=== PATIENT | male | born 1950 | race Caucasian/White ===

== ENCOUNTER 2017-12-31 15:48 | Emergency (ER) | payer MEDICARE, BC ==
[~2017-12-31] VITALS: Ht 190.5 cm; Wt 82.1 kg
--- OUTSIDE RECORDS SUMMARY | ~2017-12-31 | XMS | Encounter Summary ---
Demographics + + + | Address | [address] | | | [place] [address] | + + + | Home Phone | | + + + | Preferred Language | Unknown | + + + | Marital Status | Single | + + + | Latter Day Affiliation | CHR | + + + | Race | White | + + + | Ethnic Group | Not or | + + + Author + + + | Author | [facility] | + + + | Organization | [facility] | + + + | [...] Team Providers + +------+ + | Care Product Applications Engineer Name | Role | Phone | + +------+ + | Reji Morales MD | PCP | | + +------+ + Encounter Details +--------+ + + + + | Date | Type | Department | Care Team | Description | +--------+ + + + + | 10/11/ | Business System Manager | Urology at [facility] | [place], | Prostate cancer | | 2018 | | [address] | Adeel Stephens MD | ([facility]) (Primary Dx) | | | | Mail Code: CH10U | [address] | | | | | [facility] | [facility], | | | | | and Connie | [place] [address] | | | | | [place], [place] | [phone] | | | | | [address] | | | | | | [phone] | | | +--------+ + + + [...] + +---------+ + | Alcohol Use | Drinks/We | oz/Week | Comments | | | ek | | | + + +---------+ + | Yes | | 10.0 | | + + +---------+ + + + + | Sex Assigned at | Date Recorded | | | | + + + | Not on file | | + + + as of this encounter Plan of Treatment +--------+---------+ + + + | Date | Type | Specialty | Care Team | Description | +--------+---------+ + + + | 01/18/ | Office | Urology | Roxy Boykin, | | | 2018 | Visit | | CLAUDINE [address] [facility] | | | | | | [address] | | | | | | [place], [place] | | | | | | [address] | | | | | | [phone] | | | | | | | | +--------+---------+ + + + as of this encounter Results PATHOLOGY CONSULT - REVIEW OUTSIDE SLIDES (10/16/2017 10:22 AM) + + + + | Component | Value | Ref Range | + + + + | Clinical History | Not provided | | + + + + | Final Pathologic | A. Left base, core biopsies ([id number], | | | Diagnosis | 09.14.17, A): ? Prostatic glands and stroma | | | | with no diagnostic abnormality? Negative | | | | for malignancy B. Left mid, core biopsies | | | | ([id number], 09.14.17, B): ? Adenocarcinoma | | | | of the prostate gland, [place] grade 3+3? | | | | Tumor focus measures approx. 0.1 cm C. | | | | Left apex, core biopsies ([id number], | | | | 09.14.17, C): ? Adenocarcinoma of the | | | | prostate gland, Kim grade 3+3? Tumor | | | | focus measures approx. 0.1 cm D. Right | | | | base, core biopsies ([id number], 09.14.17, | | | | D): ? Adenocarcinoma of the prostate | | | | gland, [place] grade 3+3? Tumor focus | | | | measures approx. 0.5 cm E. Right mid, core | | | | biopsies([id number], 09.14.17, E): ? | | | | Adenocarcinoma of the prostate gland, | | | | [place] grade 4+3? Tumor focus measures | | | | approx. 1.0 cm? F. Right apex, core | | | | biopsies ([id number], 09.14.17, F): ? | | | | Adenocarcinoma of the prostate gland, | | | | Kim grade 4+4? Tumor focus measures | | | | approx. 0.3 cm Q. Left transitional zone, | | | | core biopsies ([id number], 09.14.17, Q): ? | | | | Prostatic glands and stroma with focal | | | | high-grade PIN? Negative for maligncy R. | | | | Right transitional zone, core biopsies | | | | ([id number], 09.14.17, R):? ? Prostatic | | | | glands and stroma with no diagnostic | | | | abnormality? Negative for malignancy | | | | Comment: Thank you for sharing this case, | | | | we completely concur with Dr. Del Castillo | | | | Agustina's diagnosis. Case seen by:Carlos | | | | MD Mary | | | | | | | | Pathology ResidentNima Peguero MD | | | | | | | | Pathologist My electronic signature | | | | indicates that I have personally reviewed | | | | all diagnostic slides, the gross and/or | | | | microscopic portion of this report and | | | | formulated the final diagnosis. | | | |Comment: Thank you for sharing this case, we completely concur with Dr Angelia Berrios's diagnosis. | | | | | | | |Case seen by: | | | |Carlos Hernandez MD Pathology Resident | | | |Nima Peguero MD Pathologist | | | | | | | | | | | |My electronic signature indicates that I have personally reviewed all diagnostic | | | |slides, the gross and/or microscopic portion of this report and formul ated the final diagnosis. | | | | | | + + + + | Materials Received | [facility] | | | | [place], [place] [id number] | | | | Accession Number: [id number] | | | | Collection Date: 09/14/2017 Sublabeled H&E | | | | A-F, Q, R 9 | | | |Sublabeled H&E | | | |A-F, Q, R 9 | | | | | | | | | | + + + + + + + | Specimen | Performing Laboratory | + + + | Slide-Block | [facility] DEPARTMENT OF PATHOLOGY [address] | | | [place], [place] [address] | + + + in this encounter Visit Diagnoses + + | Diagnosis | + + | Prostate cancer (HCC) - Primary | + + | Malignant neoplasm of prostate | + +"
--- OUTSIDE RECORDS SUMMARY | ~2017-12-31 | XMS | Encounter Summary ---
Demographics + + + | Address | [address] | | | [place] [address] | + + + | Home Phone | | + + + | Preferred Language | Unknown | + + + | Marital Status | Single | + + + | Jainism Affiliation | CHR | + + + | Race | White | + + + | Ethnic Group | Not or | + + + Author + + + | Author | [facility] | + + + | Organization | [facility] | + + + | Address [...] Team Providers + +------+ + | Care Type Photography Supervisor Name | Role | Phone | + +------+ + | Reji Morales MD | PCP | | + +------+ + Encounter Details +--------+ + + + + | Date | Type | Department | Care Team | Description | +--------+ + + + + | 11/30/ | Abstract | Urology at [facility] | [place], | | | 2018 | | [address] | Adeel Stephens MD | | | | | Mail Code: CH10U | [address] | | | | | [facility] | [facility], | | | | | and Healing, [address] | [place] [address] | | | | | Floor [place], [place] | [phone] | | | | | [address] | | | | | | [phone] | | | +--------+ + + + [...] | | 2018 | Visit | | [facility] [address] | | | | | | [address] | | | | | | [place], [place] | | | | | | [address] | | | | | | [phone] | | | | | | | | +--------+---------+ + + + as of this encounter Visit Diagnoses Not on filein this encounter"
--- OUTSIDE RECORDS SUMMARY | ~2017-12-31 | XMS | Encounter Summary ---
Demographics + + + | Address | [address] | | | [place] [address] | + + + | Home Phone | | + + + | Preferred Language | Unknown | + + + | Marital Status | Single | + + + | Caodaism Affiliation | CHR | + + + | Race | White | + + + | Ethnic Group | Not or | + + + Author + + + | Author | [facility] | + + + | Organization | [facility] | + + + | Address [...] Team Providers + +------+ + | Care Garbage Man Name | Role | Phone | + +------+ + | Reji Morales MD | PCP | | + +------+ + Encounter Details +--------+ + + + + | Date | Type | Department | Care Team | Description | +--------+ + + + + | 12/09/ | Pharmacy | Outpatient Retail | | | | 2017 | Visit | [facility] | | | | | | [address] | | | | | | [facility] | | | | | | [place], [place] | | | | | | [address] | | | +--------+ + + + [...] | | + + +---------+ + | No | | 10.0 | | + + [...] Urology | Roxy Boykin, | | | 2017 | Visit | | CLAUDINE [address] | | | | | | [address] | | | | | | [place], [place] | | | | | | [address] | | | | | | [phone] | | | | | | | | +--------+---------+ + + + as of this encounter Visit Diagnoses Not on filein this encounter"
--- OUTSIDE RECORDS SUMMARY | ~2017-12-31 | XMS | Encounter Summary ---
Demographics + + + | Address | [address] | | | [place] [address] | + + + | Home Phone | | + + + | Preferred Language | Unknown | + + + | Marital Status | Single | + + + | Sabianism Affiliation | CHR | + + + | Race | White | + + + | Ethnic Group | Not or | + + + Author + + + | Author | [facility] | + + + | Organization | [facility] | + + + | Address [...] Team Providers + +------+ + | Care Access Developer Name | Role | Phone | + +------+ + | Reji Morales MD | PCP | | + +------+ + Reason for Visit +---------+ + | Reason | Comments | +---------+ + | Post Op | | +---------+ + Encounter Details +--------+ + + + + | Date | Type | Department | Care Team | Description | +--------+ + + + + | 12/14/ | Telephone | Urology at [facility] | [place], | Post Op | | 2018 | | [address] | Adeel Stephens MD | | | | | Mail Code: CH10U | [address] | | | | | [facility] | [facility], | | | | | and Healing, | [place] [address] | | | | | Floor [place], [place] | [phone] | | | | | [address] | | | | | | [phone] | | | +--------+ + + + [...] 2017 | Visit | | CLAUDINE [address] [facility] | | | | | | [address] | | | | | | [place] | | | | | | [address] | | | | | | [phone] | | | | | | | | +--------+---------+ + + + as of this encounter Visit Diagnoses Not on filein this encounter"
--- OUTSIDE RECORDS SUMMARY | ~2017-12-31 | XMS | Encounter Summary ---
Demographics + + + | Address | [address] | | | [place] [address] | + + + | Home Phone | | + + + | Preferred Language | Unknown | + + + | Marital Status | Single | + + + | Anabaptism Affiliation | CHR | + + + | Race | White | + + + | Ethnic Group | Not or | + + + Author + + + | Author | [facility] | + + + | Organization | [facility] | + + + | [...] Team Providers + +------+ + | Care Shoe Stainer Name | Role | Phone | + [...] + + | 12/15/ | Emergency | [facility] Emergency | | | | 2017 | | Department [address] | | | | | | [address] | | | | | | [facility] | | | | | | [place] [address] | | | | | | [phone] | | | +--------+ + + + [...] + + + as of this encounter Medications at Time of Discharge + + +--------+---------+ + + | Medication | Sig. | Disp. | Refills | Start | End Date | | | | | | Date | | + + +--------+---------+ + + | amantadine HCl 100 | Take 1 tablet by | | 1 | 12/10/19 | | | mg oral tablet | mouth two times | | | 18 | | | | daily. | | | | | + + +--------+---------+ + + | carbidopa-levodopa | Take 1 tablet by | 120 | 11 | 09/17/19 | | | 25-100 mg oral | mouth four times | tablet | | 16 | | | tablet | daily. | | | | | + + +--------+---------+ + + | Enalapril Maleate | take 1 tablet (20mg) | | | | | | 20 mg [place] TABS | by oral route once | | | | | | | daily | | | | | + + +--------+---------+ + + | LORazepam 0.5 mg | Take 0.5 mg by mouth | | | | | | oral tablet | every four hours as | | | | | | | needed for anxiety. | | | | | + + +--------+---------+ + + | phytonadione 100 | Take 100 mcg by | | | | | | mcg oral tablet | mouth once daily. | | | | | + + +--------+---------+ + + | senna-docusate | Take 2 tablets by | 20 | 0 | 12/10/19 | | | 8.6-50 mg oral | mouth twice daily as | tablet | | 18 | | | tabletIndications: | needed. | | | | | | Malignant neoplasm | | | | | | | of prostate (HCC) | | | | | | + + +--------+---------+ + + | polyethylene | Mix 1 packet and | 15 | 0 | 12/14/19 | | | glycol (MIRALAX) 17 | take orally once | packet | | 18 | 8 | | gram oral powder in | daily for 15 days. | | | | | | packet | | | | | | + + +--------+---------+ + + as of this encounter Plan of Treatment +--------+---------+ + + + | Date | Type | Specialty | Care Team | Description | +--------+---------+ + + + | 01/18/ | Office | Urology | Roxy Boykin, | | | 2017 | Visit | | [address] | | | | | | [address] | | | | | | [place] | | | | | | [address] | | | | | | [phone] | | | | | | | | +--------+---------+ + + + as of this encounter Visit Diagnoses Not on filein this encounter"
--- OUTSIDE RECORDS SUMMARY | ~2017-12-31 | XMS | Encounter Summary ---
Demographics + + + | Address | [address] | | | [place] [address] | + + + | Home Phone | | + + + | Preferred Language | Unknown | + + + | Marital Status | Single | + + + | Gnosticist Affiliation | CHR | + + + [...] Team Providers + +------+ + | Care Lining Setter Name | Role | Phone | + [...] | cancer (HCC) | [address] | | | | | Procedures | [address] | | | | | REQUEST TO | [address] | | | | | SURGERY | [address] | [address] [place], | | | | | [facility] | [place], [place] | [place] | | | | | [place] | [address] | [address] | | | | | LAP,PROSTATE | Phone: | Phone: | | | | | CTOMY,RADICA | [phone] | [phone] | | | | | L,W/NERVE | Fax: | Fax: | | | | | [place] | [phone] | [phone] | | | | | LAP,PELVIC | [...] | 10/17/ | Telephone | Urology at [facility] | [place], | Surgery | | 2018 | | [address] | Adeel Stephens MD | | | | | Mail Code: CH10U | [address] | | | | | [facility] | [facility], | | | | | and Healing, [address] | [place] [address] | | | | | Floor [place], [place] | [phone] | | | | | [address] | | | | | | [phone] | | | +--------+ + + + [...] | 2017 | Visit | | CLAUDINE [address] [facility] | | | | | | [address] | | | | | | [place], [place] | | | | | | [address] | | | | | | [phone] | | | | | | | | +--------+---------+ + + + as of this encounter Visit Diagnoses + + | Diagnosis | + + | Prostate cancer (HCC) - Primary | + + | Malignant neoplasm of prostate | + +"
--- OUTSIDE RECORDS SUMMARY | ~2017-12-31 | XMS | Encounter Summary ---
Demographics + + + | Address | [address] | | | [place] [address] | + + + | Home Phone | | + + + | Preferred Language | Unknown | + + + | Marital Status | Single | + + + | Pentecostalism Affiliation | CHR | + + + | Race | White | + + + | Ethnic Group | Not or | + + + Author + + + | Author | [facility] | + + + | Organization | [facility] | + + + | Address [...] Team Providers + +------+ + | [employer] Crew Member Name | Role | Phone | + [...] + + | 12/08/ | Hospital | [facility] [address] | [place], | | | 2018 - | Encounter | [address] | Adeel Stephens MD | | | | | 12/[facility]31 [facility] | | | | 12/09/ | | [facility] [place], | | | | 2018 | | [place] [address] | | | | | | [phone] | | | +--------+ + + + [...] + + + as of this encounter Last Filed Vital Signs + + + + | Vital Sign | Reading | Time Taken | + + + + | Blood Pressure | 116/67 | 12/09/2017 12:13 PM PDT | + + + + | Pulse | 107 | 12/09/2017 12:13 PM PDT | + + + + | Temperature | 36.7 C (98.1 F) | 12/09/2017 12:13 PM PDT | + + + + | Respiratory Rate | 16 | 12/09/2017 8:32 AM PDT | + + + + | Oxygen Saturation | 94% | 12/09/2017 12:13 PM PDT | + + + + | Inhaled Oxygen | - | - | | Concentration | | | + + + + | Weight | 86 kg (189 lb 9.5 | 12/08/2017 10:21 AM PDT | | | oz) | | + + + + | Height | 190.5 cm (6' 3") | 12/08/2017 10:21 AM PDT | + + + + | Body Mass Index | 23.7 | 12/08/2017 10:21 AM PDT | + + + + in this encounter Medications at Time of [...] +--------+---------+ + + as of this encounter Progress Notes Nupur Bardales MD - 12/09/2017 10:14 AM PDTFormatting of this note may be different from kathy e original. Urology Progress Note Hospital Day: 1 Author: NUPUR BARDALES MD Attending Physician: Adeel Salas MD Patient: CHAUNCEY VICKERS [id number] 24H events/Subjective: BAKARI overnight. Pain is well [...] 0659 12/09/17 0700 - 12/10/17 0659 Shift 2543-1890 6860-9343 24 Hour Total 9642-3576 0963-6315 2210-8472 24 Hour Total I N T A K E [address] 879 1704 565 565 I.V. 538.8 1385 2723.8 375 [...] Salas MD. Nupur Bardales MD Urology Pager [phone] in this encounter Plan of Treatment +--------+---------+ + + + | Date | Type | Specialty | Care Team | Description | +--------+---------+ + + + | 01/18/ | Office | Urology | Roxy Boykin, | | | 2017 | Visit | | CLAUDINE [address] | | | | | | [address] | | | | | | [place], [place] | | | | | | [address] | | | | | | [phone] | | | | | | | | +--------+---------+ + + + as of this encounter Procedures + +--------+ + + + | Procedure Name | Priori | Date/Time | Associated Diagnosis | Comments | | | ty | | | | + +--------+ + + + | ROBOTIC-ASSISTED | Electi | 12/08/2017 | C61 (ICD-10-CM) - | | | RADICAL | ve | 11:45 AM | 185 (ICD-9-CM) - | | | PROSTATECTOMY WITH | Surgic | PDT | PROSTATE CANCER | | | BILATERAL PELVIC | al | | (HCC) | | | LYMPH NODE | | | | | | DISSECTION | | | | | + +--------+ + + + in this encounter Results CBC (HEMOGRAM) ONLY (12/09/2017 4:24 AM) + + + + | Component | Value | Ref Range | + + + + | WHITE CELL COUNT | 10.40 | 3.50 - 10.80 K/cu mm | + + + + | RED CELL COUNT | 4.10 (L) | 4.50 - 6.00 M/cu mm | + + + + | HEMOGLOBIN | 12.4 (L) | 13.5 - 17.5 g/dL | + + + + | HEMATOCRIT | 37.3 (L) | 41.0 - 53.0 % | + + + + | MCV | 91.0 | 80.0 - 96.0 fL | + + + + | MCHC | 33.2 | 33.0 - 35.5 g/dL | + + + + | RDW SD | 42.2 | 35.1 - 46.3 fL | + + + + | PLATELET COUNT | 194 | 150 - 400 K/cu mm | + + + + | MPV | 11.8 | 9.7 - 12.3 fL | + + + + | NRBC% | 0.0 | 0.0 - 0.3 % | + + + + | NRBC# | 0.00 | 0.00 - 0.02 K/cu mm | + + + + + + + | Specimen | Performing Laboratory | + + + | Blood | [facility], [facility] [address] | | | [place] [address] | + + + CBC ONLY (12/09/2017 4:24 AM) + + + | Specimen | Performing Laboratory | + + + | Blood | | + + + + + | Narrative | + + | The following orders were created for panel order CBC ONLY. | | Procedure | | Abnormality Status | | --------- | | ------ CBC (HEMOGRAM) | | ONLY[[id number]] Abnormal Final | | result Please view results for these tests on the | | individual orders. | + + BASIC METABOLIC SET (NA, K, CL, TCO2, BUN, CR, GLU, CA) (12/09/2017 4:24 AM) + +---------+ + | Component | Value | Ref Range | + +---------+ + | GLUCOSE, PLASMA | 90 | 70 - 99 mg/dL | | (LAB) | | | + +---------+ + | BUN, PLASMA (LAB) | 19 | 6 - 20 mg/dL | + +---------+ + | CREATININE PLASMA | 1.09 | 0.70 - 1.30 mg/dL | | (LAB) | | | + +---------+ + | EGFR - | >60 | >60 mL/min | | SWAZI | | | + +---------+ + | EGFR NON | >60 | >60 mL/min | | -SWAZI | | | + +---------+ + | SODIUM, PLASMA (LAB) | 138 | 136 - 145 mmol/L | + +---------+ + | POTASSIUM, PLASMA | 3.6 | 3.4 - 5.0 mmol/L | | (LAB) | | | + +---------+ + | CHLORIDE, PLASMA | 103 | 97 - 108 mmol/L | | (LAB) | | | + +---------+ + | TOTAL CO2, PLASMA | 26 | 21 - 32 mmol/L | | (LAB) | | | + +---------+ + | CALCIUM, PLASMA | 8.3 (L) | 8.6 - 10.2 mg/dL | | (LAB) | | | + +---------+ + | ANION GAP | 9 | 4 - 11 mmol/L | + +---------+ + | POTASSIUM CMNT | No Hemo | | + +---------+ + + + + | Specimen | Performing Laboratory | + + + | Blood | [facility] [address] | | | [place] [address] | + + + + + | Narrative | + + | Adult glucose reference range change effective 7-12-17. GFR is estimated using the | | MDRD equation recommended by the National Kidney Disease Education Program. | | Estimated GFR Interpretive Information: <60 mL/min/1.73 sq | | m Chronic Kidney Disease <15 mL/min/1.73 sq | | m Kidney Failure Estimated GFR greater that 60 mL/min/1.73 | | sq m is of limited clinical value. The MDRD equation is not valid in the following | | situations: - Patients under 18 years of age - Severe malnutrition or obesity - | | Vegetarian diet - Rapidly changing kidney function | + + CAPILLARY BLOOD GLUCOSE (NO CHG), POC (12/08/2017 4:13 PM) + +---------+ + | Component | Value | Ref Range | + +---------+ + | BLOOD GLUCOSE, POC | 102 (H) | 70 - 99 mg/dL | + +---------+ + + + + | Specimen | Performing Laboratory | + + + | | [facility] [address] | | | [place] [address] | + + + PROCEDURE NOTE (12/08/2017 3:33 PM) + + | Narrative | + + | John Connors MD 12/08/2017 4:03 PM UROLOGIC ONCOLOGY OPERATIVE REPORT | | Date: 12/08/2017 Attending Surgeon: Adeel Salas M.D., .A.C.S. | | [Dr. Salas was present and scrubbed for the entire operation.] Resident Surgeon: | | John Connors MD School Cook: Roxy Boykin PA-C Preoperative Diagnosis: | | Clinically-localized prostate cancer Postoperative Diagnosis: Clinically-localized | | prostate cancer Procedures Performed: (1) Robotic-assisted laparoscopic radical | | prostatectomy (anatomic; bilateral nerve-sparing) (2) Robotic-assisted laparoscopic | | pelvic lymph node dissection Anesthesia: General endotracheal tube anesthesia | | Estimated Blood Loss: 25ml Pathology Specimens: (1) Prostate and seminal | | vesicles (2) Pelvic lymph nodes Drains: 20F Kaur Catheter, 10ml | | Complications: There were no complications. Prior to the beginning of the | | procedure, the team paused to verify the patient | | | | s identity, the procedure to be performed (in accordance with the consent,) and the | | correct side/site. The patient was positioned appropriately. All relevant images and | | results were properly labeled and displayed. We addressed antibiotic prophylaxis and | | fluids for irrigation as applicable to this patient. Any safety precautions were | | addressed. Indications: Chauncey Vickers is a 67 y.o. man with Parkinson's | | disease and clinically localized prostate cancer. His most recent PSA is 5.67ng/dL. | | A biopsy demonstrated Montgomery grade 4+4, 4+3, and 3+3 adenocarcinoma in 5/8 cores. | | After extensive discussion of his treatment options, he has elected to proceed with | | robot-assisted radical prostatectomy. Operative Findings: An anatomic, | | bilateral nerve-sparing technique was used. Both nerve bundles were preserved. The | | urethral length and support were outstanding. A water-tight tension-free anastomosis | | was performed. There was no gross evidence of extraprostatic disease. There were no | | apparent complications. Procedure: The patient was brought to the operating room | | where a general anesthetic was administered. He was placed in the dorsal lithotomy | | position and prepped and draped in usual sterile fashion. The abdomen was insufflated | | with a Veress needle at the umbilicus, and trocars were placed in the standard | | configuration. The patient was placed in Trendelenburg position, and the da Alan Si | | surgical system was docked. Attachments between the sigmoid and the abdominal | | wall were sharply divided. We then dropped the bladder posteriorly. The anterior | | abdominal wall was incised lateral to the medial umbilical ligaments and the space | | between the bladder and the anterior abdominal wall was developed to the level of the | | endopelvic fascia. The vas deferens were transected to allow access to the obturator | | fossa which was developed bluntly. At this point, the lymph node dissection was | | performed. Lymph node packages were removed from the obturator and hypogastric | | locations on both the left and the right sides. Care was taken to use clips as | | necessary to control small lymphatic channels. Once the lymph node dissection was | | complete, the right and left node packages placed in separate endocatch bags and sent | | for pathologic analysis. Nu-knit hemostatic gauze was placed into the | | obturator/hypogastric to provide compression and hemostasis. At this point the | | loose fatty tissue on the anterior surface of the prostate and bladder was removed | | using blunt dissection and electrocautery. The endopelvic fascia was cleared of | | overlying fatty tissue. The endopelvic fascia was then opened on both sides, and the | | space between the prostate and the levator muscles was developed to the level of the | | prostatic apex. The dorsal venous complex was transected with an Endo-AIRAM | | stapling device. The prostate-bladder junction was then developed with the use of | | electrocautery and sharp dissection with preservation of bladder neck. The bladder | | neck was entered anteriorly and the posterior bladder neck and base of the bladder | | were visualized. A 4-0 Polysorb was used to elyssa the bladder neck mucosa. The | | prostate was lifted anteriorly, and the space between the posterior bladder wall and | | prostate was developed carefully to the level of the seminal vesicles and the vas | | deferens. The vas deferens was transected and the seminal vesicles were freed from | | fibroadipose attachments. Care was taken to avoid use of electrocautery lateral to the | | seminal vesicles. The space between the prostate and the rectum was then developed | | in an antegrade fashion to the level of the prostatic apex. Attention was now directed | | to the prostatic pedicles and neurovascular bundles. A bilateral nerve sparing | | procedure was performed. As such, the prostatic pedicles were controlled by | | placement of Hem-0-Justin clips followed by sharp, cold transection. The lateral | | prostatic fascia was incised to allow release of the neurovascular bundles. The space | | between the neurovascular bundle and prostate was first developed near the apex of the | | prostate followed by retrograde bundle release. Then, the prostate was lifted to | | allow antegrade displacement of the bundle from the lateral-posterior aspect of the | | prostate. Using sharp dissection, the apex of the prostate was then developed. The | | urethra was transected at this location assuring a thick, lengthy urethral stump. | | The prostate was placed into an Endocatch bag. The posterior fascia was | | re-approximated using a running 3-0 V-Loc suture according to the technique of Donovan | | et al. The vesicourethral anastomosis was then performed with a running 3-0 v-loc. | | A 20-German catheter was placed, and irrigation showed no extravasation. The robot | | was then undocked. The fascia of the 12mm special event assistant port was closed with 0-Vicryl | | using the Akash-Charles device. The prostate specimen was extracted through the | | supraumbilical port site, and the fascia at this location was closed with 0-Vicryl | | suture in a running fashion. The skin at the supraumbilical site was reapproximated | | with a 5-0 V-Loc suture in a running subcuticular fashion. Indermil skin adhesive | | was used to re-approximate the skin at the other trocar sites. The patient was | | extubated in the operating room and transported from the operating room to the | | recovery room in stable condition. Adeel Salas MD was present for | | the entire case. Modifier 82 justification: Yusra Boykin PA-C was scrubbed and | | acted as international first officer at the patient | | | | s bedside. The resident, Dr. 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 [employer] control console and | | did not perform international first officer duties on the robotic-assisted portions of the case. | | Post-op plan: - PACU then marie - keep Kaur - Diet as tolerated - AM labs - | | Scheduled Tylenol and Toradol, narcotics prn - Oxybutynin PRN for bladder spasms | | JOHN CONNORS MD Urology Chief Resident | + + SURGICAL PATHOLOGY (12/08/2017 12:51 PM) + + + + | Component | Value | Ref Range | + + + + | Clinical History | Bilateral prostatic adenocarcinoma, Montgomery | | | | 3+4 | | + + + + | Final Pathologic | A. Lymph nodes, right pelvic, dissection:- | | | Diagnosis | Eight lymph nodes, negative for malignancy | | | | (0/8) B. Lymph nodes, left pelvic, | | | | dissection:- Two lymph node, negative for | | | | malignancy (0/2) C. Prostate and seminal | | | | vesicles, radical prostatectomy:- Prostatic | | | | acinar adenocarcinoma, Montgomery score 3+4=7 | | | | (grade group 2)- Estimated percentage of | | | | prostate involved by tumor: 15%- No | | | | extraprostatic extension identified- | | | | Margins: uninvolved by invasive carcinoma- | | | | Pathologic Staging Summary (AJCC 8th | | | | edition): pT2 pN0- See synoptic report | | | | below for additional details Case seen | | | | by:Emiliana Kenny MD | | | | | | | | Pathology ResidentSung-Brianda Bethea MD - | | | | Pathologist My electronic signature | | | | indicates that I have personally reviewed | | | | all diagnostic slides, the gross and/or | | | | microscopic portion of this report and | | | | formulated the final diagnosis. | | + + + + | SYNOPTIC REPORTS | PROSTATE GLAND: Radical | | | | Prostatectomy (Prostate Res - All | | | | Specimens) SPECIMEN | | | | Procedure: Radical prostatectomy | | | | Prostate Size: | | | | Prostate Weight (g): 41 g | | | | Prostate Greatest Dimension in Centimeters | | | | (cm): 4.5 Centimeters (cm) | | | | Additional Dimension in Centimeters | | | | (cm): 4 Centimeters (cm) | | | | Additional Dimension in Centimeters | | | | (cm): 4 Centimeters (cm) TUMOR | | | | Histologic Type: Acinar | | | | adenocarcinoma Montgomery | | | | Pattern: Percentage of | | | | Pattern 4: 20 % Primary | | | | Montgomery Pattern: Pattern 3 | | | | Secondary Kim | | | | Pattern: Pattern 4 | | | | Tertiary Montgomery Pattern: Not | | | | applicable Total Montgomery | | | | Score: 7 Grade | | | | Group: 2 Intraductal Carcinoma | | | | (IDC): Not identified Tumor | | | | Quantitation: Estimated percentage | | | | of prostate involved by tumor: 15 % | | | | Extraprostatic Extension (EPE): Not | | | | identified Urinary Bladder Neck | | | | Invasion: Not identified | | | | Seminal Vesicle Invasion: Not | | | | identified Treatment | | | | Effect: No known presurgical therapy | | | | Lymphovascular | | | | Invasion: Not Identified | | | | Perineural Invasion: Present | | | | MARGINS Margins: Uninvolved by | | | | invasive carcinoma LYMPH NODES | | | | Regional Lymph Nodes: | | | | Number of Lymph Nodes Involved: 0 | | | | Number of Lymph Nodes | | | | Examined: 10 PATHOLOGIC STAGE | | | | CLASSIFICATION (pTNM, AJCC 8th Edition) | | | | Primary Tumor (pT): pT2 | | | | Regional Lymph Nodes (pN): pN0 | | | | ADDITIONAL FINDINGS Additional | | | | Pathologic Findings: High-grade | | | | prostatic intraepithelial neoplasia (PIN) | | + + + + | Gross Description | Received 3 specimens fresh labeled with the | | | | patient's name and medical record | | | | number [id number]. A. Right Pelvic Lymph | | | | Nodes, "right pelvic lymph nodes":Received | | | | is a banda-yellow fragment of fibroadipose | | | | tissue measuring 4.5 and 4.0 x 1.0 cm in. | | | | Several candidate lymph nodes are dissected | | | | from the tissue. The specimen is entirely | | | | submitted in cassettes A1 | | | | | | | | 3. B. Left Pelvic Lymph Nodes, "left | | | | pelvic lymph nodes":A banda-yellow fragment | | | | of fibroadipose tissue measuring 2.5 x 2.0 | | | | x 1.0 cm. Several candidate lymph nodes are | | | | dissected from the tissue. The specimen is | | | | entirely submitted in cassettes B1. C. | | | | Prostate and seminal vesicles, "prostate | | | | and seminal vesicles":Received is a 41 gram | | | | radical prostatectomy specimen that | | | | measures 4.5 cm right to left, 4.0 cm | | | | anterior to posterior, and 4.0 cm superior | | | | to inferior. The right seminal vesicle | | | | measures 2.5 x 1.5 x 0.5 cm and the left | | | | seminal vesicle measures 2.2 x 1.8 x 0.6 | | | | cm. The right vas measures 2.2 x 0.5 cm, | | | | and the left vas measures 2.0 x 0.5. The | | | | external surface of the prostate is | | | | roughened with a 2.5 cm anterior staple | | | | line. The right side of the prostate is | | | | inked in black, the left side in blue, and | | | | the anterior staple line is inked orange. | | | | The apex and base margins are removed and | | | | radially sectioned. The prostate is | | | | bisected and serially sectioned from apex | | | | to base revealing banda-yellow, vaguely | | | | nodular prostatic parenchyma that is | | | | diffusely dusky in the posterior apex. | | | | Alternate slices are submitted from apex to | | | | base. C1, right seminal vesicle to | | | | prostate and right vas margin en faceC2, | | | | left seminal vesicle to prostate and left | | | | vas margin en faceC3, base margin, radially | | | | sectionedC4, apex margin, radially | | | | sectionedC5 | | | | | | | | 9, right prostate submitted from apex to | | | | base, alternate sections C10 | | | | | | | | 14, left prostate submitted from apex to | | | | base, alternate sections BK | | + + + + + + + | Specimen | Performing Laboratory | + + + | Tissue - Abdominal | [facility] [address] [place] [address] | | | [place] [address] | + + + CAPILLARY BLOOD GLUCOSE (NO CHG), POC (12/08/2017 10:41 AM) + +-------+ + | Component | Value | Ref Range | + +-------+ + | BLOOD GLUCOSE, POC | 77 | 70 - 99 mg/dL | + +-------+ + + + + | Specimen | Performing Laboratory | + + + | | [facility] [address] | | | [place] [address] | + + + INTRAPROCEDURE IMAGING (12/08/2017 9:47 AM) + + | Narrative | + + | See admission or procedure notes for details of any intraprocedure images obtained. | + + CARDIOLOGY (12/08/2017)in this encounter Visit Diagnoses + + | Diagnosis | + + | Malignant neoplasm of prostate (HCC) - Primary | + + | Malignant neoplasm of prostate | + + Admitting Diagnoses + + | Diagnosis | + + | Malignant neoplasm of prostate - C61 (ICD-10-CM) - 185 (ICD-9-CM) - PROSTATE CANCER | | (HCC) | + + Administered Medications + +--------+ + +------+------+ | Medication Order | MAR | Action | Dose | Rate | Site | | | Action | Date | | | | + +--------+ + +------+------+ | acetaminophen (TYLENOL) tablet | Given | | 1,000 mg | | | | 1,000 mg 1,000 mg, oral, EVERY 6 | | 8 21:49 | | | | | HOURS, First dose on Mon12/08/17 | | PDT | | | | | at 1615, Until Discontinued | | | | | | + +--------+ + +------+------+ +-------+ + +---+---+ | Given | | 1,000 mg | | | | | 8 04:55 | | | | | | PDT | | | | +-------+ + +---+---+ | Given | | 1,000 mg | | | | | 8 08:34 | | | | | | PDT | | | | +-------+ + +---+---+ + +---+ | | | + +---+ | acetaminophen (TYLENOL) tablet | | | 1 dose, Starting Mon12/08/17 at | | | 1617, Until Mon12/08/17 at 1622 | | + +---+ | | | + +---+ + +-------+ +--------+---+---+ | amantadine HCl (SYMMETREL) | Given | | 100 mg | | | | capsule 100 mg 100 mg, oral, | | 8 21:50 | | | | | TWICE DAILY, First dose on Mon | | PDT | | | | | 12/08/17 at 2100, Until | | | | | | | Discontinued | | | | | | + +-------+ +--------+---+---+ +-------+ +--------+---+---+ | Given | | 100 mg | | | | | 8 08:34 | | | | | | PDT | | | | +-------+ +--------+---+---+ +---+---+ | | | +---+---+ + +-------+ + +---+---+ | carbidopa-levodopa (SINEMET) | Given | | 1 tablet | | | | 25-100 mg 1 tablet 1 tablet, | | 8 21:49 | | | | | oral, FOUR TIMES DAILY, First | | PDT | | | | | dose on Mon12/08/17 at 1800, | | | | | | | Until Discontinued | | | | | | + +-------+ + +---+---+ +-------+ + +---+---+ | Given | | 1 tablet | | | | | 8 08:34 | | | | | | PDT | | | | +-------+ + +---+---+ | Given | | 1 tablet | | | | | 8 13:25 | | | | | | PDT | | | | +-------+ + +---+---+ + +---+ | | | + +---+ | carbidopa-levodopa (SINEMET) | | | 25-100 mg 1 dose, Starting Fri | | | 12/08/17 at 1616, Until Fri | | | 12/08/17 at 1620 | | + +---+ | | | + +---+ + +-------+ +--------+---+---+ | fentaNYL (SUBLIMAZE) injection | Given | | 50 mcg | | | | 50 mcg 50 mcg, intravenous, | | 8 16:56 | | | | | POSTPROCEDURE PRN, 4 doses, | | PDT | | | | | Starting 12/08/17 at 1611, | | | | | | | Until 12/08/17 at 1844, severe | | | | | | | pain while in Phase I Recovery | | | | | | + +-------+ +--------+---+---+ +-------+ +--------+---+---+ | Given | | 50 mcg | | | | | 8 17:07 | | | | | | PDT | | | | +-------+ +--------+---+---+ +---+---+ | | | +---+---+ + +-------+ +-------+---+---+ | ketorolac (TORADOL) injection | Given | | 15 mg | | | | 15 mg 15 mg, intravenous, EVERY | | 8 01:14 | | | | | 6 HOURS, 6 doses, First dose on | | PDT | | | | | 12/08/17 at 1900, Last dose on | | | | | | | 12/10/17 at 0100 | | | | | | + +-------+ +-------+---+---+ +-------+ +-------+---+---+ | Given | | 15 mg | | | | | 8 06:33 | | | | | | PDT | | | | +-------+ +-------+---+---+ | Given | | 15 mg | | | | | 8 13:25 | | | | | | PDT | | | | +-------+ +-------+---+---+ +---+---+ | | | +---+---+ + + + +-------+-------+---+ | lactated Ringers IV 125 mL/hr, | Rate/Dos | | 125 | 125 | | | intravenous, CONTINUOUS, | e Verify | 8 02:22 | mL/hr | mL/hr | | | Starting 12/08/17 at 1615, | | PDT | | | | | Until 12/09/17 at 2140 | | | | | | + + + +-------+-------+---+ + + +-------+-------+---+ | Rate/Dose Verify | | 125 | 125 | | | | 8 06:35 | mL/hr | mL/hr | | | | PDT | | | | + + +-------+-------+---+ | Rate/Dose Verify | | 125 | 125 | | | | 8 09:00 | mL/hr | mL/hr | | | | PDT | | | | + + +-------+-------+---+ +---+---+ | | | +---+---+ + +-------+ +--------+---+---+ | LORazepam (ATIVAN) tablet 0.5 | Given | | 0.5 mg | | | | mg 0.5 mg, oral, EVERY 4 HOURS | | 8 21:50 | | | | | NEEDED, Starting Mon12/08/17 | | PDT | | | | | at 1529, Until 12/09/17 at | | | | | | | 2140, anxiety | | | | | | + +-------+ +--------+---+---+ +---+---+ | | | +---+---+ + +-------+ +-------+---+---+ | metoprolol tartrate (LOPRESSOR) | Given | | 50 mg | | | | tablet 50 mg 50 mg, oral, TWICE | | 8 21:50 | | | | | DAILY, First dose on Mon12/08/17 | | PDT | | | | | at 2100, Until Discontinued | | | | | | + +-------+ +-------+---+---+ +-------+ +-------+---+---+ | Given | | 50 mg | | | | | 8 08:34 | | | | | | PDT | | | | +-------+ +-------+---+---+ +---+---+ | | | +---+---+ + +-------+ +-------+---+---+ | omeprazole (PRILOSEC) capsule | Given | | 20 mg | | | | 20 mg 20 mg, oral, DAILY, First | | 8 19:37 | | | | | dose on Mon12/08/17 at 1715, | | PDT | | | | | Until Discontinued | | | | | | + +-------+ +-------+---+---+ +-------+ +-------+---+---+ | Given | | 20 mg | | | | | 8 08:34 | | | | | | PDT | | | | +-------+ +-------+---+---+ +---+---+ | | | +---+---+ + +-------+ +------+---+---+ | oxybutynin (DITROPAN) tablet 5 | Given | | 5 mg | | | | mg 5 mg, oral, THREE TIMES DAILY | | 8 16:21 | | | | | NEEDED, Starting 12/08/17 | | PDT | | | | | at 1603, Until 12/09/17 at | | | | | | | 2140, bladder spasms | | | | | | + +-------+ +------+---+---+ +-------+ +------+---+---+ | Given | | 5 mg | | | | | 8 21:50 | | | | | | PDT | | | | +-------+ +------+---+---+ | Given | | 5 mg | | | | | 8 05:29 | | | | | | PDT | | | | +-------+ +------+---+---+ + +---+ | | | + +---+ | oxybutynin (DITROPAN) tablet 1 | | | dose, Starting 12/08/17 at | | | 1616, Until Mon12/08/17 at 1621 | | + +---+ | | | + +---+ + +-------+ +------+---+---+ | oxyCODONE (immediate release) | Given | | 5 mg | | | | (ROXICODONE) tablet 5-15 mg 5-15 | | 8 05:29 | | | | | mg, oral, EVERY 3 HOURS | | PDT | | | | | NEEDED, Starting Mon12/08/17 at | | | | | | | 1603, Until 12/09/17 at 2140, | | | | | | | moderate pain | | | | | | + +-------+ +------+---+---+ +-------+ +------+---+---+ | Given | | 5 mg | | | | | 8 08:34 | | | | | | PDT | | | | +-------+ +------+---+---+ | Given | | 5 mg | | | | | 8 13:25 | | | | | | PDT | | | | +-------+ +------+---+---+ + +---+ | | | + +---+ | oxyCODONE (immediate release) | | | (ROXICODONE) tablet 1 dose, | | | Starting Mon12/08/17 at 1616, | | | Until Mon12/08/17 at 1621 | | + +---+ | | | + +---+ + +-------+ +------+---+---+ | polyethylene glycol (MIRALAX) | Given | | 17 g | | | | packet 17 g 17 g, oral, DAILY, | | 8 08:34 | | | | | First dose on Mon12/08/17 at | | PDT | | | | | 1900, Until Discontinued | | | | | | + +-------+ +------+---+---+ +---+---+ | | | +---+---+ + +-------+ +------+---+---+ | prochlorperazine (COMPAZINE) | Given | | 5 mg | | | | tablet 5-10 mg 5-10 mg, oral, | | 8 19:36 | | | | | EVERY 6 HOURS NEEDED, Starting | | PDT | | | | | 12/08/17 at 1855, Until Sat | | | | | | | 12/09/17 at 2140, nausea/vomiting, | | | | | | | second line | | | | | | + +-------+ +------+---+---+ +---+---+ | | | +---+---+ + +-------+ +---------+---+---+ | senna-docusate (SENOKOT S) | Given | | 2 | | | | 8.6-50 mg 2 tablet 2 tablet, | | 8 21:49 | tablets | | | | oral, TWICE DAILY, First dose on | | PDT | | | | | 12/08/17 at 2100, Until | | | | | | | Discontinued | | | | | | + +-------+ +---------+---+---+ +-------+ +---------+---+---+ | Given | 3/31/201 | 2 | | | | | 8 08:34 | tablets | | | | | PDT | | | | +-------+ +---------+---+---+ +---+---+ | | | +---+---+ in this encounter
--- OUTSIDE RECORDS SUMMARY | ~2017-12-31 | XMS | Encounter Summary ---
Demographics + + + | Address | [address] | | | [place] [address] | + + + | Home Phone [...] Author + + + | Author | [facility] | + + + | Organization | [facility] | + + + | [...] Team Providers + +------+ + | Care Electronics Scale Tester Name | Role | Phone | + [...] 12/08/ | Surgery | 6A Intra Op [facility] | Maritza, | ROBOTIC ASSISTED | | 2017 | | [facility] | Adeel Stephens MD | LAPAROSCOPIC RADICAL | | | | Admitting Desk | [address] | PROSTATECTOMY WITH | | | | Located on the | [facility], | BILATERAL PELVIC | | | | floor [address] [facility] | [place] [address] | LYMPH NODE | | | | [facility] | [phone] | DISSECTION | | | | [place], [place] | | | | | | [address] | | | +--------+---------+ + + + [...] this note may be different from kathy baez. Urology Progress Note Hospital Day: 1 Author: NUPUR BARDALES MD Attending Physician: Adeel Salas MD Patient: CHAUNCEY VICKERS [id number] 24H events/Subjective: BAKARI overnight. Pain is well [...] Min: 94 % Max: 100 % Date 12/08/171499 - 12/09/17 0612/09/17 0700 - 12/10/17 0659 Shift 4715-2054 5548-2413 24 Hour Total 8591-7894 1399-6952 8875-5643 24 Hour Total I N T A K E [address] 757 0425 565 565 I.V. 538.8 1385 2723.8 375 [...] Salas MD. Nupur Bardales MD Urology Pager [phone] in this encounter Plan of Treatment +--------+---------+ + + + | Date | Type | Specialty | Care Team | Description | +--------+---------+ + + + | 01/18/ | Office | Urology | Roxy Boykin, | | | 2017 | Visit | | CLAUDINE [address] [facility] | | | | | | [facility] | | | | | | [place], [place] | | | | | | [address] | | | | | | [phone] | | | | | | | [...] | + + + | Blood | [facility], CORE [address] | | | [place] [address] | + + + CBC ONLY (12/09/2017 4:24 AM) + + + | Specimen | Performing Laboratory | + + + | Blood | | + + + + + | Narrative | + + | The following orders were created for panel order CBC ONLY. | | Procedure | | Abnormality Status | | --------- | | ------ CBC (HEMOGRAM) | | ONLY[[id number]] Abnormal Final | | result Please view [...] | >60 | >60 mL/min | | [place] | | | + +---------+ + | EGFR NON | >60 | >60 mL/min | | -[place] | | | + +---------+ + | [...] | + + + | Blood | [facility], CORE [address] | | | [place] [address] | + + + + + | Narrative | + + | Adult glucose reference range change effective 7-17. GFR is estimated using the | | [...] | + + + | | [facility], POINT OF CARE TESTS [address] | | | [place] [address] | + + + PROCEDURE NOTE (12/08/2017 3:33 PM) + + | Narrative | + + | John Connors MD 12/08/2017 4:03 PM UROLOGIC ONCOLOGY OPERATIVE REPORT | | Date: 12/08/2017 Attending Surgeon: Adeel Salas M.D., F.A.C.S. | | [Dr. Salas was present and scrubbed for the entire operation.] Resident Surgeon: | | John Connors MD Sanforizing Machine Operator: Roxy Boykin PA-C Preoperative Diagnosis: | | [...] is 5.67ng/dL. | | A biopsy demonstrated Kim grade 4+4, 4+3, and 3+3 adenocarcinoma in [...] a running 3-0 v-loc. | | A 20-Trinidadian catheter was placed, and irrigation showed no extravasation. The robot | | was then undocked. The fascia of the 12mm social research assistant port was closed with 0-Vicryl | [...] was scrubbed and | | acted as pharmacy affairs assistant at the patient | | | | s bedside. The resident, Dr. 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 da Alan control console and | | did not perform pharmacy affairs assistant duties on the robotic-assisted portions of the [...] | Clinical History | Bilateral prostatic adenocarcinoma, Kmi | | | | 3+4 | | [...] Prostatic | | | | acinar adenocarcinoma, [place] score 3+4=7 | | | | (grade [...] Type: Acinar | | | | adenocarcinoma Kim | | | | Pattern: Percentage of | | | | Pattern 4: 20 % Primary | | | | [place] Pattern: Pattern 3 | | | | Secondary Kim | | | | Pattern: Pattern 4 | | | | Tertiary Kim Pattern: Not | | | | applicable Total Kim | | | | Score: 7 Grade [...] medical record | | | | number [id number]. A. Right Pelvic Lymph | | | [...] + + | Tissue - Abdominal | [facility] [address] [place] [address] | | | [place] [address] | + + + CAPILLARY BLOOD GLUCOSE (NO CHG), POC (12/08/2017 10:41 AM) + +-------+ + | Component | Value | Ref Range | + +-------+ + | BLOOD GLUCOSE, POC | 77 | 70 - 99 mg/dL | + +-------+ + + + + | Specimen | Performing Laboratory | + + + | | [facility], POINT OF CARE TESTS [address] | | | [place] [address] | + + + INTRAPROCEDURE IMAGING (12/08/2017 9:47 AM) + + | Narrative | + + | See admission or procedure notes for details of any intraprocedure images obtained. | + + CARDIOLOGY (12/08/2017)in this encounter Visit Diagnoses Not on filein this encounter Admitting Diagnoses + + | Diagnosis | [...] +---+---+ + +-------+ + +---+ + | opium-viviena (B&O 16-A) | Given | | 1 | | Other | | 16.2-60 mg suppository | | 8 15:59 | supposit | | (See | | INTRAPROCEDURE PRN, Starting Fri | | PDT | ory | | Comments | [...] +-------+ +---------+---+---+ +-------+ +---------+---+---+ | Given | 3//201 | 2 | | | | | 8 08:34 | tablets | | | | | PDT | | | | +-------+ +---------+---+---+ +---+---+ | | | +---+---+ in this encounter
--- OUTSIDE RECORDS SUMMARY | ~2017-12-31 | XMS | Encounter Summary ---
Demographics + + + | Address | [address] | | | [place] [address] | + + + | Home Phone | | + + + | Preferred Language | Unknown | + + + | Marital Status | Single | + + + | Episcopalian Affiliation | CHR | + + + | Race | White | + + + | Ethnic Group | Not or | + + + Author + + + | Author | [facility] | + + + | Organization | [facility] | + + + [...] Team Providers + +------+ + | Care Highway Maintenance Supervisor Name | Role | Phone | + +------+ + | Reji Morales MD | PCP | | + +------+ + Encounter Details +--------+ + + + + | Date | Type | Department | Care Team | Description | +--------+ + + + + | 11/30/ | Abstract | Urology at [facility] | Marit[place], | | | 2018 | | [address] | Adeel Stephens MD | | | | | Mail Code: CH10U | [address] | | | | | [facility] | [facility], | | | | | and Healing, [address]th | [place] [address] | | | | | Floor [place], [place] | [phone] | | | | | [address] | | | | | | [phone] | | | +--------+ + + + [...] | 2018 | Visit | | HETAL-Myles [address] | | | | | | [address] | | | | | | [place], [place] | | | | | | [address] | | | | | | [phone] | | | | | | | | +--------+---------+ + + + as of this encounter Visit Diagnoses Not on filein this encounter"
--- OUTSIDE RECORDS SUMMARY | ~2017-12-31 | XMS | Encounter Summary ---
Demographics + + + | Address | [address] | | | [place] [address] | + + + | Home Phone | | + + + | Preferred Language | Unknown | + + + | Marital Status | Single | + + + | Congregation Affiliation | CHR | + + + | Race | White | + + + | Ethnic Group | Not or | + + + Author + + + | Author | [facility] | + + + | Organization | [facility] | + + + | [...] Team Providers + +------+ + | Care Yeast Culture Developer Name | Role | Phone | [...] + + | 12/15/ | Emergency | [facility] | | | | 2017 | | Department [address] | | | | | | [address] | | | | | | [facility] | | | | | | [place] [address] | | | | | | [phone] | | | +--------+ + + + [...] Rd | | | | | | [place] | | | | | | [address] | | | | | | [phone] | | | | | | | | +--------+---------+ + + + as of this encounter Visit Diagnoses Not on filein this encounter"
--- OUTSIDE RECORDS SUMMARY | ~2017-12-31 | XMS | Encounter Summary ---
Demographics + + + | Address | [address] | | | [place] [address] | + + + | Home Phone | | + + + | Preferred Language | Unknown | + + + | Marital Status | Single | + + + | Jew Affiliation | CHR | + + + [...] Team Providers + +------+ + | Care Sand Technician Name | Role | Phone | + +------+ + | Reji Morales MD | PCP | | + +------+ + Encounter Details +--------+ + + + + | Date | Type | Department | Care Team | Description | +--------+ + + + + | 12/08/ | Procedure | 6A Intra Op [facility] | | | | 2017 | Pass | [facility] | | | | | | Admitting Desk | | | | | | Located on the 9th | | | | | | floor [address] [facility] | | | | | | [facility] | | | | | | [place], [place] | | | | | | [address] | | | +--------+ + + + [...] | 2017 | Visit | | CLAUDINE [address] | | | | | | [address] | | | | | | [place], [place] | | | | | | [address] | | | | | | [phone] | | | | | | | | +--------+---------+ + + + as of this encounter Visit Diagnoses Not on filein this encounter"
--- OUTSIDE RECORDS SUMMARY | ~2017-12-31 | XMS | Encounter Summary ---
Demographics + + + | Address | [address] | | | [place] [address] | + + + | Home Phone [...] Team Providers + +------+ + | Care Canvas Shrinker Name | Role | Phone | + [...] 12/08/ | Anesthesia | 6A Intra Op [facility] | Michael Wagoner, | | | 2017 | Event | [facility] | FLOOR INSTALLATION MECHANIC [address] [facility] | | | | | Admitting Desk | [facility] | | | | | Located on the 9 | [place], [place] | | | | | [address] | [address] | | | | | [facility] | [phone] | | | | | [place], [place] | | | | | | [address] | | | +--------+ + + + + Anesthesia Record + + + + + | Procedure Name | Responsible | Anesthesia Start | Anesthesia Stop Time | | | Anesthesiologist | Time | | + + + + + | ROBOTIC-ASSISTED | Camille Luu MD | 12/08/17 1156 | 12/08/17 1610 | | RADICAL | | | | | PROSTATECTOMY [...] +----+---+ + + | | 1 | Pause | | | | 2 | | | | | 3 | | | | | 1 | | | +----+---+ + + | | 1 | Incision | | | | 2 | | | | | 3 | | | | | 2 | | | +----+---+ + + | | 1 | Quick Note | Mikhail Lacloud | | | 2 | | | [...] | + + + + + | No agents on file. | + + + + | No blood administrations on file. | + + +--------+ + + + | Type | Details | Placement | Removal | +--------+ + + + | Urethr | 12/08/17; 1230; Elli Connors MD; | 12/08/17 1230 by | | | al | Natasha; 20 Fr.; 10 mL | Ramón Rondon, RN | | | Cathet | | [...] 12/09/17 1300 by | | francisco | Hand; 20 g; None; Positive; | Bashir Mckeon RN | Karly Romero RN | | IV | 12/09/17; 1300; Per order | | | +--------+ + + + | Periph | 12/08/17; 1210; Clinic Staff; | 12/08/17 1210 by | 12/09/17 1300 by | | francisco | LARISSA; Left; Hand; 18 g; 12/09/17; | Michael Wagoner CRNA | Karly Romero RN | | IV | 1300; Per order | | | +--------+ + + + in this encounter Social History + +-------+ [...] | 2018 | Visit | | CLAUDINE [address] [facility] | | | | | | [address] | | | | | | [place], [place] | | | | | | [address] | | | | | | [phone] | | | | | | | | +--------+---------+ + + + as of this encounter Results ANE ETT (12/08/2017 7:19 PM) + + | Narrative | + + | Michael Wagoner CRNA 12/08/2017 12:20 PM Procedure Reason for Intubation: | | For surgical procedure, Location Performed: [place] , Patient was preoxygenated Mask | | Ventilation Grade 1 - Ventilated by mask Intubation Blade type: Gus Leigh | | size: 2, Atraumatic laryngoscopy: Atraumatic Laryngoscopy, Laryngoscopic view: Grade | | I, Number of Attempts: 1, Positive for EtCO2: Yes, Breath sounds: Bilateral and equal | | ETT Ett Adult: Single-lumen cuffed ETT Size: 7.5 ETT secured with: adhesive | | tape Depth at Lip: 23 Cm Narrative Attending physically present | | | + + in this encounter Visit Diagnoses Not on filein this encounter Administered Medications + +--------+ +------+------+------+ | Medication Order | MAR | Action | Dose | Rate | Site | | | Action | Date | | | | + +--------+ +------+------+------+ | ceFAZolin (ANCEF) injection 2 g | Given | 12/08/ | 2 g | | | | 2 g, intravenous, PREPROCEDURE | | 8 12:29 | | | | | ONCE, 1 dose, Starting Fri | | PDT | | | | | 12/08/17 at 0947, Until Fri | | | | | | | 12/08/17 at 1229 | | | | | | + +--------+ +------+------+------+ +---+---+ | | | +---+---+ + +-------+ +--------+---+---+ | fentaNYL citrate (PF) | Given | | 50 mcg | | | | (SUBLIMAZE) injection | | 8 12:39 | | | | | INTRAPROCEDURE PRN, Starting Fri | | PDT | | | | | 12/08/17 at 1200, Until | | | | | | | Discontinued | | | | | | + +-------+ +--------+---+---+ +-------+ +--------+---+---+ | Given | | 50 mcg | | | | | 8 12:45 | | | | | | PDT | | | | +-------+ +--------+---+---+ | Given | | 50 mcg | | | | | 8 15:35 | | | | | | PDT | | | | +-------+ +--------+---+---+ +---+---+ | | | +---+---+ + +-------+ +--------+---+---+ | glycopyrrolate (ROBINUL) | Given | | 0.2 mg | | | | injection INTRAPROCEDURE PRN, | | 8 12:37 | | | | | Starting 12/08/17 at 1237, | | PDT | | | | | Until Discontinued | | | | | | + +-------+ +--------+---+---+ +-------+ +--------+---+---+ | Given | | 0.3 mg | | | | | 8 15:36 | | | | | | PDT | | | | +-------+ +--------+---+---+ | Given | | 0.2 mg | | | | | 8 15:38 | | | | | | PDT | | | | +-------+ +--------+---+---+ +---+---+ | | | +---+---+ + +-------+ +-------+---+---+ | ketorolac (TORADOL) injection | Given | | 15 mg | | | | INTRAPROCEDURE PRN, Starting Fri | | 8 15:37 | | | | | 12/08/17 at 1537, Until Fri | | PDT | | | | | 12/08/17 at 1604 | | | | | | + +-------+ +-------+---+---+ +---+---+ | | | +---+---+ + +---------+ +---+---+---+ | lactated Ringers IV 10 mL/hr, | New Bag | | | | | | intravenous, PROCEDURE | | 8 11:10 | | | | | CONTINUOUS, Starting Mon12/08/17 | | PDT | | | | | at 1000, Until Mon12/08/17 at | | | | | | | 1844 | | | | | | + +---------+ +---+---+---+ + + +---+---+---+ | given by anesthesiology | | | | | | | 8 14:37 | | | | | | PDT | | | | + + +---+---+---+ | New Bag | | | | | | | 8 15:37 | | | | | | PDT | | | | + + +---+---+---+ +---+---+ | | | +---+---+ + +-------+ +-------+---+---+ | lidocaine (XYLOCAINE MPF) 2 % | Given | | 60 mg | | | | (20 mg/mL) injection | | 8 12:04 | | | | | INTRAPROCEDURE PRN, Starting Fri | | PDT | | | | | 12/08/17 at 1204, Until | | | | | | | Discontinued | | | | | | + +-------+ +-------+---+---+ +---+---+ | | | +---+---+ + +-------+ +--------+---+---+ | neostigmine (PROSTIGMIN) | Given | | 1.5 mg | | | | injection intravenous, | | 8 15:36 | | | | | INTRAPROCEDURE PRN, Starting Fri | | PDT | | | | | 12/08/17 at 1536, Until Fri | | | | | | | 12/08/17 at 1604 | | | | | | + +-------+ +--------+---+---+ +-------+ +------+---+---+ | Given | | 1 mg | | | | | 8 15:38 | | | | | | PDT | | | | +-------+ +------+---+---+ +---+---+ | | | +---+---+ + +-------+ +------+---+---+ | ondansetron (ZOFRAN) injection | Given | | 4 mg | | | | INTRAPROCEDURE PRN, Starting Fri | | 8 15:02 | | | | | 12/08/17 at 1502, Until Fri | | PDT | | | | | 12/08/17 at 1604 | | | | | | + +-------+ +------+---+---+ +---+---+ | | | +---+---+ + +-------+ +--------+---+---+ | propofol INTRAPROCEDURE PRN, | Given | | 140 mg | | | | Starting 12/08/17 at 1204, | | 8 12:04 | | | | | Until Discontinued | | PDT | | | | + +-------+ +--------+---+---+ +-------+ +-------+---+---+ | Given | | 60 mg | | | | | 8 15:41 | | | | | | PDT | | | | +-------+ +-------+---+---+ +---+---+ | | | +---+---+ + +-------+ +-------+---+---+ | rocuronium (ZEMURON) injection | Given | | 60 mg | | | | INTRAPROCEDURE PRN, Starting Fri | | 8 12:04 | | | | | 12/08/17 at 1204, Until | | PDT | | | | | Discontinued | | | | | | + +-------+ +-------+---+---+ +-------+ +-------+---+---+ | Given | | 30 mg | | | | | 8 12:33 | | | | | | PDT | | | | +-------+ +-------+---+---+ | Given | | 15 mg | | | | | 8 14:39 | | | | | | PDT | | | | +-------+ +-------+---+---+ +---+---+ | | | +---+---+ in this encounter"
--- OUTSIDE RECORDS SUMMARY | ~2017-12-31 | XMS | Encounter Summary ---
Demographics + + + | Address | [address] | | | [place] [address] | + + + | Home Phone [...] Team Providers + +------+ + | Care Event Decorator Name | Role | Phone | + [...] Diagnostic Imaging | Yi, | | | 2017 | Encounter | Services [address] | Adeel Stephens MD | | | | | [address] | [address] | | | | | [address] [place], [place] | Yusra Abad [place], | | | | | [address] | [place] [address] | | | | | | [phone] | | | | | | | [...] 2017 | Visit | | CLAUDINE [address] [facility] | | | | | | [address] | | | | | | [place], [place] | | | | | | [address] | | | | | | [phone] | | | | | | | | +--------+---------+ + + + as of this encounter Visit Diagnoses Not on filein this encounter"
--- OUTSIDE RECORDS SUMMARY | ~2017-12-31 | XMS | Encounter Summary ---
Demographics + + + | Address | [address] | | | [place] [address] | + + + | Home Phone | | + + + | Preferred Language | Unknown | + + + | Marital Status | Single | + + + | Restorationist Affiliation | CHR | + + + | Race | White | + + + | Ethnic Group | Not or | + + + Author + + + | Author | [facility] | + + + | Organization | [facility] | + + + | [...] Team Providers + +------+ + | Care Cleaning Handyman Name | Role | Phone | + +------+ + | Reji Morales MD | PCP | | + +------+ + Encounter Details +--------+ + + + + | Date | Type | Department | Care Team | Description | +--------+ + + + + | 12/06/ | Abstract | Urology at [facility] | Roxy Boykin, | | | 2017 | | [address] | CLAUDINE [address] [facility] | | | | | Mail Code: CH10U | [address] | | | | | [facility] | [place], [place] | | | | | and Healing, [address]th | [address] | | | | | Floor [place], [place] | [phone] | | | | | [address] | | | | | | [phone] | | | +--------+ + + + [...] | | 2017 | Visit | | HETAL-Myles [address] [facility] | | | | | | [address] | | | | | | [place], [place] | | | | | | [address] | | | | | | [phone] | | | | | | | | +--------+---------+ + + + as of this encounter Visit Diagnoses Not on filein this encounter"
--- OUTSIDE RECORDS SUMMARY | ~2017-12-31 | XMS | Encounter Summary ---
Demographics + + + | Address | [address] | | | [place] [address] | + + + | Home Phone [...] Team Providers + +------+ + | Care Labor Employment Associate Name | Role | Phone | + [...] | 12/18/ | Telephone | Urology at [facility] | Roxy Boykin, | Pathology Report | | 2018 | | [address] | CLAUDINE [address] [facility] | | | | | Mail Code: CH10U | [address] [facility] | | | | | [facility] | [place], [place] | | | | | and [place], | [address] | | | | | Floor [place], [place] | [phone] | | | | | [address] | | | | | | [phone] | | | +--------+ + + + [...] [place] | | | | | | [address] | | | | | | [phone] | | | | | | | | +--------+---------+ + + + as of this encounter Visit Diagnoses Not on filein this encounter"
--- OUTSIDE RECORDS SUMMARY | ~2017-12-31 | XMS | Encounter Summary ---
Demographics + + + | Address | [address] | | | [place] [address] | + + + | Home Phone [...] Team Providers + +------+ + | Care Freelance Writer Name | Role | Phone | + +------+ + | Reji Morales MD | PCP | | + +------+ + Reason for Visit + + + | Reason | Comments | + + + | SOB - Shortness of | | | breath | | + + + AUTH/CERT +--------+--------+ + + + + | [...] | +--------+ + + + + | 12/12/ | Hospital | [address] | [place], | | | 2018 - | Encounter | [address] | MD Adarsh Whitten | | | | | [facility] | [address] | | | 12/13/ | | [place] [address] | [place], [place] | | | 2018 | | [phone] | [address] | | | | | | [phone] | | | | | | | | | | | | Stacia Schmidt, | | | | | | MD Salas, | | | | | | Adeel Stephens MD | | | | | | [address] | | | | | | Cecelia Abad [place], | | | | | | [place] [address] | | | | | | [phone] | | | | | | | [...] + + + | Blood Pressure | 133/91 | 12/13/2017 2:39 PM PDT | + + + + | Pulse | 64 | 12/13/2017 8:00 AM PDT | + [...] + as of this encounter Progress Notes Marta Martin, KALI - 12/13/2017 7:59 AM PDTActing as scribe for the UR Committee Physician connor nunez. The primary medical team for this patient and the [facility] UR Committee have agreed after furth er study that an inpatient admission was not medically necessary. This hospital stay is con verted to an outpatient stay through use of Medicare Condition Code 44. The patient was not ified of this change in writing. The providers involved in this decision were: For patient s primary medical team: Adeel Salas MD For [facility] UR Committee: Lesia Blanchard MD in this encounter Plan of Treatment +--------+---------+ + + + | Date | Type | Specialty | Care Team | Description | +--------+---------+ + + + | 01/18/ | Office | Urology | Roxy Boykin, | | | 2017 | Visit | | [facility] [facility] | | | | | | [address] | | | | | | [place], [place] | | | | | | [address] | | | | | | [phone] | | | | | | | | +--------+---------+ + + + as of this encounter Results X-RAY ABDOMEN 1 VIEW (12/12/2017 10:47 AM) + + + | Specimen | Performing Laboratory | + + + | | [facility] RADIOLOGY VOICE RECOGNITION | + + + + + | Narrative | + + | EXAM: ABDOMEN 1 VIEW HISTORY: Abdominal pain COMPARISON: None | | FINDINGS: Diffuse dilatation of the small bowel and colon identified. Loops of | | colon measure up to 10.1 cm most notable in the transverse colon. The cecum is also | | distended measuring up to 11.9 cm. There is some gas within the pelvis, however not as | | distended as the remaining small bowel and colon. IMPRESSION: Findings likely | | representing ileus versus developing large bowel obstruction. CT may be helpful for | | further interpretation. END IMPRESSION I have personally reviewed the images | | and, if necessary, edited the report. I agree with the report as now presented. | + + + + | Procedure Note | + + | Service Account, QA on Request In Interface - 12/12/2017 10:53 AM PDT EXAM: ABDOMEN 1 | | VIEWHISTORY: Abdominal painCOMPARISON: NoneFINDINGS: Diffuse dilatation of the small | | bowel and colon identified. Loops of colon measure up to 10.1 cm most notable in the | | transverse colon. The cecum is also distended measuring up to 11.9 cm. There is some gas | | within the pelvis, however not as distended as the remaining small bowel and | | colon.IMPRESSION:Findings likely representing ileus versus developing large bowel | | obstruction. CT may be helpful for further interpretation.END IMPRESSIONI have | | personally reviewed the images and, if necessary, edited the report. I agree with the | | report as now presented. | | | |IMPRESSION: | | | |Findings likely representing ileus versus developing large bowel obstruction. CT may be hel pful for further interpretation. | | | |END IMPRESSION | | | | | |I have personally reviewed the images and, if necessary, edited the report. I agree with t he report as now presented. | + + CBC AND AUTO DIFF (12/12/2017 9:23 AM) + + + + | Component | Value | Ref Range | + + + + | WHITE CELL COUNT | 10.86 (H) | 3.50 - 10.80 K/cu mm | + + + + | RED CELL COUNT | 4.18 (L) | 4.50 - 6.00 M/cu mm | + + + + | HEMOGLOBIN | 12.7 (L) | 13.5 - 17.5 g/dL | + + + + | HEMATOCRIT | 37.2 (L) | 41.0 - 53.0 % | + + + + | MCV | 89.0 | 80.0 - 96.0 fL | + + + + | MCHC | 34.1 | 33.0 - 35.5 g/dL | + + + + | RDW SD | 41.8 | 35.1 - 46.3 fL | + + + + | PLATELET COUNT | 234 | 150 - 400 K/cu mm | + + + + | MPV | 11.3 | 9.7 - 12.3 fL | + + + + | NRBC% | 0.0 | 0.0 - 0.3 % | + + + + | NRBC# | 0.00 | 0.00 - 0.02 K/cu mm | + + + + | NEUTROPHIL % | 63.1 | 50.0 - 70.0 % | + + + + | LYMPHOCYTE % | 26.1 | 18.0 - 42.0 % | + + + + | MONOCYTE % | 8.5 | 3.5 - 9.0 % | + + + + | EOS % | 1.7 | 1.0 - 3.0 % | + + + + | BASO % | 0.3 | 0.0 - 2.0 % | + + + + | IG% | 0.3Comment: Increased immature granulocytes | 0.0 - 1.0 % | | | (IG) define a left shift. Immature | | | | granulocytes (IG) are an automated count of | | | | metamyelocytes, myelocytes and | | | | promyelocytes. Bands are not included in | | | | the IG count. Bands are included in the | | | | neutrophil count. | | + + + + | NEUTROPHIL # | 6.86 | 1.80 - 7.70 K/cu mm | + + + + | LYMPHOCYTE # | 2.83 | 1.00 - 4.80 K/cu mm | + + + + | MONOCYTE # | 0.92 (H) | 0.10 - 0.90 K/cu mm | + + + + | EOS # | 0.19 | 0.00 - 0.50 K/cu mm | + + + + | BASO # | 0.03 | 0.00 - 0.10 K/cu mm | + + + + | IG# | 0.03 | 0.00 - 0.10 K/cu mm | + + + + + + + | Specimen | Performing Laboratory | + + + | Blood | [facility], [address]ORE [address] | | | [place] [address] | + + + + + | Narrative | + + | New reference ranges for IG% and IG# effective 10/01/2017. Increased immature | | granulocytes (IG) define a left shift. Immature granulocytes (IG) are an automated count | | of metamyelocytes, myelocytes and promyelocytes. Bands are not included in the IG | | count. Bands are included in the neutrophil count. | + + INR (12/12/2017 9:23 AM) + +-------+ + | Component | Value | Ref Range | + +-------+ + | INR | 1.14 | 0.90 - 1.20 INR | + +-------+ + + + + | Specimen | Performing Laboratory | + + + | Blood | [facility] [address] | | | [place] [address] | + + + + + | Narrative | + + | INR Therapeutic ranges for full anticoagulation: INR for Venous | | Thromboembolism (2.0 - 3.0) INR INR for most patients with | | mech. valves (2.5 - 3.5) INR | + + CBC, WITH DIFFERENTIAL (12/12/2017 9:23 AM) + + + | Specimen | Performing Laboratory | + + + | Blood | | + + + + + | Narrative | + + | The following orders were created for panel order CBC, WITH DIFFERENTIAL. | | Procedure | | Abnormality Status | | --------- | | ------ CBC AND AUTO | | DIFF[[id number]] Abnormal Final | | result Please view results for these tests on the | | individual orders. | + + MAGNESIUM, PLASMA (12/12/2017 9:23 AM) + +-------+ + | Component | Value | Ref Range | + +-------+ + | MAGNESIUM,PLASMA | 2.0 | 1.6 - 2.6 mg/dL | + +-------+ + + + + | Specimen | Performing Laboratory | + + + | Blood | [facility], [address] | | | [place] [address] | + + + + + | Narrative | + + | Reference range change effective 04/25/17. | + + COMPLETE METABOLIC SET (NA,K,CL,CO2,BUN,CREAT,GLUC,CA,AST,ALT,BILI TOTAL,ALK PHOS,ALB,PROT TOTAL) (12/12/2017 9:23 AM) + +---------+ + | Component | Value | Ref Range | + +---------+ + | GLUCOSE, PLASMA | 100 (H) | 70 - 99 mg/dL | | (LAB) | | | + +---------+ + | BUN, PLASMA (LAB) | 22 (H) | 6 - 20 mg/dL | + +---------+ + | CREATININE PLASMA | 1.17 | 0.70 - 1.30 mg/dL | | (LAB) | | | + +---------+ + | EGFR - | >60 | >60 mL/min | | AFGHAN | | | + +---------+ + | EGFR NON | >60 | >60 mL/min | | -AFGHAN | | | + +---------+ + | SODIUM, PLASMA (LAB) | 139 | 136 - 145 mmol/L | + +---------+ + | POTASSIUM, PLASMA | 3.2 (L) | 3.4 - 5.0 mmol/L | | (LAB) | | | + +---------+ + | CHLORIDE, PLASMA | 102 | 97 - 108 mmol/L | | (LAB) | | | + +---------+ + | TOTAL CO2, PLASMA | 26 | 21 - 32 mmol/L | | (LAB) | | | + +---------+ + | CALCIUM, PLASMA | 8.7 | 8.6 - 10.2 mg/dL | | (LAB) | | | + +---------+ + | CALCIUM(ALB | 9.3 | 8.6 - 10.2 mg/dL | | CORRECTED) | | | + +---------+ + | BILIRUBIN TOTAL | 2.0 (H) | 0.3 - 1.2 mg/dL | + +---------+ + | TOTAL PROTEIN, | 6.6 | 6.4 - 8.2 g/dL | | PLASMA (LAB) | | | + +---------+ + | ALBUMIN, PLASMA | 3.3 (L) | 3.5 - 4.7 g/dL | | (LAB) | | | + +---------+ + | ALK PHOS | 51 (L) | 56 - 119 U/L | + +---------+ + | AST(SGOT) | 17 | <=41 U/L | + +---------+ + | ALT (SGPT) | 15 | <=60 U/L | + +---------+ + | ANION GAP | 11 | 4 - 11 mmol/L | + +---------+ + | ANION GAP(ALB | 12 (H) | 4 - 11 mmol/L | | CORRECTED) | | | + +---------+ + | POTASSIUM CMNT | No Hemo | | + +---------+ + | BILI T CMNT | No Hemo | | + +---------+ + | AST CMNT | No Hemo | | + +---------+ + + + + | Specimen | Performing Laboratory | + + + | Blood | [facility], [address]ORE [address] | | | [place] [address] | + + + + + | [...] Rapidly changing kidney function | + + in this encounter Visit Diagnoses + + | Diagnosis | + + | Pneumomediastinum (HCC) - Primary | + + | Interstitial emphysema | + + | Prostate cancer (HCC) | + + | Malignant neoplasm of prostate | + + | Dehydration | + + | Other dysphagia | + + Admitting Diagnoses + + | Diagnosis | + + | SHORTNESS OF BREATH | + + Administered Medications + +--------+ + +------+------+ | Medication Order | MAR | Action | Dose | Rate | Site | | | Action | Date | | | | + +--------+ + +------+------+ | acetaminophen (TYLENOL) tablet | Given | 12/12/2017 | 1,000 mg | | | | 1,000 mg 1,000 mg, oral, THREE | | 16:14 | | | | | TIMES DAILY, First dose on Mon | | PDT | | | | | 12/12/17 at 0915, Until | | | | | | | Discontinued | | | | | | + +--------+ + +------+------+ +-------+ + +---+---+ | Given | 12/12/2017 | 1,000 mg | | | | | 22:05 | | | | | | PDT | | | | +-------+ + +---+---+ | Given | 12/13/2017 | 1,000 mg | | | | | 09:02 | | | | | | PDT | | | | +-------+ + +---+---+ +---+---+ | | | +---+---+ + +-------+ +--------+---+---+ | amantadine HCl (SYMMETREL) | Given | 12/12/2017 | 100 mg | | | | capsule 100 mg 100 mg, oral, | | 10:22 | | | | | TWICE DAILY, First dose on Mon | | PDT | | | | | 12/12/17 at 0900, Until | | | | | | | Discontinued | | | | | | + +-------+ +--------+---+---+ +-------+ +--------+---+---+ | Given | 12/12/2017 | 100 mg | | | | | 22:05 | | | | | | PDT | | | | +-------+ +--------+---+---+ | Given | 12/13/2017 | 100 mg | | | | | 09:06 | | | | | | PDT | | | | +-------+ +--------+---+---+ +---+---+ | | | +---+---+ + +-------+ +-------+---+---+ | bisacodyl (DULCOLAX) | Given | 12/12/2017 | 10 mg | | | | suppository 10 mg 10 mg, rectal, | | 13:25 | | | | | DAILY NEEDED, Starting Tue | | PDT | | | | | 12/12/17 at 0826, Until 12/13/17 | | | | | | | at 2223, 2nd line for no BM in | | | | | | | past 2 days OR if no response to | | | | | | | MIRALAX or if patient unable to | | | | | | | tolerate oral | | | | | | + +-------+ +-------+---+---+ +-------+ +-------+---+---+ | Given | 12/13/2017 | 10 mg | | | | | 11:01 | | | | | | PDT | | | | +-------+ +-------+---+---+ +---+---+ | | | +---+---+ + +-------+ + +---+---+ | carbidopa-levodopa (SINEMET) | Given | 12/13/2017 | 1 tablet | | | | 25-100 mg 0.5-1 tablet 0.5-1 | | 05:03 | | | | | tablet, oral, EVERY 4 HOURS, | | PDT | | | | | First dose on Mon12/12/17 at 0845, | | | | | | | Until Discontinued | | | | | | + +-------+ + +---+---+ +-------+ + +---+---+ | Given | 12/13/2017 | 1 tablet | | | | | 09:06 | | | | | | PDT | | | | +-------+ + +---+---+ | Given | 12/13/2017 | 1 tablet | | | | | 12:48 | | | | | | PDT | | | | +-------+ + +---+---+ +---+---+ | | | +---+---+ + +---------+ +-------+-------+---+ | lactated Ringers IV 200 mL/hr, | New Bag | 12/12/2017 | 200 | 200 | | | intravenous, CONTINUOUS, | | 09:20 | mL/hr | mL/hr | | | Starting 12/12/17 at 0900, | | PDT | | | | | Until 12/12/17 at 1046 | | | | | | + +---------+ +-------+-------+---+ +---+---+ | | | +---+---+ + +---------+ +-------+-------+---+ | lactated Ringers IV 125 mL/hr, | New Bag | 12/12/2017 | 125 | 125 | | | intravenous, CONTINUOUS, | | 11:05 | mL/hr | mL/hr | | | Starting 12/12/17 at 1100, | | PDT | | | | | Until 12/12/17 at 1329 | | | | | | + +---------+ +-------+-------+---+ +---+---+ | | | +---+---+ + + + +-------+-------+---+ | lactated Ringers IV 100 mL/hr, | Rate/Dos | 12/13/2017 | 100 | 100 | | | intravenous, CONTINUOUS, | e Verify | 00:52 | mL/hr | mL/hr | | | Starting 12/12/17 at 1400, | | PDT | | | | | Until 12/13/17 at 2223 | | | | | | + + + +-------+-------+---+ + + +-------+-------+---+ | New Bag | 12/13/2017 | 100 | 100 | | | | 02:30 | mL/hr | mL/hr | | | | PDT | | | | + + +-------+-------+---+ | Rate/Dose Verify | 12/13/2017 | 100 | 100 | | | | 06:58 | mL/hr | mL/hr | | | | PDT | | | | + + +-------+-------+---+ +---+---+ | | | +---+---+ + +-------+ +--------+---+---+ | LORazepam (ATIVAN) tablet 0.5 | Given | 12/12/2017 | 0.5 mg | | | | mg 0.5 mg, oral, EVERY 4 HOURS | | 16:33 | | | | | NEEDED, Starting Mon12/12/17 at | | PDT | | | | | 1519, Until Mon12/13/17 at 2223, | | | | | | | anxiety, agitation | | | | | | + +-------+ +--------+---+---+ +-------+ +--------+---+---+ | Given | 12/12/2017 | 0.5 mg | | | | | 20:36 | | | | | | PDT | | | | +-------+ +--------+---+---+ | Given | 12/13/2017 | 0.5 mg | | | | | 15:09 | | | | | | PDT | | | | +-------+ +--------+---+---+ +---+---+ | | | +---+---+ + +-------+ +-------+---+---+ | metoprolol tartrate (LOPRESSOR) | Given | 12/12/2017 | 50 mg | | | | tablet 50 mg 50 mg, oral, TWICE | | 09:21 | | | | | DAILY, First dose on Mon12/12/17 | | PDT | | | | | at 0900, Until Discontinued | | | | | | + +-------+ +-------+---+---+ +-------+ +-------+---+---+ | Given | 12/12/2017 | 50 mg | | | | | 22:05 | | | | | | PDT | | | | +-------+ +-------+---+---+ | Given | 12/13/2017 | 50 mg | | | | | 09:02 | | | | | | PDT | | | | +-------+ +-------+---+---+ +---+---+ | | | +---+---+ + +-------+ +------+---+---+ | oxyCODONE (immediate release) | Given | 12/12/2017 | 5 mg | | | | (ROXICODONE) tablet 5-10 mg 5-10 | | 20:36 | | | | | mg, oral, EVERY 4 HOURS | | PDT | | | | | NEEDED, Starting Mon12/12/17 at | | | | | | | 0824, Until Mon12/13/17 at 2223, | | | | | | | moderate pain | | | | | | + +-------+ +------+---+---+ +-------+ +------+---+---+ | Given | 12/13/2017 | 5 mg | | | | | 06:00 | | | | | | PDT | | | | +-------+ +------+---+---+ | Given | 12/13/2017 | 5 mg | | | | | 12:48 | | | | | | PDT | | | | +-------+ +------+---+---+ +---+---+ | | | +---+---+ + +-------+ +---------+---+---+ | phytonadione (VITAMIN K, | Given | 12/12/2017 | 100 mcg | | | | MEPHYTON) tablet 100 mcg 100 | | 10:22 | | | | | mcg, oral, DAILY, First dose on | | PDT | | | | | 12/12/17 at 1015, Until | | | | | | | Discontinued | | | | | | + +-------+ +---------+---+---+ +-------+ +---------+---+---+ | Given | 12/13/2017 | 100 mcg | | | | | 09:06 | | | | | | PDT | | | | +-------+ +---------+---+---+ +---+---+ | | | +---+---+ + +-------+ +------+---+---+ | polyethylene glycol (MIRALAX) | Given | 12/12/2017 | 17 g | | | | packet 17 g 17 g, oral, TWICE | | 10:22 | | | | | DAILY, First dose on Mon12/12/17 | | PDT | | | | | at 0915, Until Discontinued | | | | | | + +-------+ +------+---+---+ +-------+ +------+---+---+ | Given | 12/12/2017 | 17 g | | | | | 22:05 | | | | | | PDT | | | | +-------+ +------+---+---+ +---+---+ | | | +---+---+ + +-------+ +------+---+---+ | polyethylene glycol (MIRALAX) | Given | 12/13/2017 | 34 g | | | | packet 34 g 34 g, oral, THREE | | 11:01 | | | | | TIMES DAILY NEEDED, Starting | | PDT | | | | | 12/12/17 at 0826, Until Wed | | | | | | | 12/13/17 at 2223, 1st line - for no | | | | | | | BM for 2 days | | | | | | + +-------+ +------+---+---+ +---+---+ | | | +---+---+ + +-------+ +--------+---+---+ | potassium chloride (KLOR-CON) | Given | 12/12/2017 | 20 mEq | | | | packet 20 mEq 20 mEq, oral, | | 19:07 | | | | | ONCE, 1 dose, 12/12/17 at 1830 | | PDT | | | | + +-------+ +--------+---+---+ +---+---+ | | | +---+---+ + +-------+ +--------+---+---+ | potassium chloride (KLOR-CON) | Given | 12/12/2017 | 40 mEq | | | | packet 40 mEq 40 mEq, oral, | | 15:47 | | | | | ONCE, 1 dose, 12/12/17 at 1430 | | PDT | | | | + +-------+ +--------+---+---+ +---+---+ | | | +---+---+ + +-------+ +---------+---+---+ | senna-docusate (SENOKOT S) | Given | 12/12/2017 | 2 | | | | 8.6-50 mg 2 tablet 2 tablet, | | 09:21 | tablets | | | | oral, TWICE DAILY, First dose on | | PDT | | | | | 12/12/17 at 0900, Until | | | | | | | Discontinued | | | | | | + +-------+ +---------+---+---+ +-------+ +---------+---+---+ | Given | 12/12/2017 | 2 | | | | | 22:04 | tablets | | | | | PDT | | | | +-------+ +---------+---+---+ | Given | 12/13/2017 | 2 | | | | | 09:02 | tablets | | | | | PDT | | | | +-------+ +---------+---+---+ +---+---+ | | | +---+---+ + +-------+ + +---+---+ | sodium phosphates (FLEET) 19-7 | Given | 12/13/2017 | 1 Bottle | | | | gram/118 mL rectal enema 1 Bottle | | 12:51 | | | | | 1 Bottle, rectal, ONCE, 1 dose, | | PDT | | | | | 12/13/17 at 1315 | | | | | | + +-------+ + +---+---+ +---+---+ | | | +---+---+ in this encounter
--- OUTSIDE RECORDS SUMMARY | ~2017-12-31 | XMS | Encounter Summary ---
Demographics + + + | Address | [address] | | | [place] [address] | + + + | Home Phone [...] + + + | Author | [facility] | + + + | Organization | [facility] | + + + | [...] Team Providers + +------+ + | Care Scrap Sawyer Name | Role | Phone | + +------+ + | Reji Morales MD | PCP | | + +------+ + Encounter Details +--------+ + + + + | Date | Type | Department | Care Team | Description | +--------+ + + + + | 12/11/ | Telephone | Urology at [facility] | [place] | | | 2018 | | [address] | MD Jayce [address] | | | | | Mail Code: CH10U | [facility] | | | | | [facility] | [address] [place], [place] | | | | | and Healing, [address] | [address] | | | | | Floor [place], [place] | [phone] | | | | | [address] | | | | | | [phone] | | | +--------+ + + + [...] | 2017 | Visit | | [address] | | | | | | [address] | | | | | | [place], [place] | | | | | | [address] | | | | | | [phone] | | | | | | | | +--------+---------+ + + + as of this encounter Visit Diagnoses Not on filein this encounter"
--- OUTSIDE RECORDS SUMMARY | ~2017-12-31 | XMS | Encounter Summary ---
Demographics + + + | Address | [address] | | | [place] [address] | + + + | Home Phone [...] Providers + +------+ + | Care Senior Energy Trader Name | Role | Phone | + [...] Surgery | 6A Intra Op [facility] | Marizta, | ROBOTIC ASSISTED | | 2017 | | [facility] | Adeel Stephens MD | LAPAROSCOPIC RADICAL | | | | Admitting Desk | [address] | PROSTATECTOMY WITH | | | | Located on the | [facility], | BILATERAL PELVIC | | | | floor [address] | [place] [address] | LYMPH NODE | | | | [facility] | [phone] | DISSECTION | | | | [place], [place] | | | | | | [address] | | | +--------+---------+ + + + [...] Physician: Adeel Salas MD Patient: CHAUNCEY VICKERS [id number] 24H events/Subjective: BAKARI overnight. Pain is well [...] 12/09/17 0612/09/17 0700 - 12/10/17 0659 Shift [phone] [id number] 24 Hour Total 1144-3463 1683-9067 9080-8801 24 Hour Total I N T A K E [address] 730 0456 565 565 I.V. 538.8 1385 2723.8 375 [...] Salas MD. Nupur Bardales MD Urology Pager [phone] in this encounter Plan of Treatment +--------+---------+ + + + | Date | Type | Specialty | Care Team | Description | +--------+---------+ + + + | 01/18/ | Office | Urology | Roxy Boykin, | | | 2017 | Visit | | [place] [address] | | | | | | [facility] | | | | | | [place], [place] | | | | | | [address] | | | | | | [phone] | | | | | | | [...] + + + | Blood | [facility], [address] | | | [place] [address] | + + + CBC ONLY (12/09/2017 4:24 AM) + + + | Specimen | Performing Laboratory | + + + | Blood | | + + + + + | Narrative | + + | The following orders were created for panel order CBC ONLY. | | Procedure | | Abnormality Status | | --------- | | ------ CBC (HEMOGRAM) | | ONLY[[id number]] Abnormal Final | | result Please view [...] | >60 | >60 mL/min | | [place] | | | + +---------+ + | EGFR NON | >60 | >60 mL/min | | -[place] | | | + +---------+ + [...] | + + + | Blood | [facility], [address] | | | [place] [address] | + + + + + | [...] + + + | | [facility] [place], POINT OF CARE TESTS [address] | | | [place] [address] | + + + PROCEDURE NOTE (12/08/2017 3:33 PM) + + | Narrative | + + | John Connors MD 12/08/2017 4:03 PM UROLOGIC ONCOLOGY OPERATIVE REPORT | | Date: 12/08/2017 Attending Surgeon: Adeel Salas M.D., F.A.C.S. | | [Dr. Salas was present and scrubbed for the entire operation.] Resident Surgeon: | | John Connors MD Station Gateman: [place] PA-C Preoperative Diagnosis: | | [...] a running 3-0 v-loc. | | A 20-Faroese catheter was placed, and irrigation showed no extravasation. The robot | | was then undocked. The fascia of the 12mm geological survey field assistant port was closed with 0-Vicryl | [...] was scrubbed and | | acted as first press operator at the patient | | | | s bedside. The resident, Dr. 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 da [facility] control console and | | did not perform first press operator duties on the robotic-assisted portions of the [...] | Clinical History | Bilateral prostatic adenocarcinoma, Kim | | | | 3+4 | | [...] Prostatic | | | | acinar adenocarcinoma, Trenton score 3+4=7 | | | | (grade [...] 20 % Primary | | | | Trenton Pattern: Pattern 3 | | | | [...] medical record | | | | number [id number]. A. Right Pelvic Lymph | | | [...] + + | Tissue - Abdominal | [facility] DEPARTMENT OF PATHOLOGY [address] [place] [address] | | | [place] [address] | + + + CAPILLARY BLOOD GLUCOSE (NO CHG), POC (12/08/2017 10:41 AM) + +-------+ + | Component | Value | Ref Range | + +-------+ + | BLOOD GLUCOSE, POC | 77 | 70 - 99 mg/dL | + +-------+ + + + + | Specimen | Performing Laboratory | + + + | | [facility] [place] POINT OF CARE TESTS [address] | | | [place] [address] | + + + INTRAPROCEDURE IMAGING (12/08/2017 [...]
--- OUTSIDE RECORDS SUMMARY | ~2017-12-31 | XMS | Encounter Summary ---
Demographics + + + | Address | [address] | | | [place] [address] | + + + | Home Phone [...] Author + + + | Author | [facility] | + + + | Organization | [facility] | + + [...] Team Providers + +------+ + | Care Caustic Loader Name | Role | Phone | + +------+ + | Reji oMrales MD | PCP | | + +------+ + Encounter Details +--------+---------+ + + + | Date | Type | Department | Care Team | Description | +--------+---------+ + + + | 12/21/ | Office | Urology at [facility] | Rn, Uro [address] | Prostate cancer | | 2018 | Visit | [address] | [place] | ([facility]) (Primary Dx) | | | | Mail Code: CH10U | Road [place], [place] | | | | | [facility] | [address] | | | | | and Healing, 10th | | | | | | Floor [place], [place] | | | | | | [address] | | | | | | [phone] | | | +--------+---------+ + + + [...] + + + as of this encounter Progress Notes Diana Ruelas RN - 12/21/2017 1:30 PM PDTMr. Moody came into the clinic requesting to be seen related to clear, thin fluid coming from his wounds. Mr. Moody denies fever, chills , warmness at the site, site redness, or pus from the site or indication of infection. in this encounter Plan of Treatment +--------+---------+ + + + | Date | Type | Specialty | Care Team | Description | +--------+---------+ + + + | 01/18/ | Office | Urology | Roxy Boykin, | | | 2017 | Visit | | CLAUDINE [address] | | | | | | [address] | | | | | | [place], [place] | | | | | | [address] | | | | | | [phone] | | | | | | | | +--------+---------+ + + + as of this encounter Visit Diagnoses + + | Diagnosis | + + | Prostate cancer (HCC) - Primary | + + | Malignant neoplasm of prostate | + +"
--- OUTSIDE RECORDS SUMMARY | ~2017-12-31 | XMS | Encounter Summary ---
Demographics + + + | Address | [address] | | | [place] [address] | + + + | Home Phone [...] Team Providers + +------+ + | Care Glove Stitcher Name | Role | Phone | + [...] | | | 2017 | Event | [facility] | [facility] [address] [facility] | | | | | Admitting Desk | [facility] | | | | | Located on the 9 | [place], [place] | | | | | [address] | [address] | | | | | [facility] | [phone] | | | | | [place], [place] | | | | | | [address] | | | +--------+ + + + [...] 12/09/17 1300 by | | francisco | LARSISA; Left; Hand; 18 g; 12/09/17; | Michael [...] | 2018 | Visit | | CLAUDINE [address] [facility] | | | | | | [address] | | | | | | [place], [place] | | | | | | [address] | | | | | | [phone] | | | | | | | [...]
--- OUTSIDE RECORDS SUMMARY | ~2017-12-31 | XMS | Encounter Summary ---
Demographics + + + | Address | [address] | | | [place] [address] | + + + | Home Phone | | + + + | Preferred Language | Unknown | + + + | Marital Status | Single | + + + | Lutheran Affiliation | CHR | + + + [...] Team Providers + +------+ + | Care Tile Designer Name | Role | Phone | + +------+ + | Reji Morales MD | PCP | | + +------+ + Reason for Visit Benefits Check (Routine) + +--------+ + + + + | Status | Reason | Specialty | Diagnoses / | Referred By | Referred To | | | | | Procedures | Contact | Contact | + +--------+ + + + + | Authorized | | Urology | | Non-[facility] | Uro | | | | | | Epic Dept | Oncology [facility] | | | | | | | [address] | | | | | | [address] | | | | | | | Mail Code: | | | | | | | CH10U Center | | | | | | | [facility] | | | | | | | and Healing, | | | | | | | 10th Floor | | | | | | | [facility] [place] | | | | | | | [address] | | | | | | | Phone: | | | | | | | [phone] | | | | | | | Fax: | | | | | | | [phone] | + +--------+ + + + + Encounter Details +--------+---------+ + + + | Date | Type | Department | Care Team | Description | +--------+---------+ + + + | 11/23/ | Office | Urology at [facility] | Rn, Uro [address] | Prostate cancer | | 2018 | Visit | [address] | [place] | ([facility]) (Primary Dx) | | | | Mail Code: CH10U | Road [place], [place] | | | | | [facility] | [address] | | | | | and Healing, | | | | | | Floor [place], [place] | | | | | | [address] | | | | | | [phone] | | | +--------+---------+ + + + [...] encounter Progress Notes Diana Ruelas RN - 11/23/2017 1:00 PM PDTPreoperative preparation [...] they have any concerns or clarification questions. in this encounter Plan of Treatment +--------+---------+ + + + | Date | Type | Specialty | Care Team | Description | +--------+---------+ + + + | 05/10/ | Office | Urology | Roxy Boykin, | | | 2018 | Visit | | CLAUDINE [address] [facility] | | | | | | [address] | | | | | | [place], [place] | | | | | | [address] | | | | | | [phone] | | | | | | | | +--------+---------+ + + + as of this encounter Visit Diagnoses + + | Diagnosis | + + | Prostate cancer (HCC) - Primary | + + | Malignant neoplasm of prostate | + +"
--- OUTSIDE RECORDS SUMMARY | ~2017-12-31 | XMS | Encounter Summary ---
Demographics + + + | Address | [address] | | | [place] [address] | + + + | Home Phone | | + + + | Preferred Language | Unknown | + + + | Marital Status | Single | + + + | Jewish Affiliation | CHR | + + + [...] Team Providers + +------+ + | Care Automotive Generator Repairer Name | Role | Phone | [...] | +--------+ + + + + | 12/21/ | Telephone | Urology at [facility] | [place], | Post Op | | 2018 | | [address] | Adele Stephens MD | | | | | Mail Code: CH10U | [address] | | | | | [facility] | [facility], | | | | | and Healing, | [place] [address] | | | | | Floor [place], [place] | [phone] | | | | | [address] | | | | | | [phone] | | | +--------+ + + + [...] 2017 | Visit | | CLAUDINE [address] [facility] | | | | | | [address] | | | | | | [place] | | | | | | [address] | | | | | | [phone] | | | | | | | | +--------+---------+ + + + as of this encounter Visit Diagnoses Not on filein this encounter"
--- OUTSIDE RECORDS SUMMARY | ~2017-12-31 | XMS | Encounter Summary ---
Demographics + + + | Address | [address] | | | [place] [address] | + + + | Home Phone [...] Team Providers + +------+ + | Care Financial Services Education Consultant Name | Role | Phone | [...] (HCC) | [place] | MD Angelo [address] | | | | | | CLINIC | [facility] | | | | | | UROLOGY & | [facility] | | | | | | SURGERY [address] | [address] [place], | | | | | | [address] | [place] | | | | | | [place] | [address] | | | | | | [place] | Phone: | | | | | | [address] | [phone] | | | | | | Phone: | Fax: | | | | | | [phone] | [phone] | | | | | | Fax: | | | | | | | [phone] | | +--------+--------+ + + + + Encounter Details +--------+---------+ + + + | Date | Type | Department | Care Team | Description | +--------+---------+ + + + | 10/16/ | Office | Urology at [facility] | [place], | Prostate cancer | | 2018 | Visit | [address] | Adeel Stephens MD | ([facility]) (Primary Dx) | | | | Mail Code: CH10U | [address] | | | | | [facility] | [facility], | | | | | and [facility], | [place] [address] | | | | | Floor [place], [place] | [phone] | | | | | [address] | | | | | | [phone] | | | +--------+---------+ + + + [...] Pressure | 132/55 | 10/16/2017 9:07 AM PST | + + + + | Pulse | 65 | 10/16/2017 9:07 AM PST | + + + + | Temperature | - | - | + + + + | Respiratory Rate | - | - | + + + + | Oxygen Saturation | - | - | + + + + | Inhaled Oxygen | - | - | | Concentration | | | + + + + | Weight | 87.9 kg (193 lb 11.2 | 10/16/2017 9:07 AM PST | | | oz) | | + + + + | Height | 190.5 cm (6' 3") | 10/16/2017 9:07 AM PST | + + + + | Body Mass Index | 24.21 | 10/16/2017 9:07 AM PST | + + + + in this encounter Progress Notes Rosemarie Rivera MA - 10/16/2017 8:45 AM PST Review of Systems Gastrointestinal: Positive for constipation. Genitourinary: Positive for frequency. Neurological: Positive for tremors. All other systems reviewed and are negative. Physical Exam Adeel Salas MD - 10/16/2017 8:45 AM PSTFormatting of this note may be different from the original. 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 Donavon Lai (uro logist in [place], [place]) for second opinion on treatment of his prostate cancer. 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 We had a detailed conversation about the natural history of prostat e cancer and risk-stratification strategies. I explained how PSA level, Mangum grade, tumor volume on biopsy and clinical [...] M.D. Professor and Chair Department of Urology in this encounter Plan of Treatment +--------+---------+ + + + | Date | Type | Specialty | Care Team | Description | +--------+---------+ + + + | 01/18/ | Office | Urology | Roxy Boykin, | | | 2017 | Visit | | CLAUDINE [address] [facility] | | | | | | [address] | | | | | | [place], [place] | | | | | | [address] | | | | | | [phone] | | | | | | | | +--------+---------+ + + + as of this encounter Visit Diagnoses + + | Diagnosis | + + | Prostate cancer (HCC) - Primary | + + | Malignant neoplasm of prostate | + +
--- OUTSIDE RECORDS SUMMARY | ~2017-12-31 | XMS | Encounter Summary ---
Demographics + + + | Address | [address] | | | [place] [address] | + + + | Home Phone [...] Team Providers + +------+ + | Care Statistical Engineer Name | Role | Phone | [...] + + | 12/12/ | Hospital | [address] | Sky Durand, | | | 2018 - | Encounter | [address] | MD [address] | | | | | [facility] | [address] | | | 12/13/ | | [place] [address] | [place], [place] | | | 2018 | | [phone] | [address] | | | | | | [phone] | | | | | | | | | | | | Stacia Schmidt, | | | | | | MD Salas, | | | | | | Adeel Stephens MD | | | | | | [address] | | | | | | [place], | | | | | | [place] [address] | | | | | | [phone] | | | | | | | [...] medical team for this patient and the [facility] UR Committee have agreed after furth er study that an inpatient admission was not medically necessary. This hospital stay is con verted to an outpatient stay through use of Medicare Condition Code 44. The patient was not ified of this change in writing. The providers involved in this decision were: For patient s primary medical team: Adeel Salas MD For [facility] UR Committee: Lesia Blanchard MD in this encounter Plan of Treatment +--------+---------+ + + + | Date | Type | Specialty | Care Team | Description | +--------+---------+ + + + | 01/18/ | Office | Urology | Roxy Boykin, | | | 2017 | Visit | | CLAUDINE [address] [facility] | | | | | | [address] | | | | | | [place], [place] | | | | | | [address] | | | | | | [phone] | | | | | | | | +--------+---------+ + + + as of this encounter Results X-RAY ABDOMEN 1 VIEW (12/12/2017 10:47 AM) + + + | Specimen | Performing Laboratory | + + + | | [facility] RADIOLOGY VOICE RECOGNITION | + + [...] Note | + + | Service Account, [employer] In Interface - 12/12/2017 10:53 AM PDT [...] | + + + | Blood | [facility], CORE [address] [facility] [address] | | | [place] [address] | + + + + + | [...] | + + + | Blood | [facility] [address] [facility] [address] | | | [place] [address] | + + + + + | [...] | ------ CBC AND AUTO | | DIFF[[id number]] Abnormal Final | | result Please view [...] | + + + | Blood | [facility], CORE [address] [facility] | | | [place] [address] | + + + + + | [...] | >60 | >60 mL/min | | CHADIAN | | | + +---------+ + | EGFR NON | >60 | >60 mL/min | | -CHADIAN | | | + +---------+ + | [...] | + + + | Blood | [facility], CORE [address] | | | [place] [address] | + + + + + | [...]
--- OUTSIDE RECORDS SUMMARY | ~2017-12-31 | XMS | Clinical Summary ---
Demographics + + + | Address | [address] | | | [place] [address] | + + + | Home Phone [...] Providers + +------+ + | Care Director Translational Name | Role | Phone | + +------+ + | Reji Morales MD | PP | | + +------+ + Source Comments NELLY is fully live on both [facility] and [facility] Allergies No Known Allergies Current Medications + [...] | | | + + +--------+---------+------+------+-------+ | polyethylene | Mix 1 packet and | 15 | 0 | 04/0 | 04/ | Expir | | glycol (MIRALAX) 17 | take orally once | packet | | / | 05/31 | ed | | gram oral powder in | daily for 15 days. | | | 18 | 18 | | | packet | | | | | | | [...] + + | 12/27/ | Telephone | | Maritza, | Post Op Concern | | 2017 | | | Adeel Stephens MD | | +--------+ + + + + | 12/21/ | Office | | Rn, Uro | Prostate cancer | | 2017 | Visit | | | ([facility]) (Primary Dx) | +--------+ + + + + | 12/21/ | Telephone | | Maritza, | Post Op | | 2017 | | | Adeel Stephens MD | | +--------+ + + + + | 12/20/ | Office | | Carlos Garcia | Prostate cancer | | 2017 | Visit | | | (HCC) (Primary Dx) | +--------+ + + + + | 12/18/ | Telephone | | Roxy Boykin, | Pathology Report | | 2017 | | | HETAL-Myles | | +--------+ + + + + | 12/15/ | Emergency | | | | | 2017 | | | | | +--------+ + + + + | 12/14/ | Telephone | | Maritza, | Post Op | | 2018 | | | Adeel Stephens MD | | +--------+ + + + + | 12/12/ | Hospital | | Sky Durand, | | | 2018 - | Encounter | | Stacia Zepeda | | | | | | MD Maritza Olivas, | | | 12/13/ | | | Adeel Stephens MD | | | 2017 | | | | | +--------+ + + + + | 12/11/ | Telephone | | Dav Jean | | | 2017 | | | MD Jayce | | +--------+ + + + + | 12/09/ | Pharmacy | | | | | 2017 | Visit | | | | +--------+ + + + + | 12/08/ | Hospital | | Maritza, | | | 2018 - | Encounter | | Adeel Stephens MD | | | | | | | | | 12/09/ | | | | | | 2017 | | | | | +--------+ + + + + | 12/08/ | Hospital | | Amling, | | | 2017 | Encounter | | Adeel Stephens MD | | +--------+ + + + + | 12/08/ | Procedure | | | | | 2017 | Pass | | | | +--------+ + + + + | 12/08/ | Surgery | | Yiing, | ROBOTIC ASSISTED | | 2018 | | | Adeel Stephens MD | LAPAROSCOPIC RADICAL | | | | | | PROSTATECTOMY WITH | | | | | | BILATERAL PELVIC | | | | | | LYMPH NODE | | | | | | DISSECTION | +--------+ + + + + | 12/07/ | Anesthesia | | Michael Wagoner, | | | 2017 | Event | | GARBAGE WORKER | | +--------+ + + + + | 12/07/ | Telephone | | Maritza, | Medication; Preop | | 2017 | | | Adeel Stephens MD | | +--------+ + + + + | 12/06/ | Abstract | | Roxy Boykin, | | | 2017 | | | PA-C | | +--------+ + + + + | 11/30/ | Abstract | | Maritza, | | | 2017 | | | Adeel Stephens MD | | +--------+ + + + + | 11/23/ | Office | | Rn, Uro | Prostate cancer | | 2017 | Visit | | | (HCC) (Primary Dx) | +--------+ + + + + | 10/17/ | Telephone | | Yiing, | Surgery | | 2018 | | | Adeel Stephens MD | | +--------+ + + + + | 10/16/ | Office | | Yiing, | Prostate cancer | | 2018 | Visit | | Adeel Stephens MD | ([facility]) (Primary Dx) | +--------+ + + + + | 10/11/ | Eyeglass Maker | | Maritza, | Prostate cancer | | 2018 | | | Adeel Stephens MD | ([facility]) (Primary Dx) | +--------+ + + + + from [...] + + + + Plan of Treatment +--------+---------+ + + + | Date | Type | Specialty | Care Team | Description | +--------+---------+ + + + | 01/18/ | Office | | Roxy Boykin, | | | 2017 | Visit | | CLAUDINE [address] | | | | | | [address] | | | | | | [place], [place] | | | | | | [address] | | | | | | [phone] | | | | | | | | +--------+---------+ + + + + + + + + | Health Maintenance | Due Date | Last Done | Comments | + + + + + | INFLUENZA VACCINE | | 07/26/2016, 07/09/2015, | | | (FLU SHOT) | 8 | 05/26/2013, Additional history | | | | | exists | | + + + + + Procedures + +--------+ + + + | [...] | | + +--------+ + + + from Last 3 Months Results X-RAY ABDOMEN 1 VIEW (12/12/2017 10:47 AM) + + + | Specimen | Performing Laboratory | + + + | | [facility] RADIOLOGY VOICE RECOGNITION | + + [...] Note | + + | Service Account, Radiant Res In Interface - 12/12/2017 10:53 AM [...] | + + + | Blood | [facility], CORE [address] | | | [place] [address] | + + + + + | [...] | + + + | Blood | [facility] LABORATORY [facility] [place], CORE [address] | | | [place] [address] | + + + + + | [...] | ------ CBC AND AUTO | | DIFF[[id number]] Abnormal Final | | result Please view results for these tests on the | | individual orders. | + + COMPLETE METABOLIC SET (NA,K,CL,CO2,BUN,CREAT,GLUC,CA,AST,ALT,BILI [...] | >60 | >60 mL/min | | KYRGYZ | | | + +---------+ + | EGFR NON | >60 | >60 mL/min | | -KYRGYZ | | | + +---------+ + | [...] | + + + | Blood | [facility], [facility] [address] | | | [place] [address] | + + + + + | [...] Rapidly changing kidney function | + + MAGNESIUM, PLASMA (12/12/2017 9:23 AM) + +-------+ + | Component | Value | Ref Range | + +-------+ + | MAGNESIUM,PLASMA | 2.0 | 1.6 - 2.6 mg/dL | + +-------+ + + + + | Specimen | Performing Laboratory | + + + | Blood | [facility] [place], CORE [address] | | | [place] [address] | + + + + + | Narrative | + + | Reference range change effective 04/25/17. | + + CBC (HEMOGRAM) ONLY (12/09/2017 4:24 AM) + [...] | + + + | Blood | [facility] SERVICES, CORE [address] [facility] [facility] | | | [place] [address] | + + + BASIC METABOLIC SET (NA, [...] | >60 | >60 mL/min | | KYRGYZ | | | + +---------+ + | EGFR NON | >60 | >60 mL/min | | -KYRGYZ | | | + +---------+ + | [...] | + + + | Blood | [facility], CORE [address] | | | [place] [address] | + + + + + | [...] Rapidly changing kidney function | + + CBC ONLY (12/09/2017 4:24 AM) + + + | Specimen | Performing Laboratory | + + + | Blood | | + + + + + | Narrative | + + | The following orders were created for panel order CBC ONLY. | | Procedure | | Abnormality Status | | --------- | | ------ CBC (HEMOGRAM) | | ONLY[[id number]] Abnormal Final | | result Please view results for these tests on the | | individual orders. | + + ANE ARIELLA (12/08/2017 7:19 PM) + + | Narrative | + + | Michael Wagoner CRNA 12/08/2017 12:20 PM Procedure Reason for Intubation: | | For surgical procedure, Location Performed: [place] , Patient was preoxygenated Mask | | Ventilation Grade 1 - Ventilated by mask Intubation Blade type: Leigh , Blade | | size: 2, Atraumatic laryngoscopy: Atraumatic Laryngoscopy, Laryngoscopic view: Grade | | I, Number of Attempts: 1, Positive for EtCO2: Yes, Breath sounds: Bilateral and equal | | ETT Ett Adult: Single-lumen cuffed ETT Size: 7.5 ETT secured with: adhesive | | tape Depth at Lip: 23 Cm Narrative Attending physically present | | | + + CAPILLARY BLOOD GLUCOSE (NO CHG), POC (12/08/2017 4:13 PM)Only the most recent of 2 result s within the time period is included. + +---------+ + | Component | Value | Ref Range | + +---------+ + | BLOOD GLUCOSE, POC | 102 (H) | 70 - 99 mg/dL | + +---------+ + + + + | Specimen | Performing Laboratory | + + + | | [facility], POINT OF CARE TESTS [address] | | | [place] [address] | + + + PROCEDURE NOTE (12/08/2017 3:33 PM) + + | Narrative | + + | John Connors MD 12/08/2017 4:03 PM UROLOGIC ONCOLOGY OPERATIVE REPORT | | Date: 12/08/2017 Attending Surgeon: Adeel Salas M.D., F.A.C.S. | | [Dr. Salas was present and scrubbed for the entire operation.] Resident Surgeon: | | John Connors MD Home Energy Auditor: Roxy Boykin PA-C Preoperative Diagnosis: | | [...] safety precautions were | | addressed. Indications: Nima Moody is a 67 y.o. man with Parkinson's [...] a running 3-0 v-loc. | | A 20-Serbian catheter was placed, and irrigation showed no extravasation. The robot | | was then undocked. The fascia of the 12mm ophthalmic surgical assistant port was closed with 0-Vicryl | [...] was scrubbed and | | acted as catering assistant at the patient | | | | s bedside. The resident, Dr. 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 da [facility] control console and | | did not perform catering assistant duties on the robotic-assisted portions of [...] | Clinical History | Bilateral prostatic adenocarcinoma, [place] | | | | 3+4 | | [...] Prostatic | | | | acinar adenocarcinoma, Kim score 3+4=7 | | | | (grade [...] 20 % Primary | | | | [place] Pattern: Pattern 3 | | | | Secondary [place] | | | | Pattern: Pattern 4 [...] medical record | | | | number [id number]. A. Right Pelvic Lymph | | | [...] + + | Tissue - Abdominal | [facility] DEPARTMENT OF PATHOLOGY [address] | | | [place] [address] | + + + INTRAPROCEDURE IMAGING (12/08/2017 9:47 AM) + + | Narrative | + + | See admission or procedure notes for details of any intraprocedure images obtained. | + + CARDIOLOGY (12/08/2017)PATHOLOGY CONSULT - REVIEW OUTSIDE SLIDES (10/16/2017 10:22 AM) + + + + | Component | Value | Ref Range | + + + + | Clinical History | Not provided | | + + + + | Final Pathologic | A. Left base, core biopsies ([id number], | | | Diagnosis | 09.14.17, A): ? Prostatic glands and stroma | | | | with no diagnostic abnormality? Negative | | | | for malignancy B. Left mid, core biopsies | | | | ([id number], 09.14.17, B): ? Adenocarcinoma | | | | of the prostate gland, Kim grade 3+3? | | | | Tumor focus measures approx. 0.1 cm C. | | | | Left apex, core biopsies ([id number], | | | | 09.14.17, C): ? Adenocarcinoma of the | | | | prostate gland, Kim grade 3+3? Tumor | | | | focus measures approx. 0.1 cm D. Right | | | | base, core biopsies ([id number], 09.14.17, | | | | D): ? Adenocarcinoma of the prostate | | | | gland, [place] grade 3+3? Tumor focus | | | | measures approx. 0.5 cm E. Right mid, core | | | | biopsies([id number], 09.14.17, E): ? | | | | Adenocarcinoma of the prostate gland, | | | | [place] grade 4+3? Tumor focus measures | | | | approx. 1.0 cm? F. Right apex, core | | | | biopsies ([id number], 09.14.17, F): ? | | | | Adenocarcinoma of the prostate gland, | | | | Kim grade 4+4? Tumor focus measures | | | | approx. 0.3 cm Q. Left transitional zone, | | | | core biopsies ([id number], 09.14.17, Q): ? | | | | Prostatic glands and stroma with focal | | | | high-grade PIN? Negative for maligncy R. | | | | Right transitional zone, core biopsies | | | | ([id number], 09.14.17, R):? ? Prostatic | | | [...] + + | Materials Received | Specimen AReferring Institution: [facility] | | | | [place], [place] [address]Akzvvnv | | | | Accession Number: [id number] | | | | Collection Date: 09/14/2017 Sublabeled H&E | | | | A-F, Q, R 9 | | | |Sublabeled H&E | | | |A-F, Q, R 9 | | | | | | | | | | + + + + + + + | Specimen | Performing Laboratory | + + + | Slide-Block | [facility] OF PATHOLOGY [address] | | | [place] [address] | + + + from Last 3 Months
--- OUTSIDE RECORDS SUMMARY | ~2017-12-31 | XMS | Encounter Summary ---
Demographics + + + | Address | [address] | | | [place] [address] | + + + | Home Phone [...] Team Providers + +------+ + | Care Interactive Media Project Manager Name | Role | Phone | [...] | 12/07/ | Telephone | Urology at [facility] | Yiing, | Medication; Preop | | 2018 | | [address] | Adeel Stephens MD | | | | | Mail Code: CH10U | [address] | | | | | [facility] | [facility], | | | | | and Healing, | [place] [address] | | | | | Floor [place], [place] | [phone] | | | | | [address] | | | | | | [phone] | | | +--------+ + + + [...] Rd | | | | | | [place], [place] | | | | | | [address] | | | | | | [phone] | | | | | | | | +--------+---------+ + + + as of this encounter Visit Diagnoses Not on filein this encounter"
--- OUTSIDE RECORDS SUMMARY | ~2017-12-31 | XMS | Encounter Summary ---
Demographics + + + | Address | [address] | | | [place] [address] | + + + | Home Phone [...] Team Providers + +------+ + | Care Instructional Paraprofessional Name | Role | Phone | + [...] [address] | | | | | | [facility] | | | | | | [place], [place] | | | | | | [address] | | | +--------+ + + + [...] Rd | | | | | | [place], [place] | | | | | | [address] | | | | | | [phone] | | | | | | | | +--------+---------+ + + + as of this encounter Visit Diagnoses Not on filein this encounter"
--- OUTSIDE RECORDS SUMMARY | ~2017-12-31 | XMS | Encounter Summary ---
Demographics + + + | Address | [address] | | | [place] [address] | + + + | Home Phone [...] Team Providers + +------+ + | Care Transmission Design Engineer Name | Role | Phone | [...] | 12/21/ | Telephone | Urology at [facility] | Amling, | Post Op | | 2018 | | [address] | Adeel Stephens MD | | | | | Mail Code: CH10U | [address] | | | | | [facility] | [facility], | | | | | and Healing, | [place] [address] | | | | | Floor [place], [place] | [phone] | | | | | [address] | | | | | | [phone] | | | +--------+ + + + [...] 2017 | Visit | | CLAUDINE [address] [facility] | | | | | | [address] | | | | | | [place] | | | | | | [address] | | | | | | [phone] | | | | | | | | +--------+---------+ + + + as of this encounter Visit Diagnoses Not on filein this encounter"
--- OUTSIDE RECORDS SUMMARY | ~2017-12-31 | XMS | Encounter Summary ---
Demographics + + + | Address | [address] | | | [place] [address] | + + + | Home Phone [...] + + | Author | [facility] | + + + | Organization | [facility] | + + + | Address | [...] Team Providers + +------+ + | Care Forklift Truck Operator Name | Role | Phone | [...] | 12/07/ | Telephone | Urology at [facility] | Yiing, | Medication; Preop | | 2018 | | [address] | Adeel Stephens MD | | | | | Mail Code: CH10U | [address] | | | | | [facility] | [facility], | | | | | and Healing, | [place] [address] | | | | | Floor [place], [place] | [phone] | | | | | [address] | | | | | | [phone] | | | +--------+ + + + [...] Rd | | | | | | [place], [place] | | | | | | [address] | | | | | | [phone] | | | | | | | | +--------+---------+ + + + as of this encounter Visit Diagnoses Not on filein this encounter"
--- OUTSIDE RECORDS SUMMARY | ~2017-12-31 | XMS | Encounter Summary ---
Demographics + + + | Address | [address] | | | [place] [address] | + + + | Home Phone [...] Providers + +------+ + | Care Glove Factory Sewer Name | Role | Phone | + +------+ + | Reji Morales MD | PCP | | + +------+ + Encounter Details +--------+ + + + + | Date | Type | Department | Care Team | Description | +--------+ + + + + | 12/06/ | Abstract | Urology at [facility] | Roxy Boykin, | | | 2017 | | [address] | CLAUDINE [address] [facility] | | | | | Mail Code: CH10U | [address] | | | | | [facility] | [place], [place] | | | | | and Healing, 10th | [address] | | | | | Floor [place], [place] | [phone] | | | | | [address] | | | | | | [phone] | | | +--------+ + + + [...] | 2017 | Visit | | HETAL-Myles [address] [facility] | | | | | | [address] | | | | | | [place], [place] | | | | | | [address] | | | | | | [phone] | | | | | | | | +--------+---------+ + + + as of this encounter Visit Diagnoses Not on filein this encounter"
--- OUTSIDE RECORDS SUMMARY | ~2017-12-31 | XMS | Encounter Summary ---
Demographics + + + | Address | [address] | | | [place] [address] | + + + | Home Phone [...] Team Providers + +------+ + | Care Light Equipment Operator Name | Role | Phone | + +------+ + | Reji Morales MD | PCP | | + +------+ + Reason for Visit + + + | Reason | Comments | + + + | Cancer of prostate | | + + + Global Period - Transplant (Routine) + +--------+ + + + + | Status | Reason | Specialty | Diagnoses / | Referred By | Referred To | | | | | Procedures | Contact | Contact | + +--------+ + + + + | Authorized | | Urology | Diagnoses | Amling, | Amling, | | | | | DOS 12/08/17 | Adeel | Modestolisedonna | | | | | has a [address] | L, MD [address] | L, MD [address] | | | | | day global | [address] | | | | | period | [facility] | [facility] | | | | | | Rd | Rd [place], | | | | | | [place], [place] | [place] | | | | | | [address] | [address] | | | | | | Phone: | Phone: | | | | | | [phone] | [phone] | | | | | | Fax: | Fax: | | | | | | [phone] | [phone] | + +--------+ + + + + Encounter Details +--------+---------+ + + + | Date | Type | Department | Care Team | Description | +--------+---------+ + + + | 12/20/ | Office | Urology at [facility] | Rn, Uro [address] | Prostate cancer | | 2018 | Visit | [address] | [address] | ([facility]) (Primary Dx) | | | | Mail Code: CH10U | Road [place], [place] | | | | | [facility] | [address] | | | | | and Healing, | | | | | | Floor [place], [place] | | | | | | [address] | | | | | | [phone] | | | +--------+---------+ + + + [...] | | Former User | | | 02/05/19 | | | | | 88 | [...] Last Filed Vital Signs + +---------+ + | Vital Sign | Reading | Time Taken | + +---------+ + | Blood Pressure | 148/75 | 12/20/2017 8:17 AM PDT | + +---------+ + | Pulse | 81 | 12/20/2017 8:17 AM PDT | + +---------+ + | Temperature | - | - | + +---------+ + | Respiratory Rate | - | - | + +---------+ + | Oxygen Saturation | - | - | + +---------+ + | Inhaled Oxygen | - | - | | Concentration | | | + +---------+ + | Weight | - | - | + +---------+ + | Height | - | - | + +---------+ + | Body Mass Index | - | - | + +---------+ + in this encounter Instructions Patient Instructions - Diana Ruelas RN - 12/20/2017 8:00 AM PDTAfter your prostatectom y: You may have little or no control [...] The progress of urinary control is measured tyur-cp-zfza, or, vswnt-lj-iseut, not day-by-day. Regaining good urinar y control [...] then annually. This can be accomplished by [facility] primary care provider or by us. KEGEL [...] use Kegel exercises to improve bladder control. [facility] Department of Urology [phone] If you were prescribed Viagra after your [...] located on the 3rd floor of the [facility]. or * Have the PSA collected close to home at a local lab or primary care provider: Prior to yo ur next appointment you will need to have a PSA collected about 3 days prior to the appointm ent and they can fax us the results to our secure fax at [phone]. Dept. of Urology contact information: [phone] or after hours [phone]. Resources: * [facility] [employer] [employer] Society Cancer Resource Navigator, Delmi Davis. Delmi's contact numb er is [phone]. * For information about the Annual [facility] Prostate Cancer Conference please call Kinza Garcia at [phone] or email us at [email or web address]. The Prostate Cancer Support Group at [facility] meets the first Mon of each month at the [place] [facility], [address] [place], [place] [address], 3rd floor conference center in rooms 3[address] [...] nformally on the first floor in the [facility]aling. Please call PAULETTE Deleon, at [phone] if you have questions. Prostate Cancer Resources Reading material: Dr. Emanuel Damico's Guide to Surviving Prostate Cancer Prostate and Cancer: A Family Guide to Diagnosis, Treatment, and Survival. By Antolin Jeter M.D. PROMOTING WELLNESS for prostate cancer patients. By Ashly Trejo National Cancer [place]: http://www.cancer.gov/cancertopics/types/prostate The [place] Cancer Society : http://www.cancer.org Us Too!: http://www.Open Mobile Solutions.com/ or http://www.prostateUbiquity Hostingers.org The [place] Prostate Society: http://www.ameripros.org The [place] Society of Clinical Oncology: http://www.asco.org The [place] Urological Association: http://www.auanet.org Prostate Cancer Foundation: http://www.prostatecancerfoundation.org PSA Rising: http://www.psa-rising.com Caregiver Resources National Family Caregivers Association: http://www.nfcacares.org Well Spouse Foundation :http://wellspouse.org Sites validated 09/2016 in this encounter Progress Notes Ashly Valdez RN - 12/20/2017 8:00 AM PDTFormatting of this note may be different from the original. Nima Moody comes in today on post-op day 12 for a catheter removal. He had a roboti c assisted laparoscopic radical retropubic prostatectomy with pelvic lymph node resection. aMnish Moody is accompanied today by his Daughter [...] weeks in clinic with a Monitoring PSA tania r. He was instructed to collect the [...] LIP via routed encounter ASHLY VALDEZ RN [facility] UROLOGY [facility] UROLOGY AT [facility] [address] [place] [address] in this encounter Plan of Treatment +--------+---------+ + + + | Date | Type | Specialty | Care Team | Description | +--------+---------+ + + + | 01/18/ | Office | Urology | Roxy Boykin, | | | 2017 | Visit | | HETAL-Myles [address] | | | | | | [address] | | | | | | [place], [place] | | | | | | [address] | | | | | | [phone] | | | | | | | | +--------+---------+ + + + + +--------+ + + | Name | Priori | Associated Diagnoses | Order Schedule | | | ty | | | + +--------+ + + | [facility] PSA TOTAL, MONITORING | Routin | Prostate cancer | Every 12 weeks for 4 | | | e | (HCC) | Occurrences | | | | | starting 12/20/2017 | | | | | until 01/20/2019 | + +--------+ + + as of this encounter Visit Diagnoses + + | Diagnosis | + + | Prostate cancer (HCC) - Primary | + + | Malignant neoplasm of prostate | + +"
--- OUTSIDE RECORDS SUMMARY | ~2017-12-31 | XMS | Encounter Summary ---
Demographics + + + | Address | [address] | | | [place] [address] | + + + | Home Phone | | + + + | Preferred Language | Unknown | + + + | Marital Status | Single | + + + | Nondenominational Affiliation | CHR | + + + | Race | White | + + + | Ethnic Group | Not or | + + + Author + + + | Author | [facility] | + + + | Organization | [facility] | + + + | [...] Team Providers + +------+ + | Care Power Tool Repair Technician Name | Role | Phone | [...] | 12/27/ | Telephone | Urology at [facility] | Yiing, | Post Op Concern | | 2018 | | [address] | Adeel Stephens MD | | | | | Mail Code: CH10U | [address] | | | | | [facility] | [facility], | | | | | and Healing, | [place] [address] | | | | | Floor [place], [place] | [phone] | | | | | [address] | | | | | | [phone] | | | +--------+ + + + [...] [place] | | | | | | [address] | | | | | | [phone] | | | | | | | | +--------+---------+ + + + as of this encounter Visit Diagnoses Not on filein this encounter"
--- OUTSIDE RECORDS SUMMARY | ~2017-12-31 | XMS | Encounter Summary ---
Demographics + + + | Address | [address] | | | [place] [address] | + + + | Home Phone [...] Providers + +------+ + | Care Environmental Marketing Representative Name | Role | Phone | + [...] | | SURGERY | Rd | Rd [place], | | | | | IT SERVICE CONTINUITY SUPERVISOR | [place], [place] | [place] | | | | | [place] | [address] | [address] | | | | | LAP,PROSTATE | Phone: | Phone: | | | | | CTOMY,RADICA | [phone] | [phone] | | | | | L,W/NERVE | Fax: | Fax: | | | | | [place] | [phone] | [phone] | | | | | LAP,PELVIC | [...] | 10/17/ | Telephone | Urology at [facility] | [place], | Surgery | | 2018 | | [address] | Adeel Stephens MD | | | | | Mail Code: CH10U | [address] | | | | | [facility] | [facility], | | | | | and Healing, 10th | [place] [address] | | | | | Floor [place], [place] | [phone] | | | | | [address] | | | | | | [phone] | | | +--------+ + + + [...] | 2017 | Visit | | CLAUDINE [address] [facility] | | | | | | [address] | | | | | | [place], [place] | | | | | | [address] | | | | | | [phone] | | | | | | | | +--------+---------+ + + + as of this encounter Visit Diagnoses + + | Diagnosis | + + | Prostate cancer (HCC) - Primary | + + | Malignant neoplasm of prostate | + +"
--- OUTSIDE RECORDS SUMMARY | ~2017-12-31 | XMS | Encounter Summary ---
Demographics + + + | Address | [address] | | | [place] [address] | + + + | Home Phone [...] Team Providers + +------+ + | Care Carry Out Clerk Name | Role | Phone | + [...] | 12/14/ | Telephone | Urology at [facility] | [place], | Post Op | | 2018 | | [address] | Adeel Stephens MD | | | | | Mail Code: CH10U | [address] | | | | | [facility] | [facility], | | | | | and Healing, | [place] [address] | | | | | Floor [place], [place] | [phone] | | | | | [address] | | | | | | [phone] | | | +--------+ + + + [...] 2017 | Visit | | CLAUDINE [address] [facility] | | | | | | [address] | | | | | | [place] | | | | | | [address] | | | | | | [phone] | | | | | | | | +--------+---------+ + + + as of this encounter Visit Diagnoses Not on filein this encounter"
--- OUTSIDE RECORDS SUMMARY | ~2017-12-31 | XMS | Encounter Summary ---
Demographics + + + | Address | [address] | | | [place] [address] [...] Team Providers + +------+ + | Care Scientific Research Manager Name | Role | Phone | + +------+ + | Reji Morales MD | PCP | | + +------+ + Encounter Details +--------+---------+ + + + | Date | Type | Department | Care Team | Description | +--------+---------+ + + + | 12/21/ | Office | Urology at [facility] | Rn, Uro [address] | Prostate cancer | | 2018 | Visit | [address] | Fish Meng | ([facility]) (Primary Dx) | | | | Mail Code: CH10U | Road [place], [place] | | | | | [facility] | [address] | | | | | and Healing, 10th | | | | | | Floor [place], [place] | | | | | | [address] | | | | | | [phone] | | | +--------+---------+ + + + [...] | 2017 | Visit | | CLAUDINE [address] | | | | | | [address] | | | | | | [place], [place] | | | | | | [address] | | | | | | [phone] | | | | | | | | +--------+---------+ + + + as of this encounter Visit Diagnoses + + | Diagnosis | + + | Prostate cancer (HCC) - Primary | + + | Malignant neoplasm of prostate | + +"
--- OUTSIDE RECORDS SUMMARY | ~2017-12-31 | XMS | Clinical Summary ---
Demographics + + + | Address | [address] | | | [place] [address] | + + + | Home Phone | | + + + | Preferred Language | Unknown | + + + | Marital Status | Single | + + + | Voodoo Affiliation | CHR | + + + [...] Team Providers + +------+ + | Care Iso Coordinator Name | Role | Phone | + +------+ + | Reji Morales MD | PP | | + +------+ + Source Comments NELLY is fully live on both [facility] InPatient.[facility] Allergies No Known Allergies Current [...] | 2017 | Visit | | | ([facility]) (Primary Dx) | +--------+ + + + [...] | | 2017 | Event | | 411 DIRECTORY ASSISTANCE OPERATOR | | +--------+ + + + + [...] | | 2017 | | | Adeel Stepehns MD | | +--------+ + + + [...] Visit | | Adeel Stephens MD | ([facility]) (Primary Dx) | +--------+ + + + + | 10/11/ | Health Care Coordinator | | [place], | Prostate cancer | | 2018 | | | Adeel Stephens MD | ([facility]) (Primary Dx) | +--------+ + + + [...] | 2017 | Visit | | CLAUDINE [address] | | | | | | [address] | | | | | | [place], [place] | | | | | | [address] | | | | | | [phone] | | | | | | | [...] Laboratory | + + + | | [facility] RADIOLOGY VOICE RECOGNITION | + + + [...] | + + + | Blood | [facility], CORE [address] | | | [place] [address] | + + + + + | [...] | + + + | Blood | [facility] LABORATORY [facility], CORE [address] | | | [place] [address] | + + + + + | [...] | ------ CBC AND AUTO | | DIFF[[id number]] Abnormal Final | | result Please view [...] | >60 | >60 mL/min | | HAITIAN | | | + +---------+ + | EGFR NON | >60 | >60 mL/min | | -HAITIAN | | | + +---------+ + | [...] | + + + | Blood | [facility], [facility] [address] | | | [place] [address] | + + + + + | [...] | + + + | Blood | [facility], CORE [address] | | | [place] [address] | + + + + + | [...] | + + + | Blood | [facility], CORE [address] | | | [place] [address] | + + + BASIC METABOLIC SET [...] | >60 | >60 mL/min | | HAITIAN | | | + +---------+ + | EGFR NON | >60 | >60 mL/min | | -HAITIAN | | | + +---------+ + | [...] | + + + | Blood | [facility], CORE [address] [facility] [address] | | | [place] [address] | + + + + + | [...] | | ------ CBC (HEMOGRAM) | | ONLY[[id number]] Abnormal Final | | result Please view [...] + + | | NELLY - ОЛЬГА EXCELLO, POINT OF CARE TESTS [address] | | | [place] [address] | + + + PROCEDURE NOTE (12/08/2017 3:33 PM) + + | Narrative | + + | John Connors MD 12/08/2017 4:03 PM UROLOGIC ONCOLOGY OPERATIVE REPORT | | Date: 12/08/2017 Attending Surgeon: Adeel Salas M.D., F.A.C.S. | | [Dr. Salas was present and scrubbed for the entire operation.] Resident Surgeon: | | John Connors MD Reproduction Machine Loader: Roxy Boykin PA-C Preoperative Diagnosis: | | [...] a running 3-0 v-loc. | | A 20-Slovak catheter was placed, and irrigation showed no extravasation. The robot | | was then undocked. The fascia of the 12mm assistant signal maintainer port was closed with 0-Vicryl | | [...] was scrubbed and | | acted as dental laboratory assistant at the patient | | | | s bedside. The resident, Dr. 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 da Alan control console and | | did not perform dental laboratory assistant duties on the robotic-assisted portions of [...] | Clinical History | Bilateral prostatic adenocarcinoma, Dillon | | | | 3+4 | | [...] 20 % Primary | | | | Dillon Pattern: Pattern 3 | | | | Secondary Dillon | | | | Pattern: Pattern 4 [...] medical record | | | | number [id number]. A. Right Pelvic Lymph | | | [...] + + | Tissue - Abdominal | [facility] DEPARTMENT OF PATHOLOGY [address] | | | [place] [address] | + + + INTRAPROCEDURE IMAGING (12/08/2017 [...] Pathologic | A. Left base, core biopsies ([id number], | | | Diagnosis | 09.14.17, A): ? Prostatic glands and stroma | | | | with no diagnostic abnormality? Negative | | | | for malignancy B. Left mid, core biopsies | | | | ([id number], 09.14.17, B): ? Adenocarcinoma | | | | of the prostate gland, Kim grade 3+3? | | | | Tumor focus measures approx. 0.1 cm C. | | | | Left apex, core biopsies ([id number], | | | | 09.14.17, C): ? Adenocarcinoma of the | | | | prostate gland, Kim grade 3+3? Tumor | | | | focus measures approx. 0.1 cm D. Right | | | | base, core biopsies ([id number], 09.14.17, | | | | D): ? Adenocarcinoma of the prostate | | | | gland, Dillon grade 3+3? Tumor focus | | | | measures approx. 0.5 cm E. Right mid, core | | | | biopsies([id number], 09.14.17, E): ? | | | | Adenocarcinoma of the prostate gland, | | | | Dillon grade 4+3? Tumor focus measures | | | | approx. 1.0 cm? F. Right apex, core | | | | biopsies ([id number], 09.14.17, F): ? | | | | Adenocarcinoma of the prostate gland, | | | | Kim grade 4+4? Tumor focus measures | | | | approx. 0.3 cm Q. Left transitional zone, | | | | core biopsies ([id number], 09.14.17, Q): ? | | | | Prostatic glands and stroma with focal | | | | high-grade PIN? Negative for maligncy R. | | | | Right transitional zone, core biopsies | | | | ([id number], 09.14.17, R):? ? Prostatic | | | [...] | Materials Received | Specimen AReferring Institution: [facility] | | | | [place], [place] [id number] | | | | Accession Number: [id number] | | | | Collection Date: 09/14/2017 Sublabeled H&E | | | | A-F, Q, R 9 | | | |Sublabeled H&E | | | |A-F, Q, R 9 | | | | | | | | | | + + + + + + + | Specimen | Performing Laboratory | + + + | Slide-Block | [facility] [address] | | | [place] [address] | + + + from Last 3 Months
--- OUTSIDE RECORDS SUMMARY | ~2017-12-31 | XMS | Encounter Summary ---
Demographics + + + | Address | [address] | | | [place] [address] | + + + | Home Phone [...] Team Providers + +------+ + | Care Customer Service Rep Name | Role | Phone | + +------+ + | Reji Morales MD | PCP | | + +------+ + Encounter Details +--------+ + + + + | Date | Type | Department | Care Team | Description | +--------+ + + + + | 10/11/ | Spiral Tube Winder | Urology at [facility] | [place], | Prostate cancer | | 2018 | | [address] | Adeel Stephens MD | ([facility]) (Primary Dx) | | | | Mail Code: CH10U | [address] | | | | | [facility] | [facility], | | | | | and Connie | [place] [address] | | | | | [place], [place] | [phone] | | | | | [address] | | | | | | [phone] | | | +--------+ + + + [...] | 2018 | Visit | | CLAUDINE [address] [facility] | | | | | | [address] | | | | | | [place], [place] | | | | | | [address] | | | | | | [phone] | | | | | | | | +--------+---------+ + + + as of this encounter Results PATHOLOGY CONSULT - REVIEW OUTSIDE SLIDES (10/16/2017 10:22 AM) + + + + | Component | Value | Ref Range | + + + + | Clinical History | Not provided | | + + + + | Final Pathologic | A. Left base, core biopsies ([id number], | | | Diagnosis | 09.14.17, A): ? Prostatic glands and stroma | | | | with no diagnostic abnormality? Negative | | | | for malignancy B. Left mid, core biopsies | | | | ([id number], 09.14.17, B): ? Adenocarcinoma | | | | of the prostate gland, [place] grade 3+3? | | | | Tumor focus measures approx. 0.1 cm C. | | | | Left apex, core biopsies ([id number], | | | | 09.14.17, C): ? Adenocarcinoma of the | | | | prostate gland, Kim grade 3+3? Tumor | | | | focus measures approx. 0.1 cm D. Right | | | | base, core biopsies ([id number], 09.14.17, | | | | D): ? Adenocarcinoma of the prostate | | | | gland, [place] grade 3+3? Tumor focus | | | | measures approx. 0.5 cm E. Right mid, core | | | | biopsies([id number], 09.14.17, E): ? | | | | Adenocarcinoma of the prostate gland, | | | | [place] grade 4+3? Tumor focus measures | | | | approx. 1.0 cm? F. Right apex, core | | | | biopsies ([id number], 09.14.17, F): ? | | | | Adenocarcinoma of the prostate gland, | | | | Kim grade 4+4? Tumor focus measures | | | | approx. 0.3 cm Q. Left transitional zone, | | | | core biopsies ([id number], 09.14.17, Q): ? | | | | Prostatic glands and stroma with focal | | | | high-grade PIN? Negative for maligncy R. | | | | Right transitional zone, core biopsies | | | | ([id number], 09.14.17, R):? ? Prostatic | | | [...] + + | Materials Received | [facility] Institution: [facility] | | | | [place], [place] [address]Ijndjau | | | | Accession Number: [id number] | | | | Collection Date: 09/14/2017 Sublabeled H&E | | | | A-F, Q, R 9 | | | |Sublabeled H&E | | | |A-F, Q, R 9 | | | | | | | | | | + + + + + + + | Specimen | Performing Laboratory | + + + | Slide-Block | [facility] DEPARTMENT OF PATHOLOGY [address] [facility] | | | [place], [place] [address] | + + + in this encounter Visit Diagnoses + + | Diagnosis | + + | Prostate cancer (HCC) - Primary | + + | Malignant neoplasm of prostate | + +"
--- OUTSIDE RECORDS SUMMARY | ~2017-12-31 | XMS | Encounter Summary ---
Demographics + + + | Address | [address] | | | [place] [address] | + + + | Home Phone [...] + + + | Author | [facility] | + + + | Organization | [facility] | + + + | [...] Team Providers + +------+ + | Care Greenhouse Instructor Name | Role | Phone | [...] | 12/18/ | Telephone | Urology at [facility] | Roxy Boykin, | Pathology Report | | 2018 | | [address] | CLAUDINE [address] [facility] | | | | | Mail Code: CH10U | [address] [facility] | | | | | [facility] | [place], [place] | | | | | and Connie, | [address] | | | | | Floor [place], [place] | [phone] | | | | | [address] | | | | | | [phone] | | | +--------+ + + + [...] [place] | | | | | | [address] | | | | | | [phone] | | | | | | | | +--------+---------+ + + + as of this encounter Visit Diagnoses Not on filein this encounter"
--- OUTSIDE RECORDS SUMMARY | ~2017-12-31 | XMS | Encounter Summary ---
Demographics + + + | Address | [address] | | | [place] [address] | + + + | Home Phone | | + + + | Preferred Language | Unknown | + + + | Marital Status | Single | + + + | Hoahaoism Affiliation | CHR | + + + [...] Team Providers + +------+ + | Care Hub Borer Name | Role | Phone | + [...] | | | | Prostate | Donavon eL MD | Adeel | | | | | cancer (HCC) | [place] | MD Angelo [address] | | | | | | CLINIC | [facility] | | | | | | UROLOGY & | [facility] [place] [facility] | | | | | | SURGERY [address], | | | | | | [address] | [place] | | | | | | [place] | [address] | | | | | | [place] | Phone: | | | | | | [address] | [phone] | | | | | | Phone: | Fax: | | | | | | [phone] | [phone] | | | | | | Fax: | | | | | | | [phone] | | +--------+--------+ + + + + Encounter Details +--------+---------+ + + + | Date | Type | Department | Care Team | Description | +--------+---------+ + + + | 10/16/ | Office | Urology at [facility] | [place], | Prostate cancer | | 2018 | Visit | [address] | Adeel Stephens MD | ([facility]) (Primary Dx) | | | | Mail Code: CH10U | [address] | | | | | [facility] | [facility], | | | | | and [facility], | [place] [address] | | | | | Floor [place], [place] | [phone] | | | | | [address] | | | | | | [phone] | | | +--------+---------+ + + + [...] 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 Donavon Lai (uro logist in [place], [place]) for second opinion on treatment of his prostate cancer. 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 We had a detailed conversation about the natural history of prostat e cancer and risk-stratification strategies. I explained how PSA level, Alpaugh grade, tumor volume on biopsy and clinical [...] | 2017 | Visit | | CLAUDINE [address] [facility] | | | | | | [address] | | | | | | [place], [place] | | | | | | [address] | | | | | | [phone] | | | | | | | | +--------+---------+ + + + as of this encounter Visit Diagnoses + + | Diagnosis | + + | Prostate cancer (HCC) - Primary | + + | Malignant neoplasm of prostate | + +
--- OUTSIDE RECORDS SUMMARY | ~2017-12-31 | XMS | Encounter Summary ---
Demographics + + + | Address | [address] | | | [place] [address] | + + + | Home Phone [...] + + | Author | [facility] | + + + | Organization | [facility] | + + + | [...] Providers + +------+ + | Care Manager Safe Name | Role | Phone | + [...] | | | Epic Dept | Oncology [facility] | | | | | | | [address] | | | | | [address] | | | | | | | Mail Code: | | | | | | | CH10U Center | | | | | | | [facility] | | | | | | | and Healing, | | | | | | | 10th Floor | | | | | | | [facility] [place] | | | | | | | [address] | | | | | | | Phone: | | | | | | | [phone] | | | | | | | Fax: | | | | | | | [phone] | + +--------+ + + + + Encounter Details +--------+---------+ + + + | Date | Type | Department | Care Team | Description | +--------+---------+ + + + | 11/23/ | Office | Urology at [facility] | Rn, Uro [address] | Prostate cancer | | 2018 | Visit | [address] | [place]eng | ([facility]) (Primary Dx) | | | | Mail Code: CH10U | Road [place], [place] | | | | | [facility] | [address] | | | | | and Healing, | | | | | | Floor [place], [place] | | | | | | [address] | | | | | | [phone] | | | +--------+---------+ + + + [...] | 2018 | Visit | | CLAUDINE [address] [facility] | | | | | | [address] | | | | | | [place], [place] | | | | | | [address] | | | | | | [phone] | | | | | | | | +--------+---------+ + + + as of this encounter Visit Diagnoses + + | Diagnosis | + + | Prostate cancer (HCC) - Primary | + + | Malignant neoplasm of prostate | + +"
--- OUTSIDE RECORDS SUMMARY | ~2017-12-31 | XMS | Encounter Summary ---
Demographics + + + | Address | [address] | | | [place] [address] | + + + | Home Phone [...] Providers + +------+ + | Care International Marketing Intern Name | Role | Phone | [...] [place] | | | | | Road [place], [place] | Yusra Abad [place], | | | | | [address] | [place] [address] | | | | | | [phone] | | | | | | | [...] 2017 | Visit | | CLAUDINE [address] [facility] | | | | | | [address] | | | | | | [place], [place] | | | | | | [address] | | | | | | [phone] | | | | | | | | +--------+---------+ + + + as of this encounter Visit Diagnoses Not on filein this encounter"
--- OUTSIDE RECORDS SUMMARY | ~2017-12-31 | XMS | Encounter Summary ---
Demographics + + + | Address | [address] | | | [place] [address] | + + + | Home Phone [...] Team Providers + +------+ + | Care Cytology Teacher Name | Role | Phone | [...] | 12/27/ | Telephone | Urology at [facility] | [place], | Post Op Concern | | 2018 | | [address] | Adeel Stephens MD | | | | | Mail Code: CH10U | [address] | | | | | [facility] | [facility], | | | | | and Healing, | [place] [address] | | | | | Floor [place], [place] | [phone] | | | | | [address] | | | | | | [phone] | | | +--------+ + + + [...] | 01/18/ | Office | Urology | Royx Boykin, | | | 2017 | Visit | | CLAUDINE [address] | | | | | | [address] | | | | | | [place] | | | | | | [address] | | | | | | [phone] | | | | | | | | +--------+---------+ + + + as of this encounter Visit Diagnoses Not on filein this encounter"
--- OUTSIDE RECORDS SUMMARY | ~2017-12-31 | XMS | Encounter Summary ---
Demographics + + + | Address | [address] | | | [place] [address] | + + + | Home Phone [...] Team Providers + +------+ + | Care Third Officer Name | Role | Phone | + +------+ + | Reji Morales MD | PCP | | + +------+ + Encounter Details +--------+ + + + + | Date | Type | Department | Care Team | Description | +--------+ + + + + | 12/08/ | Procedure | 6A Intra Op [facility] | | | | 2017 | Pass | [facility] | | | | | | Admitting Desk | | | | | | Located on the 9th | | | | | | floor [address] | | | | | | [facility] | | | | | | [place], [place] | | | | | | [address] | | | +--------+ + + + [...] | 2017 | Visit | | CLAUDINE [address] | | | | | | [address] | | | | | | [place], [place] | | | | | | [address] | | | | | | [phone] | | | | | | | | +--------+---------+ + + + as of this encounter Visit Diagnoses Not on filein this encounter"
--- OUTSIDE RECORDS SUMMARY | ~2017-12-31 | XMS | Encounter Summary ---
Demographics + + + | Address | [address] | | | [place] [address] | + + + | Home Phone [...] Team Providers + +------+ + | Care Pace Analyst Name | Role | Phone | [...] + + | 12/08/ | Hospital | [facility] [address] | [place], | | | 2018 - | Encounter | [address] | Adeel Stephens MD | | | | | 12/U[facility]31 [facility] | | | | 12/09/ | | HOSPITAL [place], | | | | 2018 | | [place] [address] | | | | | | [phone] | | | +--------+ + + + [...] Physician: Adeel Salas MD Patient: CHAUNCEY VICKERS [id number] 24H events/Subjective: BAKARI overnight. Pain is well [...] 0659 12/09/17 0700 - 12/10/17 0659 Shift 7434-5973 8185-4237 24 Hour Total 1704-2891 6562-5500 0651-5152 24 Hour Total I N T A K E [address] 847 4620 565 565 I.V. 538.8 1385 2723.8 375 [...] Salas MD. Nupur Bardales MD Urology Pager [phone] in this encounter Plan of Treatment +--------+---------+ + + + | Date | Type | Specialty | Care Team | Description | +--------+---------+ + + + | 01/18/ | Office | Urology | Roxy Boykin, | | | 2017 | Visit | | CLAUDINE [address] | | | | | | [address] | | | | | | [place], [place] | | | | | | [address] | | | | | | [phone] | | | | | | | [...] | + + + | Blood | [facility], CORE [address] | | | [place] [address] | + + + CBC ONLY (12/09/2017 4:24 AM) + + + | Specimen | Performing Laboratory | + + + | Blood | | + + + + + | Narrative | + + | The following orders were created for panel order CBC ONLY. | | Procedure | | Abnormality Status | | --------- | | ------ CBC (HEMOGRAM) | | ONLY[[id number]] Abnormal Final | | result Please view [...] | >60 | >60 mL/min | | UGANDAN | | | + +---------+ + | EGFR NON | >60 | >60 mL/min | | -UGANDAN | | | + +---------+ + | [...] | + + + | Blood | [facility] [place] [address] | | | [place] [address] | + + + + + | [...] + + + | | NELLY RAYMUNDO, [facility] TESTS [address] | | | [place] [address] | + + + PROCEDURE NOTE (12/08/2017 3:33 PM) + + | Narrative | + + | John Connors MD 12/08/2017 4:03 PM UROLOGIC ONCOLOGY OPERATIVE REPORT | | Date: 12/08/2017 Attending Surgeon: Adeel Salas M.D., .A.C.S. | | [Dr. Salas was present and scrubbed for the entire operation.] Resident Surgeon: | | John Connors MD Electrical Engineering Drafting Officer: Roxy Boykin PA-C Preoperative Diagnosis: | | [...] is 5.67ng/dL. | | A biopsy demonstrated Gal[place] grade 4+4, 4+3, and 3+3 adenocarcinoma in [...] a running 3-0 v-loc. | | A 20-Kiswahili catheter was placed, and irrigation showed no extravasation. The robot | | was then undocked. The fascia of the 12mm insurance account assistant port was closed with 0-Vicryl | [...] was scrubbed and | | acted as bindery assistant at the patient | | | | s bedside. The resident, Dr. 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 [employer] control console and | | did not perform bindery assistant duties on the robotic-assisted portions of [...] | Clinical History | Bilateral prostatic adenocarcinoma, Gal[place]ia | | | | 3+4 | | [...] Prostatic | | | | acinar adenocarcinoma, [place] score 3+4=7 | | | | (grade [...] Type: Acinar | | | | adenocarcinoma Gal[place] | | | | Pattern: Percentage of | | | | Pattern 4: 20 % Primary | | | | [place]ia Pattern: Pattern 3 | | | | Secondary Kim | | | | Pattern: Pattern 4 | | | | Tertiary Gal[place]ia Pattern: Not | | | | applicable Total Gal[place]ia | | | | Score: 7 Grade [...] medical record | | | | number [id number]. A. Right Pelvic Lymph | | | [...] + + | Tissue - Abdominal | [facility] [address] [place] [address] | | | [place] [address] | + + + CAPILLARY BLOOD GLUCOSE (NO CHG), POC (12/08/2017 10:41 AM) + +-------+ + | Component | Value | Ref Range | + +-------+ + | BLOOD GLUCOSE, POC | 77 | 70 - 99 mg/dL | + +-------+ + + + + | Specimen | Performing Laboratory | + + + | | [facility] TESTS [address] | | | [place] [address] | + + + INTRAPROCEDURE IMAGING (12/08/2017 [...]
--- OUTSIDE RECORDS SUMMARY | ~2017-12-31 | XMS | Encounter Summary ---
Demographics + + + | Address | [address] | | | [place] [address] | + + + | Home Phone [...] Team Providers + +------+ + | Care Platform Beater Name | Role | Phone | + [...] | | | | | period | [facility] | | | | | | Rd | [address] [place], | | | | | | [place], [place] | [place] | | | | | | [address] | [address] | | | | | | Phone: | Phone: | | | | | | [phone] | [phone] | | | | | | Fax: | Fax: | | | | | | [phone] | [phone] | + +--------+ + + + + Encounter Details +--------+---------+ + + + | Date | Type | Department | Care Team | Description | +--------+---------+ + + + | 12/20/ | Office | Urology at [facility] | Rn, Uro [address] | Prostate cancer | | 2018 | Visit | [address] | [address] | ([facility]) (Primary Dx) | | | | Mail Code: CH10U | Road [place], [place] | | | | | [facility] | [address] | | | | | and Healing, | | | | | | Floor [place], [place] | | | | | | [address] | | | | | | [phone] | | | +--------+---------+ + + + [...] The progress of urinary control is measured ipxi-dk-qxxs, or, akkhz-gz-iildu, not day-by-day. Regaining good urinar y control [...] then annually. This can be accomplished by [facility] primary care provider or by us. KEGEL [...] use Kegel exercises to improve bladder control. [facility] Department of Urology [phone] If you were prescribed Viagra after your [...] located on the 3rd floor of the [facility]. or * Have the PSA collected close to home at a local lab or primary care provider: Prior to yo ur next appointment you will need to have a PSA collected about 3 days prior to the appointm ent and they can fax us the results to our secure fax at [phone]. Dept. of Urology contact information: [phone] or after hours [phone]. Resources: * [facility] Nigerian Cancer Society Cancer Resource Navigator, Delmi Davis. Delmi's contact numb er is [phone]. * For information about the Annual [facility] Prostate Cancer Conference please call Kinza Garcia at [phone] or email us at [email or web address]. The Prostate Cancer Support Group at [facility] meets the first Mon of each month at the [facility], [address] [place], [place] [address], 3rd floor conference center in rooms 3[address] [...] nformally on the first floor in the [facility]. Please call PAULETTE Deleon, at [phone] if you have questions. Prostate Cancer Resources Reading material: Dr. Emanuel Damico's Guide to Surviving Prostate Cancer Prostate and Cancer: A Family Guide to Diagnosis, Treatment, and Survival. By Antolin Jeter M.D. PROMOTING WELLNESS for prostate cancer patients. By Ashly Trejo National Cancer [place]: http://www.cancer.gov/cancertopics/types/prostate The [employer] Cancer Society : http://www.cancer.org Us Too!: http://www.FAST FELT.com/ or http://www.prostateOngageers.org The Nigerian Prostate Society: http://www.ameripros.org The Nigerian Society of Clinical Oncology: http://www.asco.org The [place] Urological Association: http://www.auanet.org Prostate Cancer Foundation: http://www.prostatecancerfoundation.org [...] Moody is accompanied today by his Daughter Chirstine. Prior to beginning the procedure, patient identity [...] LIP via routed encounter ASHLY VALDEZ RN [facility] UROLOGY [facility] UROLOGY AT [facility] [address] [place] [address] in this encounter Plan of Treatment +--------+---------+ + + + | Date | Type | Specialty | Care Team | Description | +--------+---------+ + + + | 01/18/ | Office | Urology | Roxy Boykin, | | | 2017 | Visit | | [facility] [address] | | | | | | [address] | | | | | | [place], [place] | | | | | | [address] | | | | | | [phone] | | | | | | | [...]
--- OUTSIDE RECORDS SUMMARY | ~2017-12-31 | XMS | Encounter Summary ---
Demographics + + + | Address | [address] | | | [place] [address] | + + + | Home Phone [...] + + + | Author | [facility] | + + + | Organization | [facility] | + + + | Address [...] Team Providers + +------+ + | Care Carpenter Supervisor Wooden Ship Name | Role | Phone | + +------+ + | Reji Morales MD | PCP | | + +------+ + Encounter Details +--------+ + + + + | Date | Type | Department | Care Team | Description | +--------+ + + + + | 12/11/ | Telephone | Urology at [facility] | Dav Jean | | | 2018 | | [address] | MD [address]ce [address] | | | | | Mail Code: CH10U | [address] [facility] | | | | | [facility] | Rd [place], [place] | | | | | and Healing, 10th | [address] | | | | | Floor [place], [place] | [phone] | | | | | [address] | | | | | | [phone] | | | +--------+ + + + [...] | 2017 | Visit | | [address] 1976 [address] | | | | | [address] | | | | | | [place], [place] | | | | | | [address] | | | | | | [phone] | | | | | | | | +--------+---------+ + + + as of this encounter Visit Diagnoses Not on filein this encounter"
[~2017-12-31 15:48] MED LIST: CARBIDOPA-LEVO1 EAC1 PO; ENALAPRIL MALEA20 MG PO; HYDROCHLOROTHIA25 MG PO; METOPROLOL TART50 MG PO; POTASSIUM CHLO10 MEQ PO; VITAMIN D32000 UNIT PO
[2017-12-31] MEDS ORDERED: AMANTADINE100 M1 PO (16:22)
[2017-12-31] MEDS ORDERED: ZOFRAN ODT4 MG PO (18:27)
[2017-12-31] MEDS ORDERED: CIPRO500 MG PO (18:27)
== END 2017-12-31 18:40 | disposition home or self-care (01) ==
LOC: ED 15:48
DX: N39.0 Urinary tract infection, site not specified (principal); I10 Essential (primary) hypertension; G20 Parkinson's disease; Z87.891 Personal history of nicotine dependence; Z79.899 Other long term (current) drug therapy
CPT/HCPCS: 74018; 80053; 81001; 83605; 83690; 85025; 99283; J7030

== ENCOUNTER 2018-06-09 11:15 | Emergency (ER) | payer MEDICARE, BC ==
[~2018-06-09] VITALS: Ht 190.5 cm; Wt 86.2 kg
--- OUTSIDE RECORDS SUMMARY | ~2018-06-09 | XMS | Clinical Summary ---
Demographics + + + | Address | [address] | | | [place] [address] | + + + | Home Phone | | + + + | Preferred Language | Unknown | + + + | Marital Status | Single | + + + | Restoration Affiliation | CHR | + + + | Race | White | + + + | Ethnic Group | Not or | + + + Author + + + | Author | NON REVENUE LOCATIONS | + + + | Organization | NON REVENUE LOCATIONS | + + + | Address | [...] Team Providers + +------+ + | Care Executive Officer Special Warfare Team Name | Role | Phone | + +------+ + | Reji Morales MD | PP | | + +------+ + Source Comments NELLY is fully live on both [facility] Ambulatory and [facility] InPatient.[facility] Allergies No Known Allergies Current Medications + + +--------+---------+------+------+-------+ | Prescription | Sig. | Disp. | Refills | Star | End | Statu | | | | | | t | Date | s | | | | | | Date | | | + + +--------+---------+------+------+-------+ | Enalapril Maleate | take 1 tablet (20mg) | | | | | Activ | | 20 mg OR TABS | by oral route once | | | | | e | | | daily | | | | | | + + +--------+---------+------+------+-------+ | phytonadione 100 | Take 100 mcg by | | | | | Activ | | mcg oral tablet | mouth once daily. | | | | | e | + + +--------+---------+------+------+-------+ | carbidopa-levodopa | Take 1 tablet by | 120 | 11 | 01/0 | | Activ | | 25-100 mg oral | mouth four times | tablet | | 7/20 | | e | | tablet | daily. | | | 16 | | | + + +--------+---------+------+------+-------+ | LORazepam 0.5 mg | Take 0.5 mg by mouth | | | | | Activ | | oral tablet | every four hours as | | | | | e | | | needed for anxiety. | | | | | | + + +--------+---------+------+------+-------+ | senna-docusate | Take 2 tablets by | 20 | 0 | 03/ | | Activ | | 8.6-50 mg oral | mouth twice daily as | tablet | | 09/30 | | e | | tabletIndications: | needed. | | | 18 | | | | Malignant neoplasm | | | | | | | | of prostate (HCC) | | | | | | | + + +--------+---------+------+------+-------+ | amantadine HCl 100 | Take 1 tablet by | | 1 | 03/3 | | Activ | | mg oral tablet | mouth two times | | | 09/30 | | e | | | daily. | | | 18 | | | + + +--------+---------+------+------+-------+ | MELATONIN ORAL | Take by mouth. | | | | | Activ | | | | | | | | e | + + +--------+---------+------+------+-------+ | tadalafil (CIALIS) | Take 0.5 tablets by | 45 | 3 | 12/10 | | Activ | | 10 mg oral tablet | mouth once daily as | tablet | | 05/31 | | e | | | needed. Not to | | | 18 | | | | | exceed more than | | | | | | | | once daily. | | | | | | + + +--------+---------+------+------+-------+ Active Problems + + + | Problem | Noted Date | + + + | Prostate cancer (HCC) | 12/12/2017 | + + + | Dehydration | 12/12/2017 | + + + | Other dysphagia | 12/12/2017 | + + + | Pneumomediastinum (HCC) | 12/12/2017 | + + + | Benign essential tremor | 07/06/2006 | + + + | Parkinson disease (HCC) | 07/06/2006 | + + + Encounters +--------+ + + + + | Date | Type | Specialty | Care Team | Description | +--------+ + + + + | 04/03/ | Documentati | | Unknown | | | 2018 | on | | | | +--------+ + + + + from Last 3 Months Family History + + +------+ + | Medical History | Relation | Name | Comments | + + +------+ + | Diabetes | Father | | | + + +------+ + | Genetic | Father | | essential tremor | + + +------+ + | Hypertension | Father | | | + + +------+ + | Diabetes | Mother | | | + + +------+ + | Hypertension | Mother | | | + + +------+ + + +------+ + + | Relation | Name | Status | Comments | + +------+ + + | Brother | | | HIV complications | + +------+ + + | Brother | | Alive | | + +------+ + + | Daughter | | Alive | | + +------+ + + | Father | | Alive | | + +------+ + + | Mother | | | stroke complications | | | | (Age | | | | | 90s) | | + +------+ + + | Son | | Alive | | + +------+ + + | Son | | Alive | | + +------+ + + Social History + +-------+ +--------+ [...] on file | | + + + Last Filed Vital Signs + + + + | Vital Sign | Reading | Time Taken | + + + + | Blood Pressure | 148/75 | 12/20/2017 8:17 AM PDT | + + + + | Pulse | 81 | 12/20/2017 8:17 AM PDT | + + + + | Temperature | 36.6 C (97.8 F) | 12/13/2017 2:39 PM PDT | + + + + | Respiratory Rate | 17 | 12/13/2017 2:39 PM PDT | + + + + | Oxygen Saturation | 97% | 12/13/2017 8:00 AM PDT | + + + + | Inhaled Oxygen | - | - | | Concentration | | | + + + + | Weight | 89.1 kg (196 lb 6.9 | 12/12/2017 7:00 AM PDT | | | oz) | | + + + + | Height | 190.5 cm (6' 3") | 12/12/2017 8:18 PM PDT | + + + + | Body Mass Index | 24.55 | 12/12/2017 7:00 AM PDT | + + + + Plan of Treatment + + + + + | Health Maintenance | Due Date | Last Done | Comments | + + + + + | INFLUENZA VACCINE | | 07/26/2016, 07/09/2015, | | | (FLU SHOT) | 8 | 05/26/2013, Additional history | | | | | exists | | + + + + + | Pneumococcal (Adult) | | 05/30/2017 | | | (2 of 2 - PCV13) | 8 | | | + + + + + Results Not on filefrom Last 3 Months Insurance + +--------+ +--------+ + + | Payer | Benefi | Subscriber | Type | Phone | Address | | | t Plan | ID | | | | | | / | | | | | | | Group | | | | | + +--------+ +--------+ + + | MEDICARE | MEDICA | xxxxxxxxxx | Medica | [phone] [address] | | | RE A & | | re | [phone] | [place] [phone] | | | B | | | | | + +--------+ +--------+ + + | BLUE CROSS BLUE | REGENC | [phone] | PPO | [phone] [address] [address] [place] | | SHIELD | E BCBS | [phone] | | [phone] | [place], [place] | | | | | | | [address] | | | MEDICA | | | | | | | RE | | | | | | | SUPPLE | | | | | | | MENT | | | | | + +--------+ +--------+ + + + +--------+ +--------+ + + | Guarantor Name | Accoun | Relation to | Date | Phone | Billing Address | | | t Type | Patient | of | | | | | | | | | | + +--------+ +--------+ + + | CHAUNCEY MOODY | Person | Self [birth year] | Home: | [address] | | | al/Abhijit | | 1950 | [phone] | [place] [address] | | | [place] | | | [phone] | | + +--------+ +--------+ + +
--- OUTSIDE RECORDS SUMMARY | ~2018-06-09 | XMS | Clinical Summary ---
Demographics + + + | Address | [address] | | | [place] [address] | + + + | Home Phone [...] Team Providers + +------+ + | Care Wirer Maintenance Name | Role | Phone | + +------+ + | Reji Morales MD | PP | | + +------+ + Source Comments NELLY is fully live on both [facility] Ambulatory and [facility] InPatient.[facility] Allergies No Known Allergies Current Medications + [...] | MEDICA | xxxxxxxxxx | Medica | [phone] | [address] | | | RE A & | | re | [phone] | [place] [address] | | | B | | | | | + +--------+ +--------+ + + | BLUE CROSS BLUE | REGENC | [phone] | PPO | [phone] | [address] [address] [place] | | SHIELD | E BCBS | [phone] | | [phone] | [place], [place] | | | | | | | [address] | | | MEDICA | | | [...] | Self | [birth year] | Home: | [address] | | | al/Abhijit | | 1950 | [phone] | [place] [address] | | | [place] | | | [phone] | | + +--------+ +--------+ + +
--- OUTSIDE RECORDS SUMMARY | ~2018-06-09 | XMS | Encounter Summary ---
Demographics + + + | Address | [address] | | | [place] [address] | + + + | Home Phone [...] Team Providers + +------+ + | Care Bushing And Broach Operator Name | Role | Phone | + +------+ + | Reji Morales MD | PCP | | + +------+ + Encounter Details +--------+ + + + + | Date | Type | Department | Care Team | Description | +--------+ + + + + | 04/03/ | Documentati | UNKNOWN DEPARTMENT | Unknown . | | | 2018 | on | [address] | | | | | | [facility] | | | | | | [place], [place] | | | | | | [address] | | | +--------+ + + + [...] this encounter Plan of Treatment Not on fileas of this encounter Visit Diagnoses Not on filein this encounter"
--- OUTSIDE RECORDS SUMMARY | ~2018-06-09 | XMS | Encounter Summary ---
Demographics + + + | Address | [address] | | | [place] [address] | + + + | Home Phone | | + + + | Preferred Language | Unknown | + + + | Marital Status | Single | + + + | Religion Affiliation | CHR | + + + [...] Team Providers + +------+ + | Care Pricer Name | Role | Phone | + +------+ + | Reji Morales MD | PCP | | + +------+ + Encounter Details +--------+ + + + + | Date | Type | Department | Care Team | Description | +--------+ + + + + | 04/03/ | Documentati | UNKNOWN DEPARTMENT | Unknown . | | | 2018 | on | [address] [facility] | | | | | | [facility] | | | | | | [place], [place] | | | | | | [address] | | | +--------+ + + + [...]
[~2018-06-09 11:15] MED LIST changes: +AMANTADINE100 M1 PO; +CIPRO500 MG PO; +ZOFRAN ODT4 MG PO
== END 2018-06-09 11:52 | disposition home or self-care (01) ==
LOC: ED 11:15
DX: L02.212 Cutaneous abscess of back [any part, except buttock and flank] (principal)

== ENCOUNTER 2020-02-18 09:53 | Inpatient (IN) | payer MEDICARE, BC, OTHER ==
[~2020-02-18] VITALS: Ht 190.5 cm; Wt 81.7 kg
--- OUTSIDE RECORDS SUMMARY | ~2020-02-18 | XMS | Encounter Summary ---
Demographics + + + | Address | [address] | | | [place] [address] | + + + | Home Phone | | + + + | Preferred Language | Unknown | + + + | Marital Status | Single | + + + | Oriental Orthodox Affiliation | CHR | + + + | Race | White | + + + | Ethnic Group | Not or | + + + Author + + + | Author | [facility] | + + + | Organization | [facility] | + + + | Address | Unknown | + + + | Phone | Unavailable | + + + Support + + +---------+ + | Name | Relationship | Address | Phone | + + +---------+ + | Mati Vickers | ECON | Unknown | | + + +---------+ + | Christine Vickers | ECON | Unknown | | + + +---------+ + Care Team Providers + +------+ + | Care Smoke Jumper Name | Role | Phone | + +------+ + | Reji Morales MD | PCP | | + +------+ + Reason for Visit AUTH/CERT +--------+--------+ + + + + | Status | Reason | Specialty | Diagnoses / | Referred By | Referred To | | | | | Procedures | Contact | Contact | +--------+--------+ + + + + | | | | | | | +--------+--------+ + + + + Encounter Details +--------+---------+ + + + | Date | Type | Department | Care Team | Description | +--------+---------+ + + + | 12/08/ | Surgery | [address] Op [id number] | [place], | ROBOTIC ASSISTED | | 2017 | | [facility] | Adeel Stephens MD | LAPAROSCOPIC RADICAL | | | | [facility] | [address] | PROSTATECTOMY WITH | | | | Hospital Admitting | Cecelia Abad [place], | BILATERAL PELVIC | | | | Desk Located on the | [place] [address] | LYMPH NODE | | | | 9th floor | [phone] | DISSECTION | | | | [place], [place] | | | | | | [address] | | | +--------+---------+ + + + Social History + +-------+ +--------+ + | Tobacco Use | Types | Packs/Day | Years | Date | | | | | Used | | + +-------+ +--------+ + | Former Smoker | | | | Quit: 10/16/1987 | + +-------+ +--------+ + + +---+---+ + | Smokeless Tobacco: | | | Quit: | | Former User | | | 10/16/18 | | | | | 88 | + +---+---+ + + + +---------+ + | Alcohol Use | Drinks/Week | oz/Week | Comments | + + +---------+ + | No | | 16.7 | | + + +---------+ + + + + | Sex Assigned at | Date Recorded | | | | + + + | Not on file | | + + + + + + + | Job Start Date | Occupation | Industry | + + + + | Not on file | Not on file | Not on file | + + + + + + + + | Travel History | Travel Start | Travel End | + + + + + + | No recent travel history available. | + + documented as of this encounter Last Filed Vital Signs + + + + + | Vital Sign | Reading | Time Taken | Comments | + + + + + | Blood Pressure | 116/67 | 12/09/2017 12:13 PM | | | | | PDT | | + + + + + | Pulse | 107 | 12/09/2017 12:13 PM | | | | | PDT | | + + + + + | Temperature | 36.7 C (98.1 F) | 12/09/2017 12:13 PM | | | | | PDT | | + + + + + | Respiratory Rate | 16 | 12/09/2017 8:32 AM | | | | | PDT | | + + + + + | Oxygen Saturation | 94% | 12/09/2017 12:13 PM | | | | | PDT | | + + + + + | Inhaled Oxygen | - | - | | | Concentration | | | | + + + + + | Weight | 86 kg (189 lb 9.5 | 12/08/2017 10:21 AM | | | | oz) | PDT | | + + + + + | Height | 190.5 cm (6' 3") | 12/08/2017 10:21 AM | | | | | PDT | | + + + + + | Body Mass Index | 23.7 | 12/08/2017 10:21 AM | | | | | PDT | | + + + + + documented in this encounter Discharge Summaries Nupur Bardales MD - 12/09/2017 10:18 AM PDT INPATIENT DISCHARGE SUMMARY Author: NUPUR BARDALES MD Attending Physician: Adeel Salas MD PCP: Reji Morales MD Admission Date: 12/08/2017 Discharge Date: 09 Dec 2017 Diagnoses Principal Final Diagnosis: 1. Prostate cancer Procedures (1) Robotic-assisted laparoscopic radical prostatectomy (anatomic; bilateral nerve-sparing) (2) Robotic-assisted laparoscopic pelvic lymph node dissection Brief Hospital Course Chauncey Vickers was admitted to the acute care marie postoperatively after robotic-assist ed laparoscopic prostatectomy on 12/08/17. Overnight he did well without complications. Prior to discharge he was ambulating without difficulty, tolerating his regular diet, pain was we ll controlled with oral medication, and he was instructed on how to care for his indwelling catheter at home. At time of discharge pathology was pending. Medications: Medication List START taking these medications ciprofloxacin HCl 500 mg Tab Commonly known as: CIPRO Take 1 tablet by mouth two times daily. For prevention of infection during urinary catheter removal, start taking medication twice a day in the morning 1 day prior to your follow up a ppointment to have your catheter removed and continue taking through 1 day after your appoin tment. Start taking on: 12/14/2017 oxybutynin 5 mg Tab Commonly known as: DITROPAN Take 1 tablet by mouth three times daily as needed (bladder spasms). oxyCODONE (immediate release) 5 mg Tab Commonly known as: ROXICODONE Take 1 tablet by mouth every four hours as needed for moderate pain. * senna-docusate 8.6-50 mg Tab Commonly known as: SENNA-S Take 1 tablet by mouth two times daily. * senna-docusate 8.6-50 mg Tab Commonly known as: SENOKOT S Take 2 tablets by mouth twice daily as needed. * This list has 2 medication(s) that are the same as other medications prescribed for you. Read the directions carefully, and ask your doctor or other care provider to review them wit h you. CONTINUE taking these medications amantadine HCl 100 mg Tab Commonly known as: SYMMETREL bicalutamide 50 mg Tab Commonly known as: CASODEX Take 50 mg by mouth once daily. carbidopa-levodopa 25-100 mg Tab Commonly known as: SINEMET Take 1 tablet by mouth four times daily. enalapril 20 mg Tab Commonly known as: VASOTEC take 1 tablet (20mg) by oral route once daily hydroCHLOROthiazide 25 mg Tab Commonly known as: HYDRODIURIL take 1 tablet (25mg) by oral route once daily levoFLOXacin 500 mg Tab Commonly known as: LEVAQUIN Take 500 mg by mouth once daily. * LORazepam 0.5 mg Tab Commonly known as: ATIVAN Take 0.5 mg by mouth every four hours as needed for anxiety. * LORazepam 2 mg Tab Commonly known as: ATIVAN take 2 tablets by mouth 45 MINUTES prior to procedure metoprolol succinate 200 mg Tb24 Commonly known as: TOPROL-XL 100mg bid metoprolol tartrate 50 mg Tab Commonly known as: LOPRESSOR take 1 tablet by mouth twice a day omeprazole 20 mg Cpdr Commonly known as: PRILOSEC Take 20 mg by mouth once daily. Not sure on dose phytonadione 100 mcg Tab Commonly known as: VITAMIN K, MEPHYTON Take 100 mcg by mouth once daily. tamsulosin 0.4 mg Cp24 Commonly known as: FLOMAX Take 0.4 mg by mouth once daily. * This list has 2 medication(s) that are the same as other medications prescribed for you. Read the directions carefully, and ask your doctor or other care provider to review them wit h you. Diet Regular Regular diet- There are no restrictions to your diet. You may eat or drink whatever you pr efer, though healthy food choices are recommended. Activity - No lifting more than 10 pounds for 6 weeks. This will allow your wound to heal as well as possible. - Avoid bearing down or straining with bowel movements. - Narcotics can cause constipation, so you may take [id number]-azf-wxdiokx stool softeners (Senok ot-S, Miralax, Colace) following the instructions on the box. Stop taking these pills if yo u are experiencing diarrhea. - No driving while on narcotics or with a urinary catheter in place. General Wound Care Keep your incision clean and dry. Do not submerge in tub or pool, but you can shower 3 days after surgery. Do not soak in bath or pool for 1 month. Laparoscopic Wound Care The glue or strips on your small laparoscopic incisions will fall off on their own in 1-2 w eeks. When showering, do not scrub sites. Let water rinse all soapy residue off. Pat darshan burton with a clean towel when finished. No need to apply any lotions or ointments to the sites. Steri-strips Instructions The steri-strips on your incision(s) will fall off by themselves in 1-2 weeks - do not atte mpt to peel them off earlier. Antibiotics for Kaur Removal Take 2 doses of the antibiotic provided on the day before your follow-up appointment (one d ose in morning and one dose in evening), 2 doses on the day of your appointment, and 2 doses the day after your appointment. Kaur Catheter Care Instructions -- Always wash your hands before and after doing catheter care. Use soap and warm water.-- Keep your skin and catheter clean. Clean the skin around your catheter at least once each da y. Clean your skin area and catheter after every bowel movement (BM).-- Always keep your ur ine bag below the level of your bladder. Backflow of urine can cause an infection.-- Drink p lenty of liquids. Drink at least 8 cups of healthy liquids each day.-- Do not tug or pull on the tubing. This can cause bleeding and hurt your urethra.-- The drainage bag should be emp tied only when it is full enough that this is needed. -- Empty full-sized bags every eight hours, and smaller (leg) bags every 3 to 4 hours, or when they are full.-- Call the Urology clinic: if the catheter is not draining, if the catheter starts leaking, if the urine is thi ck and cloudy or has blood in it, if there is no urine in 6-8 hours, if you have fever (over 101F) or chills, or if you have pain or burning in your urethra, bladder, or abdomen. Maintain Kaur Catheter Vitals on discharge: Ht 1.905 m (6' 3"), Wt 86 kg (189 lb 9.5 oz), BP 109/72, Pulse 56, Tem perature 36.8 C (98.2 F), RR 16, SpO2 94%, BMI 23.7 kg/(m^2). Outstanding labs/studies: None Discharging Physician: NUPUR BARDALES MD Attending Physician: Adeel Salas MD documented in this encounter Medications at Time of Discharge + + + +---------+ + + | Medication | Sig | Dispensed | Refills | Start | End Date | | | | | | Date | | + + + +---------+ + + | amantadine HCl 100 | Take 1 tablet by | | 1 | 12/10/19 | | | mg oral tablet | mouth two times | | | 18 | | | | daily. | | | | | + + + +---------+ + + | carbidopa-levodopa | Take 1 tablet by | 120 | 11 | 09/17/19 | | | 25-100 mg oral | mouth four times | tablet | | 16 | | | tablet | daily. | | | | | + + + +---------+ + + | Enalapril Maleate | take 1 tablet (20mg) | | 0 | | | | 20 mg OR TABS | by oral route once | | | | | | | daily | | | | | + + + +---------+ + + | LORazepam 0.5 mg | Take 0.5 mg by mouth | | 0 | | | | oral tablet | every four hours as | | | | | | | needed for anxiety. | | | | | + + + +---------+ + + | phytonadione 100 | Take 100 mcg by | | 0 | | | | mcg oral tablet | mouth once daily. | | | | | + + + +---------+ + + | senna-docusate | Take 2 tablets by | 20 | 0 | 12/10/19 | | | 8.6-50 mg oral | mouth twice daily as | tablet | | 18 | | | tabletIndications: | needed. | | | | | | Malignant neoplasm | | | | | | | of prostate (HCC) | | | | | | + + + +---------+ + + documented as of this encounter Progress Notes Nupur Bardales MD - 12/09/2017 10:14 AM PDT Urology Progress Note Hospital Day: 1 Author: NUPUR BARDALES MD Attending Physician: Adeel Salas MD Patient: CHAUNCEY VICKERS [id number] 24H events/Subjective: BAKARI overnight. Pain is well controlled Ambulating Tolerating diet No flatus No other major issues Objective: Last Vitals: BP 109/72 | Pulse 56 | Temp 36.8 C (98.2 F) | RR 16 | Ht 1.905 m (6' 3") | Wt 86 kg (189 lb 9.5 oz) | SpO2 94% | BMI 23.7 kg/(m^2) 24 Hour Vital Min/Max: Systolic (24hrs), Av , Min:89 , Max:161 Diastolic (24hrs), Av, Min:54, Max:106 Pulse Av.5 Min: 50 Max: 88 Temp Av C (98.6 F) Min: 36.5 C (97.7 F) Max: 37.6 C (99.7 F) Resp Av Min: 11 Max: 22 SpO2 Av.4 % Min: 94 % Max: 100 % Date 12/08/17 1500 - 12/09/17 0659 12/09/17 0700 - 12/10/17 0659 Shift 0343-0063 7544-6701 24 Hour Total 7088-3153 9429-1572 1685-4943 24 Hour Total I N T A K E P.O. 269 675 6766 565 565 I.V. 538.8 1385 2723.8 375 375 Shift Total 1213.8 2335 4348.8 940 940 O U T P U T Urine (mL/kg/hr) 90 (0.1) 375 (0.5) 465 (0.2) 175 175 Shift Total (mL/kg) 90 (1) 375 (4.4) 465 (5.4) 175 (2) 175 (2) Weight (kg) 86 86 86 86 86 86 86 Intake/Output Summary (Last 24 hours) at 12/09/17 1014 Last data filed at 12/09/17 1000 Gross per 24 hour Intake 5288.75 ml Output 640 ml Net 4648.75 ml Medication: acetaminophen (TYLENOL) tablet 1,000 mg, 1,000 mg, oral, Q6H amantadine HCl (SYMMETREL) capsule 100 mg, 100 mg, oral, BID bisacodyl (DULCOLAX) suppository 10 mg, 10 mg, rectal, DAILY PRN carbidopa-levodopa (SINEMET) 25-100 mg 1 tablet, 1 tablet, oral, QID HYDROmorphone (DILAUDID) injection 0.2-0.6 mg, 0.2-0.6 mg, intravenous, Q2H PRN ketorolac (TORADOL) injection 15 mg, 15 mg, intravenous, Q6H lactated Ringers IV, 125 mL/hr, intravenous, CONTINUOUS LORazepam (ATIVAN) tablet 0.5 mg, 0.5 mg, oral, Q4H PRN metoprolol tartrate (LOPRESSOR) tablet 50 mg, 50 mg, oral, BID naloxone (NARCAN) injection, , intravenous, PRN omeprazole (PRILOSEC) capsule 20 mg, 20 mg, oral, DAILY ondansetron (ZOFRAN) injection 4 mg, 4 mg, intravenous, Q12H PRN oxybutynin (DITROPAN) tablet 5 mg, 5 mg, oral, TID PRN oxyCODONE (immediate release) (ROXICODONE) tablet 5-15 mg, 5-15 mg, oral, Q3H PRN polyethylene glycol (MIRALAX) packet 17 g, 17 g, oral, DAILY polyethylene glycol (MIRALAX) packet 34 g, 34 g, oral, TID PRN prochlorperazine (COMPAZINE) injection 5-10 mg, 5-10 mg, intravenous, Q6H PRN prochlorperazine (COMPAZINE) tablet 5-10 mg, 5-10 mg, oral, Q6H PRN senna-docusate (SENOKOT S) 8.6-50 mg 2 tablet, 2 tablet, oral, BID Labs: Recent Labs 12/08/17 1041 12/08/17 1613 12/09/17 0424 NA -- -- 138 K -- -- 3.6 CL -- -- 103 BICARB -- -- 26 BUN -- -- 19 CR -- -- 1.09 GLU 77 102* 90 CA -- -- 8.3* Recent Labs 12/09/17 0424 WBC 10.40 HB 12.4* HCT 37.3* PLT 194 No results for input(s): AST, ALT, TBILI, AP, ALB, TP in the last 4320 hours. No results found for: CULTURE Exam: Gen - Alert, conversant, NAD Pulm - No cough, stridor, or increased work of breathing. Abd - Soft, Appropriately tender, nondistended Inc - clean, dry, and intact - Kaur in place draining clear urine Ext - Warm, well perfused; no cyanosis, clubbing or edema Neuro - Grossly intact; no focal abnormalities Assessment and Plan: Chauncey Vickers is a 67 y.o. male postoperative day # 1 status post RALP doing well Plan Discharge today Follow up as scheduled The attending of record for this patient is Adeel Salas MD. Nupur Bardales MD Urology Pager [phone] documented in this enc ounter Plan of Treatment Not on filedocumented as of this encounter Procedures + +--------+ + + + | Procedure Name | Priori | Date/Time | Associated Diagnosis | Comments | | | ty | | | | + +--------+ + + + | CBC (HEMOGRAM) ONLY | Routin | 12/09/2017 | | Results for this | | | e | 4:24 AM | | procedure are in the | | | | PDT | | results section. | + +--------+ + + + | BASIC METABOLIC SET | Routin | 12/09/2017 | | Results for this | | (NA, K, CL, TCO2, | e | 4:24 AM | | procedure are in the | | BUN, CR, GLU, CA) | | PDT | | results section. | + +--------+ + + + | CBC ONLY | Routin | 12/09/2017 | | Results for this | | | e | 4:24 AM | | procedure are in the | | | | PDT | | results section. | + +--------+ + + + | PROCEDURE NOTE | Routin | 12/08/2017 | | Results for this | | | e | 10:33 PM | | procedure are in the | | | | PDT | | results section. | + +--------+ + + + | CAPILLARY BLOOD | Routin | 12/08/2017 | Malignant neoplasm | Results for this | | GLUCOSE (NO CHG), | e | 4:13 PM | of prostate (HCC) | procedure are in the | | POC | | PDT | | results section. | + +--------+ + + + | SURGICAL PATHOLOGY | Routin | 12/08/2017 | | Results for this | | | e | 12:51 PM | | procedure are in the | | | | PDT | | results section. | + +--------+ + + + | ROBOT XI RADICAL | Electi | 12/08/2017 | C61 (ICD-10-CM) - | | | PROSTATECTOMY WITH | ve | 11:59 AM | 185 (ICD-9-CM) - | | | BILATERAL PELVIC | Surgic | PDT | PROSTATE CANCER | | | LYMPH NODE | al | | (HCC) | | | DISSECTION | | | | | + +--------+ + + + | CAPILLARY BLOOD | Routin | 12/08/2017 | Malignant neoplasm | Results for this | | GLUCOSE (NO CHG), | e | 10:41 AM | of prostate (HCC) | procedure are in the | | POC | | PDT | | results section. | + +--------+ + + + | INTRAPROCEDURE | Routin | 12/08/2017 | | Results for this | | IMAGING | e | 9:47 AM | | procedure are in the | | | | PDT | | results section. | + +--------+ + + + | CARDIOLOGY | | 12/08/2017 | | Results for this | | | | 12:00 AM | | procedure are in the | | | | PDT | | results section. | + +--------+ + + + documented in this encounter Results CBC (HEMOGRAM) ONLY (12/09/2017 4:24 AM PDT) + + + + + + | Component | Value | Ref Range | Performed | Pathologist | | | | | At | Signature | + + + + + + | WHITE CELL | 10.40 | 3.50 - 10.80 | [facility] | | | COUNT | | K/cu mm | LABORATORY | | | | | | SERVICES, | | | | | | CORE | | + + + + + + | RED CELL | 4.10 (L) | 4.50 - 6.00 | [facility] | | | COUNT | | M/cu mm | LABORATORY | | | | | | SERVICES, | | | | | | CORE | | + + + + + + | HEMOGLOBIN | 12.4 (L) | 13.5 - 17.5 | [facility] | | | | | g/dL | LABORATORY | | | | | | SERVICES, | | | | | | CORE | | + + + + + + | HEMATOCRIT | 37.3 (L) | 41.0 - 53.0 % | [facility] | | | | | | LABORATORY | | | | | | SERVICES, | | | | | | CORE | | + + + + + + | MCV | 91.0 | 80.0 - 96.0 fL | [facility] | | | | | | LABORATORY | | | | | | SERVICES, | | | | | | CORE | | + + + + + + | MCHC | 33.2 | 33.0 - 35.5 | [facility] | | | | | g/dL | LABORATORY | | | | | | SERVICES, | | | | | | CORE | | + + + + + + | RDW SD | 42.2 | 35.1 - 46.3 fL | [facility] | | | | | | LABORATORY | | | | | | SERVICES, | | | | | | CORE | | + + + + + + | PLATELET | 194 | 150 - 400 K/cu | [facility] | | | COUNT | | mm | LABORATORY | | | | | | SERVICES, | | | | | | CORE | | + + + + + + | MPV | 11.8 | 9.7 - 12.3 fL | [facility] | | | | | | LABORATORY | | | | | | SERVICES, | | | | | | CORE | | + + + + + + | NRBC% | 0.0 | 0.0 - 0.3 % | [facility] | | | | | | LABORATORY | | | | | | SERVICES, | | | | | | CORE | | + + + + + + | NRBC# | 0.00 | 0.00 - 0.02 | [facility] | | | | | K/cu mm | LABORATORY | | | | | | SERVICES, | | | | | | CORE | | + + + + + + + + | Specimen | + + | Blood | + + + + + + + | Performing | Address | City/State/Zipcode | Phone Number | | Organization | | | | + + + + + | [facility] | [address] | [place] [address] | | | SERVICES, CORE | [address] | | | + + + + + BASIC METABOLIC SET (NA, K, CL, TCO2, BUN, CR, GLU, CA) (12/09/2017 4:24 AM PDT) + +---------+ + + + | Component | Value | Ref Range | Performed | Pathologist | | | | | At | Signature | + +---------+ + + + | GLUCOSE, | 90 | 70 - 99 mg/dL | [facility] | | | PLASMA | | | LABORATORY | | | (LAB) | | | SERVICES, | | | | | | CORE | | + +---------+ + + + | BUN, PLASMA | 19 | 6 - 20 mg/dL | [facility] | | | (LAB) | | | LABORATORY | | | | | | SERVICES, | | | | | | CORE | | + +---------+ + + + | CREATININE | 1.09 | 0.70 - 1.30 | [facility] | | | PLASMA | | mg/dL | LABORATORY | | | (LAB) | | | SERVICES, | | | | | | CORE | | + +---------+ + + + | EGFR | >60 | >60 mL/min | [facility] | | | - | | | LABORATORY | | | CZECH | | | SERVICES, | | | | | | CORE | | + +---------+ + + + | EGFR NON | >60 | >60 mL/min | [facility] | | | -[facility] | | | LABORATORY | | | RICAN | | | SERVICES, | | | | | | CORE | | + +---------+ + + + | SODIUM, | 138 | 136 - 145 | [facility] | | | PLASMA | | mmol/L | LABORATORY | | | (LAB) | | | SERVICES, | | | | | | CORE | | + +---------+ + + + | POTASSIUM, | 3.6 | 3.4 - 5.0 | [facility] | | | PLASMA | | mmol/L | LABORATORY | | | (LAB) | | | SERVICES, | | | | | | CORE | | + +---------+ + + + | CHLORIDE, | 103 | 97 - 108 mmol/L | [facility] | | | PLASMA | | | LABORATORY | | | (LAB) | | | SERVICES, | | | | | | CORE | | + +---------+ + + + | TOTAL CO2, | 26 | 21 - 32 mmol/L | [facility] | | | PLASMA | | | LABORATORY | | | (LAB) | | | SERVICES, | | | | | | CORE | | + +---------+ + + + | CALCIUM, | 8.3 (L) | 8.6 - 10.2 | [facility] | | | PLASMA | | mg/dL | LABORATORY | | | (LAB) | | | SERVICES, | | | | | | CORE | | + +---------+ + + + | ANION GAP | 9 | 4 - 11 mmol/L | [facility] | | | | | | LABORATORY | | | | | | SERVICES, | | | | | | CORE | | + +---------+ + + + | POTASSIUM | No Hemo | | [facility] | | | CMNT | | | LABORATORY | | | | | | SERVICES, | | | | | | CORE | | + +---------+ + + + + + | Specimen | + + | Blood | + + + + + | Narrative | Performed At | + + + | Adult glucose reference range change effective 03-22-17. GFR is | [facility] | | estimated using the MDRD equation recommended by the National Kidney | LABORATORY | | Disease Education Program. Estimated GFR Interpretive Information: | SERVICES, CORE | | <60 mL/min/1.73 sq m Chronic Kidney Disease | | | <15 mL/min/1.73 sq m Kidney Failure Estimated | | | GFR greater that 60 mL/min/1.73 sq m is of limited clinical value. | | | The MDRD equation is not valid in the following situations: - | | | Patients under 18 years of age - Severe malnutrition or obesity - | | | Vegetarian diet - Rapidly changing kidney function | | + + + + + + + + | Performing | Address | City/State/Zipcode | Phone Number | | Organization | | | | + + + + + | [facility] | [address] | [place] [address] | | | SERVICES, [facility] | [address] | | | + + + + + PROCEDURE NOTE (12/08/2017 10:33 PM PDT) + + + | Narrative | Performed At | + + + | John Connors MD 12/08/2017 4:03 PM UROLOGIC ONCOLOGY | | | OPERATIVE REPORT Date: 12/08/2017 Attending Surgeon: | | | Adeel Salas M.D., F.A.C.S. [Dr. Salas was present and | | | scrubbed for the entire operation.] Resident Surgeon: John | | | MD Waylon Chief Payroll Clerk: Roxy Boykin PA-C Preoperative | | | Diagnosis: Clinically-localized prostate cancer Postoperative | | | Diagnosis: Clinically-localized prostate cancer Procedures | | | Performed: (1) Robotic-assisted laparoscopic radical prostatectomy | | | (anatomic; bilateral nerve-sparing) (2) Robotic-assisted laparoscopic | | | pelvic lymph node dissection Anesthesia: General endotracheal | | | tube anesthesia Estimated Blood Loss: 25ml Pathology | | | Specimens: (1) Prostate and seminal vesicles (2) Pelvic lymph nodes | | | Drains: 20F Kaur Catheter, 10ml Complications: There were | | | no complications. Prior to the beginning of the procedure, the | | | team paused to verify the patient | | | | | | s identity, the procedure to be performed (in accordance with the | | | consent,) and the correct side/site. The patient was positioned | | | appropriately. All relevant images and results were properly labeled | | | and displayed. We addressed antibiotic prophylaxis and fluids for | | | irrigation as applicable to this patient. Any safety precautions | | | were addressed. Indications: Chauncey Vickers is a 67 y.o. man | | | with Parkinson's disease and clinically localized prostate cancer. | | | His most recent PSA is 5.67ng/dL. A biopsy demonstrated Kim | | | grade 4+4, 4+3, and 3+3 adenocarcinoma in 5/8 cores. After extensive | | | discussion of his treatment options, he has elected to proceed with | | | robot-assisted radical prostatectomy. Operative Findings: An | | | anatomic, bilateral nerve-sparing technique was used. Both nerve | | | bundles were preserved. The urethral length and support were | | | outstanding. A water-tight tension-free anastomosis was performed. | | | There was no gross evidence of extraprostatic disease. There were no | | | apparent complications. Procedure: The patient was brought to | | | the operating room where a general anesthetic was administered. He | | | was placed in the dorsal lithotomy position and prepped and draped | | | in usual sterile fashion. The abdomen was insufflated with a Veress | | | needle at the umbilicus, and trocars were placed in the standard | | | configuration. The patient was placed in Trendelenburg position, and | | | the da Alan Si surgical system was docked. Attachments | | | between the sigmoid and the abdominal wall were sharply divided. We | | | then dropped the bladder posteriorly. The anterior abdominal wall | | | was incised lateral to the medial umbilical ligaments and the space | | | between the bladder and the anterior abdominal wall was developed to | | | the level of the endopelvic fascia. The vas deferens were | | | transected to allow access to the obturator fossa which was | | | developed bluntly. At this point, the lymph node dissection was | | | performed. Lymph node packages were removed from the obturator and | | | hypogastric locations on both the left and the right sides. Care was | | | taken to use clips as necessary to control small lymphatic | | | channels. Once the lymph node dissection was complete, the right and | | | left node packages placed in separate endocatch bags and sent for | | | pathologic analysis. Nu-knit hemostatic gauze was placed into the | | | obturator/hypogastric to provide compression and hemostasis. | | | At this point the loose fatty tissue on the anterior surface of the | | | prostate and bladder was removed using blunt dissection and | | | electrocautery. The endopelvic fascia was cleared of overlying fatty | | | tissue. The endopelvic fascia was then opened on both sides, and | | | the space between the prostate and the levator muscles was developed | | | to the level of the prostatic apex. The dorsal venous complex | | | was transected with an Endo-AIRAM stapling device. The | | | prostate-bladder junction was then developed with the use of | | | electrocautery and sharp dissection with preservation of bladder | | | neck. The bladder neck was entered anteriorly and the posterior | | | bladder neck and base of the bladder were visualized. A 4-0 Polysorb | | | was used to elyssa the bladder neck mucosa. The prostate was lifted | | | anteriorly, and the space between the posterior bladder wall and | | | prostate was developed carefully to the level of the seminal | | | vesicles and the vas deferens. The vas deferens was transected and | | | the seminal vesicles were freed from fibroadipose attachments. Care | | | was taken to avoid use of electrocautery lateral to the seminal | | | vesicles. The space between the prostate and the rectum was then | | | developed in an antegrade fashion to the level of the prostatic | | | apex. Attention was now directed to the prostatic pedicles and | | | neurovascular bundles. A bilateral nerve sparing procedure was | | | performed. As such, the prostatic pedicles were controlled by | | | placement of Hem-0-Justin clips followed by sharp, cold transection. | | | The lateral prostatic fascia was incised to allow release of the | | | neurovascular bundles. The space between the neurovascular bundle | | | and prostate was first developed near the apex of the prostate | | | followed by retrograde bundle release. Then, the prostate was lifted | | | to allow antegrade displacement of the bundle from the | | | lateral-posterior aspect of the prostate. Using sharp dissection, | | | the apex of the prostate was then developed. The urethra was | | | transected at this location assuring a thick, lengthy urethral | | | stump. The prostate was placed into an Endocatch bag. The posterior | | | fascia was re-approximated using a running 3-0 V-Loc suture | | | according to the technique of Donovan et al. The vesicourethral | | | anastomosis was then performed with a running 3-0 v-loc. A | | | 20-Congolese catheter was placed, and irrigation showed no | | | extravasation. The robot was then undocked. The fascia of the 12mm | | | printer floor covering assistant port was closed with 0-Vicryl using the Akash-Charles | | | device. The prostate specimen was extracted through the | | | supraumbilical port site, and the fascia at this location was closed | | | with 0-Vicryl suture in a running fashion. The skin at the | | | supraumbilical site was reapproximated with a 5-0 V-Loc suture in a | | | running subcuticular fashion. Indermil skin adhesive was used to | | | re-approximate the skin at the other trocar sites. The patient was | | | extubated in the operating room and transported from the operating | | | room to the recovery room in stable condition. Adeel Stephens | | | MD Maritza was present for the entire case. Modifier 82 | | | justification: Yusra Boykin PA-C was scrubbed and acted as first | | | printer floor covering assistant at the patient | | | | | | s bedside. The resident, Dr. 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 [facility] | | | control console and did not perform international first officer duties on the | | | robotic-assisted portions of the case. Post-op plan: - PACU then | | | marie - keep Kaur - Diet as tolerated - AM labs - Scheduled | | | Tylenol and Toradol, narcotics prn - Oxybutynin PRN for bladder | | | spasms JOHN CONNORS MD Urology Chief Resident | | + + + CAPILLARY BLOOD GLUCOSE (NO CHG), POC (12/08/2017 4:13 PM PDT) + +---------+ + + + | Component | Value | Ref Range | Performed | Pathologist | | | | | At | Signature | + +---------+ + + + | BLOOD | 102 (H) | 70 - 99 mg/dL | [facility] - | | | GLUCOSE, | | | [facility] | | | POC | | | [facility] | | | | | | OF CARE | | | | | | TESTS | | + +---------+ + + + + + | Specimen | + + | | + + + + + + + | Performing | Address | City/State/Zipcode | Phone Number | | Organization | | | | + + + + + | [facility] | 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 Lymph nodes, right | | [facility] | Electronically | | Pathologic | pelvic, dissection:- | | DEPARTMENT | signed by Sung | | Diagnosis | Eight lymph nodes, | | OF | [facility] [place] on | | | negative for malignancy | | PATHOLOGY | 12/13/2017 at | | | (0/8)B. Lymph nodes, | | | 1:18 PM | | | left pelvic, | | | | | | dissection:- Two lymph | | | | | | node, negative for | | | | | | malignancy (0/2)C. | | | | | | Prostate and seminal | | | | | | vesicles, radical | | | | | | prostatectomy:- | | | | | | Prostatic acinar | | | | | | adenocarcinoma, Gruver | | | | | | score 3+4=7 (grade group | | | | | | 2)- Estimated | | | | | | percentage of prostate | | | | | | involved by tumor: 15%- | | | | | | No extraprostatic | | | | | | extension identified- | | | | | | Margins: uninvolved by | | | | | | invasive carcinoma- | | | | | | Pathologic Staging | | | | | | Summary (AJCC 8th | | | | | | edition): pT2 pN0- See | | | | | | synoptic report below | | | | | | for additional | | | | | | detailsCase seen | | | | | | by:Emiliana Kenny MD | | | | | | | | | | | | Pathology | | | | | | ResidentSung-Brianda Bethea, | | | | | | MD - PathologistMy | | | | | | electronic signature | | | | | | indicates that I have | | | | | | personally reviewed all | | | | | | diagnostic slides, the | | | | | | gross and/or microscopic | | | | | | portion of this report | | | | | | and formulated the final | | | | | | diagnosis. | | | | + + + + + + | SYNOPTIC | PROSTATE GLAND: Radical | | [facility] | | | REPORTS | Prostatectomy | | DEPARTMENT | | | | (Prostate Res - All | | OF | | | | Specimens) SPECIMEN | | PATHOLOGY | | | | Procedure: Radical | | | | | | prostatectomy | | | | | | Prostate Size: | | | | | | Prostate Weight (g): | | | | | | 41 g Prostate | | | | | | Greatest Dimension in | | | | | | Centimeters (cm): | | | | | | 4.5 Centimeters (cm) | | | | | | Additional | | | | | | Dimension in Centimeters | | | | | | (cm): 4 | | | | | | Centimeters (cm) | | | | | | Additional Dimension in | | | | | | Centimeters (cm): 4 | | | | | | Centimeters (cm) TUMOR | | | | | | Histologic Type: | | | | | | Acinar adenocarcinoma | | | | | | Kim Pattern: | | | | | | | | | | | | Percentage of Pattern 4: | | | | | | 20 % | | | | | | Primary Kim Pattern: | | | | | | Pattern 3 | | | | | | Secondary Kim | | | | | | Pattern: Pattern 4 | | | | | | Tertiary | | | | | | Kim Pattern: | | | | | | Not applicable | | | | | | Total Kim Score: | | | | | | 7 Grade | | | | | | Group: 2 | | | | | | Intraductal Carcinoma | | | | | | (IDC): Not | | | | | | identified Tumor | | | | | | Quantitation: | | | | | | Estimated percentage | | | | | | of prostate involved by | | | | | | tumor: 15 % | | | | | | Extraprostatic Extension | | | | | | (EPE): Not | | | | | | identified | | | | | | Urinary Bladder Neck | | | | | | Invasion: Not | | | | | | identified | | | | | | Seminal Vesicle | | | | | | Invasion: Not | | | | | | identified | | | | | | Treatment Effect: | | | | | | No known presurgical | | | | | | therapy | | | | | | Lymphovascular Invasion: | | | | | | Not Identified | | | | | | Perineural Invasion: | | | | | | Present MARGINS | | | | | | Margins: | | | | | | Uninvolved by invasive | | | | | | carcinoma LYMPH NODES | | | | | | Regional Lymph Nodes: | | | | | | Number of | | | | | | Lymph Nodes Involved: | | | | | | 0 Number of | | | | | | Lymph Nodes Examined: | | | | | | 10 PATHOLOGIC STAGE | | | | | | CLASSIFICATION (pTNM, | | | | | | AJCC 8th Edition) | | | | | | Primary Tumor (pT): | | | | | | pT2 Regional Lymph | | | | | | Nodes (pN): pN0 | | | | | | ADDITIONAL FINDINGS | | | | | | Additional Pathologic | | | | | | Findings: | | | | | | High-grade prostatic | | | | | | intraepithelial | | | | | | neoplasia (PIN) | | | | + + + + + + | Gross | Received 3 specimens | | [facility] | | | Description | fresh labeled with the | | DEPARTMENT | | | | patient's name and | | OF | | | | medical record number | | PATHOLOGY | | | | [id number]. Right Pelvic | | | | | | Lymph Nodes, "right | | | | | | pelvic lymph | | | | | | nodes":Received is a | | | | | | banda-yellow fragment of | | | | | | fibroadipose tissue | | | | | | measuring 4.5 and 4.0 x | | | | | | 1.0 cm in. Several | | | | | | candidate lymph nodes | | | | | | are dissected from the | | | | | | tissue. The specimen is | | | | | | entirely submitted in | | | | | | cassettes A1 | | | | | | | | | | | | 3.B. Left Pelvic Lymph | | | | | | Nodes, "left pelvic | | | | | | lymph nodes":A | | | | | | banda-yellow fragment of | | | | | | fibroadipose tissue | | | | | | measuring 2.5 x 2.0 x | | | | | | 1.0 cm. Several | | | | | | candidate lymph nodes | | | | | | are dissected from the | | | | | | tissue. The specimen is | | | | | | entirely submitted in | | | | | | cassettes B1.C. Prostate | | | | | | and seminal vesicles, | | | | | | "prostate and seminal | | | | | | vesicles":Received is a | | | | | | 41 gram radical | | | | | | prostatectomy specimen | | | | | | that measures 4.5 cm | | | | | | right to left, 4.0 cm | | | | | | anterior to posterior, | | | | | | and 4.0 cm superior to | | | | | | inferior. The right | | | | | | seminal vesicle measures | | | | | | 2.5 x 1.5 x 0.5 cm and | | | | | | the left seminal vesicle | | | | | | measures 2.2 x 1.8 x | | | | | | 0.6 cm. The right vas | | | | | | measures 2.2 x 0.5 cm, | | | | | | and the left vas | | | | | | measures 2.0 x 0.5. The | | | | | | external surface of the | | | | | | prostate is roughened | | | | | | with a 2.5 cm anterior | | | | | | staple line. The right | | | | | | side of the prostate is | | | | | | inked in black, the left | | | | | | side in blue, and the | | | | | | anterior staple line is | | | | | | inked orange. The apex | | | | | | and base margins are | | | | | | removed and radially | | | | | | sectioned. The prostate | | | | | | is bisected and serially | | | | | | sectioned from apex to | | | | | | base revealing | | | | | | banda-yellow, vaguely | | | | | | nodular prostatic | | | | | | parenchyma that is | | | | | | diffusely dusky in the | | | | | | posterior apex. | | | | | | Alternate slices are | | | | | | submitted from apex to | | | | | | base.C1, right seminal | | | | | | vesicle to prostate and | | | | | | right vas margin en | | | | | | faceC2, left seminal | | | | | | vesicle to prostate and | | | | | | left vas margin en | | | | | | faceC3, base margin, | | | | | | radially sectionedC4, | | | | | | apex margin, radially | | | | | | sectionedC5 | | | | | | | | | | | | 9, right prostate | | | | | | submitted from apex to | | | | | | base, alternate sections | | | | | | C10 | | | | | | | | | | | | 14, left prostate | | | | | | submitted from apex to | | | | | | base, alternate | | | | | | sectionsBK | | | | + + + + + + + + | Specimen | + + | Tissue - Ectopic | | ureter (disorder) | + + | Tissue - Ectopic | | ureter (disorder) | + + | Tissue - Ectopic | | ureter (disorder) | + + + + + + + | Performing | Address | City/State/Zipcode | Phone Number | | Organization | | | | + + + + + | [facility] | [address] | [place] [address] | | | PATHOLOGY | [address] | | | + + + + + CAPILLARY BLOOD GLUCOSE (NO CHG), POC (12/08/2017 10:41 AM PDT) + +-------+ + + + | Component | Value | Ref Range | Performed | Pathologist | | | | | At | Signature | + +-------+ + + + | BLOOD | 77 | 70 - 99 mg/dL | [facility] - | | | GLUCOSE, | | | [facility] | | | POC | | | [facility] | | | | | | OF CARE | | | | | | TESTS | | + +-------+ + + + + + | Specimen | + + | | + + + + + + + | Performing | Address | City/State/Zipcode | Phone Number | | Organization | | | | + + + + + | [facility] | [address] | [place], [place] | | | [facility] [place] [facility] | [address] | [address] | | | TESTS | | | | + + + + + INTRAPROCEDURE IMAGING (12/08/2017 9:47 AM PDT) + + | Specimen | + + | | + + + + + | Narrative | Performed At | + + + | See admission or procedure notes for details of any intraprocedure | | | images obtained. | | + + + CARDIOLOGY (12/08/2017 12:00 AM PDT) + + + | Narrative | Performed At | + + + | | | + + + documented in this encounter Visit Diagnoses Not on filedocumented in this encounter Administered Medications + +--------+ + +------+------+ | Medication Order | MAR | Action | Dose | Rate | Site | | | Action | Date | | | | + +--------+ + +------+------+ | acetaminophen (TYLENOL) tablet | Given | 12/10/19 | 1,000 mg | | | | 1,000 mg 1,000 mg, oral, EVERY 6 | | 18 8:34 | | | | | HOURS, First dose on Mon12/08/17 | | AM PDT | | | | | at 1615, Until Discontinued | | | | | | + +--------+ + +------+------+ +-------+ + +---+---+ | Given | 12/10/19 | 1,000 mg | | | | | 18 4:55 | | | | | | AM PDT | | | | +-------+ + +---+---+ | Given | 12/09/19 | 1,000 mg | | | | | 18 9:49 | | | | | | PM PDT | | | | +-------+ + +---+---+ +---+---+ | | | +---+---+ + +-------+ +--------+---+---+ | amantadine HCl (SYMMETREL) | Given | 12/10/19 | 100 mg | | | | capsule 100 mg 100 mg, oral, | | 18 8:34 | | | | | TWICE DAILY, First dose on Mon | | AM PDT | | | | | 12/08/17 at 2100, Until | | | | | | | Discontinued | | | | | | + +-------+ +--------+---+---+ +-------+ +--------+---+---+ | Given | 12/09/19 | 100 mg | | | | | 18 9:50 | | | | | | PM PDT | | | | +-------+ +--------+---+---+ +---+---+ | | | +---+---+ + +-------+ + +---+---+ | carbidopa-levodopa (SINEMET) | Given | 12/10/19 | 1 tablet | | | | 25-100 mg 1 tablet 1 tablet, | | 18 1:25 | | | | | oral, FOUR TIMES DAILY, First | | PM PDT | | | | | dose on Mon12/08/17 at 1800, | | | | | | | Until Discontinued | | | | | | + +-------+ + +---+---+ +-------+ + +---+---+ | Given | 12/10/19 | 1 tablet | | | | | 18 8:34 | | | | | | AM PDT | | | | +-------+ + +---+---+ | Given | 12/09/19 | 1 tablet | | | | | 18 9:49 | | | | | | PM PDT | | | | +-------+ + +---+---+ +---+---+ | | | +---+---+ + +-------+ +-------+---+---+ | ketorolac (TORADOL) injection | Given | 12/10/19 | 15 mg | | | | 15 mg 15 mg, intravenous, EVERY | | 18 1:25 | | | | | 6 HOURS, 6 doses, First dose on | | PM PDT | | | | | 12/08/17 at 1900, Last dose on | | | | | | | 12/10/17 at 0100 | | | | | | + +-------+ +-------+---+---+ +-------+ +-------+---+---+ | Given | 12/10/19 | 15 mg | | | | | 18 6:33 | | | | | | AM PDT | | | | +-------+ +-------+---+---+ | Given | 12/10/19 | 15 mg | | | | | 18 1:14 | | | | | | AM PDT | | | | +-------+ +-------+---+---+ +---+---+ | | | +---+---+ + + + +-------+-------+---+ | lactated Ringers IV 125 mL/hr, | Rate/Dos | 12/10/19 | 125 | 125 | | | intravenous, CONTINUOUS, | e Verify | 18 9:00 | mL/hr | mL/hr | | | Starting 12/08/17 at 1615, | | AM PDT | | | | | Until 12/09/17 at 2140 | | | | | | + + + +-------+-------+---+ + + +-------+-------+---+ | Rate/Dose Verify | 12/10/19 | 125 | 125 | | | | 18 6:35 | mL/hr | mL/hr | | | | AM PDT | | | | + + +-------+-------+---+ | Rate/Dose Verify | 12/10/19 | 125 | 125 | | | | 18 2:22 | mL/hr | mL/hr | | | | AM PDT | | | | + + +-------+-------+---+ +---+---+ | | | +---+---+ + +-------+ +--------+---+---+ | LORazepam (ATIVAN) tablet 0.5 | Given | 12/09/19 | 0.5 mg | | | | mg 0.5 mg, oral, EVERY 4 HOURS | | 18 9:50 | | | | | NEEDED, Starting 12/08/17 | | PM PDT | | | | | at 1529, Until 12/09/17 at | | | | | | | 2140, anxiety | | | | | | + +-------+ +--------+---+---+ +---+---+ | | | +---+---+ + +-------+ +-------+---+---+ | metoprolol tartrate (LOPRESSOR) | Given | 12/10/19 | 50 mg | | | | tablet 50 mg 50 mg, oral, TWICE | | 18 8:34 | | | | | DAILY, First dose on Mon12/08/17 | | AM PDT | | | | | at 2100, Until Discontinued | | | | | | + +-------+ +-------+---+---+ +-------+ +-------+---+---+ | Given | 12/09/19 | 50 mg | | | | | 18 9:50 | | | | | | PM PDT | | | | +-------+ +-------+---+---+ +---+---+ | | | +---+---+ + +-------+ +-------+---+---+ | omeprazole (PRILOSEC) capsule | Given | 12/10/19 | 20 mg | | | | 20 mg 20 mg, oral, DAILY, First | | 18 8:34 | | | | | dose on Mon12/08/17 at 1715, | | AM PDT | | | | | Until Discontinued | | | | | | + +-------+ +-------+---+---+ +-------+ +-------+---+---+ | Given | 12/09/19 | 20 mg | | | | | 18 7:37 | | | | | | PM PDT | | | | +-------+ +-------+---+---+ +---+---+ | | | +---+---+ + +-------+ + +---+ + | opium-delonte (B&O 16) | Given | 12/09/19 | 1 | | Other | | 16.2-60 mg suppository | | 18 3:59 | supposit | | (See | | INTRAPROCEDURE PRN, Starting Fri | | PM PDT | ory | | Comments | | 12/08/17 at 1559, Until Fri | | | | | ) | | 12/08/17 at 1605 | | | | | | + +-------+ + +---+ + +---+---+ | | | +---+---+ + +-------+ +------+---+---+ | oxybutynin (DITROPAN) tablet 5 | Given | 12/10/19 | 5 mg | | | | mg 5 mg, oral, THREE TIMES DAILY | | 18 5:29 | | | | | NEEDED, Starting 12/08/17 | | AM PDT | | | | | at 1603, Until 12/09/17 at | | | | | | | 2140, bladder spasms | | | | | | + +-------+ +------+---+---+ +-------+ +------+---+---+ | Given | 12/09/19 | 5 mg | | | | | 18 9:50 | | | | | | PM PDT | | | | +-------+ +------+---+---+ | Given | 12/09/19 | 5 mg | | | | | 18 4:21 | | | | | | PM PDT | | | | +-------+ +------+---+---+ +---+---+ | | | +---+---+ + +-------+ +------+---+---+ | oxyCODONE (immediate release) | Given | 12/10/19 | 5 mg | | | | (ROXICODONE) tablet 5-15 mg 5-15 | | 18 1:25 | | | | | mg, oral, EVERY 3 HOURS | | PM PDT | | | | | NEEDED, Starting Mon12/08/17 at | | | | | | | 1603, Until 12/09/17 at 2140, | | | | | | | moderate pain | | | | | | + +-------+ +------+---+---+ +-------+ +------+---+---+ | Given | 12/10/19 | 5 mg | | | | | 18 8:34 | | | | | | AM PDT | | | | +-------+ +------+---+---+ | Given | 12/10/19 | 5 mg | | | | | 18 5:29 | | | | | | AM PDT | | | | +-------+ +------+---+---+ +---+---+ | | | +---+---+ + +-------+ +------+---+---+ | polyethylene glycol (MIRALAX) | Given | 12/10/19 | 17 g | | | | packet 17 g 17 g, oral, DAILY, | | 18 8:34 | | | | | First dose on Mon12/08/17 at | | AM PDT | | | | | 1900, Until Discontinued | | | | | | + +-------+ +------+---+---+ +---+---+ | | | +---+---+ + +-------+ +------+---+---+ | prochlorperazine (COMPAZINE) | Given | 12/09/19 | 5 mg | | | | tablet 5-10 mg 5-10 mg, oral, | | 18 7:36 | | | | | EVERY 6 HOURS NEEDED, Starting | | PM PDT | | | | | 12/08/17 at 1855, Until Sat | | | | | | | 12/09/17 at 2140, nausea/vomiting, | | | | | | | second line | | | | | | + +-------+ +------+---+---+ +---+---+ | | | +---+---+ + +-------+ +---------+---+---+ | senna-docusate (SENOKOT S) | Given | 12/10/19 | 2 | | | | 8.6-50 mg 2 tablet 2 tablet, | | 18 8:34 | tablets | | | | oral, TWICE DAILY, First dose on | | AM PDT | | | | | 12/08/17 at 2100, Until | | | | | | | Discontinued | | | | | | + +-------+ +---------+---+---+ +-------+ +---------+---+---+ | Given | 12/09/19 | 2 | | | | | 18 9:49 | tablets | | | | | PM PDT | | | | +-------+ +---------+---+---+ +---+---+ | | | +---+---+ documented in this encounter
--- OUTSIDE RECORDS SUMMARY | ~2020-02-18 | XMS | Encounter Summary ---
Demographics + + + | Address | [address] | | | [place] [address] | + + + | Home Phone | | + + + | Preferred Language | Unknown | + + + | Marital Status | Single | + + + | Scientologist Affiliation | CHR | + + + | Race | White | + + + | Ethnic Group | Not or | + + + Author + + + | Author | [facility] | + + + | Organization | [facility] | + + + | Address | Unknown | + + + | Phone | Unavailable | + + + Support + + +---------+ + | Name | Relationship | Address | Phone | + + +---------+ + | Mati Moody | ECON | Unknown | | + + +---------+ + | Christine Moody | ECON | Unknown | | + + +---------+ + Care Team Providers + +------+ + | Care Fruit Sorter Name | Role | Phone | + +------+ + | Reji Morales MD | PCP | | + +------+ + Reason for Visit + + + | Reason | Comments | + + + | Refill Request | | + + + Encounter Details +--------+--------+ + + + | Date | Type | Department | Care Team | Description | +--------+--------+ + + + | 08/21/ | Refill | Neurology Movement | Sherry Mcmahon, | Refill Request | | 2007 | | Disorders Clinic at | [address] | | | | | [facility] | [facility] | | | | | and Healing [address] | [place] [address] | | | | | Arvin Yanez Mailcode: | [phone] | | | | | [address] | | | | | | Health and Healing, | | | | | | [address] | | | | | | [place], [place] | | | | | | [address] | | | | | | [phone] | | | +--------+--------+ + + + Social History + +-------+ +--------+------+ | Tobacco Use | Types | Packs/Day | Years | Date | | | | | Used | | + +-------+ +--------+------+ | Former Smoker | | | | | + +-------+ +--------+------+ + + +---------+ + | Alcohol Use | Drinks/Week | oz/Week | Comments | + + +---------+ + | Yes | | 16.7 | | + + [...] + + documented as of this encounter Plan of Treatment Not on filedocumented as of this encounter Visit Diagnoses Not on filedocumented in this encounter"
--- OUTSIDE RECORDS SUMMARY | ~2020-02-18 | XMS | Encounter Summary ---
Demographics + + + | Address | [address] | | | [place] [address] | + + + | Home Phone | | + + + | Preferred Language | Unknown | + + + | Marital Status | Single | + + + | Mormonism Affiliation | CHR | + + + | Race | White | + + + | Ethnic Group | Not or | + + + Author + + + | Author | [facility] | + + + | Organization | [facility] | + + + | Address | [...] Team Providers + +------+ + | Care Glazing Machine Operator Name | Role | Phone | + [...] Description | +--------+--------+ + + + | 07/16/ | Refill | Neurology Movement | Sherry Mcmahon, | Refill Request | | 2011 | | Disorders Clinic at | [address] | | | | | [facility] | [facility] | | | | | and Healing [address] | [place] [address] | | | | | Arvin Yanez Mailcode: | [phone] | | | | | [address] | | | | | | Health and Healing, | | | | | | [address] | | | | | | Floor [place], [place] | | | | | | [address] | | | | | | [phone] | | | +--------+--------+ + + + Social History + +-------+ +--------+------+ | Tobacco Use | Types | Packs/Day | Years | Date | | | | | Used | | + +-------+ +--------+------+ | Former Smoker | | | | | + +-------+ +--------+------+ + +---+---+---+ | Smokeless Tobacco: | | | | | Never Used | | | | + +---+---+---+ + + +---------+ + | Alcohol Use [...]
--- OUTSIDE RECORDS SUMMARY | ~2020-02-18 | XMS | Encounter Summary ---
Demographics + + + | Address | [address] | | | [place] [address] | + + + | Home Phone | | + + + | Preferred Language | Unknown | + + + | Marital Status | Single | + + + | Confucianist Affiliation | CHR | + + + | Race | White | + + + | Ethnic Group | Not or | + + + Author + + + | Author | [facility] | + + + | Organization | [facility] | + + + | [...] Team Providers + +------+ + | Care Technology Lab Teacher Name | Role | Phone | + +------+ + | Reji Morales MD | PCP | | + +------+ + Encounter Details +--------+ + + + + | Date | Type | Department | Care Team | Description | +--------+ + + + + | 12/29/ | Results | [facility] | Jimmy Rice, | | | 2009 | Only | Department | MD MARY HERNANDEZ | | | | | | CLINIC DERMATOLOGY | | | | | | [address] | | | | | | [place] | | | | | | [id number] | | | | | | | | +--------+ + + + + Social History + +-------+ [...] | + +--------+ + + + | DERMATOPATHOLOGY(WET | Routin | 12/29/2009 | | Results for this | | [facility]) | e | | | procedure are in the | | | | | | results section. | + +--------+ + + + documented in this encounter Results DERMATOPATHOLOGY(WET [facility]) (12/29/2009) + + + + + + | Component | Value | Ref Range | Performed | Pathologist | | | | | At | Signature | + + + + + + | DERMATOPATH | SOURCE OF SPECIMEN:A | | [facility] | | | OLOGY(WET | FIRST TISSUE LEVEL IV | | DERMATOPATH | | | MNT) | [address] CL[address] | | OLOGY | | | | DESCRIPTION:5mm, back; | | | | | | irreg. shaped pigmented | | | | | | papule for unknown time; | | | | | | melanocyticnevus; R/O | | | | | | melanoma. GROSS | | | | | | DESCRIPTION:Back. The | | | | | | specimen is received in | | | | | | formalin, labeled back, | | | | | | with thepatient's name | | | | | | and consists of a pale | | | | | | banda and brown, punch | | | | | | biopsy measuring0.5 x | | | | | | 0.8 cm. The specimen | | | | | | is bisected and entirely | | | | | | submitted in | | | | | | onecassette. | | | | | | MICROSCOPIC | | | | | | DESCRIPTION:There is a | | | | | | small, slightly domed | | | | | | papule containing a well | | | | | | circumscribed | | | | | | andsymmetrical | | | | | | melanocytic neoplasm. | | | | | | Small round to oval | | | | | | nests of melanocytesare | | | | | | present at the tips of | | | | | | rete ridges with cords | | | | | | and strands | | | | | | ofmelanocytes filling | | | | | | the thickened papillary | | | | | | dermis. The melanocytic | | | | | | nucleiare round and | | | | | | uniform. 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 | | | | | | NOTE: The nevus | | | | | | extends closely to the | | | | | | epidermal surgical | | | | | | margins | | | | | | makingcompleteness of | | | | | | excision difficult to | | | | | | assure. | | | | | | CRW:emr01/04/10 My | | | | | | electronic signature | | | | | | indicates that I have | | | | | | personally reviewed | | | | | | alldiagnostic slides, | | | | | | the gross and/or | | | | | | microscopic portion of | | | | | | thisreport and | | | | | | formulated the final | | | | | | diagnosis. | | | | | | Rendering Diagnostician: | | | | | | Jaswinder Yuan Jr., | | | | | | | | | | | | NicoPathologistPadmajai | | | | | | erik Signed 01/06/2010 | | | | + + + + + + + + | Specimen | + + | | + + + + + + + | Performing | Address | City/State/Zipcode | Phone Number | | Organization | | | | + + + + + | [facility] | Mailcode CH[address]D [address] | [place] [address] | | | DERMATOPATHOLOGY | [address] | | | + + + + + documented in this encounter Visit Diagnoses Not on filedocumented in this encounter"
--- OUTSIDE RECORDS SUMMARY | ~2020-02-18 | XMS | Encounter Summary ---
Demographics + + + | Address | [address] | | | [place] [address] | + + + | Home Phone | | + + + | Preferred Language | Unknown | + + + | Marital Status | Single | + + + | Alevism Affiliation | CHR | + + + | Race | White | + + + | Ethnic Group | Not or | + + + Author + + + | Author | [facility] | + + + | Organization | [facility] | + + + | [...] Team Providers + +------+ + | Care Press Maintainer Name | Role | Phone | + +------+ + | Reji Morales MD | PCP | | + +------+ + Reason for Visit +--------+ + | Reason | Comments | +--------+ + | Other | post op illius | +--------+ + Encounter Details +--------+ + + + + | Date | Type | Department | Care Team | Description | +--------+ + + + + | 12/15/ | Emergency | [facility] | | | | 2017 | | Department [address] | | | | | [address] | | | | | | [facility] | | | | | | [place], [place] | | | | | | [address] | | | | | | [phone] | | | +--------+ + + + [...] + + documented as of this encounter Medications at Time of Discharge [...] + + + +---------+ + + | polyethylene | Mix 1 packet and | 15 | 0 | 12/14/19 | | | glycol (MIRALAX) 17 | take orally once | packet | | 18 | 8 | | gram oral powder in | daily for 15 days. | | | | | | packet | | | | | | + + + +---------+ + + documented as of this encounter Plan of Treatment Not on filedocumented as of this encounter Visit Diagnoses Not on filedocumented in this encounter"
--- OUTSIDE RECORDS SUMMARY | ~2020-02-18 | XMS | Encounter Summary ---
Demographics + + + | Address | [address] | | | [place] [address] | + + + | Home Phone | | + + + | Preferred Language | Unknown | + + + | Marital Status | Single | + + + | Zoroastrianism Affiliation | CHR | + + + | Race | White | + + + | Ethnic Group | Not or | + + + Author + + + | Author | [facility] | + + + | Organization | [facility] | + + + | Address [...] Team Providers + +------+ + | Care Prosthodontist/Educator Name | Role | Phone | + [...] [address] | | | | | [facility] | [facility] | | | | | and Healing [address] | [place] [address] | | | | | [address] Mailcode: | [phone] | | | | | [address] | | | | | | Health and Healing, | | | | | | Building [address] | | | | | | Floor [place], [place] | | | | | | [address] | | | | | | [phone] | | | +--------+--------+ + + + [...]
--- OUTSIDE RECORDS SUMMARY | ~2020-02-18 | XMS | Encounter Summary ---
Demographics + + + | Address | [address] | | | [place] [address] | + + + | Home Phone | | + + + | Preferred Language | Unknown | + + + | Marital Status | Single | + + + | Faith Affiliation | CHR | + + + | Race | White | + + + | Ethnic Group | Not or | + + + Author + + + | Author | [facility] | + + + | Organization | [facility] | + + + | Address | [...] Team Providers + +------+ + | Care Do All Operator Name | Role | Phone | + +------+ + | Reji Morales MD | PCP | | + +------+ + Encounter Details +--------+ + + + + | Date | Type | Department | Care Team | Description | +--------+ + + + + | 10/11/ | Pharmacist In Charge Owner | Urology at [facility] | [place], | Prostate cancer | | 2018 | | [address] | Adeel Stephens MD | ([facility]) (Primary Dx) | | | | Mailcode: CH10 | [address] | | | | | [facility] | [facility], | | | | | and [facility], | [place] [address] | | | | | Building | [phone] | | | | | [place], [place] | | | | | | [address] | | | | | | [phone] | | | +--------+ + + + [...] | + +--------+ + + + | PATHOLOGY CONSULT - | Routin | 10/16/2017 | Prostate cancer | Results for this | | REVIEW OUTSIDE | e | 10:22 AM | ([facility]) | procedure are in the | | SLIDES | | PST | | results section. | + +--------+ + + + documented in this encounter Results PATHOLOGY CONSULT - REVIEW OUTSIDE SLIDES (10/16/2017 10:22 AM PST) + + + + + + | Component | Value | Ref Range | Performed | Pathologist | | | | | At | Signature | + + + + + + | Clinical | Not provided | | [facility] | | | History | | | DEPARTMENT | | | | | | OF | | | | | | PATHOLOGY | | + + + + + + | Final | A. Left base, core | | [facility] | Electronically | | Pathologic | biopsies ([id number], | | DEPARTMENT | signed by Nima | | Diagnosis | 09.14.17, A):? Prostatic | | OF | A MD Sudhir on | | | glands and stroma with | | PATHOLOGY | 10/19/2017 at | | | no diagnostic | | | 5:25 PM | | | abnormality? Negative | | | | | | for malignancyB. Left | | | | | | mid, core biopsies | | | | | | ([id number], 09.14.17, | | | | | | B):? 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 Tumor | | | | | | focus measures approx. | | | | | | 0.1 cmC. Left apex, | | | | | | core biopsies | | | | | | ([id number], 09.14.17, | | | | | | C):? 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 Tumor | | | | | | focus measures approx. | | | | | | 0.1 cmD. Right base, | | | | | | core biopsies | | | | | | ([id number], 09.14.17, | | | | | | D): ? 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 Tumor | | | | | | focus measures approx. | | | | | | 0.5 cmE. Right mid, core | | | | | | biopsies([id number], | | | | | | 09.14.17, E): ? | | | | | | Adenocarcinoma of the | | | | | | prostate gland, Kim | | | | | | grade 4+3? Tumor focus | | | | | | measures approx. 1.0 cm? | | | | | | F. Right apex, core | | | | | | biopsies ([id number], | | | | | | 09.14.17, F):? | | | | | | Adenocarcinoma of the | | | | | | prostate gland, Trevor | | | | | | grade 4+4? Tumor focus | | | | | | measures approx. 0.3 | | | | | | cmQ. Left transitional | | | | | | zone, core biopsies | | | | | | ([id number], 09.14.17, | | | | | | Q):? Prostatic glands | | | | | | and stroma with focal | | | | | | high-grade PIN? Negative | | | | | | for maligncyR. Right | | | | | | transitional zone, core | | | | | | biopsies ([id number], | | | | | | 09.14.17, R):? ? | | | | | | Prostatic glands and | | | | | | stroma with no | | | | | | diagnostic abnormality? | | | | | | Negative for | | | | | | malignancyComment: Thank | | | | | | you for sharing this | | | | | | case, we completely | | | | | | concur with Dr. Del Castillo | | | | | | Agustina's diagnosis.Case | | | | | | seen by:Carlos | | | | | | MD Mary | | | | | | | | | | | | Pathology ResidentDavid | | | | | | MD Sudhir | | | | | | | | | | | | PathologistMy | | | | | | [...] + + + + + + | Materials | Specimen AReferring | | [facility] | | | Received | Institution: [facility] | | DEPARTMENT | | | | [facility], | | OF | | | | [place] [address]jc | | PATHOLOGY | | | | Accession Number: | | | | | | [id number] | | | | | | Collection Date: | | | | | | 09/14/2017Sublabeled H&E | | | | | | A-F, Q, R 9 | | | | + + + + + + + + | Specimen | + + | Slide-Block | + + + + + + + | Performing | Address | City/State/Zipcode | Phone Number | | Organization | | | | + + + + + | [facility] | [address] | [place] [address] | | | PATHOLOGY | [address] | | | + + + + + documented in this encounter Visit Diagnoses + + | Diagnosis | + + | Prostate cancer (HCC) - Primary Malignant neoplasm of prostate | + + documented in this encounter"
--- OUTSIDE RECORDS SUMMARY | ~2020-02-18 | XMS | Encounter Summary ---
Demographics + + + | Address | [address] | | | [place] [address] | + + + | Home Phone | | + + + | Preferred Language | Unknown | + + + | Marital Status | Single | + + + | Adventism Affiliation | CHR | + + + | Race | White | + + + | Ethnic Group | Not or | + + + Author + + + | Author | [facility] | + + + | Organization | [facility] | + + + | Address [...] Team Providers + +------+ + | Care Asset Management Lead Name | Role | Phone | + [...] [address] | | | | | | [facility] | | | | | | [place], [place] | | | | | | [address] | | | | | | [phone] | | | +--------+ + + + [...]
--- OUTSIDE RECORDS SUMMARY | ~2020-02-18 | XMS | Encounter Summary ---
Demographics + + + | Address | [address] | | | [place] [address] | + + + | Home Phone | | + + + | Preferred Language | Unknown | + + + | Marital Status | Single | + + + | Samaritan Affiliation | CHR | + + + | Race | White | + + + | Ethnic Group | Not or | + + + Author + + + | Author | [facility] | + + + | Organization | [facility] | + + + | Address [...] Team Providers + +------+ + | Care Web Ui Designer Name | Role | Phone | + +------+ + | Reji Morales MD | PCP | | + +------+ + Encounter Details +--------+ + + + + | Date | Type | Department | Care Team | Description | +--------+ + + + + | 09/26/ | Abstract | Urology at [facility] | [place], | | | 2018 | | [address] | Adeel Stephens MD | | | | | Mailcode: CH10U | [address] | | | | | [facility] | [facility], | | | | | and Healing, | [place] [address] | | | | | [facility] | [phone] | | | | | Floor [place], [place] | | | | | | [address] | | | | | | [phone] | | | +--------+ + + + [...]
--- OUTSIDE RECORDS SUMMARY | ~2020-02-18 | XMS | Encounter Summary ---
Demographics + + + | Address | [address] | | | [place] [address] | + + + | Home Phone | | + + + | Preferred Language | Unknown | + + + | Marital Status | | + + + | Spiritism Affiliation | Unknown | + + + | Race | Unknown | + + + | Ethnic Group | Unknown | + + + Author + + + | Author | [facility] | | | and [place] | + + + | Organization | [facility] | | | and [place] | + + + | Address | Unknown | + + + | Phone | Unavailable | + + + Support + + + + + | Name | Relationship | Address | Phone | + + + + + | Mati Moody | YOANNA | [place] | | | | | [address] | | + + + + + | Ayde Rojas | ECON | [place] | | | | | [address] | | + + + + + Care Team Providers + +------+ + | Care Roller Inspector Name | Role | Phone | + +------+ + | Adina Lloyd MD | PCP | | + +------+ + Encounter Details +--------+ + + + + | Date | Type | Department | Care Team | Description | +--------+ + + + + | 01/28/ | Imaging | [facility] | Provider, | | | 2019 | Exam | [facility] | MD Elizabeth [address] | | | | | IMAGING [address] | [address] | | | | | [address] | [place] [address] | | | | | [place] [address] | | | | | | [phone] | | | +--------+ + + + + Social History + +-------+ +--------+------+ | Tobacco Use | Types | Packs/Day | Years | Date | | | | | Used | | + +-------+ +--------+------+ | Never Assessed | | | | | + +-------+ +--------+------+ + + + | Sex Assigned at [...] as of this encounter Plan of Treatment +--------+ + + + + | Date | Type | Specialty | Care Team | Description | +--------+ + + + + | 03/04/ | Office | Neurology | Leslie Caballero, | | | 2019 | Visit | | MD Dallin [address] | | | | | | [address] | | | | | | [place] [address] | | | | | | [phone] | | | | | | | | +--------+ + + + + | 07/03/ | Appointment | Oncology | | | | 2019 | | | | | +--------+ + + + + | 07/03/ | Appointment | Radiation Oncology | Sherrell Hadley | | | 2019 | | | MD Raghav [address] | | | | | | [place] | | | | | | [address] | | | | | | | | +--------+ + + + + documented as of this encounter Procedures + +--------+ + + + | Procedure Name | Priori | Date/Time | Associated Diagnosis | Comments | | | ty | | | | + +--------+ + + + | US PELVIS LIMITED | Routin | 09/14/2017 | | Results for this | | | e | 3:00 PM | | procedure are in the | | | | PST | | results section. | + +--------+ + + + documented in this encounter Results US Pelvis Limited (09/14/2017 3:00 PM PST) + + | Specimen | + + | | + + + + + | Narrative | Performed At | + + + | External films for comparison only | [facility] | | | | | No results will be in the chart. | | + + + + +---------+ + + | Performing | Address | City/State/Zipcode | Phone Number | | Organization | | | | + +---------+ + + | [facility] | | | | + +---------+ + + documented in this encounter Visit Diagnoses Not on filedocumented in this encounter"
--- OUTSIDE RECORDS SUMMARY | ~2020-02-18 | XMS | Encounter Summary ---
Demographics + + + | Address | [address] | | | [place] [address] | + + + | Home Phone [...] Author + + + | Author | [facility] | + + + | Organization | [facility] | + + + | Address | [...] Team Providers + +------+ + | Care Manager Electrical Name | Role | Phone | + +------+ + | Reji Morales MD | PCP | | + +------+ + Reason for Visit + + + | Reason | Comments | + + + | Return Patient | 6 month follow-up | + + + Encounter Details +--------+---------+ + + + | Date | Type | Department | Care Team | Description | +--------+---------+ + + + | 07/07/ | Office | Neurology Movement | Joslyn Galdamez MD | Parkinson disease | | 2013 | Visit | Disorders Clinic at | [address] | ([facility]) (Primary Dx) | | | | [facility] | [place], [place] | | | | | and Healing [address] | [address] | | | | | [address] Mailcode: | [phone] | | | | | [facility] | | | | | | Health and Healing, | | | | | | [facility] | | | | | | Floor [place], [place] | | | | | | [address] | | | | | | [phone] | | | +--------+---------+ + + + [...] + + + | Blood Pressure | 130/71 | 07/07/2014 2:06 PM | | | | | PDT | | + + + + + | Pulse | 59 | 07/07/2014 2:06 PM | | | | | PDT | | + + + + + | Temperature | - | - | | + + + + + | Respiratory Rate | - | - | | + + + + + | Oxygen Saturation | - | - | | + + + + + | Inhaled Oxygen | - | - | | | Concentration | | | | + + + + + | Weight | 92.1 kg (203 lb) | 07/07/2014 2:06 PM | | | | | PDT | | + + + + + | Height | - | - | | + + + + + | Body Mass Index | 25.37 | 01/17/2011 2:53 PM | | | | | PDT | | + + + + + documented in this encounter Patient Instructions Patient Instructions Joslyn Chapa MD - 07/07/2014 1:25 PM PDTJohn Delmar Bourgeois - Mind lness Meditation Try decreasing each dose carbidopa/levodopa 25/100mg to 1 pill documented in this encounter Progress Notes Joslyn Chapa MD - 07/03/2014 3:43 PM PDTFormatting of this note might be different fr om the original. CHIEF COMPLAINT: Follow up Parkinson's Disease. HPI: Nima Moody is a 64 y.o. male returning to the [facility] for fo llow up Parkinson's Disease. He was diagnosed in 2003, symptoms probably started about 2000 . At the last visit I recommended the following: --Try decreasing each dose carbidopa/levodopa 25/100mg to 1.5 pills, if not effective in he lping with left foot movements will plan to start amantidine. Things have been going "good" and stable. Can't say that decrease in levodopa made anything better or worse. Lots of it is a daily thing. Says that he feels better if he can get up an d move his legs. And any amount of stress makes things worse. It does not sound like there i s a clear diurnal fluctuation. The dyskinesias of the foot themselves are bothersome. ROS: Denies bowel problems Denies urinary problems Sleep good overall, some nocturia Denies cognitive issues Denies hallucinations Denies significant depression or anxiety, some anxiety, has never had any treatment, does n ot feel severe, interested in meditation Denies swallowing difficulties Denies significant speech problems,"I think it is all right", will loose voice if talks for a long time Dyskinesias in the left foot can be bothersome, sounds most related to anxiety Wearing off is tremor, then he'll take medications, not on real regular schedule, will some times take 1/2 of recommended dose Will occasionally trip and fall related to not picking up left foot Exercise - walks regularly Occasional mild orthostasis, can manage with being careful Medications: Current outpatient prescriptions:ALLOPURINOL ORAL, Take by mouth. Not sure on dose, Disp: , Rfl: carbidopa-levodopa 25-100 mg oral tablet, Take 1.5 to 2 tablets 5-6 times a day, Disp: 360 tablet, Rfl: 11 Enalapril Maleate 20 mg OR TABS, take 1 tablet (20mg) by oral route once daily, Disp: , Rfl : Hydrochlorothiazide 25 mg Oral Tablet, take 1 tablet (25mg) by oral route once daily, Disp: , Rfl: 0 Metoprolol Succinate 200 mg OR TB24, 100mg bid, Disp: , Rfl: phytonadione 100 mcg oral tablet, Take 100 mcg by mouth once daily., Disp: , Rfl: Takes green supplements Interval Medical History: none FROM PRIOR VISITS: Allergies: No Known Allergies Past Medical History Diagnosis Date Parkinson disease Benign essential tremor Depression Hypertension Unspecified disorder of thyroid gout Past Surgical History Procedure Laterality Date Thyroidectomy Vasectomy Social History: The pt denies tob, illicit drug use. Occasional etoh. The pt is . Lives alone in a house. 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 Mental Status: Speech is of good volume. Answers questions appropriately and gives a clear history. (MOCA:) UPDRS Score: About 1 hour since last levodopa Dyskinesias are clearly present on the left side in hand and foot, marked and consistent Feels on UPDRS FLOWSHEET (Questionnaire) 07/07/2014 Speech 0 Normal Face Expression 1 Minimal hypomimia, could be normal "poker face" Face Tremor 0 Absent Rt Hand Tremor 0 Absent Lt Hand Tremor 1 Slight & infrequently present Rt Foot Tremor 0 Absent Lt Foot Tremor 0 Absent Post Tremor Rt Hand 0 Absent Post Tremor Lt Hand 0 Absent Neck Rigid 2 Mild to moderate Rt Upper Ext Rigid 2 Mild to moderate Lt Upper Ext Rigid 2 Mild to moderate Rt Lower Ext Rigid 2 Mild to moderate Lt Lower Ext Rigid 2 Mild to moderate Rt Hand Finger Taps 0 Normal Lt Hand Finger Taps 0 Normal Hand Mvmts Rt Hand 0 Normal Hand Mvmts Lt Hand 1 Mild slowing &/or reduction in amplitude Rapid Alt Rt Hand 0 Normal Rapid Alt Lt Hand 0 Normal Agility Rt Leg 0 Normal Agility Lt Leg 0 Normal Arising from Chair 0 Normal Posture 0 Normal Gait 1 Walks slowly; shuffles w/short steps, but no festination/hastening steps or propuls ion Posture Stability 8 Untestable (specify reason in Comment field:) Vinod/Hypokinesia 0 None Total UPDRS Score Laboratory Data: (reviewed at past visits) Basic labs included TSH fairly unremarkable in 2010, elevated lipids Impression: Idiopathic Parkinson's Disease, 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 Overall doing well but still having some bothersome dysk inesias. Off time seems fairly minimal. Will see how he does with slightly lower dose levodo pa. -- Try decreasing each dose carbidopa/levodopa 25/100mg to 1 pill, if not effective in help ing with left foot movements or if turning will plan to start amantidine. -- He will look into some meditation - gave him a book recommendation - Donavon Arreola. -- Continue with exercise. -- Follow-up in 6 months, call before then if concerns or questions. I spent 25 minutes with the patient in etdl-do-dolt time. Greater than 50% of the time was spent counseling the patient regarding the above issues. Joslyn Chapa MD Movement Disorders Neurologist [facility] documented in this e ncounter Plan of Treatment Not on filedocumented as of this encounter Visit Diagnoses + + | Diagnosis | + + | Parkinson disease (HCC) - Primary Paralysis agitans | + + documented in this encounter
--- OUTSIDE RECORDS SUMMARY | ~2020-02-18 | XMS | Encounter Summary ---
Demographics + + + | Address | [address] | | | [place] [address] | + + + | Home Phone | | + + + | Preferred Language | Unknown | + + + | Marital Status | Single | + + + | Orthodoxy Affiliation | CHR | + + + | Race | White | + + + | Ethnic Group | Not or | + + + Author + + + | Author | [facility] | + + + | Organization | [facility] | + + + | Address [...] Team Providers + +------+ + | Care Stencil Printer Name | Role | Phone | + +------+ + | Reji Morales MD | PCP | | + +------+ + Reason for Visit + + + | Reason | Comments | + + + | Return Patient | | + + + | Parkinson disease | | + + + Encounter Details +--------+---------+ + + + | Date | Type | Department | Care Team | Description | +--------+---------+ + + + | 01/17/ | Office | Neurology Movement | Sherry Mcmahon, | Parkinson disease | | 2010 | Visit | Disorders Clinic at | [phone] | ([facility]); Benign | | | | [facility] | [address] | essential tremor | | | | and Healing [address] | [place] [address] | | | | | Ar[place]ane[place] Mailcode: | [phone] | | | | | [address] | | | | | | Health and Healing, | | | | | | [facility] [address] | | | | | | [place], [place] | | | | | | [address] | | | | | | [phone] | | | +--------+---------+ + + + [...] + + + | Blood Pressure | 154/83 | 01/17/2011 2:54 PM | | | | | PDT | | + + + + + | Pulse | 67 | 01/17/2011 2:54 PM | | | | | PDT | | + + + + + | Temperature | - | - | | + + + + + | Respiratory Rate | 16 | 01/17/2011 2:53 PM | | | | | PDT | | + + + + + | Oxygen Saturation | - | - | | + + + + + | Inhaled Oxygen | - | - | | | Concentration | | | | + + + + + | Weight | 110.7 kg (244 lb) | 01/17/2011 2:53 PM | | | | | PDT | | + + + + + | Height | 190.5 cm (6' 3") | 01/17/2011 2:53 PM | | | | | PDT | | + + + + + | Body Mass Index | 30.5 | 01/17/2011 2:53 PM | | | | | PDT | | + + + + + documented in this encounter Progress Notes Sherry Mcmahon MD - 01/17/2011 3:34 PM PDTDachristopherd Sho Moody is a 61 y.o. male return s to the Movement Disorders Clinic for follow up of mixed Parkinson's Disease and benign ess ential tremor. He is unaccompanied. Nima's current Parkinson's Disease medications are: Sinemet 25/250 one QID at 7am / 11am / 3pm / 6-7pm He notices no adverse effects. The tremor sometimes breaks through on the above QID dosing regimen, and he will sometimes take an additional tablet in that case, or if he has some so cial event in the evening. He has noticed no dyskinesias. His mother recently after a stroke. She had hospice care in the home for the l ast couple weeks of her life following the stroke, and Nima spent a lot of time with her du ring this time. 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 This and the high wheat prices have provided more financial security. Exam shows BP 154/83 | Pulse 67 | RR 16 | Ht 1.905 m (6' 3") | Wt 110.678 kg (244 lb) | BMI 30.50 kg/(m^2). His general physical exam is unremarkable. Speech is not hypophonic. Men liana status is normal and affect is bright: he shows no signs of depression. He has minimal masking of the facies. He has intermittent left > right rest tremor, and a slight head trem or and symmetric postural tremorTone is increased on the left more than the right. Fingert aps, hand movements, and heel taps are all mildly slowed in the same distribution. He is abl e to arise from the chair slowly without a pushoff (I think the slowness has more to do with is significant height than Parkinson's Disease!) and walks with a normal base, decreased le ft armswing, good stride length, and fluid turns. He does not retropulse on a pull test. 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 Plan: As we have before, we talked about whether to add another (dopamine agonist) medicati on to his regimen, but Nima says he is happy with his current tremor control and does not w ant to complicate things with another medication, so I will respect his wishes. As usual, I encouraged him to be in touch between visits if he wants to take another approach. I spent >45 minutes with this patient, more than half of which time was spent in counseling about medications options and coordination of care. I will see him back in 7 months. Electr onically signed by Sherry Mcmahon MD at 02/16/2011 12:20 PM PDTdocumented in this [facility] Plan of Treatment Not on filedocumented as of this encounter Procedures + +--------+ + + + | Procedure Name | Priori | Date/Time | Associated Diagnosis | Comments | | | ty | | | | + +--------+ + + + | LAB REPORTS | | 01/17/2011 | | Results for this | | | | 12:00 AM | | procedure are in the | | | | PDT | | results section. | + +--------+ + + + documented in this encounter Results LAB REPORTS (01/17/2011 12:00 AM PDT) + + + | Narrative | Performed At | + + + | | | + + + + + | Transcriptions | + + | Brionna Stock - 07/08/2011 10:21 AM PDT | + + documented in this encounter Visit Diagnoses + + | Diagnosis | + + | Parkinson disease (HCC) Paralysis agitans | + + | Benign essential tremor Essential and other specified forms of tremor | + + documented in this encounter
--- OUTSIDE RECORDS SUMMARY | ~2020-02-18 | XMS | Encounter Summary ---
Demographics + + + | Address | [address] | | | [place] [address] | + + + | Home Phone | | + + + | Preferred Language | Unknown | + + + | Marital Status | Single | + + + | Presybeterian Affiliation | CHR | + + + | Race | White | + + + | Ethnic Group | Not or | + + + Author + + + | Author | [facility] | + + + | Organization | [facility] | + + + | Address [...] Team Providers + +------+ + | Care Nursing Home Aide Name | Role | Phone | + +------+ + | Reji Morales MD | PCP | | + +------+ + Encounter Details +--------+ + + + + | Date | Type | Department | Care Team | Description | +--------+ + + + + | 11/30/ | Abstract | Urology at [facility] | [place], | | | 2018 | | [address] | Adeel Stephens MD | | | | | Mailcode: [id number] | [address] | | | | | [facility] | [facility], | | | | | and Healing, | [place] [address] | | | | | [facility] | [phone] | | | | | Floor [place], [place] | | | | | | [address] | | | | | | [phone] | | | +--------+ + + + [...]
--- OUTSIDE RECORDS SUMMARY | ~2020-02-18 | XMS | Encounter Summary ---
Demographics + + + | Address | [address] | | | [place] [address] | + + + | Home Phone | | + + + | Preferred Language | Unknown | + + + | Marital Status | Single | + + + | Shinto Affiliation | CHR | + + + | Race | White | + + + | Ethnic Group | Not or | + + + Author + + + | Author | [facility] | + + + | Organization | [facility] | + + + | Address | [...] Team Providers + +------+ + | Care Putty Maker Name | Role | Phone | + +------+ + | Reji Morales MD | PCP | | + +------+ + Reason for Visit + + + | Reason | Comments | + + + | Return Patient | unable to read standing bp | + + + | Parkinson disease | | + + + Encounter Details +--------+---------+ + + + | Date | Type | Department | Care Team | Description | +--------+---------+ + + + | 01/28/ | Office | Neurology Movement | Krishna Mcmahon, | Parkinson Disease | | 2007 | Visit | Disorders Clinic at | [address] | ([facility]) (Primary Dx) | | | | [facility] | [facility] | | | | | and Connie [address] | [place] [address] | | | | | [address] [place]ane[address] Mailcode: | [phone] | | | | | [address] | | | | | | Health and Healing, | | | | | | [facility] [address], | | | | | | [place], [place] | | | | | | [address] | | | | | | [phone] | | | +--------+---------+ + + + [...] + + + | Blood Pressure | 124/62 | 01/29/2008 10:00 AM | | | | | PDT | | + + + + + | Pulse | 69 | 01/29/2008 10:00 AM | | | | | PDT | | + + + + + | Temperature | - | - | | + + + + + | Respiratory Rate | 18 | 01/29/2008 10:00 AM | | | | | PDT | | + + + + + | Oxygen Saturation | - | - | | + + + + + | Inhaled Oxygen | - | - | | | Concentration | | | | + + + + + | Weight | 107 kg (236 lb) | 01/29/2008 10:00 AM | | | | | PDT | | + + + + + | Height | 190.5 cm (6' 3") | 01/29/2008 10:00 AM | | | | | PDT | | + + + + + | Body Mass Index | 29.5 | 01/29/2008 10:00 AM | | | | | PDT | | + + + + + documented in this encounter Patient Instructions Patient Instructions Krishna Mcmahon - 01/29/2008 10:28 AM PDTDavid, I think your [place] on's Disease is doing quite well on your current medications, and I probably wouldn't change anything at this time. I would encourage you to remain physically active, as this will hel p your Parkinson's Disease over the years. I'll send a note about today's visit to Dr. Morales. We'll plan to see you again in 6-7 month s. KRISHNA MCMAHON MD documented in this encounter Progress Notes Irene Rivas - 01/29/2008 10:52 AM PDTHigh profile issues in pre-visit paperwork: --Falls/Balance issues - Not marked. --Memory/cognition issues - Not marked. BEN-D (16 and above is clinically significant): 19* [place] (10 and above is clinically significant): 2 CG Strain (30 and above is clinically significant): --- Irene Rivas RN isandroKrishna - 01/29/2008 10:22 AM PDT Nima Moody is a 58 y.o. 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 He drove here from [place] yesterday and visited with his daughter who lives in [place]. He is unaccompanied for today's visit. He sees no great changes in his Parkinson's Disease since his last visit. He does think th e increase in Sinemet helped quite a bit, but he is not often completely free of tremor, whi ch is his most troublesome symptom. The left leg tremor and dystonia is almost completely g one on the higher dose, though he does notice that his left arm still cramps occasionally. 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 Business is good with higher wheat prices, and that has helped his anxiety and depression quite a bi t, along with finalizing of his divorce. Current outpatient medications Medication Sig Dispense Refill Carbidopa-Levodopa (SINEMET-25/250) 25-250 mg Oral Tablet take 1 tablet by oral route 3 times per day 90 11 Enalapril Maleate 20 mg OR TABS take 1 tablet (20mg) by oral route once daily Hydrochlorothiazide 25 mg Oral Tablet take 1 tablet (25mg) by oral route once daily 0 Metoprolol Succinate 200 mg OR TB24 2 tabs bid His blood pressure is under good control now with Dr. Morales's management. If the informatio n he provided is accurate, he is on a pretty high dose of metoprolol, but his BP and pulse s eem to be tolerating it OK. Exam shows BP 124/62 | Pulse 69 | Resp 18 | Ht 1.905 m (6' 3") | Wt 107.049 kg (236 lbs). The blood pressure is very much improved: he has been concerningly hypertensive during previ ous visits. On motor exam, he has no hypophonia or hypomimia. He has a left hand rest latha mor, none on the right observed today. He also has a very slight head tremor. He has mild bradykinesia and rigidity in the same distribution. He has to make a couple attempts to melvi se from the chair but is disadvantaged by his height! His gait is lumbering, but he has pre tty normal stride length and turns OK. He does not retropulse on a pull test. Impression & Recommendations: Parkinson's Disease, with some benign essential tremor coexis iting. Nima is doing quite well on his current regimen and I probably wouldn't change anything at this time. I did bring his Rx in the system up to date as it had his old dose. I have str ongly encouraged him to work on exercising regularly. This will benefit not only his Henna son's Disease but also his mood and hypertension. I spent >45 minutes with this patient, more than half of which time was spent in counseling and coordination of care. I will see him back in 6-7 months. KRISHNA MCMAHON MD documented in this enco unter Plan of Treatment Not on filedocumented as of this encounter Visit Diagnoses + + | Diagnosis | + + | Parkinson disease (HCC) - Primary Paralysis agitans | + + documented in this encounter
--- OUTSIDE RECORDS SUMMARY | ~2020-02-18 | XMS | Encounter Summary ---
Demographics + + + | Address | [address] | | | [place] [address] | + + + | Home Phone | | + + + | Preferred Language | Unknown | + + + | Marital Status | Single | + + + | Druze Affiliation | CHR | + + + [...] Team Providers + +------+ + | Care Batch Roller Operator Name | Role | Phone | + +------+ + | Reji Morales MD | PCP | | + +------+ + Encounter Details +--------+ + + + + | Date | Type | Department | Care Team | Description | +--------+ + + + + | 09/26/ | Abstract | Urology at [facility] | [place], | | | 2018 | | [address] | Adeel Stephens MD | | | | | Mailcode: [id number] | [address] | | | | | [facility] | [facility], | | | | | and Healing, | [place] [address] | | | | | [facility] | [phone] | | | | | Floor [place], [place] | | | | | | [address] | | | | | | [phone] | | | +--------+ + + + [...]
--- OUTSIDE RECORDS SUMMARY | ~2020-02-18 | XMS | Encounter Summary ---
Demographics + + + | Address | [address] | | | [place] [address] | + + + | Home Phone | | + + + | Preferred Language | Unknown | + + + | Marital Status | Single | + + + | Muslim Affiliation | CHR | + + + | Race | White | + + + | Ethnic Group | Not or | + + + Author + + + | Author | [facility] | + + + | Organization | [facility] | + + + | [...] Team Providers + +------+ + | Care Life Science Technician Name | Role | Phone | + +------+ + | Reji Morales MD | PCP | | + +------+ + Reason for Visit + + + | Reason | Comments | + + + | Return Patient | Parkinson disease | + + + Encounter Details +--------+---------+ + + + | Date | Type | Department | Care Team | Description | +--------+---------+ + + + | 07/31/ | Office | Neurology Movement | Krishna Mcmahon, | Parkinson Disease | | 2006 | Visit | Disorders Clinic at | MD [address] | ([facility]) (Primary Dx) | | | | [facility] | [facility] | | | | | and Healing [address] | [place] [address] | | | | | [place] Renata Mailcode: | [phone] | | | | | [facility] | | | | | Health and Healing, | | | | | | [facility] | | | | | | Floor [place], [place] | | | | | | [address] | | | | | | [phone] | | | +--------+---------+ + + + [...] + + + | Blood Pressure | 134/75 | 07/31/2007 10:39 AM | | | | | PST | | + + + + + | Pulse | 67 | 07/31/2007 10:39 AM | | | | | PST | | + + + + + | Temperature | - | - | | + + + + + | Respiratory Rate | 18 | 07/31/2007 10:10 AM | | | | | PST | | + + + + + | Oxygen Saturation | - | - | | + + + + + | Inhaled Oxygen | - | - | | | Concentration | | | | + + + + + | Weight | 107.5 kg (237 lb) | 07/31/2007 10:10 AM | | | | | PST | | + + + + + | Height | 190.5 cm (6' 3") | 07/31/2007 10:10 AM | | | | | PST | | + + + + + | Body Mass Index | 29.62 | 07/31/2007 10:10 AM | | | | | PST | | + + + + + documented in this encounter Patient Instructions Patient Instructions Krishna Mcmahon - 07/31/2007 10:32 AM PSTIncrease the carbidopa / le vodopa (Sinemet) 25/100 to two tablets three times a day. Try to space the pills out evenly during yor waking day (eg. 7:30am, 12:30pm, and 5:30pm). Continue until you finish your cu rrent prescription, and then refill at the new strength of 25/250, and start taking ONE tabl et three time a day. This new prescription strength is equivalent to 2 1/2 tablet of the ol d. If tremor strts to be more of a problem at night, let us know, and we will prescribe a long -acting form of the drug just at night. KRISHNA MCMAHON MD documented in this encounter Progress Notes Krishna Mcmahon - 07/31/2007 10:15 AM PST Nima Moody is a 57 y.o. male here for follow up Parkinson's Disease. He is unaccom panied. At his last visit, we started Parkinson's Disease medications. He was initially on Sinemet 25/100 tid and then we increased between visits to 1.5 tabs TID, which he takes at 7:30, no on, 7pm. He hasn't noticed much change in his tremor, except perhaps a little lessening imm ediately immediately after taking the drug, but also hasn't noticed his symptoms getting wor se. He does think his symptoms are worse at night when without drug for extended time. Life issues are improved and this has made a big difference to his mood: nayeli has doubled in luna, his divorce is final, and both his children are doing well. At his last visit, he had quite high blood pressure, and we discussed this with his PCP. Nneka arias has been started on HCTZ 25mg /day as a third class of antihypertensive to his regimen. N o other interval changes to his medical or social history. Exam shows BP 134/75 | Pulse 67 | Resp 18 | Ht 1.905 m (6' 3") | Wt 107.502 kg (237 lbs) Ge neral physical exam unremarkable. His affect is much brighter than at his last visit. On n eurological exam, he has minimal masking of facies. He has a nearly continuous tremor of th e left arm and leg; intermittent on the right. Tone and bradykinesia are increased in the s jag distribution. Gait and posture are pretty normal, except for decreased armswing. UPDRS FLOWSHEET 07/31/2007 Total UPDRS Score 18 Impression & Recommendations: Parkinson's Disease His exam is indeed not much changed by the initiation of levodopa: he looks undertreated. I'd like him to increase to 25/250 TID and have re-ordered the medication in the new dosage. Ideally, I would like to try him on an agonist (and might have started this over levodopa) but cost is such an issue for Nima that levodopa seemed the better choice. I have encoura ged him to spread the doses more rationally. We'll add Sinemet CR if nocturnal tremor becom es a problem. All instructions given in written form to the patient. I spent >45 minutes wi th this patient, more than half of which time was spent in counseling and coordination of ca kenan. KRISHNA MCMAHON MD Irene Amaya - [facility]/31/2007 10:[facility] issues in pre-visit paperwork: --Falls - 4 in last month. --Memory/cognition issues - n/a BEN-D (16 and above is clinically significant): 10 [place] (10 and above is clinically significant): 3 CG Strain (30 and above is clinically significant): 0 Irene Rivas RN documented in this encounter Plan of Treatment Not on filedocumented as of this encounter Visit Diagnoses + + | Diagnosis | + + | Parkinson disease (HCC) - Primary Paralysis agitans | + + documented in this encounter
--- OUTSIDE RECORDS SUMMARY | ~2020-02-18 | XMS | Encounter Summary ---
Demographics + + + | Address | [address] | | | [place] [address] | + + + | Home Phone | | + + + | Preferred Language | Unknown | + + + | Marital Status | Single | + + + | Adventist Affiliation | CHR | + + + | Race | White | + + + | Ethnic Group | Not or | + + + Author + + + | Organization | Unknown | + + + | Address | [...] Team Providers + +------+ + | Care Home Lending Officer Name | Role | Phone | + +------+ + PCP | Unavailable | + +------+ + Encounter Details +--------+ + + + + | Date | Type | Department | Care Team | Description | +--------+ + + + + | 11/04/ | Office | | Note, Outpatient | Progress Note | | 2004 | Visit-Trans | | Clinic | | | | cribed | | | | +--------+ + + [...] documented as of this encounter Progress Notes Interface, Topography Technician In - 04/09/2005 6:49 PM PDTClinic Date: 11/04/2003 Clinic: [facility] History of Present Illness: Mr. Moody is a 53-year-old left-hand dominant gentleman who is referred by Dr. Morales for evaluation of his tremor. The patient states that he began to develop a tremor in his left leg approximately 3 years ago, and that has progressively worsened in terms of the frequency and intensity of the tremor. He states that the tremor typically occurs while he is sitting and will need to intermittently change positions of his leg to jose raul the tremor. However, after changing his position, the tremor will typically recur. He is not complaining of any muscle aching or posturing in the lower extremity. He is not complaining of any weakness or sensory disturbance. The patient also states that he has had a tremor in his left arm as long as he can remember. He has noticed a little tremor ever since he has been in his 20s. He states that the tremor has also slowly gotten worse and typically is interfering with his ability to write. He states that his writing is becoming unintelligible. He is not complaining of any bradykinesia or muscle stiffness in the upper extremities. The patient denies any headaches, diplopia, loss of vision, dysarthria, dysphasia, or changes in his voice. He also denies any dry mouth, dry eyes, chest discomfort, or changes in his urinary or bowel habits. He does state that alcohol will intermittently improve his tremor in his left upper extremity. He was started on Toprol by his primary care physician secondary to the tremor in the setting of hypertension, and the patient states he has not had any change in the intensity of his tremor. Past Medical History: The patient has a history of hypertension, benign prostatic hypertrophy, depression, and a history of thyroid nodule resection. Allergies: NKDA. Medications: Toprol and Lexapro. Social History: Currently lives in a farm in [place]. He is . He does not smoke, occasional alcohol. Family History: He has 3 children who are healthy. He did have one brother who secondary to complications from HIV and another brother who is healthy. His mother and father are both alive. They both have hypertension and diabetes. He does state that his father had a tremor that had started a couple of years ago, and he is unsure of exactly the type. There are no other neurological symptoms or disorders in the family; however, he does state that his mother was adopted. Physical Examination General: He is an alert, slightly anxious gentleman. Vital Signs: The patient has a blood pressure of 164/70 with a heart rate of 60, this is sitting; standing 150/100 with a heart rate of 60. HEENT: Normocephalic. Sclerae nonicteric. Neck: Supple. Lungs: Clear to auscultation. Cardiovascular: Regular rate. Extremities: Warm. There is no edema. Neurologic: The patient is oriented. He is able to follow commands. His speech is fluent. Naming and repetition are intact. Cranial nerves: Pupils are symmetric. There is no paucity of eye blinks, and the patient has full facial expression. His saccades are intact, eye movements are full, and facial sensation is equal bilaterally. The patient does have a slight flattening of his left nasolabial fold and minimal delay and weakness. His hearing is grossly intact. Palate elevates symmetrically. SternocleidomastoidSternocleidomastoid is 5/5. Tongue is midline. Motor: The patient has evidence of a slight tremor in his head as well as in his left upper extremity that has a high frequency and low amplitude. The tremor is mostly prominent with extending his arms. There might be a slight tremor in the right upper extremity. The patient also has a tremor at rest that is occurring with a much lower frequency and a higher amplitude, in his left lower extremity, and this typically is occurring while he is sitting during the interview. He has a normal tone throughout and 5/5 strength. There is no evidence of bradykinesia with rapid alternating movements of the fingers as well as with heel and toe tapping in the lower extremities bilaterally. Reflexes are 2+ and symmetric with flexor-plantar reflexes. Sensation is intact to light touch, pinprick, proprioception, as well as vibration. Wpnbfn-pp-nurh reveals a slight action tremor on the left compared to the right. Atqu-ql-jkkh within normal limits. Gait: The patient has a normal stride length. There is normal base with adequate arm swing. There is no postural instability. Laboratory Data: Normal CBC and basic metabolic set. Impression and Recommendations: This is a 53-year-old gentleman with a multiple-year history of a left upper extremity tremor as well as a recent onset of a left lower extremity tremor. His physical examination has findings that are both consistent with the essential tremor as well as some parkinsonian features. He had the left upper extremity point to an essential tremor secondary to being high frequency and mild amplitude, and this tremor has mostly presented with action and posturing. It is slightly unusual for an essential tremor to be unilateral, however as stated above, the features are consistent with this. In terms of his lower extremity tremor, this is most consistent with a parkinsonian-type tremor. The patient does not have other features consistent with the diagnosis of Parkinson such as rigidity and bradykinesia; however, time will help determine if he should end up developing Parkinson's disease. Secondary to the tremors bothering him, we would recommend that his Toprol be switched to propranolol to see if that might aid in his essential tremor in his upper extremity. If the propranolol is not successful, we would recommend a trial of primidone. We would like to see the patient in approximately 4 to 5 months to see if these medications have been beneficial. If these medications are not beneficial, we would like to focus on addressing his parkinsonian tremor in his lower extremities. Therefore, this might warrant a trial of amantadine. If this does not help, may try a dopamine agonist such as Requip and Mirapex. The patient was counseled on the diagnosis as well as the medication plan. If you should have any further questions or concerns, please feel free to contact our office. Again, thank you very much for referring the patient. The impression and recommendations were staffed with Dr. Lashonda Mcmahon who is in agreement. Nico Cleaning M.D. REGGIE / KUSH [id number] / [id number] / [id number] / [id number] cc: Reji Morales M.D. [address] [id number] signed by Solange, Topography Technician In at 04/09/2005 6:4 9 PM PDTdocumented in this encounter Plan of Treatment Not on filedocumented as of this encounter Visit Diagnoses Not on filedocumented in this encounter"
--- OUTSIDE RECORDS SUMMARY | ~2020-02-18 | XMS | Encounter Summary ---
Demographics + + + | Address | [address] | | | [place] [address] | + + + | Home Phone | | + + + | Preferred Language | Unknown | + + + | Marital Status | Single | + + + | Moravian Affiliation | CHR | + + + | Race | White | + + + | Ethnic Group | Not or | + + + Author + + + | Author | [facility] | + + + | Organization | [facility] | + + + | Address [...] Team Providers + +------+ + | Care Telephone Technician Name | Role | Phone | [...] Pharmacy | | | | | | [address] | | | | | | [place], [place] | | | | | | [address] | | | | | | [phone] | | | +--------+ + + + [...]
--- OUTSIDE RECORDS SUMMARY | ~2020-02-18 | XMS | Encounter Summary ---
Demographics + + + | Address | [address] | | | [place] [address] | + + + | Home Phone | | + + + | Preferred Language | Unknown | + + + | Marital Status | Single | + + + | Zoroastrian Affiliation | CHR | + + + | Race | White | + + + | Ethnic Group | Not or | + + + Author + + + | Author | [facility] | + + + | Organization | [facility] | + + + | Address | [...] Team Providers + +------+ + | Care Telecom Coordinator Name | Role | Phone | + +------+ + | Reji Morales MD | PCP | | + +------+ + Encounter Details +--------+ + + + + | Date | Type | Department | Care Team | Description | +--------+ + + + + | 01/08/ | Abstract | Neurology Movement | Sherry Mcmahon, | | | 2012 | | Disorders Clinic at | [address] | | | | | [facility] | [facility] | | | | | and Healing [address] | [place] [address] | | | | | Ar[address] Yane[address] Mailcode: | [phone] | | | | | [facility] | | | | | | Health and Healing, | | | | | | [facility] | | | | | | [place], [place] | | | | | | [address] | | | | | | [phone] | | | +--------+ + + + [...]
--- OUTSIDE RECORDS SUMMARY | ~2020-02-18 | XMS | Encounter Summary ---
Demographics + + + | Address | [address] | | | [place] [address] | + + + | Home Phone | | + + + | Preferred Language | Unknown | + + + | Marital Status | | + + + | Catholic Affiliation | Unknown | + + + | Race | Unknown | + + + | Ethnic Group | Unknown | + + + Author + + + | Author | [facility] | | | and [place] | + + + | Organization | [facility] | | | and [place] | + + + | Address | Unknown | + + + | Phone | Unavailable | + + + Support + + + + + | Name | Relationship | Address | Phone | + + + + + | Mati Moody | YOANNA | [place] | | | | | [address] | | + + + + + | Ayde Rojas | ECON | [place] | | | | | [address] | | + + + + + Care Team Providers + +------+ + | Care Window Glazier Helper Name | Role | Phone | + +------+ + | Adina Lloyd MD | PCP | | + +------+ + Reason for Visit + + + | Reason | Comments | + + + | Follow-up | | + + + Encounter Details +--------+ + + + + | Date | Type | Department | Care Team | Description | +--------+ + + + + | 12/13/ | Telephone | [facility] | Sherrell Hadley | Follow-up | | 2019 | | [facility] | MD Manish [address] | | | | | ON[facility]OGY CLIN[facility] [address] | [place], [place] | | | | | [facility] | [address] | | | | | [place] [address] | | | | | | [phone] | | | +--------+ + + + + Social History + +-------+ +--------+------+ | Tobacco Use | Types | Packs/Day | Years | Date | | | | | Used | | + +-------+ +--------+------+ | Former Smoker | | 0.25 | 2 | | + +-------+ +--------+------+ + +---+---+ + | Smokeless Tobacco: | | | Quit: | | Former User | | | 01/23/20 | | | | | 16 | + +---+---+ + + + | Comments: Chewed for years. | + + + + +---------+ + | Alcohol Use | Drinks/Week | oz/Week | Comments | + + +---------+ + | Yes | 3 Shots of liquor | 3.0 | 1-3 times a week | | | | | sometimes every | | | | | other week. | + + +---------+ + + + [...] | | | | | [place] [address] | | | | | | [phone] | | | | | | | [...] COOK | | | | | | [id number] | | | | | | | | +--------+ + + + + documented as of this encounter Visit Diagnoses Not on filedocumented in this encounter"
--- OUTSIDE RECORDS SUMMARY | ~2020-02-18 | XMS | Encounter Summary ---
Demographics + + + | Address | [address] | | | [place] [address] | + + + | Home Phone [...] Team Providers + +------+ + | Care Calender Tender Name | Role | Phone | + [...] LAPAROSCOPIC RADICAL | | | | [place] [facility] | [address] | PROSTATECTOMY WITH | | | | Hospital Admitting | Cecelia Abad [place], | BILATERAL PELVIC | | | | Desk Located on the | [place] [address] | LYMPH NODE | | | | 9th floor | [phone] | DISSECTION | | | | [place], [place] | | | | | | [address] | | | +--------+---------+ + + + [...] can cause constipation, so you may take kowf-hpq-ktxctfq stool softeners (Senok ot-S, Miralax, Colace) following [...] Physician: Adeel Salas MD Patient: CHAUNCEY VICKERS [id number] 24H events/Subjective: BAKARI overnight. Pain is well [...] 0659 12/09/17 0700 - 12/10/17 0659 Shift 9686-8221 2726-1739 24 Hour Total 0314-4095 6532-8459 8993-4570 24 Hour Total I N T A K E [address] 655 3498 565 565 I.V. 538.8 1385 2723.8 375 [...] Salas MD. Nupur Bardales MD Urology Pager [phone] documented in this enc ounter Plan of [...] | + + + + + | [facility] | [address] | [place] [address] | | | SERVICES, CORE | CECELIA [...] | | | LABORATORY | | | SAMOAN | | | SERVICES, | | | [...] | + + + + + | [facility] | [address] | [place] [address] | | | SERVICES, [facility] | [address] | | | + [...] Surgeon: John | | | MD Waylon Process Designer: Roxy Boykin PA-C Preoperative | | | [...] running 3-0 v-loc. A | | | 20-Welsh catheter was placed, and irrigation showed no | | | extravasation. The robot was then undocked. The fascia of the 12mm | | | budget assistant port was closed with 0-Vicryl using [...] and acted as first | | | budget assistant at the patient | | | | | | s bedside. The resident, Dr. 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 da Alan | | | control console and did not perform assistant corporation counsel duties on the | | | robotic-assisted [...] R[facility] | [address] | [place], [place] | | | LASHAWN RAYMUNDO OF [place] | [address] | [address] | | | TESTS | | | [...] | | | | | | adenocarcinoma, [place] | | | | | | score [...] | | PATHOLOGY | | | | [id number]. Right Pelvic | | | | | [...] | + + + + + | [facility] | [address] | [place] [address] | | | PATHOLOGY | [address] [...] NELLY ROL[facility] | [address] | [place], [place] | | | Z[place]ARY [place] OF [facility] | [address] | [address] | | | TESTS | | | [...]
--- OUTSIDE RECORDS SUMMARY | ~2020-02-18 | XMS | Encounter Summary ---
Demographics + + + | Address | [address] | | | [place] [address] | + + + | Home Phone [...] Author + + + | Author | [facility] | + + + | Organization | [facility] | + + + | Address [...] Team Providers + +------+ + | Care Steward/Stewardess Third Name | Role | Phone | + +------+ + | Reji Morales MD | PCP | | + +------+ + Encounter Details +--------+ + + + + | Date | Type | Department | Care Team | Description | +--------+ + + + + | 12/11/ | Telephone | Urology at [facility] | Dav Jean | | | 2018 | | [address] | MD [address]ce [address] | | | | | Mailcode: CH10U | [facility] | | | | | [facility] | Rd [place], [place] | | | | | and Healing, | [address] | | | | | [facility] | [phone] | | | | | Floor [place], [place] | | | | | | [address] | | | | | | [phone] | | | +--------+ + + + [...]
--- OUTSIDE RECORDS SUMMARY | ~2020-02-18 | XMS | Encounter Summary ---
Demographics + + + | Address | [address] | | | [place] [address] | + + + | Home Phone | | + + + | Preferred Language | Unknown | + + + | Marital Status | Single | + + + | Mosque Affiliation | CHR | + + + | Race | White | + + + | Ethnic Group | Not or | + + + Author + + + | Author | [facility] | + + + | Organization | [facility] | + + + | Address [...] Providers + +------+ + | Care Home Improvement Advisor Name | Role | Phone | + [...] [address] | | | | | [facility] | [facility] | | | | | and Healing [address] | [place] [address] | | | | | [address]ane[address] Mailcode: | [phone] | | | | | [address] | | | | | | Health and Healing, | | | | | | Building [address] | | | | | | Floor [place], [place] | | | | | | [address] | | | | | | [phone] | | | +--------+--------+ + + + [...]
--- OUTSIDE RECORDS SUMMARY | ~2020-02-18 | XMS | Encounter Summary ---
Demographics + + + | Address | [address] | | | [place] [address] | + + + | Home Phone | | + + + | Preferred Language | Unknown | + + + | Marital Status | Single | + + + | Catholic Affiliation | CHR | + + + | Race | White | + + + | Ethnic Group | Not or | + + + Author + + + | Author | [facility] | + + + | Organization | [facility] | + + + | Address | [...] Team Providers + +------+ + | Care Head Orthopedic Team Physician Name | Role | Phone | + [...] +--------+--------+ + + + + Encounter Details +--------+ + + + + | Date | Type | Department | Care Team | Description | +--------+ + + + + | 12/08/ | Hospital | [facility] [address] | [place], | | | 2018 - | Encounter | [address] | Adeel Stephens MD | | | | | 12/S31 [facility] | [address] | | | 12/09/ | | [facility] [place], | Cecelia Ab[address] [place], | | | 2017 | | [place] [address] | [place] [address] | | | | | [phone] | [phone] | | | | | | | [...] can cause constipation, so you may take lbnv-dyv-cqdmuwx stool softeners (Senok ot-S, Miralax, Colace) following [...] water rinse all soapy residue off. Pat area dr y with a clean towel when finished. No [...] Physician: Adeel Salas MD Patient: CHAUNCEY VICKERS [id number] 24H events/Subjective: BAKARI overnight. Pain is well [...] 100 % Date 12/08/17 1500 - 12/09/17 0612/09/17 0700 - 12/10/17 0659 Shift 6176-7611 6286-0828 24 Hour Total 0507-0011 2858-2991 9100-8206 24 Hour Total I N T A K E [address] 364 2241 565 565 I.V. 538.8 1385 2723.8 375 [...] Salas MD. Nupur Bardales MD Urology Pager [phone] documented in this enc ounter Plan of [...] | + + + + + | [facility] | [address] | [place] [address] | | | SERVICES, CORE | CECELIA [...] | | | LABORATORY | | | LEBANESE | | | SERVICES, | | | [...] | Adult glucose reference range change effective 712-17. GFR is | [facility] | | estimated [...] | + + + + + | [facility] | [address] | [place] [address] | | | [facility] | [address] | | | + [...] Surgeon: John | | | MD Waylon Line Service Technician: Roxy Boykin PA-C Preoperative | | | [...] recent PSA is 5.67ng/dL. 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 A | | | 20-Turkish catheter was placed, and irrigation showed no | | | extravasation. The robot was then undocked. The fascia of the 12mm | | | accountant assistant port was closed with 0-Vicryl using the Zenaida | | | device. The prostate specimen [...] and acted as first | | | accountant assistant at the patient | | | | | | s bedside. The resident, Dr. 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 da Alan | | | control console and did not perform grooming assistant duties on the | | | robotic-assisted [...] + + + | NELLY [facility] | [address] | [place], [place] | | | LASHAWN RAYMUNDO OF [facility] | [address] | [address] | | | TESTS | | | [...] [facility] | | | History | adenocarcinoma, Ferron | | DEPARTMENT | | | | [...] | | | | | | adenocarcinoma, Kim | | | | | | score [...] Pathology | | | | | | Chirag-Brianda Beteha | | | | | | - PathologistMy | | | | | [...] adenocarcinoma | | | | | | Ferron Pattern: | | | | | | | | | | | | Percentage of Pattern 4: | | | | | | 20 % | | | | | | Primary Kim Pattern: | | | | | | Pattern 3 | | | | | | Secondary Ferron | | | | | | Pattern: [...] | | PATHOLOGY | | | | [id number]. Right Pelvic | | | | | [...] | + + + + + | [facility] | [address] | [place] [address] | | | PATHOLOGY | [address] [...] | | | POC | | | [place], [place] | | | | | | OF CARE | | | | | | TESTS | | + +-------+ + + + + + | Specimen | + + | | + + + + + + + | Performing | Address | City/State/Zipcode | Phone Number | | Organization | | | | + + + + + | NELLY [facility] | [address] | [place], [place] | | | LASHAWN RAYMUNDO OF [facility] | [address] | [address] | | | TESTS | | | [...] + | Diagnosis | + + | Malignant neoplasm of prostate (HCC) - Primary Malignant neoplasm of prostate | + + documented in this encounter Administered Medications + +--------+ [...] | | | | +-------+ + +---+---+ + +---+ | | | + +---+ | acetaminophen (TYLENOL) tablet | | | 1 dose, Starting 12/08/17 at | | | 1617, Until Mon12/08/17 at 1622 | | + +---+ | | | + +---+ + +-------+ +--------+---+---+ | amantadine HCl (SYMMETREL) [...] | | | | +-------+ + +---+---+ + +---+ | | | + +---+ | carbidopa-levodopa (SINEMET) | | | 25-100 mg 1 dose, Starting Fri | | | 12/08/17 at 1616, Until Fri | | | 12/08/17 at 1620 | | + +---+ | | | + +---+ + +-------+ +--------+---+---+ | fentaNYL (SUBLIMAZE) injection | Given | 12/09/19 | 50 mcg | | | | 50 mcg 50 mcg, intravenous, | | 18 5:07 | | | | | POSTPROCEDURE PRN, 4 doses, | | PM PDT | | | | | Starting 12/08/17 at 1611, | | | | | | | Until 12/08/17 at 1844, severe | | | | | | | pain while in Phase I Recovery | | | | | | + +-------+ +--------+---+---+ +-------+ +--------+---+---+ | Given | 12/09/19 | 50 mcg | | | | | 18 4:56 | | | | | | PM [...] +-------+ +-------+---+---+ +-------+ +-------+---+---+ | Given | 03/30/20 | 20 mg | | | | [...] PDT | | | | +-------+ +------+---+---+ + +---+ | | | + +---+ | oxybutynin (DITROPAN) tablet 1 | | | dose, Starting 12/08/17 at | | | 1616, Until Mon12/08/17 at 1621 | | + +---+ | | | + +---+ + +-------+ +------+---+---+ | oxyCODONE (immediate release) [...] PDT | | | | +-------+ +------+---+---+ + +---+ | | | + +---+ | oxyCODONE (immediate release) | | | (ROXICODONE) tablet 1 dose, | | | Starting Mon12/08/17 at 1616, | | | Until Mon12/08/17 at 1621 | | + +---+ | | | + +---+ + +-------+ +------+---+---+ | polyethylene glycol (MIRALAX) [...]
--- OUTSIDE RECORDS SUMMARY | ~2020-02-18 | XMS | Encounter Summary ---
Demographics + + + | Address | [address] | | | [place] [address] | + + + | Home Phone [...] + + + | Author | [facility] | + + + | Organization | [facility] | + + + | [...] Team Providers + +------+ + | Care Heating And Cooling Technician Name | Role | Phone | + +------+ + | Reji Morales MD | PCP | | + +------+ + Reason for Referral PROC - Inpatient Surgery (Routine) +--------+--------+ + + + + | Status | Reason | Specialty | Diagnoses / | Referred By | Referred To | | | | | Procedures | Contact | Contact | +--------+--------+ + + + + | Closed | | Urology | Diagnoses | Ashutosh, | Maritza, | | | | | Prostate | Roxy Harris, | Adeel | | | | | cancer (HCC) | [address] | L, [address] | | | | | Procedures | [address] | [address] | | | | | REQUEST TO | [facility] | [facility] | | | | | SURGERY | Rd | Rd [place], | | | | | [address] [employer]ER | [place], [place] | [place] | | | | | [place] | [address] | [address] | | | | | LAP,PROSTATE | Phone: | Phone: | | | | | CTOMY,RADICA | [phone] | [phone] | | | | | L,W/NERVE | Fax: | Fax: | | | | | [place] | [phone] | [phone] | | | | | LAP,PELVIC | | | | | | | LYMPHADENECT | | | | | | | EDER | | | +--------+--------+ + + + + Reason for Visit +---------+ + | Reason | Comments | +---------+ + | Surgery | | +---------+ + Encounter Details +--------+ + + + + | Date | Type | Department | Care Team | Description | +--------+ + + + + | 10/17/ | Telephone | Urology at [facility] | [place], | Surgery | | 2018 | | [address] | Adeel Stephens MD | | | | | Mailcode: CH10U | [address] | | | | | [facility] | [facility], | | | | | and Healing, | [place] [address] | | | | | Building | [phone] | | | | | Floor [place], [place] | | | | | | [address] | | | | | | [phone] | | | +--------+ + + + [...]
--- OUTSIDE RECORDS SUMMARY | ~2020-02-18 | XMS | Encounter Summary ---
Demographics + + + | Address | [address] | | | [place] [address] | + + + | Home Phone | | + + + | Preferred Language | Unknown | + + + | Marital Status | Single | + + + | Sabianist Affiliation | CHR | + + + | Race | White | + + + | Ethnic Group | Not or | + + + Author + + + | Author | [facility] | + + + | Organization | [facility] | + + + | Address | [...] Team Providers + +------+ + | Care Calibration Technician Name | Role | Phone | [...] + + | 12/08/ | Hospital | [facility] [address] | [place], | | | 2018 - | Encounter | [address] | Adeel Stephens MD | | | | | 12/S31 [facility] | [address] | | | 12/09/ | | [facility] [place], | Cecelia Abad [place], | | | 2017 | | [place] [address] | [place] [address] | | | | | [phone] | [phone] | | | | | | | [...] can cause constipation, so you may take gfbn-xdu-jtavhjw stool softeners (Senok ot-S, Miralax, Colace) following [...] Physician: Adeel Salas MD Patient: CHAUNCEY VICKERS [id number] 24H events/Subjective: BAKARI overnight. Pain is well [...] 12/09/17 0612/09/17 0700 - 12/10/17 0659 Shift [id number] 3127-5378 24 Hour Total 7158-0004 5467-8539 2425-1095 24 Hour Total I N T A K E [address] 650 5138 565 565 I.V. 538.8 1385 2723.8 375 [...] Salas MD. Nupur Bardales MD Urology Pager [phone] documented in this enc ounter Plan of [...] | + + + + + | [facility] | [address] | [place] [address] | | | SERVICES, CORE | CECELIA [...] | | | LABORATORY | | | SYRIAN | | | SERVICES, | | | [...] | + + + + + | [facility] | [address] | [place] [address] | | | [facility] | [address] | | | + [...] Surgeon: John | | | MD Waylon Passenger Agent: Roxy Boykin PA-C Preoperative | | | [...] recent PSA is 5.67ng/dL. A biopsy demonstrated [place] | | | grade 4+4, 4+3, and [...] running 3-0 v-loc. A | | | 20-Slovenian catheter was placed, and irrigation showed no | | | extravasation. The robot was then undocked. The fascia of the 12mm | | | nutritional assistant port was closed with 0-Vicryl using [...] and acted as first | | | nutritional assistant at the patient | | | | | | s bedside. The resident, Dr. 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 da Alan | | | control console and did not perform first leveler duties on the | | | robotic-assisted [...] + + + | [facility]LLY [facility] | [address] | [place], [place] | | | LASHAWN RAYMUNDO OF [facility] | [address] | [address] | | | TESTS | | | [...] [facility] | | | History | adenocarcinoma, Nov[place] | | DEPARTMENT | | | | [...] | | | | | | Chirag-Brianda Bethea | | | | | | - [...] adenocarcinoma | | | | | | [place] Pattern: | | | | | | | | | | | | Percentage of Pattern 4: | | | | | | 20 % | | | | | | Primary Kim Pattern: | | | | | | Pattern 3 | | | | | | Secondary [place] | | | | | | Pattern: [...] | | PATHOLOGY | | | | [id number]. Right Pelvic | | | | | [...] + + + + | [facility] | [address] | [place] [address] | | | PATHOLOGY | [address] [...] JAMIAAMELIE | [address] | [place], [place] | | | LASHAWN RAYMUNDO OF [facility] | [facility] | [address] | | | TESTS | | | [...]
--- OUTSIDE RECORDS SUMMARY | ~2020-02-18 | XMS | Encounter Summary ---
Demographics + + + | Address | [address] | | | [place] [address] | + + + | Home Phone | | + + + | Preferred Language | Unknown | + + + | Marital Status | | + + + | Samaritan Affiliation | Unknown | + + + | Race | Unknown | + + + | Ethnic Group | Unknown | + + + Author + + + | Author | [facility] | | | and [place] | + + + | Organization | [facility] | | | and [place] | + + + | Address | Unknown | + + + | Phone | Unavailable | + + + Support + + + + + | Name | Relationship | Address | Phone | + + + + + | Mati Moody | [address] | [place] | | | | | [address] | | + + + + + | Ayde Rojas | ECON | [place] | | | | | [address] | | + + + + + Care Team Providers + +------+ + | Care Venture Capital Analyst Name | Role | Phone | + +------+ + | Adina lLoyd MD | PCP | | + +------+ + Encounter Details +--------+ + + + + | Date | Type | Department | Care Team | Description | +--------+ + + + + | 01/28/ | Imaging | NTEO RAHMAN | Provider, | | | 2019 | Exam | [facility] | MD Elizabeth [address] | | | | | IMAGING [address] | [address] | | | | | [address] | [place] [address] | | | | | [place] [address] | | | | | | [phone] | | | +--------+ + + + [...] | | | | | [place] [address] | | | | | | [phone] | | | | | | | | +--------+ + + + + | 07/03/ | Appointment | Oncology | | | | 2019 | | | | | +--------+ + + + + | 07/03/ | Appointment | Radiation Oncology | hSerrell Hadley | | | 2019 | | | MD Raghav Hammond | | | | | | [place] | | | | | | [address] | | | | | | | [...]
--- OUTSIDE RECORDS SUMMARY | ~2020-02-18 | XMS | Encounter Summary ---
Demographics + + + | Address | [address] | | | [place] [address] | + + + | Home Phone | | + + + | Preferred Language | Unknown | + + + | Marital Status | Single | + + + | Quaker Affiliation | CHR | + + + | Race | White | + + + | Ethnic Group | Not or | + + + Author + + + | Author | [facility] | + + + | Organization | [facility] | + + + | Address [...] Team Providers + +------+ + | Care Collet Gluer Name | Role | Phone | + +------+ + | Reji Morales MD | PCP | | + +------+ + Reason for Visit + + + | Reason | Comments | + + + | Cancer of prostate | | + + + Global Period - Transplant (Routine) +--------+--------+ + + + + | Status | Reason | Specialty | Diagnoses / | Referred By | Referred To | | | | | Procedures | Contact | Contact | +--------+--------+ + + + + | Closed | | Urology | Diagnoses | [place], | [place], | | | | | DOS 12/08/17 | Adeel | Adeel | | | | | has a 90 | L, MD [address] | L, MD [address] | | | | | day global | [address] | | | | | period | [facility] | [facility] | | | | | | Rd | Rd [place], | | | | | | [place], [place] | [place] | | | | | | [address] | [address] | | | | | | Phone: | Phone: | | | | | | [phone] | [phone] | | | | | | Fax: | Fax: | | | | | | [phone] | [phone] | +--------+--------+ + + + + Encounter Details +--------+---------+ + + + | Date | Type | Department | Care Team | Description | +--------+---------+ + + + | 12/20/ | Office | Urology at [facility] | Rn, Uro [address] | Prostate cancer | | 2018 | Visit | [address] | [address] | ([facility]) (Primary Dx) | | | | Mailcode: CH10U | Road [place], [place] | | | | | [facility] | [address] | | | | | and Healing, | | | | | | Building [address], [address]th | | | | | | Floor [place], [place] | | | | | | [address] | | | | | | [phone] | | | +--------+---------+ + + + [...] this encounter Last Filed Vital Signs + +---------+ + + | Vital Sign | Reading | Time Taken | Comments | + +---------+ + + | Blood Pressure | 148/75 | 12/20/2017 8:17 AM | | | | | PDT | | + +---------+ + + | Pulse | 81 | 12/20/2017 8:17 AM | | | | | PDT | | + +---------+ + + | Temperature | - | - | | + +---------+ + + | Respiratory Rate | - | - | | + +---------+ + + | Oxygen Saturation | - | - | | + +---------+ + + | Inhaled Oxygen | - | - | | | Concentration | | | | + +---------+ + + | Weight | - | - | | + +---------+ + + | Height | - | - | | + +---------+ + + | Body Mass Index | - | - | | + +---------+ + + documented in this encounter Patient Instructions Patient Instructions Diana Ruelas RN - 12/20/2017 8:00 AM PDTAfter your prostatectomy: You may have little or no control over your urination for several days, or longer, after the catheter is taken out. It is important that you do not wait when you need to urinate. Fi nd a restroom as soon as you can. Nearly all men do not have good urinary control when the c atheter is first removed. Time and patience is walls to regaining urinary continence. Urinary control will gradually improve as you recover. Appreciating improvement with urinary control is a slow process. The progress of urinary control is measured ommb-tx-vged, or, vubsn-sw-rfieq, not day-by-day. Regaining good urinar y control can be very slow and frustrating to some men. Patience and time and doing the Kege l exercises is important. You might see occasional bleeding and pink colored urine and the passage of tissue up to about 3 days after the catheter removal. Do not lift greater than 15 pounds for a total of 6 to 8 weeks after surgery. No intercourse for 4 weeks after surgery. Wear Guards for Men (or similar type of pad) for the next few weeks to months. Kegel exercises. Do 10 repetitions 3 to 4 times a day. Clamp (Kegel) your sphincter muscl e before coughing, sneezing, upon standing. You may pass a dark brown or banda colored clump(s) of tissue in your urine after about 6 t o 8 weeks. Your urine may then be pink or blood-tinged the next few times you urinate. This is a normal part of healing and should also go away with in hours to a couple of days. There is a risk of urethral stricture. Call or contact us as needed if your urine stream becomes weak or if you have difficulty starting your stream or seek care at your local emerg ency department if you are unable to urinate after 4 to 6 hours of trying. If you experience fevers, chills, painful urination or urinary urgency or frequency, call or contact us as needed or seek care at your local emergency department. Erectile Dysfunction: It may take several weeks, months or years for erections to return , and there is a chance erections may never return at all after surgery. Either way, this is a concern for nearly all men and their partners. There are option to treat erectile dysfunc tion, such as oral medications, vacuum erection devices, injections or prosthesis. These opt ions will be discussed by your doctor during one of your visits. Steri Strips: You have had steri strips placed over your surgical incision. Steri strip s help hold the incision together. They start to detach after about 1 to 3 weeks. It is ok to shower with steri strips. Do not wash or scrub them with a washcloth, but it is ok to pat them with the washcloth to clean them. To dry the steri strips simply dab the area dry. As the strips start to peel off after 1, 2 or 3 weeks it is ok to start removing the strips that are not holding the incision together any longer. Sometimes a yellowish colored fluid can seep from the incisions. This is ok. Simply celeste ce a clean or sterile dressing over the leak. Change the dressing as it becomes saturated or change it at least once a day until the leaking stops. The NEXT appointment and PSA blood test should be in about 5 weeks from when your cathet er was removed. Then, we would like for you to have your PSA checked every 3 to 4 months for 1 year, then once every 6 months for 2 years, then annually. This can be accomplished by yo primary care provider or by us. KEGEL EXERCISES What is it? Kegel exercises are exercises to strengthen the pelvic muscles. These exercises involve tightening and relaxing penis and rectal muscles. Hint: The same muscle that you us e to stop the urine flow. Kegel exercises can make the pelvic muscles stronger and improve b ladder control. The bladder is the organ that holds urine. What are the pelvic muscles? Many layers of muscles stretch between your legs. These muscles are attached to the front, back, and sides of your pelvic bones. Most of the pelvic support work is done by 2 pelvic mu scles. The larger of the 2 muscles is shaped like a hammock. The other muscle is shaped like a triangle. The urethra, bladder and rectum are called pelvic organs. These organs are held in place by pelvic muscles. But they may sag onto one another if the pelvic muscles are not strong. The muscles involved in Kegel exercises are the muscles used to control urination. What causes weak pelvic muscles? The pelvic muscles are normally tight. The use of an indwe lling urinary catheter may cause the pelvic muscles to weaken. Lifting heavy things or strai edmund while having a BM may weaken the pelvic muscles. How are Kegel exercises done? Kegel exercises can be done any time and anywhere. You can do them in the morning, noon, or night. The exercises can be done when driving, sitting, stand ing, lying on your back, or taking a bath. A good time to practice Kegel exercises is during bathroom trips. Do these exercises as often as you think about it. Contract (tighten) the muscles around your penis and anus. (The same muscle that you use to stop the urine flow) Hold these muscles for a count of 10. Slowly release these muscles and relax for a count of 10. Repeat the cycle again. Do 3 to 4 sets of 10 contractions every day. You may need to start Kegel exercises more slowly, like squeezing and relaxing pelvic muscl es 4 seconds each. You can increase your count as your muscle tone improves. You may want to keep a Kegel exercise diary. Write down how many times a day you do Kegels and how many exercises you do each time. Are there other things I should know about Kegel exercises? It may take 3 to 6 months after starting Kegel exercises to see a difference in bladder con trol. But you may notice improved bladder control after a few weeks. Do not stop doing Kegel exercises until you have talked to your caregiver. Kegel exercises are useful for the rest of your life. Tighten your pelvic muscles before sneezing, lifting, or jumping. Men use Kegel exercises to improve bladder control. [facility] Department of Urology [phone] If you were prescribed Viagra after your prostatectomy, take 50 mg of Viagra every other da y. This medication promotes increased blood flow into the penis after your surgery. If you were prescribed Cialis after your prostatectomy, take 5 mg of Cialis every day. This medication promotes increased blood flow into the penis after your surgery. If your surgery was a non-nerve sparing prostatectomy, or even if you had unsatisfactory er ections prior to surgery, we can discuss the erection treatment options at your next clinic visit. Dr. Salas or Belén Royal NP follow up in about 5 weeks with a PSA prior. You will need a PSA blood test before the next appointment: You have a couple of options. or * Show-up to the lab 1 hour prior to your appointment and the PSA will be available during your appointment. The lab is located on the 3rd floor of the [facility]. or * Have the PSA collected close to home at a local lab or primary care provider: Prior to yo ur next appointment you will need to have a PSA collected about 3 days prior to the appointm ent and they can fax us the results to our secure fax at [phone]. Dept. of Urology contact information: [phone] or after hours [phone]. Resources: * [facility] [place] [employer] Society Cancer Resource Navigator, Delmi Davis. Delmi's contact numb er is [phone]. * For information about the Annual [facility] Prostate Cancer Conference please call Kinza Garcia at [phone] or email us at [email or web address]. The Prostate Cancer Support Group at [facility] meets the first Mon of each month at the [facility], [address] [place], [place] [address], 3rd floor conference center in rooms [address] & [address] (1A & 1B), from 5:30 p.m. to 7:00 p. m. The group meetings begin with brief introductions and announcements. When a speaker comes to the group, he or she will speak for approximately 30-45 minutes, saving time for dafne patterson. The last half hour is reserved as an informal check-in with support group attendees. Fol lowing the group meeting, attendees are welcome to use the comfortable furniture and visit i nformally on the first floor in the [facility]. Please call PAULETTE Deleon, at [phone] if you have questions. Prostate Cancer Resources Reading material: Dr. Emanuel Damico's Guide to Surviving Prostate Cancer Prostate and Cancer: A Family Guide to Diagnosis, Treatment, and Survival. By Antolin Jeter M.D. PROMOTING WELLNESS for prostate cancer patients. By Ashly Trejo National Cancer Gage: http://www.cancer.gov/cancertopics/types/prostate The [place] Cancer Society : http://www.cancer.org Us Too!: http://www.usAsia Pacific Marine Container Lineso.com/ or http://www.prostatepointers.org The [place] Prostate Society: http://www.ameripros.org The [place] Society of Clinical Oncology: http://www.asco.org The [place] Urological Association: http://www.auanet.org Prostate Cancer Foundation: http://www.prostatecancerfoundation.org PSA Rising: http://www.psa-rising.com Caregiver Resources National Family Caregivers Association: http://www.nfcacares.org Well Spouse Foundation :http://wellspouse.org Sites validated 09/2016 documented in this encounter Progress Notes Ashly Valdez RN - 12/20/2017 8:00 AM PDTFormatting of this note might be different fro m the original. Nima Moody comes in today on post-op day 12 for a catheter removal. He had a roboti c assisted laparoscopic radical retropubic prostatectomy with pelvic lymph node resection. Manish Moody is accompanied today by his Daughter Christine. Prior to beginning the procedure, patient identity was verified, as well as the procedure t o be performed and the site. All equipment required was ready and available. The patient wa s positioned appropriately. The bladder was infused with 120 mL's of normal saline via the urinary catheter. At this po int Mr. Moody had the sensation to urinate. The balloon was deflated of 8 mL's of clear liq uid and the catheter was withdrawn with some mild resistance. He was able to void 120 mL's with good control of urination and the stream is a strong steam by his report. Mr. Moody t olerated the procedure well. Uncertain if Mr. Moody demonstrate good pelvic floor muscle contractions (Kegel exercise) during urinating. I did not see him void. Verbal and written information on Kegel exercise s was given. Mr. Moody was advised of possibility of incontinence, urethral stricture, occasional bleed ing and pink colored urine and the passage of tissue after the catheter removal. He underst ands to seek care at his local emergency department if he cannot urinate after 4 to 6 hours of trying. Irene Da Silva PA-C is present and available in clinic during the entire visit. Plan: Mr. Moody was instructed to follow up in 4 to 5 weeks in clinic with a Monitoring PSA prio r. He was instructed to collect the PSA prior to his next visit. Cipro 500mg by mouth every 12 hours for 3 days. (Already taking) Cialis 5mg by mouth every day and future PSA: This is a verbal order from Irene Da Silva PA-C given on 12/20/2017 at 10:00 AM. Verbatim readback performed and approved to proceed. Requested Prescriptions Signed Prescriptions Disp Refills tadalafil (CIALIS) 10 mg oral tablet 45 tablet 3 Sig: Take 0.5 tablets by mouth once daily as needed. Not to exceed more than once daily. Discharge AVS was reviewed with Mr. Moody and he verbalized agreement and understanding of these instructions and had no questions. The total RN time spent with Mr. Moody was 15 minutes. ASSESSMENT As above I have no concerns at this time. However, Mr. Moody has advancing Parkinson's disease and this may delay his ability to control urinary continence. PLAN As above Backup plan and/or next steps: As above NURSING OUTCOME EVALUATION Previous nursing concern(s): no previous concern(s). I believe this patient is Moderately Stable. During this encounter, patient/caregiver verbalizes or demonstrates understanding of educat ion provided, verbalizes agreement with the plan, demonstrates ability to perform skill and was active participant/motivated. Notified LIP via routed encounter ASHLY VALDEZ RN [facility] UROLOGY [facility] UROLOGY AT [facility] [address] [facility] [id number] documented in this e ncounter Plan of Treatment Not on filedocumented as of this encounter Visit Diagnoses + + | Diagnosis | + + | Prostate cancer (HCC) - Primary Malignant neoplasm of prostate | + + documented in this encounter"
--- OUTSIDE RECORDS SUMMARY | ~2020-02-18 | XMS | Encounter Summary ---
Demographics + + + | Address | [address] | | | [place] [address] | + + + | Home Phone | | + + + | Preferred Language | Unknown | + + + | Marital Status | Single | + + + | Jain Affiliation | CHR | + + + | Race | White | + + + | Ethnic Group | Not or | + + + Author + + + | Author | [facility] | + + + | Organization | [facility] | + + + | Address | [...] Team Providers + +------+ + | Care Tank Crewmember Name | Role | Phone | + +------+ + | Reji Morales MD | PCP | | + +------+ + Encounter Details +--------+ + + + + | Date | Type | Department | Care Team | Description | +--------+ + + + + | 06/17/ | Document-Sc | UNKNOWN DEPARTMENT | Unknown . | | | 2012 | anned | [address] | | | | | | [address] | | | | | | [place], [place] | | | | | | [address] | | | +--------+ + + + [...]
--- OUTSIDE RECORDS SUMMARY | ~2020-02-18 | XMS | Encounter Summary ---
Demographics + + + | Address | [address] | | | [place] [address] | + + + | Home Phone | | + + + | Preferred Language | Unknown | + + + | Marital Status | | + + + | Latter Day Affiliation | Unknown | + + + | Race | Unknown | + + + | Ethnic Group | Unknown | + + + Author + + + | Author | [facility] | | | and [place] | + + + | Organization | [facility] | | | and [place] | + + + | Address | Unknown | + + + | Phone | Unavailable | + + + Support + + + + + | Name | Relationship | Address | Phone | + + + + + | Mati Moody | YOANNA | [place] | | | | | [address] | | + + + + + | Ayde Rojas | ECON | [place] | | | | | [address] | | + + + + + Care Team Providers + +------+ + | Care Plaster Mechanic Name | Role | Phone | + +------+ + | Adina Lloyd MD | PCP | | + +------+ + Encounter Details +--------+ + + + + | Date | Type | Department | Care Team | Description | +--------+ + + + + | 02/14/ | Hospital | [facility] | Sherrell Hadley | | | 2019 | Encounter | MED [facility] RADIATION | M, [address] | | | | | ONCOLOGY [address] [place], [place] | | | | | [place], | [address] | | | | | [place] [address] | | | | | | [phone] | | | +--------+ + + + [...] + + +---------+ + + | amantadine | Take 100 mg by mouth | | 0 | 12/10/19 | | | (SYMMETREL) 100 MG | 2 times daily. | | | 18 | | | TABS | | | | | | + + + +---------+ + + | carbidopa-levodopa | Take 0.5 tablets by | | 0 | 09/17/19 | | | (SINEMET) 25-100 mg | mouth 6 times daily. | | | 16 | | | per tablet | | | | | | + + + +---------+ + + | enalapril | Take 1 tablet by | | 0 | | | | (VASOTEC) 20 MG | mouth Daily. | | | | | | tablet | | | | | | + + + +---------+ + + | ketoconazole | Apply 1 Dose | | 0 | 12/05/19 | | | (NIZORAL) 2% shampoo | topically as needed. | | | 19 | | + + + +---------+ + + | metoprolol | Take 1 tablet by | | 0 | | | | tartrate (LOPRESSOR) | mouth 2 times daily. | | | | | | 50 mg tablet | | | | | | + + + +---------+ + + | polyethylene | Take 17 g by mouth | | 0 | | | | glycol (MIRALAX) | Daily. | | | | | | powder | | | | | | + + + +---------+ + + | potassium chloride | Take 1 capsule by | | 0 | 02/03/20 | | | (MICRO-K) 10 mEq CR | mouth Daily. | | | 16 | | | capsule | | | | | | + + + +---------+ + + | | Take 12.5 mg by | | 0 | | | | hydroCHLOROthiazide | mouth Daily. | | | | 9 | | (HYDRODIURIL) 12.5 | | | | | | | MG tablet | | | | | | + + + +---------+ + + | tadalafil (CIALIS) | Take 1 tablet by | | 0 | 12/29/19 | | | 10 MG tablet | mouth as needed. | | | 18 | 0 | | | Take 0.5 mg once | | | | | | | daily as needed,not | | | | | | | to exceed more then | | | | | | | once daily | | | | | + [...] | | | | | | [address] | | | | | | [place] [address] | | | | | | [phone] | | | | | | | [...] [place] | | | | | | [address] | | | | | | | | +--------+ + + + + documented as of this encounter Visit Diagnoses Not on filedocumented in this encounter"
--- OUTSIDE RECORDS SUMMARY | ~2020-02-18 | XMS | Encounter Summary ---
Demographics + + + | Address | [address] | | | [place] [address] | + + + | Home Phone | | + + + | Preferred Language | Unknown | + + + | Marital Status | Single | + + + | Jehovah'S Witness Affiliation | CHR | + + + [...] Team Providers + +------+ + | Care Nuclear Medicine Pet Ct Technologist Name | Role | Phone | + +------+ + | Reji Morales MD | PCP | | + +------+ + Encounter Details +--------+ + + + + | Date | Type | Department | Care Team | Description | +--------+ + + + + | 12/06/ | Abstract | Urology at [facility] | Roxy Boykin, | | | 2018 | | [address] | [address] [facility] | | | | | Mailcode: CH10U | [address] | | | | | [facility] | [place], [place] | | | | | and Healing, | [address] | | | | | [facility] | [phone] | | | | | Floor [place], [place] | | | | | | [address] | | | | | | [phone] | | | +--------+ + + + [...]
--- OUTSIDE RECORDS SUMMARY | ~2020-02-18 | XMS | Encounter Summary ---
Demographics + + + | Address | [address] | | | [place] [address] | + + + | Home Phone | | + + + | Preferred Language | Unknown | + + + | Marital Status | Single | + + + | Evangelical Affiliation | CHR | + + + | Race | White | + + + | Ethnic Group | Not or | + + + Author + + + | Author | [facility] | + + + | Organization | [facility] | + + + | [...] Team Providers + +------+ + | Care Field Artillery Fire Control Man Name | Role | Phone | + +------+ + | Reji Morales MD | PCP | | + +------+ + Encounter Details +--------+ + + + + | Date | Type | Department | Care Team | Description | +--------+ + + + + | 12/06/ | Abstract | Urology at [facility] | Roxy Boykin, | | | 2018 | | [address] | [address] [facility] | | | | | Mailcode: CH10U | [address] | | | | | [facility] | [place], [place] | | | | | and Healing, | [address] | | | | | [facility] | [phone] | | | | | Floor [place], [place] | | | | | | [address] | | | | | | [phone] | | | +--------+ + + + [...]
--- OUTSIDE RECORDS SUMMARY | ~2020-02-18 | XMS | Encounter Summary ---
Demographics + + + | Address | [address] | | | [place] [address] | + + + | Home Phone | | + + + | Preferred Language | Unknown | + + + | Marital Status | | + + + | Anabaptism Affiliation | Unknown | + + + | Race | Unknown | + + + | Ethnic Group | Unknown | + + + Author + + + | Author | [facility] | | | and [place] | + + + | Organization | [facility] | | | and [place] | + + + | Address | Unknown | + + + | Phone | Unavailable | + + + Support + + + + + | Name | Relationship | Address | Phone | + + + + + | Mati Moody | [place]NA | [place] | | | | | [address] | | + + + + + | Ayde Rojas | ECON | [place] | | | | | [address] | | + + + + + Care Team Providers + +------+ + | Care Supervisor Roller Printing Name | Role | Phone | + [...] | | | ONCOLOGY CLINIC [address] | [place], [place] | | | | | [address] [facility] | [address] | | | | | [place] [address] | | | | | | [phone] | | | +--------+ + + + [...] | | | | | [place] [address] | | | | | | [phone] | | | | | | | [...] [place] | | | | | | [address] | | | | | | | | +--------+ + + + + documented as of this encounter Visit Diagnoses Not on filedocumented in this encounter"
--- OUTSIDE RECORDS SUMMARY | ~2020-02-18 | XMS | Encounter Summary ---
Demographics + + + | Address | [address] | | | [place] [address] | + + + | Home Phone [...] Team Providers + +------+ + | Care Associate Property Manager Name | Role | Phone | + [...] | Disorders Clinic at | [address] | ([facility]) (Primary Dx) | | | | [facility] | [place], [place] | | | | | and Healing [address] | [address] | | | | | [address] Mailcode: | [phone] | | | | | [facility] | | | | | | Health and Healing, | | | | | | [facility] | | | | | | Floor [place], [place] | | | | | | [address] | | | | | | [phone] | | | +--------+---------+ + + + [...] has 3 children 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 Greater than 50% of the time was spent counseling the patient regarding the above issues. Joslyn Chapa MD Movement Disorders Neurologist [facility] documented in this e ncounter Plan of Treatment Not on filedocumented as of this encounter Visit Diagnoses + + | Diagnosis | + + | Parkinson disease (HCC) - Primary Paralysis agitans | + + documented in this encounter
--- OUTSIDE RECORDS SUMMARY | ~2020-02-18 | XMS | Encounter Summary ---
Demographics + + + | Address | [address] | | | [place] [address] | + + + | Home Phone | | + + + | Preferred Language | Unknown | + + + | Marital Status | | + + + | Jain Affiliation | Unknown | + + + | Race | Unknown | + + + | Ethnic Group | Unknown | + + + Author + + + | Author | [facility] | | | and [place] | + + + | Organization | [facility] | | | and [place] | + + + | Address | Unknown | + + + | Phone | Unavailable | + + + Support + + + + + | Name | Relationship | Address | Phone | + + + + + | Mati Moody | [place] | [place] | | | | | [address] | | + + + + + | Ayde Rojas | ECON | [place] | | | | | [address] | | + + + + + Care Team Providers + +------+ + | Care Babbitter Name | Role | Phone | + +------+ + | Adina Lloyd MD | PCP | | + +------+ + Encounter Details +--------+ + + + + | Date | Type | Department | Care Team | Description | +--------+ + + + + | 01/05/ | Orders Only | [facility] | Sherrell Hadley | Prostate cancer | | 2020 | | MED CTR RADIATION | MD Manish [address] | (HCC) (Primary Dx) | | | | ONCOLOGY CLINIC [address] | [place], [place] | | | | | [address] [place] | [address] | | | | | [place] [address] | | | | | | [phone] | | | +--------+ + + + [...] | 03/04/ | Office | Neurology | JameskelseyLeslie [place], | | | 2019 | Visit | | MD [address] | | | | | | [address] | | | | | | [place] [address] | | | | | | [phone] | | | | | | | [...] [place] | | | | | | [address] | | | | | | | | +--------+ + + + + + +------+--------+ + + | Name | Type | Priori | Associated Diagnoses | Order Schedule | | | | ty | | | + +------+--------+ + + | PSA, Diagnostic | Lab | Routin | Prostate cancer | Expected: | | | | e | (HCC) | 07/07/2020, Expires: | | | | | | 01/05/2021 | + +------+--------+ + + documented as of this encounter Visit Diagnoses + + | Diagnosis | + + | Prostate cancer (HCC) - Primary Malignant neoplasm of prostate | + + documented in this encounter"
--- OUTSIDE RECORDS SUMMARY | ~2020-02-18 | XMS | Encounter Summary ---
Demographics + + + | Address | [address] | | | [place] [address] | + + + | Home Phone [...] Team Providers + +------+ + | Care Cane Flume Chute Operator Name | Role | Phone | [...] + + + + | 12/08/ | Anesthesia | [address] | Camille Luu, | | | 2018 | Event | [address] | Michael Posey | | | | | [place] [facility] Main | A, THERMAL MOLDER [address] | | | | | Hospital Admitting | [address] | | | | | Desk Located on the | [place], [place] | | | | | 9th floor | [address] | | | | | [place], [place] | [phone] | | | | | [address] | | | +--------+ + + + + Anesthesia Record + + + + + | Procedure Name | Responsible | Anesthesia Start | Anesthesia Stop Time | | | Anesthesiologist | Time | | + + + + + | ROBOTIC ASSISTED | Camille Luu MD | 12/08/17 1156 | 12/08/17 1610 | | LAPAROSCOPIC RADICAL | | | | | PROSTATECTOMY WITH | | | | | BILATERAL PELVIC | | | | | LYMPH NODE | | | | | DISSECTION | | | | | (Bilateral Abdomen) | | | | + + + + + +----+---+ + + | Da | T | Event | Comment | | te | i | | | | | m | | | | | e | | | +----+---+ + + | 03 | 1 | Eq Check | Anesthesia machine checked Equipment verified | | /3 | 1 | | | | 0/ | 1 | | | | 20 | 5 | | | | 18 | | | | +----+---+ + + | | 1 | Pt. Check | Prior to anesthesia start, pt. Identified, examined, chart | | | 1 | | reviewed, PARQ held, anesthetic plan made or approved by | | | 3 | | attending anesthesiologist. NPO status confirmed as appropriate | | | 2 | | for procedure Preoperative evaluation: unchanged | +----+---+ + + | | 1 | An Start | | | | 1 | | | | | 5 | | | | | 6 | | | +----+---+ + + | | 1 | An Start | | | | 2 | Data | | | | 0 | | | | | 0 | | | +----+---+ + + | | 1 | Vitals | Monitors applied Vital signs checked Patient ready for anesthesia | | | 2 | Checked | | | | 0 | | | | | 4 | | | +----+---+ + + | | 1 | ETT | | | | 2 | | | | | 0 | | | | | 6 | | | +----+---+ + + | | 1 | Ready | | | | 2 | | | | | 1 | | | | | 5 | | | +----+---+ + + | | 1 | Abx | | | | 2 | Administere | | | | 2 | d | | | | 9 | | | +----+---+ + + | | 1 | Timeout | | | | 2 | | | | | 3 | | | | | 1 | | | +----+---+ + + | | 1 | Incision | | | | 2 | | | | | 3 | | | | | 2 | | | +----+---+ + + | | 1 | Quick Note | Steep T-cloud | | | 2 | | | | | 3 | | | | | 9 | | | +----+---+ + + | | 1 | Surgery end | | | | 6 | | | | | 0 | | | | | 4 | | | +----+---+ + + | | 1 | An Extubate | Neuromuscular function Intact. Pharynx suctioned. Patient obeys | | | 6 | | commands. Adequate pulmonary mechanics. | | | 0 | | | | | 4 | | | +----+---+ + + | | 1 | an stop | | | | 6 | data | | | | 0 | | | | | 4 | | | +----+---+ + + | | 1 | PACU Rpt | | | | 6 | Given | | | | 1 | | | | | 0 | | | +----+---+ + + | | 1 | Anesthesia | | | | 6 | End | | | | 1 | | | | | 0 | | | +----+---+ + + +------+ | Meds | +------+ + + + | Name | Total | + + + | fentaNYL | 350 mcg | + + + | lidocaine 2% | 60 mg | + + + | propofol | 200 mg | + + + | rocuronium | 105 mg | + + + | ceFAZolin (ANCEF) injection 2 g | 2 g | + + + | ondansetron | 4 mg | + + + | neostigmine | 2.5 mg | + + + | glycopyrrolate | 0.7 mg | + + + | ketorolac | 15 mg | + + + | lactated Ringers IV | 1,000 mL | + + + + + | Name | + + | Insp Iso | + + | Et Iso | + + | EtN2O % | + + | Insp N2O % | + + | O2 Flow Rate (Total Liters) | + + | Air Flow rate (L/min) | + + + + | No blood administrations on file. | + + +--------+ + + + | Type | Details | Placement | Removal | +--------+ + + + | Urethr | 12/08/17; 1230; Elli Connors MD; | 12/08/17 1230 by | | | al | Natasha; 20 Fr.; 10 mL | Ramón Rondon RN | | | Cathet | | | | | er | | | | +--------+ + + + | Incisi | 12/08/17; 1414; Right; Lateral; | 12/08/17 1414 by | | | on | abdomen | Ramón Rondon RN | | +--------+ + + + | Incisi | 12/08/17; 1415; Right; abdomen | 12/08/17 1415 by | | | on | | Ramón Rondon RN | | +--------+ + + + | Incisi | 12/08/17; 1415; Anterior; abdomen | 12/08/17 1415 by | | | on | | Ramón Rondon RN | | +--------+ + + + | Incisi | 12/08/17; 1415; Midline; abdomen | 12/08/17 1415 by | | | on | | Ramón Rondon RN | | +--------+ + + + | Incisi | 12/08/17; 1415; Left; abdomen | 12/08/17 1415 by | | | on | | Ramón Rondon RN | | +--------+ + + + | Incisi | 12/08/17; 1415; Left; Lateral; | 12/08/17 1415 by | | | on | abdomen | Ramón Rondon RN | | +--------+ + + + | Periph | 12/08/17; 1031; Zack BASS; Right; | 12/08/17 1031 by | 12/09/17 1300 by | | carmenl | Hand; 20 g; None; Positive; | Bashir Mckeon RN | Karly Romero RN | | IV | 12/09/17; 1300; Per order | | | +--------+ + + + | Periph | 12/08/17; 1210; Clinic Staff; | 12/08/17 1210 by | 12/09/17 1300 by | | francisco | THERMAL MOLDER; Left; Hand; 18 g; 12/09/17; | Michael Wagoner CRNA | Karly Romero RN | | IV | 1300; Per order | | | +--------+ + + + documented in this encounter Social History + +-------+ +--------+ + | [...] | + +--------+ + + + | JASMINA ETT | Routin | 12/08/2017 | | Results for this | | | e | 7:19 PM | | procedure are in the | | | | PDT | | results section. | + +--------+ + + + documented in this encounter Results JASMINA ETT (12/08/2017 7:19 PM PDT) + + + | Narrative | Performed At | + + + | Michael Wagoner CRNA 12/08/2017 12:20 PM Procedure Reason | | | for Intubation: For surgical procedure, Location Performed: [place] , | | | Patient was preoxygenated Mask Ventilation Grade 1 - Ventilated by | | | mask Intubation Blade type: Leigh , Blade size: 2, Atraumatic | | | laryngoscopy: Atraumatic Laryngoscopy, Laryngoscopic view: Grade I, | | | Number of Attempts: 1, Positive for EtCO2: Yes, Breath sounds: | | | Bilateral and equal ETT Ett Adult: Single-lumen cuffed ETT | | | Size: 7.5 ETT secured with: adhesive tape Depth at Lip: 23 Cm | | | Narrative Attending physically present | | + + + documented in this encounter Visit Diagnoses Not on filedocumented in this encounter Administered Medications + +--------+ +------+------+------+ | Medication Order | MAR | Action | Dose | Rate | Site | | | Action | Date | | | | + +--------+ +------+------+------+ | ceFAZolin (ANCEF) injection 2 g | Given | 12/09/19 | 2 g | | | | 2 g, intravenous, PREPROCEDURE | | 18 12:29 | | | | | ONCE, 1 dose, Starting Fri | | PM PDT | | | | | 12/08/17 at 0947, Until Fri | | | | | | | 12/08/17 at 1229 | | | | | | + +--------+ +------+------+------+ +---+---+ | | | +---+---+ + +-------+ +--------+---+---+ | fentaNYL citrate (PF) | Given | 12/09/19 | 50 mcg | | | | (SUBLIMAZE) injection | | 18 3:35 | | | | | INTRAPROCEDURE PRN, Starting Fri | | PM PDT | | | | | 12/08/17 at 1200, Until Fri | | | | | | | 12/08/17 at 1604 | | | | | | + +-------+ +--------+---+---+ +-------+ +--------+---+---+ | Given | 12/09/19 | 50 mcg | | | | | 18 12:45 | | | | | | PM PDT | | | | +-------+ +--------+---+---+ | Given | 12/09/19 | 50 mcg | | | | | 18 12:39 | | | | | | PM PDT | | | | +-------+ +--------+---+---+ +---+---+ | | | +---+---+ + +-------+ +--------+---+---+ | glycopyrrolate (CYNDI) | Given | 12/09/19 | 0.2 mg | | | | injection INTRAPROCEDURE PRN, | | 18 3:38 | | | | | Starting 12/08/17 at 1237, | | PM PDT | | | | | Until Mon12/08/17 at 1604 | | | | | | + +-------+ +--------+---+---+ +-------+ +--------+---+---+ | Given | 12/09/19 | 0.3 mg | | | | | 18 3:36 | | | | | | PM PDT | | | | +-------+ +--------+---+---+ | Given | 12/09/19 | 0.2 mg | | | | | 18 12:37 | | | | | | PM PDT | | | | +-------+ +--------+---+---+ +---+---+ | | | +---+---+ + +-------+ +-------+---+---+ | ketorolac (TORADOL) injection | Given | 12/09/19 | 15 mg | | | | INTRAPROCEDURE PRN, Starting Fri | | 18 3:37 | | | | | 18 at 1537, Until Fri | | PM PDT | | | | | 12/08/17 at 1604 | | | | | | + +-------+ +-------+---+---+ +---+---+ | | | +---+---+ + +---------+ +---+---+---+ | lactated Ringers IV 10 mL/hr, | New Bag | 12/09/19 | | | | | intravenous, PROCEDURE | | 18 3:37 | | | | | CONTINUOUS, Starting 12/08/17 | | PM PDT | | | | | at 1000, Until 12/08/17 at | | | | | | | 1844 | | | | | | + +---------+ +---+---+---+ + + +---+---+---+ | given by anesthesiology | 12/09/19 | | | | | | 18 2:37 | | | | | | PM PDT | | | | + + +---+---+---+ | New Bag | 12/09/19 | | | | | | 18 11:10 | | | | | | AM PDT | | | | + + +---+---+---+ +---+---+ | | | +---+---+ + +-------+ +-------+---+---+ | lidocaine (XYLOCAINE MPF) 2 % | Given | 12/09/19 | 60 mg | | | | (20 mg/mL) injection | | 18 12:04 | | | | | INTRAPROCEDURE PRN, Starting Fri | | PM PDT | | | | | 12/08/17 at 1204, Until Fri | | | | | | | 12/08/17 at 1604 | | | | | | + +-------+ +-------+---+---+ +---+---+ | | | +---+---+ + +-------+ +------+---+---+ | neostigmine (PROSTIGMIN) | Given | 12/09/19 | 1 mg | | | | injection intravenous, | | 18 3:38 | | | | | INTRAPROCEDURE PRN, Starting Fri | | PM PDT | | | | | 12/08/17 at 1536, Until Fri | | | | | | | 18 at 1604 | | | | | | + +-------+ +------+---+---+ +-------+ +--------+---+---+ | Given | 12/09/19 | 1.5 mg | | | | | 18 3:36 | | | | | | PM PDT | | | | +-------+ +--------+---+---+ +---+---+ | | | +---+---+ + +-------+ +------+---+---+ | ondansetron (ZOFRAN) injection | Given | 12/09/19 | 4 mg | | | | INTRAPROCEDURE PRN, Starting Fri | | 18 3:02 | | | | | 18 at 1502, Until Fri | | PM PDT | | | | | 18 at 1604 | | | | | | + +-------+ +------+---+---+ +---+---+ | | | +---+---+ + +-------+ +-------+---+---+ | propofol INTRAPROCEDURE PRN, | Given | 12/09/19 | 60 mg | | | | Starting 12/08/17 at 1204, | | 18 3:41 | | | | | Until 12/08/17 at 1604 | | PM PDT | | | | + +-------+ +-------+---+---+ +-------+ +--------+---+---+ | Given | 12/09/19 | 140 mg | | | | | 18 12:04 | | | | | | PM PDT | | | | +-------+ +--------+---+---+ +---+---+ | | | +---+---+ + +-------+ +-------+---+---+ | rocuronium (ZEMURON) injection | Given | 03/30/20 | 15 mg | | | | INTRAPROCEDURE PRN, Starting Fri | | 18 2:39 | | | | | 12/08/17 at 1204, Until Fri | | PM PDT | | | | | 12/08/17 at 1604 | | | | | | + +-------+ +-------+---+---+ +-------+ +-------+---+---+ | Given | 12/09/19 | 30 mg | | | | | 18 12:33 | | | | | | PM PDT | | | | +-------+ +-------+---+---+ | Given | 12/09/19 | 60 mg | | | | | 18 12:04 | | | | | | PM PDT | | | | +-------+ +-------+---+---+ +---+---+ | | | +---+---+ documented in this encounter"
--- OUTSIDE RECORDS SUMMARY | ~2020-02-18 | XMS | Encounter Summary ---
Demographics + + + | Address | [address] | | | [place] [address] | + + + | Home Phone [...] Team Providers + +------+ + | Care Car Wash Supervisor Name | Role | Phone | + +------+ + | Reji Morales MD | PCP | | + +------+ + Encounter Details +--------+ + + + + | Date | Type | Department | Care Team | Description | +--------+ + + + + | 01/18/ | Abstract | Urology at [facility] | Clinic, | | | 2018 | | [address] | Urology/Oncology | | | | | Mailcode: CH10U | | | | | | [facility] | | | | | | and Healing, | | | | | | | | | | | | Floor [place], [place] | | | | | | [address] | | | | | | [phone] | | | +--------+ + + + [...]
--- OUTSIDE RECORDS SUMMARY | ~2020-02-18 | XMS | Encounter Summary ---
Demographics + + + | Address | [address] | | | [place] [address] | + + + | Home Phone | | + + + | Preferred Language | Unknown | + + + | Marital Status | Single | + + + | Sikh Affiliation | CHR | + + + [...] Team Providers + +------+ + | Care Rn Neurosurgical Name | Role | Phone | + [...] Description | +--------+---------+ + + + | 01/16/ | Office | Neurology Movement | Krishna Mcmahon, | Parkinson Disease | | 2006 | Visit | Disorders Clinic at | [address] | ([facility]) (Primary Dx) | | | | [facility] | [facility] [address] | | | | | and Healing [address] | [place] [address] | | | | | Arvin Yanez Mailcode: | [phone] | | | | | [address] | | | | | | Health and Healing, | | | | | | [facility], 8th | | | | | | Floor [place], [place] | | | | | | [address] | | | | | | [phone] | | | +--------+---------+ + + + [...] + + + | Blood Pressure | 190/100 | 01/16/2007 9:42 AM | | | | | PDT | | + + + + + | Pulse | 65 | 01/16/2007 8:22 AM | | | | | PDT | | + + + + + | Temperature | - | - | | + + + + + | Respiratory Rate | 18 | 01/16/2007 8:19 AM | | | | | PDT | | + + + + + | Oxygen Saturation | - | - | | + + + + + | Inhaled Oxygen | - | - | | | Concentration | | | | + + + + + | Weight | 104.3 kg (230 lb) | 01/16/2007 8:19 AM | | | | | PDT | | + + + + + | Height | 190.5 cm (6' 3") | 01/16/2007 8:19 AM | | | | | PDT | | + + + + + | Body Mass Index | 28.75 | 01/16/2007 8:19 AM | | | | | PDT | | + + + + + documented in this encounter Patient Instructions Patient Instructions Krishna Mcmahon - 01/16/2007 9:38 AM PDTStart carbidopa/levodopa (a lso calleed Sinemet) 25/100: 1 tablet in morning for 3 days then 1 tablet morning and lunch x 3 days then 1 tablet three times a day And let us know how things are going on this dose. KRISHNA MCMAHON MD documented in this encounter Progress Notes Krishna Mcmahon - 01/16/2007 9:32 AM PDTDaleslie Sho Moody is a 57 y.o. right-handed mal e here for follow up tremor-predominant Parkinson's Disease. Nima reports that his tremor, flexibility and gait have been steadily deteriorating over the last 6 mos. A recent sudden divorce has added major stress and financial strain, and this, in turn, has worsened his PD symptoms. His 22 yo son is living with him and is helping on the [place]. His 25 yo so n is living and working in [place]. His 19 yo daughter has been in and out of a job, and had a suicide attempt 6 months ago, which of course has added to his anxiety and stress also . Exam shows elevated BP: 190/100 | Pulse 65 | Resp 18 | Ht 1.905 m (6' 3") | Wt 104.327 kg ( 230 lbs) BP rechecked x 2, including with manual cuff, and persistently elevated in this range. No s /sx hypertensive emergency. Depressed affect. Moderate amplitude rest tremor bilaterally, left > right. Moderate rigi dity left upper and lower extremity, and mild bradykinesia in same distribution. Mild dysto neville left foot. Arise from chair without a pushoff, good stride length, decreased left armsw ing and prominent tremor left upper extremity. No retropulsion on a pull test. Impression & Recommendations: 1) Tremor-predominant Parkinson's Disease (probably with some benign essential tremor too - see earlier notes). 2) Poorly controlled hypertension We once again talked about treatment for his Parkinson's Disease (which I think he really n eeds) and Nima agrees that it is time to begin medications. However, we have had this same conversation a few times over the last couple of years, and Nima has left our clinic on at least one occasion with a sample pack of a dopamine agonist and never taken it. Since agustina y is such an issue currently, and because he is concerned about possible side effects, I'm i nclined to start levodopa rather than an agonist, and faxed a prescription for this to his p luiza today. Nima was provided with written titration instructions to 25/100 one tablet TID. I spoke to his PCP about his elevated BP, and Dr. Morales's recommendation was to take additio nal doses of both metoprolol and enalapril before leaving the clinic, then check in with the [facility] when he gets home. Dr. Morales will see him Monday. Nima is instructed to go the ER if he experiences sx of hypertensive emergency (explained to him). His BP may low er some on levodopa, but I suspect he'll need more than this if he is routinely running this high. We'll see him back in 6 mos, and he is encouraged to call to report progress on levodopa be fore this. I spent >30 minutes with this patient, more than half of which time was spent in counseling and coordination of care. KRISHNA MCMAHON MD Irene Morris - 01/16/2007 8:29 AM PDTCES-D: 13 [place]: 3 CG Strain: n/a Irene Rivas RN documented in this encounter Plan of Treatment Not on filedocumented as of this encounter Visit Diagnoses + + | Diagnosis | + + | Parkinson disease (HCC) - Primary Paralysis agitans | + + documented in this encounter
--- OUTSIDE RECORDS SUMMARY | ~2020-02-18 | XMS | Encounter Summary ---
Demographics + + + | Address | [address] | | | [place] [address] | + + + | Home Phone | | + + + | Preferred Language | Unknown | + + + | Marital Status | | + + + | Hindu Affiliation | Unknown | + + + | Race | Unknown | + + + | Ethnic Group | Unknown | + + + Author + + + | Author | [facility] | | | and [place] | + + + | Organization | [facility] | | | and [place] | + + + | Address | Unknown | + + + | Phone | Unavailable | + + + Support + + + + + | Name | Relationship | Address | Phone | + + + + + | Mati Moody | YOANNA | [place] | | | | | [address] | | + + + + + | Ayde Rojas | ECON | [place] | | | | | [address] | | + + + + + Care Team Providers + +------+ + | Care Manager Transit Name | Role | Phone | + +------+ + | Adina Lloyd MD | PCP | | + +------+ + Reason for Visit + + + | Reason | Comments | + + + | Under Treatment | | + + + Encounter Details +--------+ + + + + | Date | Type | Department | Care Team | Description | +--------+ + + + + | 02/14/ | Hospital | [facility] | Sherrell Hadley | Prostate cancer | | 2019 | Encounter | [facility] RAD[facility] | MD [place] [address] | (HCC) (Primary Dx) | | | | ONCOLOGY CLINIC [address] | [place], [place] | | | | | [address] | [address] | | | | | [place] [address] | | | | | | [phone] | | | +--------+ + + + [...] + + + | Blood Pressure | 147/68 | 02/14/2019 10:50 AM | | | | | PDT | | + + + + + | Pulse | 84 | 02/14/2019 10:50 AM | | | | | PDT | | + + + + + | Temperature | 36.3 C (97.3 F) | 02/14/2019 10:50 AM | | | | | PDT | | + + + + + | Respiratory Rate | 18 | 02/14/2019 10:50 AM | | | | | PDT | | + + + + + | Oxygen Saturation | 90% | 02/14/2019 10:50 AM | | | | | PDT | | + + + + + | Inhaled Oxygen | - | - | | | Concentration | | | | + + + + + | Weight | 85.5 kg (188 lb 7.9 | 02/14/2019 10:50 AM | | | | oz) | PDT | | + + + + + | Height | - | - | | + + + + + | Body Mass Index | 23.56 | 01/22/2019 10:00 AM | | | | | PDT | | + + + + + documented in this encounter Medications at Time [...] Apply 1 Dose | | 0 | / | | | (NIZORAL) 2% shampoo | [...] documented as of this encounter Progress Notes Sherrell Hadley MD - 02/14/2019 10:56 AM PDT Radiation Oncology Weekly On Treatment Note Diagnosis: ICD-10-CM ICD-9-CM 1. Prostate cancer (HCC) C61 185 Reason for visit: On treatment evaluation Radiation technical factors: Dose Delivered Dose Planned Fractions Delivered 1600 cGy 6800 cGy Images were reviewed this week and results of the review have been recorded in [facility]. Corre ctions were applied as necessary. No Known Allergies Current Outpatient Medications on File Prior to Encounter Medication Sig Dispense Refill amantadine (SYMMETREL) 100 MG TABS Take 100 mg by mouth 2 times daily. carbidopa-levodopa (SINEMET) 25-100 mg per tablet Take 0.5 tablets by mouth 6 times cezar ly. enalapril (VASOTEC) 20 MG tablet Take 1 tablet by mouth Daily. hydroCHLOROthiazide (HYDRODIURIL) 12.5 MG tablet Take 12.5 mg by mouth Daily. ketoconazole (NIZORAL) 2% shampoo Apply 1 Dose topically as needed. metoprolol tartrate (LOPRESSOR) 50 mg tablet Take 1 tablet by mouth 2 times daily. polyethylene glycol (MIRALAX) powder Take 17 g by mouth Daily. potassium chloride (MICRO-K) 10 mEq CR capsule Take 1 capsule by mouth Daily. tadalafil (CIALIS) 10 MG tablet Take 1 tablet by mouth as needed. Take 0.5 mg once deborah y as needed,not to exceed more then once daily No current facility-administered medications on file prior to encounter. Pain assessment: Location: NA Pain Level: PAIN PROG PAIN LEVEL: 0 Wt Readings from Last 3 Encounters: 02/14/19 85.5 kg (188 lb 7.9 oz) 02/07/19 85.2 kg (187 lb 13.3 oz) 01/22/19 86 kg (189 lb 9.5 oz) Vitals: 02/14/19 1050 BP: 147/68 Pulse: 84 Resp: 18 Temp: 36.3 C (97.3 F) TempSrc: Temporal SpO2: 90% Weight: 85.5 kg (188 lb 7.9 oz) Physical Exam Constitutional: He appears well-developed and well-nourished. Neurological: He is alert. Psychiatric: He has a normal mood and affect. Physician Assessment: 02/07/19: Nima Moody started radiation this week. He is feeling well. We reviewed possi ble side-effects and timing. Discussed bowel and bladder habits, his alignment for treatmen t has been good. 02/14/19: Nima is in his second week of radiation treatment. Doing very well with only mild fatigue. No changes in bowel or bladder habits. Toxicities reviewed in nursing note. Disposition: Continue radiation treatment as planned. Sherrell Hadley MD Radiation Oncologist Melinda Pierson R N - 02/14/2019 10:56 AM PDT 02/14/19 1055 Gastrointestinal Constipation 0 - Grade 0 Diarrhea 0 - Grade 0 General Disorders and Administration Site Conditions Fatigue 1 - Grade 1 Renal and Urinary Urinary Tract Pain 0 - Grade 0 Performance Status Karnofsky Performance Score 80% documented in this en counter Plan of Treatment +--------+ + + + + | Date | Type | Specialty | Care Team | Description | +--------+ + + + + | 03/04/ | Office | Neurology | KristinaestebanRebecamitchell, | | | 2019 | Visit | | MD Dallin OCAMPO | | | | | | [address] | | | | | | [place] [address] | | | | | | [phone] | | | | | | | | +--------+ + + + + | 07/03/ | Appointment | Oncology | | | | 2019 | | | | | +--------+ + + + + | 07/03/ | Appointment | Radiation Oncology | Sherrell Hadley | | | 2019 | | | MD Raghav Hammond | | | | | | [place] | | | | | | [phone] | | | | | | | | +--------+ + + + + documented as of this encounter Visit Diagnoses + + | Diagnosis | + + | Prostate cancer (HCC) - Primary Malignant neoplasm of prostate | + + documented in this encounter"
--- OUTSIDE RECORDS SUMMARY | ~2020-02-18 | XMS | Encounter Summary ---
Demographics + + + | Address | [address] | | | [place] [address] | + + + | Home Phone [...] + + + | Author | [facility] | + + + | Organization | [facility] | + + + | Address | [...] Team Providers + +------+ + | Care Geological Scout Name | Role | Phone | + +------+ + | Reji Morales MD | PCP | | + +------+ + Reason for Visit + + + | Reason | Comments | + + + | Treatment Planning | Pt would like to talk to Dr. Mcmahon | + + + Encounter Details +--------+ + + + + | Date | Type | Department | Care Team | Description | +--------+ + + + + | 03/11/ | Telephone | Neurology Movement | Sherry Mcmahon, | Treatment Planning | | 2012 | | Disorders Clinic at | [address] | (Pt would like to | | | | [facility] | [address] | talk to Dr. Mcmahon) | | | | and Healing [address] | [place] [address] | | | | | Arvin Yanez Mailcode: | [phone] | | | | | [address] | | | | | | Health and Healing, | | | | | | Building [address] | | | | | | [place], [place] | | | | | | [address] | | | | | | [phone] | | | +--------+ + + + [...]
--- OUTSIDE RECORDS SUMMARY | ~2020-02-18 | XMS | Encounter Summary ---
Demographics + + + | Address | [address] | | | [place] [address] | + + + | Home Phone | | + + + | Preferred Language | Unknown | + + + | Marital Status | Single | + + + | Sikhism Affiliation | CHR | + + + | Race | White | + + + | Ethnic Group | Not or | + + + Author + + + | Author | [facility] | + + + | Organization | [facility] | + + + | Address [...] Team Providers + +------+ + | Care Cuff Turner Machine Operator Name | Role | Phone [...] Description | +--------+--------+ + + + | 11/07/ | Refill | Neurology Movement | Sherry Mcmahon, | Refill Request | | 2011 | | Disorders Clinic at | [address] | | | | | [facility] | [facility] | | | | | and Healing [address] | [place] [address] | | | | | Arvin Yanez Mailcode: | [phone] | | | | | [address] | | | | | | Health and Healing, | | | | | | Building 1 | | | | | | Floor [place], [place] | | | | | | [address] | | | | | | [phone] | | | +--------+--------+ + + + [...]
--- OUTSIDE RECORDS SUMMARY | ~2020-02-18 | XMS | Encounter Summary ---
Demographics + + + | Address | [address] | | | [place] [address] | + + + | Home Phone [...] + + + | Author | [facility] | + + + | Organization | [facility] | + + + | [...] Team Providers + +------+ + | Care Yarn Texturing Machine Operator Name | Role | Phone | + +------+ + | Reji Morales MD | PCP | | + +------+ + Reason for Visit + + + | Reason | Comments | + + + | Pathology Report | | + + + Encounter Details +--------+ + + + + | Date | Type | Department | Care Team | Description | +--------+ + + + + | 12/18/ | Telephone | Urology at [facility] | Roxy Boykin, | Pathology Report | | 2018 | | [address] | [place] [facility] | | | | | Mailcode: CH10U | [facility] | | | | | [facility] | [place], [place] | | | | | and [place], | [address] | | | | | [facility] | [phone] | | | | | Floor [place], [place] | | | | | | [address] | | | | | | [phone] | | | +--------+ + + + [...]
--- OUTSIDE RECORDS SUMMARY | ~2020-02-18 | XMS | Encounter Summary ---
Demographics + + + | Address | [address] | | | [place] [address] | + + + | Home Phone [...] Author + + + | Author | [facility] | + + + | Organization | [facility] | + + + | [...] Team Providers + +------+ + | Care Paint Mixer Hand Name | Role | Phone | + [...] Disorders Clinic at | [address] | ([facility]); Benign | | | | [facility] | [address] | essential tremor | | | | and Healing [address] | [place] [address] | | | | | Arvin Yaenz Mailcode: | [phone] | | | | | [address] | | | | | | Health and Healing, | | | | | | [facility]th | | | | | | [place], [place] | | | | | | [address] | | | | | | [phone] | | | +--------+---------+ + + + [...] at 02/16/2011 12:20 PM PDTdocumented in this [facility] Plan of Treatment Not on filedocumented as [...]
--- OUTSIDE RECORDS SUMMARY | ~2020-02-18 | XMS | Encounter Summary ---
Demographics + + + | Address | [address] | | | [place] [address] | + + + | Home Phone [...] Team Providers + +------+ + | Care Art Critic Name | Role | Phone | + +------+ + | Reji Morales MD | PCP | | + +------+ + Encounter Details +--------+ + + + + | Date | Type | Department | Care Team | Description | +--------+ + + + + | 04/26/ | Hospital | Dermatopathology | | | | 2017 | Encounter | [address] | | | | | | Mailcode: [id number] | | | | | | [facility] | | | | | | and Healing, | | | | | | Building [address], | | | | | | Floor [place], [place] | | | | | | [address] | | | | | | [phone] | | | +--------+ + + + [...] | + +--------+ + + + | DERM PATHOLOGY | Routin | 04/26/2017 | Squamous cell | Results for this | | | e | | carcinoma of skin of | procedure are in the | | | | | other parts of face | results section. | | | | | Carcinoma in situ | | | | | | of skin of other | | | | | | parts of face | | + +--------+ + + + documented in this encounter Results DERM PATHOLOGY (04/26/2017) + + + + + + | Component | Value | Ref Range | Performed | Pathologist | | | | | At | Signature | + + + + + + | DERMATOPATH | SOURCE OF SPECIMEN:A Rt. | | [facility] | | | OLOGY(WET | zygomatic cheek, shave | | DERMATOPATH | | | MNT) | biopsySOURCE OF | | OLOGY | | | | SPECIMEN:B Lt. angle of | | | | | | mandibular, shave biopsy | | | | | | CLINICAL | | | | | | DESCRIPTION:A: 3 x 5 mm | | | | | | pink papule; r/o NMSC.B: | | | | | | 3 x 5 mm pink papule; | | | | | | r/o NMSC. GROSS | | | | | | DESCRIPTION:Received in | | | | | | formalin are two | | | | | | specimens labeled | | | | | | Nima Moody:A: | | | | | | Specimen is labeled "Rt | | | | | | zygomatic cheek" and | | | | | | consists of an | | | | | | irregularshave of scaly | | | | | | papular white-banda skin, | | | | | | [id number]. The surgical | | | | | | margin isinked blue; the | | | | | | tissue is bisected, and | | | | | | entirely submitted in | | | | | | cassette A1.B: Specimen | | | | | | is labeled "Lt angle of | | | | | | mandibular" and consists | | | | | | of anirregular shave of | | | | | | scaly papular | | | | | | nxsbj-tfoixy-rtm skin, | | | | | | [id number]. Thesurgical | | | | | | margin is inked blue; | | | | | | the tissue is bisected, | | | | | | and entirelysubmitted in | | | | | | cassette B1. | | | | | | MICROSCOPIC | | | | | | DESCRIPTION:A: There is | | | | | | parakeratosis overlying | | | | | | atypical keratinocytes | | | | | | at all levels ofthe | | | | | | epidermis and extending | | | | | | into the dermis, | | | | | | characterized by | | | | | | pleomorphic,hyperchromat | | | | | | ic nuclei with | | | | | | mitoses.B: There is an | | | | | | asymmetric and poorly | | | | | | circumscribed neoplasm | | | | | | characterizedby | | | | | | parakeratosis overlying | | | | | | atypical keratinocytes | | | | | | at all levels of | | | | | | theepidermis. Most of | | | | | | the cells have | | | | | | pleomorphic, | | | | | | hyperchromatic nuclei, | | | | | | andsome are in mitosis. | | | | | | DIAGNOSIS:A: | | | | | | SQUAMOUS CELL CARCINOMA. | | | | | | NOTE: Squamous | | | | | | cell carcinoma is | | | | | | present at the | | | | | | peripheral and deep | | | | | | biopsymargins. B: | | | | | | SQUAMOUS CELL CARCINOMA, | | | | | | AT LEAST IN SITU. | | | | | | NOTE: Squamous cell | | | | | | carcinoma in situ is | | | | | | present at the | | | | | | peripheral and | | | | | | deepbiopsy margins, and | | | | | | underlying dermal | | | | | | involvement by squamous | | | | | | cellcarcinoma cannot be | | | | | | excluded. My | | | | | | [...] Diagnostician: | | | | | | Jazmin Alva | | | | | | Amee | | | | | | MDPathologistElectronica | | | | | | lly Signed 05/01/2017 | | | | | | 1:18PM | | | | + + + [...] [facility] | Mailcode CH5D [address] | [place] [address] | | | DERMATOPATHOLOGY | [address] | | | + + + + + documented in this encounter Visit Diagnoses + + | Diagnosis | + + | Squamous cell carcinoma of skin of other parts of face | + + | Carcinoma in situ of skin of other parts of face | + + documented in this encounter
--- OUTSIDE RECORDS SUMMARY | ~2020-02-18 | XMS | Encounter Summary ---
Demographics + + + | Address | [address] | | | [place] [address] | + + + | Home Phone | | + + + | Preferred Language | Unknown | + + + | Marital Status | Single | + + + | Yazdanism Affiliation | CHR | + + + | Race | White | + + + | Ethnic Group | Not or | + + + Author + + + | Author | [facility] | + + + | Organization | [facility] | + + + | [...] Team Providers + +------+ + | Care Vending Stand Supervisor Name | Role | Phone | + +------+ + | Reji Morales MD | PCP | | + +------+ + Reason for Visit + + + | Reason | Comments | + + + | Return Patient | | + + + | PD - Parkinson's | | | disease | | + + + Encounter Details +--------+---------+ + + + | Date | Type | Department | Care Team | Description | +--------+---------+ + + + | 07/14/ | Office | Neurology Movement | Krishna Mcmahon, | Parkinson Disease | | 2008 | Visit | Disorders Clinic at | [phone] | ([facility]) (Primary Dx) | | | | [facility] | [address] | | | | | and Healing [address] | [place] [address] | | | | | [address] Mailcode: | [phone] | | | | | [address] | | | | | | Health and Healing, | | | | | | [facility], | | | | | | [place], [place] | | | | | | [address] | | | | | | [phone] | | | +--------+---------+ + + + [...] + + + | Blood Pressure | 106/89 | 07/14/2009 10:25 AM | | | | | PST | | + + + + + | Pulse | 76 | 07/14/2009 10:25 AM | | | | | PST [...] + + + + | Weight | 105.7 kg (233 lb) | 07/14/2009 10:23 AM | | | | | PST | | + + + + + | Height | 190.5 cm (6' 3") | 07/14/2009 10:23 AM | | | | | PST | | + + + + + | Body Mass Index | 29.12 | 07/14/2009 10:23 AM | | | | | PST | | + + + + + documented in this encounter Patient Instructions Patient Instructions Krishna Mcmahon MD - 07/14/2009 10:28 AM PSTDavid - We discussed again whether you would benefit from the addition of Mirapex or another medica tion for your Parkinson's Disease. You feel that your tremor and other symptoms are very ma nageable on the carbidopa-levodopa alone, and that is fine with me: I am not pushing you to add another medication. It is totally your call. But if you feel that the tremor is becomi ng bothersome, please give us a call between appointments and I'll arrange with Dr. Morales to get you started on Mirapex or another medication. Remember that you are one of the PD patients who has a "sleep benefit" in their symptoms: y ou may find that a brief nap does the same thing for your tremor as a night's sleep. We'll see you again in 6 months - on Monday December 28, 2009. KRISHNA MCMAHON MD P ST documented in this encounter Progress Notes Krishna Mcmahon MD - 07/19/2009 7:38 PM PSTDavid Sho Moody is a 59 y.o. man returns to the Movement Disorders Clinic for follow up Parkinson's Disease. He is unaccompanied toluis leavitt. Nima continues to insist his Parkinson's Disease symptoms are adequately controlled on his current medication regimen. Tremor on the left side is his only troublesome symptom, and t his is "pretty much under control" with the Sinemet. His tremor re-emerges about an hour be fore his scheduled dose time, but he just takes it early if he has to go anywhere or do anyt zi where the tremor would be a problem. The Sinemet relieves the tremor completely about 25-40 minutes after ingestion. He is generally taking three tabs a day, adding a forth as n eeded. 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 His current Parkinson's Disease medications are: Sinemet 25/250 TID or QID as needed He also takes meds for hypertension which has been under much better control recently. Exam shows BP 106/89 | Pulse 76 | Ht 1.905 m (6' 3") | Wt 105.688 kg (233 lb). He has lost a little weight, a good thing. His general physical exam is unremarkable: blood pressure i s very good today. Speech is not hypophonic. Mental status is normal and affect is bright. He has very minor masking of the facies. He did not take his Parkinson's Disease medicatio ns this morning "so you could see my tremor". And indeed, he has a pretty severe large ampli tude rest tremor on the left hand that is nearly continuous. He has a slight head tremor al soTone is increased on the left more than the right. Fingertaps, hand movements, and heel t aps are all mildly slowed on the left greater than the right. He is able to arise from the c hair without a pushoff and walks with a normal base, minimally reduced left armswing, excell ent stride length, and fluid turns. He does not retropulse on a pull test. Impression: Idiopathic tremor-predominant Parkinson's Disease superimposed on mild benign e ssential tremor. I usually feel Nima is undertreated based on his office exam, but he feels he is doing fin e and is reluctant to take any more medications. We again agreed that he will be in touch b efore his next appointment if his tremor becomes more problematic, in which case I would add a dopamine agonist (something I know Dr. Morales has discussed with him also). I spent >25 minutes with this patient, more than half of which time was spent in counseling about medical options for treatment of his tremor. I will see him back in 6 months. KRISHNA MCMAHON MD P STdocumented in this encounter Plan of Treatment Not on filedocumented as of this encounter Visit Diagnoses + + | Diagnosis | + + | Parkinson disease (HCC) - Primary Paralysis agitans | + + documented in this encounter
--- OUTSIDE RECORDS SUMMARY | ~2020-02-18 | XMS | Encounter Summary ---
Demographics + + + | Address | [address] | | | [place] [address] | + + + | Home Phone | | + + + | Preferred Language | Unknown | + + + | Marital Status | Single | + + + | Hinduism Affiliation | CHR | + + + | Race | White | + + + | Ethnic Group | Not or | + + + Author + + + | Author | [facility] | + + + | Organization | [facility] | + + + | Address [...] Team Providers + +------+ + | Care Nailing Machine Feeder Name | Role | Phone | + [...] Description | +--------+---------+ + + + | 12/23/ | Office | Neurology Movement | Krishna Mcmahon, | Parkinson Disease | | 2008 | Visit | Disorders Clinic at | [phone] | ([facility]) (Primary Dx) | | | | [facility] | [address] | | | | | and Healing [address] | [place] [address] | | | | | [address] Mailcode: | [phone] | | | | | [address] | | | | | | Health and Healing, | | | | | | [facility], | | | | | | [place], [place] | | | | | | [address] | | | | | | [phone] | | | +--------+---------+ + + + [...] + + + | Blood Pressure | 140/79 | 12/23/2008 10:26 AM | | | | | PDT | | + + + + + | Pulse | 72 | 12/23/2008 10:26 AM | | | | | PDT | | + + + + + | Temperature | - | - | | + + + + + | Respiratory Rate | 16 | 12/23/2008 10:25 AM | | | | | PDT | | + + + + + | Oxygen Saturation | - | - | | + + + + + | Inhaled Oxygen | - | - | | | Concentration | | | | + + + + + | Weight | 109.8 kg (242 lb) | 12/23/2008 10:25 AM | | | | | PDT | | + + + + + | Height | 190.5 cm (6' 3") | 12/23/2008 10:25 AM | | | | | PDT | | + + + + + | Body Mass Index | 30.25 | 12/23/2008 10:25 AM | | | | | PDT | | + + + + + documented in this encounter Progress Notes Krishna Mcmahon MD - 12/23/2008 10:35 AM PDTDavid Sho Moody is a 59 y.o. male here fo r follow up Parkinson's Disease. He is unaccompanied. Nima reports that he is doing quite well. He continues to notice tremor as his most troub lesome symptom, but only on the left in his hand and leg. The cramping in his left foot has resolved. His mood is good: depression has not been a problem recently, though it was in t he past. 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 Morales. Exam shows BP 140/79 | Pulse 72 | Resp 16 | Ht 1.905 m (6' 3") | Wt 109.77 kg (242 lb). Hi s weight is up a bit. Bood pressure here in clinic is borderline, but has been under good c ontrol. His mental status is normal and affect bright. Speech is of normal volume. He has an intermittent moderate amplitude tremor in his left hand; I did not see any tremor in his left leg today. Also noted is a "no-no" tremor of his head, previously seen on exam. Fing ertaps, hand movements, and heel taps are all mildly slowed on the left greater than the rig ht. Tone is increased bilaterally, more on the left. He arises from the chair without a pu shoff. Gait assessment reveals normal base, decreased left armswing, normal stride length, and fairly fluid turns. Impression & Recommendations: Parkinson's Disease, tremor-predominant. Superimposed benign essential tremor. Nima feels he is doing well and does not desire any changes in medications at this time, t shannan I wonder if his tremor control would be improved by the addition of a dopamine agonist . We discussed this and he will contact me directly or work thorugh Dr. Morales if he feels th ings are worsening. I would add ropinerole or pramipexole at that time titrated up slowly t o avoid adverse effects. I spent >25 minutes with this patient, more than half of which time was spent in counseling and coordination of care. I'll see him again in 6 months. KRISHNA MCMAHON MD documented in this encounter Plan of Treatment Not on filedocumented as of this encounter Visit Diagnoses + + | Diagnosis | + + | Parkinson disease (HCC) - Primary Paralysis agitans | + + documented in this encounter
--- OUTSIDE RECORDS SUMMARY | ~2020-02-18 | XMS | Encounter Summary ---
Demographics + + + | Address | [address] | | | [place] [address] | + + + | Home Phone | | + + + | Preferred Language | Unknown | + + + | Marital Status | Single | + + + | Synagogue Affiliation | CHR | + + + | Race | White | + + + | Ethnic Group | Not or | + + + Author + + + | Author | [facility] | + + + | Organization | [facility] | + + + | [...] Team Providers + +------+ + | Care Flight Control Specialist Name | Role | Phone | + [...] would like to | | | | [facility] | [address] | talk to Dr. Mcmahon) | | | | and Healing [address] | [place] [address] | | | | | [address] Mailcode: | [phone] | | | | | [address] | | | | | | Health and Healing, | | | | | | [address] | | | | | | [place], [place] | | | | | | [address] | | | | | | [phone] | | | +--------+ + + + [...]
--- OUTSIDE RECORDS SUMMARY | ~2020-02-18 | XMS | Encounter Summary ---
Demographics + + + | Address | [address] | | | [place] [address] | + + + | Home Phone | | + + + | Preferred Language | Unknown | + + + | Marital Status | | + + + | Episcopal Affiliation | Unknown | + + + | Race | Unknown | + + + | Ethnic Group | Unknown | + + + Author + + + | Author | [facility] | | | and [place] | + + + | Organization | [facility] | | | and [place] | + + + | Address | Unknown | + + + | Phone | Unavailable | + + + Support + + + + + | Name | Relationship | Address | Phone | + + + + + | Mati [place] | YOANNA | [place] | | | | | [address] | | + + + + + | Ayde Rojas | ECON | [place] | | | | | [address] | | + + + + + Care Team Providers + +------+ + | Care Washateria Attendant Name | Role | Phone | + +------+ + | Adina Lloyd MD | PCP | | + +------+ + Reason for Visit + + + | Reason | Comments | + + + | Referral | | + + + Encounter Details +--------+ + + + + | Date | Type | Department | Care Team | Description | +--------+ + + + + | 08/07/ | Telephone | [facility] | Leslie Caballero, | Referral | | 2019 | | NEUROLOGY [address] | | | | | [address] | [facility] [address] | | | | | [place], [place] | [place] [address] | | | | | [address] | [phone] | | | | | [phone] | | | +--------+ + + + [...] | Neurology | Leslie Caballero, | | 2019 | Visit | | MD [address] | | | | | | [address] | | | | | | [place] [address] | | | | | | [phone] | | | | | | | [...]
--- OUTSIDE RECORDS SUMMARY | ~2020-02-18 | XMS | Encounter Summary ---
Demographics + + + | Address | [address] | | | [place] [address] | + + + | Home Phone | | + + + | Preferred Language | Unknown | + + + | Marital Status | Single | + + + | Holiness Affiliation | CHR | + + + [...] Team Providers + +------+ + | Care Piano Regulator Inspector Name | Role | Phone | [...] | 12/18/ | Telephone | Urology at [facility] | Roxy Boykin, | Pathology Report | | 2018 | | [address] | CLAUD[address] [facility] | | | | | Mailcode: [id number] | [facility] | | | | | [facility] | [place], [place] | | | | | and [place], | [address] | | | | | [facility] | [phone] | | | | | Floor [place], [place] | | | | | | [address] | | | | | | [phone] | | | +--------+ + + + [...]
--- OUTSIDE RECORDS SUMMARY | ~2020-02-18 | XMS | Encounter Summary ---
Demographics + + + | Address | [address] | | | [place] [address] | + + + | Home Phone [...] + + + | Author | [facility] | + + + | Organization | [facility] | + + + | [...] Team Providers + +------+ + | Care Brick Catcher Name | Role | Phone | + [...] Description | +--------+--------+ + + + | 09/17/ | Refill | Neurology Movement | Joslyn Galdamez MD | Refill Request | | 2016 | | Disorders Clinic at | [address] [address] | | | | | [facility] | [facility] [place] | | | | | and Healing [address] | [address] | | | | | [address] Mailcode: | [phone] | | | | | [address] | | | | | | Health and Healing, | | | | | | Building [address] | | | | | | [facility] [place] | | | | | | [address] | | | | | | [phone] | | | +--------+--------+ + + + [...]
--- OUTSIDE RECORDS SUMMARY | ~2020-02-18 | XMS | Encounter Summary ---
Demographics + + + | Address | [address] | | | [place] [address] | + + + | Home Phone | | + + + | Preferred Language | Unknown | + + + | Marital Status | Single | + + + | Congregational Affiliation | CHR | + + + [...] Team Providers + +------+ + | Care Metal Fabrication Supervisor Name | Role | Phone | + +------+ + | Reji Morales MD | PCP | | + +------+ + Reason for Referral Speech Therapy (Routine) +--------+--------+ + + + + | Status | Reason | Specialty | Diagnoses / | Referred By | Referred To | | | | | Procedures | Contact | Contact | +--------+--------+ + + + + | Closed | | Speech | Diagnoses | Den[place], | | | | | Therapy | Parkinson | Joslyn Stephens MD | | | | | | disease | [address] | | | | | | ([facility]) | Ave | | | | | | Hypophonia | [place], [place] | | | | | | Procedures | [address] | | | | | | SPEECH | Phone: | | | | | | THERAPY | [phone] | | | | | | REFERRAL | Fax: | | | | | | | [phone] | | +--------+--------+ + + + + Reason for Visit + + + | Reason | Comments | + + + | Return Patient | | + + + Encounter Details +--------+---------+ + + + | Date | Type | Department | Care Team | Description | +--------+---------+ + + + | 07/13/ | Office | Neurology Movement | Joslyn Galdamez MD | Parkinson disease | | 2015 | Visit | Disorders Clinic at | [address] | ([facility]); Hypophonia | | | | [facility] | [place], [place] | | | | | and Healing [address] | [address] | | | | | [address] Mailcode: | [phone] | | | | | [address] [facility] | | | | | | Health and Healing, | | | | | | [facility] | | | | | | Floor [place], [place] | | | | | | [address] | | | | | | [phone] | | | +--------+---------+ + + + [...] + + + | Blood Pressure | 120/65 | 07/13/2015 1:10 PM | | | | | PST | | + + + + + | Pulse | 59 | 07/13/2015 1:10 PM | | | | | PST | [...] + + + + | Weight | 83.5 kg (184 lb) | 07/13/2015 1:08 PM | | | | | PST | | + + + + + | Height | - | - | | + + + + + | Body Mass Index | 23 | 01/17/2011 2:53 PM | | | | | PDT | | + + + + + documented in this encounter Patient Instructions Patient Instructions Joslyn Galdamez MD - 07/13/2015 1:28 PM PSTConsider Alexis Barrett Spe ech Therapy - Flori Gill and Bella Hollins [phone] or [phone] Continue carbidopa/levodopa 25/100mg up to four times a day, be sure to take a dose at bedt matthew. Be in touch if chocking on foods at all.Electronically signed by Joslyn Galdamez MD at 07/13 1:57 PM PST documented in this encounter Progress Notes Joslyn Galdamez MD - 07/10/2015 3:05 PM PDT CHIEF COMPLAINT: Follow up Parkinson's Disease. HPI: Nima Moody is a 64 y.o. male returning to the Movement Disorders Clinic for fo llow up Parkinson's Disease. He was diagnosed in 2003, symptoms probably started about 2000 . At the last visit I recommended the following: -- Try decreasing each dose carbidopa/levodopa 25/100mg to 1 pill, if not effective in help ing with left foot movements or if turning will plan to start amantidine. -- He will look into some meditation - gave him a book recommendation - Donavon Arreola. -- Continue with exercise. Feels like things have been stable. Has some days were things are a little better or worse. Having some trouble swallowing. Feels like things hang up. Has had an upper and lower scope but has not had swallow study. No aspirations. Can chew things well and that seems better. Voice can run out. Not interested in swallow study for now. ROS: Denies bowel problems, but then admits to some intermittent constipation, at most two days in between Denies urinary problems Sleep good overall is avoids coffee in afternoon Denies cognitive issues Denies hallucinations Says mood is good, gets bothered by stress a little at times, but can avoid stressful situa tions and has made some lifestyle changes to help with this Swallowing difficulties - see above Speech problems - see above Exercise - does not do as well with this in the colder weather, likes to walk in the warmer weather, does not feel like he would do well at a club or with exercise equipment at home, considering spending Kenny in [place] Dyskinesias - left foot can be effected, comes and goes worse in the evening; dystonia in t he morning also in left foot Wearing off- not sure if he takes his pills right, he waits till he notices a wearing off a nd then takes a pill, is happy with that, always takes one in am, Takes 2-4 most days. Intentional weight loss - has really simplified diet, 60 pounds in two year Some trips, but very careful, denies falls, has to really lift his left leg consciously Medications: Sinemet 25/100mg one tablet up to four times a day, takes between 2 and 4 most days Current outpatient prescriptions: carbidopa-levodopa 25-100 mg oral tablet, Take 1 tablet b y mouth three times daily. 1 tablet up to 4 times a day, Disp: , Rfl: Enalapril Maleate 20 mg OR TABS, take 1 tablet (20mg) by oral route once daily, Disp: , Rfl : Hydrochlorothiazide 25 mg Oral Tablet, take 1 tablet (25mg) by oral route once daily, Disp: , Rfl: 0 Metoprolol Succinate 200 mg OR TB24, 100mg bid, Disp: , Rfl: omeprazole 20 mg oral capsule,delayed release(DR/EC), Take 20 mg by mouth once daily. Not s ure on dose, Disp: , Rfl: phytonadione 100 mcg oral tablet, Take 100 mcg by mouth once daily., Disp: , Rfl: Takes green supplements Interval Medical History: none FROM PRIOR VISITS: Allergies: No Known Allergies Past Medical History Diagnosis Date Parkinson disease (HCC) Benign essential tremor Depression Hypertension Unspecified disorder of thyroid Gout gout Past Surgical History Procedure Laterality Date Thyroidectomy Vasectomy Social History: The pt denies tob, illicit drug use. Occasional etoh. The pt is . Lives alone in a house. 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 Mental Status: Speech is of good volume. Answers questions appropriately and gives a clear history. (MOCA: at last visit) UPDRS Score: 2 hour since last levodopa Dyskinesias are not seen Feels fine (on) UPDRS FLOWSHEET (Questionnaire) 07/13/2015 Speech 1 Slight loss of expression, diction &/or volume Face Expression 1 Minimal hypomimia, could be normal "poker face" Face Tremor 0 Absent Rt Hand Tremor 1 Slight & infrequently present Lt Hand Tremor 3 Moderate in amplitude & present most of time Rt Foot Tremor 1 Slight & infrequently present Lt Foot Tremor 2 Mild in amplitude & persistent; or moderate amp but intermittent Post Tremor Rt Hand 2 Moderate in amplitude, present w/ action Post Tremor Lt Hand 3 Moderate in amplitude w/posture holding as well as action Neck Rigid 2 Mild to moderate Rt Upper Ext Rigid 2 Mild to moderate Lt Upper Ext Rigid 3 Marked, but full range of motion easily achieved Rt Lower Ext Rigid 2 Mild to moderate Lt Lower Ext Rigid 3 Marked, but full range of motion easily achieved Rt Hand Finger Taps 1 Mild slowing &/or reduction in amplitude Lt Hand Finger Taps 2 Moderately impaired; definite/early fatiguing; may have occasional a rrests Hand Mvmts Rt Hand 0 Normal Hand Mvmts Lt Hand 1 Mild slowing &/or reduction in amplitude Rapid Alt Rt Hand 0 Normal Rapid Alt Lt Hand 1 Mild slowing &/or reduction in amplitude Agility Rt Leg 0 Normal Agility Lt Leg 0 Normal Arising from Chair 0 Normal Posture 2 Moderately stooped, definitely abnormal; slightly leaning to one side Gait 2 Walks w/ difficulty, but requires little/no assistance; some festination, short khadijah ps, propulsion Posture Stability 1 Retropulsion; but recovers unaided Vinod/Hypokinesia 1 Minimal slowness, giving movement deliberate character; could be etienne l, reduced amp Total UPDRS Score Laboratory Data: (reviewed at past visits) Basic labs included TSH fairly unremarkable in 2010, elevated lipids Impression: Idiopathic Parkinson's Disease with hypophonia, overall doing well. He does not take his levodopa on a set schedule but seems to be doing fine with this so I do not think he needs to change this. He is less active in the cooler weather and I stressed how importan t exercise seems to be in PD. -- Continue carbidopa/levodopa 25/100mg up to four times a day, be sure to take a dose at b edtime. -- Be in touch if chocking on foods at all. -- Referral for speech therapy. -- Try to find a way to increase exercise in cooler weather. -- Follow-up in 6 months, call before then if concerns or questions. I spent 40 minutes with the patient in ljuo-of-ykal time. Greater than 50% of the time was spent counseling the patient regarding the above issues. Joslyn Galdamez MD Movement Disorders Neurologist [facility] documented in this enc ounter Plan of Treatment Not on filedocumented as of this encounter Visit Diagnoses + + | Diagnosis | + + | Parkinson disease (HCC) Paralysis agitans | + + | Hypophonia Other voice and resonance disorders | + + documented in this encounter
--- OUTSIDE RECORDS SUMMARY | ~2020-02-18 | XMS | Encounter Summary ---
Demographics + + + | Address | [address] | | | [place] [address] | + + + | Home Phone [...] + + + | Author | [facility] | + + + | Organization | [facility] | + + + | Address [...] Team Providers + +------+ + | Care Box Person Name | Role | Phone | + [...] Arvin Yanez | | | | | [facility] | [facility] [place] | | | | | and Healing [address] | [address] | | | | | [address]ane[place] Mailcode: | [phone] | | | | | [address] | | | | | | Health and Healing, | | | | | | Building [address] | | | | | | [facility] [place] | | | | | | [address] | | | | | | [phone] | | | +--------+--------+ + + + [...]
--- OUTSIDE RECORDS SUMMARY | ~2020-02-18 | XMS | Encounter Summary ---
Demographics + + + | Address | [address] | | | [place] [address] | + + + | Home Phone | | + + + | Preferred Language | Unknown | + + + | Marital Status | Single | + + + | Restorationism Affiliation | CHR | + + + | Race | White | + + + | Ethnic Group | Not or | + + + Author + + + | Author | [facility] | + + + | Organization | [facility] | + + + | Address [...] Team Providers + +------+ + | Care Actimize Architect Name | Role | Phone | + [...] Disorders Clinic at | [address] | ([facility]) (Primary Dx) | | | | [facility] | [address] | | | | | and Healing [address] | [place] [address] | | | | | [address]ane[address] Mailcode: | [phone] | | | | | [address] | | | | | | Health and Healing, | | | | | | [facility], | | | | | | [place], [place] | | | | | | [address] | | | | | | [phone] | | | +--------+---------+ + + + [...] eeded. 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 His current Parkinson's Disease medications are: Sinemet [...]
--- OUTSIDE RECORDS SUMMARY | ~2020-02-18 | XMS | Encounter Summary ---
Demographics + + + | Address | [address] | | | [place] [address] | + + + | Home Phone | | + + + | Preferred Language | Unknown | + + + | Marital Status | Single | + + + | Yazidism Affiliation | CHR | + + + [...] Team Providers + +------+ + | Care Occupational Therapy Technician Name | Role | Phone | + +------+ + | Reji Morales MD | PCP | | + +------+ + Reason for Visit + + + | Reason | Comments | + + + | Cancer of prostate | | + + + Consultation (Routine) +--------+--------+ + + + + | Status | Reason | Specialty | Diagnoses / | Referred By | Referred To | | | | | Procedures | Contact | Contact | +--------+--------+ + + + + | Closed | | Urology | Diagnoses | Sislow, | [place], | | | | | Prostate | Donavon Le MD | Adeel | | | | | cancer (HCC) | [place] | MD Angelo [address] | | | | | | CLINIC | [facility] | | | | | | UROLOGY & | [facility] | | | | | | SURGERY [address] [place], | | | | | | [address] | [place] | | | | | | [place] | [address] | | | | | | [place] | Phone: | | | | | | [address] | [phone] | | | | | | Phone: | Fax: | | | | | | [phone] | [phone] | | | | | | Fax: | | | | | | | [phone] | | +--------+--------+ + + + + Encounter Details +--------+---------+ + + + | Date | Type | Department | Care Team | Description | +--------+---------+ + + + | 02// | Office | Urology at [facility] | Maritza, | Prostate cancer | | 2018 | Visit | [address] | Adeel Stephens MD | ([facility]) (Primary Dx) | | | | Mailcode: [id number] | [address] | | | | | [facility] | [facility], | | | | | and [facility], | [place] [address] | | | | | Building | [phone] | | | | | [facility], [place] | | | | | | [address] | | | | | | [phone] | | | +--------+---------+ + + + [...] + + + | Blood Pressure | 132/55 | 10/16/2017 9:07 AM | | | | | PST | | + + + + + | Pulse | 65 | 10/16/2017 9:07 AM | | | | | PST [...] + + + + | Weight | 87.9 kg (193 lb 11.2 | 10/16/2017 9:07 AM | | | | oz) | PST | | + + + + + | Height | 190.5 cm (6' 3") | 10/16/2017 9:07 AM | | | | | PST | | + + + + + | Body Mass Index | 24.21 | 10/16/2017 9:07 AM | | | | | PST | | + + + + + documented in this encounter Progress Notes Rosemarie Rivera MA - 10/16/2017 8:45 AM PST Review of Systems Gastrointestinal: Positive for constipation. Genitourinary: Positive for frequency. Neurological: Positive for tremors. All other systems reviewed and are negative. Physical Exam Adeel Coleman MD - 10/16/2017 8:45 AM PST . 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 Donavon Lai (uro logist in [place], [place]) for second opinion on treatment of his prostate cancer. Accompany ing medical records were reviewed and confirmed by the patient. He has very slowly progressi ng Parkinson's disease, diagnosed 12 years ago. His PSA was 3.76 ng/mL in 12/2015 but increas ed to 6.97 ng/mL in 06/2017. PSA was 5.61 ng/mL with a 11% free fraction on 08/22/2017. His digital rectal examination was benign. TRUS guided prostate biopsy on 09/14/2017 revealed a prostate volume of 20 mL and Brady grade 4+4, 3+4 and 3+3 cancer in multiple cores with th e higher grade cancer found from right-sided cores where there were more cores involved over all but on the left side. He has moderate voiding symptoms with an IPSS of 17/35. He has no history of prostatitis an d no recent exacerbation of his voiding symptoms. He has no incontinence and no gross hematu jo. He has diminished sexual function with a MARCO score of 18/25. He notes that his erectio ns don't function but that he is not sexually active. There is no family history of prostate cancer. No previous abdominal surgeries. He has normal mentation but tremor from his Hen[place] son's disease. Past Medical History: Diagnosis Date Benign essential tremor Depression Gout Hypertension Parkinson disease (HCC) Unspecified disorder of thyroid Past Surgical History Procedure Laterality Date Thyroidectomy Vasectomy Family History Problem Relation Genetic Father essential tremor Diabetes Mother Diabetes Father Hypertension Mother Hypertension Father Social History Social History Marital status: Single Spouse name: N/A Number of children: N/A Years of education: N/A Occupational History [employer] Social History Main Topics Smoking status: Former Smoker Smokeless tobacco: Never Used Alcohol use 10.0 oz/week Drug use: No Sexual activity: Not Currently Partners: Female Other Topics Concern Occupational Exposure Yes heavy machinery, noise, pesticides Stress Concern Yes Weight Concern Yes Social History 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 Enalapril Maleate 20 mg OR TABS take 1 tablet (20mg) by oral route once daily Hydrochlorothiazide 25 mg Oral Tablet take 1 tablet (25mg) by oral route once daily Metoprolol Succinate 200 mg OR TB24 100mg bid omeprazole 20 mg oral capsule,delayed release(DR/EC) Take 20 mg by mouth once daily. No t sure on dose phytonadione 100 mcg oral tablet Take 100 mcg by mouth once daily. No current facility-administered medications for this visit. No Known Allergies REVIEW OF SYSTEMS: I reviewed the ROS documented by the MA. PHYSICAL EXAM: There were no vitals taken for this visit. GEN: appears well, in NAD PSYCH: alert and oriented, affect appropriate SKIN: pink, warm and dry HEENT: nose/throat clear, no scleral icterus. LYMPH: no cervical or supraclavicular adenopathy. CV: RRR, no M/R/G PULM: CTA bilaterally ABDOM: soft, NT/ND, no hepatosplenomegaly, no masses. BACK: no CVA tenderness EXTREM: No edema NEURO: Non-focal. LABS: PSA results as noted above. IMAGING: None IMPRESSION: Mr. Moody is a 67 year old man with eF2vAaIi, worst GG 4+4 prostate cancer with a pre-selena tment PSA of 5.61 ng/ml. We had a detailed conversation about the natural history of prostat e cancer and risk-stratification strategies. I explained how PSA level, Kim grade, tumor volume on biopsy and clinical stage are used to assess prognosis and guide optimal manageme nt decision-making strategies. We discussed his specific situation using his PSA values, bio psy results and findings on exam. I told him that if her high-risk prostate cancer like his, there are 2 reasonable treatment approaches. One would be external beam radiation therapy w ith long-term androgen deprivation therapy. The other would be radical prostatectomy with ex tended pelvic lymph node dissection and adjuvant therapy is necessary based on pathologic fi ndings and postoperative PSA levels. I explained each of these therapies and answered his s pecific questions about these treatment options. We had a detailed discussion of radical prostatectomy with specific attention to the roboti c-assisted laparoscopic approach. A complete PARQ conference was held. I explained in deta il what to expect before, during and after this treatment including the likelihood and durat ion of both urinary incontinence and erectile dysfunction. I estimated his risk of postoper ative erectile dysfunction taking into account his age, present erectile function and likeli samano that a nerve-staring procedure could be performed. We talked about nerve-sparing strat egies based on tumor location, volume of his disease and intraoperative findings. I outline d for him what to expect with regard to the urinary catheter and that driving and physical a ctivity would need to be limited for some time after surgery. He understands that the risks of radical prostatectomy and lymph node dissection include but are not limited to deep vein thrombosis, kidney failure, , bleeding and the need for blood transfusion, infection, incontinence, impotence, lymphoceles, obturator nerve injury, urine leak, bladder neck contr acture, rectal injury, ureteral injury, incomplete resection of tumor and the need for addit ional therapy or reoperation. With robotic surgery he understands there is a risk of injury to adjacent structures, bowel injury, positioning injuries and conversion to an open operati on. Considering the stage, grade, tumor volume as estimated by biopsy findings and PSA relat jania to Mr. Moody's cancer, and his present erectile function (MARCO 18), if he elects to pro ceed with robotic prostatectomy, we will plan a bilateral nerve-sparing procedure. However g iven the predominance of this disease in the right, partial neurovascular resection may be r equired on this side. PLAN: 1. Mr. Moody would like to further consider treatment options 2. If he wants to proceed with robotic-assisted laparoscopic prostatectomy and bilateral pe lvic lymph node dissection, we will get this scheduled as soon as possible and arrange a pre operative PAT appointment. 3. Preoperative Kegel exercises were reviewed in detail. Adeel Salas M.D. Professor and Chair Department of Urology documented in t his encounter Plan of Treatment Not on filedocumented as of this encounter Visit Diagnoses + + | Diagnosis | + + | Prostate cancer (HCC) - Primary Malignant neoplasm of prostate | + + documented in this encounter
--- OUTSIDE RECORDS SUMMARY | ~2020-02-18 | XMS | Encounter Summary ---
Demographics + + + | Address | [address] | | | [place] [address] | + + + | Home Phone [...] Team Providers + +------+ + | Care Rice Cleaning Machine Tender Name | Role | Phone | + +------+ + | Reji Morales MD | PCP | | + +------+ + Reason for Visit + + + | Reason | Comments | + + + | Lab Order | | + + + Encounter Details +--------+ + + + + | Date | Type | Department | Care Team | Description | +--------+ + + + + | 05/09/ | Telephone | Urology at [facility] | Roxy Boykin Kimberly, | Lab Order | | 2017 | | [address] | CLAUDINE [address] [facility] | | | | | Mailcode: [id number] | [address] | | | | | [facility] | [place], [place] | | | | | and Connie, | [address] | | | | | Building | [phone] | | | | | Floor [place], [place] | | | | | | [address] | | | | | | [phone] | | | +--------+ + + + [...]
--- OUTSIDE RECORDS SUMMARY | ~2020-02-18 | XMS | Encounter Summary ---
Demographics + + + | Address | [address] | | | [place] [address] | + + + | Home Phone | | + + + | Preferred Language | Unknown | + + + | Marital Status | | + + + | Sabianist Affiliation | Unknown | + + + | Race | Unknown | + + + | Ethnic Group | Unknown | + + + Author + + + | Author | [facility] | | | and [place] | + + + | Organization | [facility] | | | and [place] | + + + | Address | Unknown | + + + | Phone | Unavailable | + + + Support + + + + + | Name | Relationship | Address | Phone | + + + + + | Mati Moody | YOANNA | [place] | | | | | [address] | | + + + + + | Ayde Rojas | ECON | [place] | | | | | [address] | | + + + + + Care Team Providers + +------+ + | Care Plant Maintenance Technician Name | Role | Phone | [...] | +--------+ + + + + | 03/07/ | Hospital | [facility] | Sherrell Hadley | Prostate cancer | | 2019 | Encounter | [facility] | MD Manish [address] | (HCC) (Primary Dx) | | | | ONCOLOGY CLINIC [address] | [place], [place] | | | | | [address] [facility] | [address] | | | | | [place] [address] | | | | | | [phone] | | | +--------+ + + + [...] + + + | Blood Pressure | 151/77 | 03/07/2019 11:13 AM | | | | | PDT | | + + + + + | Pulse | 65 | 03/07/2019 11:13 AM | | | | | PDT | | + + + + + | Temperature | 36.5 C (97.7 F) | 03/07/2019 11:13 AM | | | | | PDT | | + + + + + | Respiratory Rate | 18 | 03/07/2019 11:13 AM | | | | | PDT | | + + + + + | Oxygen Saturation | 96% | 03/07/2019 11:13 AM | | | | | PDT | | + + + + + | Inhaled Oxygen | - | - | | | Concentration | | | | + + + + + | Weight | 86.1 kg (189 lb 13.1 | 03/07/2019 11:13 AM | | | | oz) | PDT | | + + + + + | Height | - | - | | + + + + + | Body Mass Index | 23.73 | 01/22/2019 10:00 AM | | | [...] encounter Progress Notes Sherrell Hadley MD - 03/07/2019 11:17 AM PDT Radiation Oncology Weekly On Treatment Note Diagnosis: ICD-10-CM ICD-9-CM 1. Prostate cancer (HCC) C61 185 Reason for visit: On treatment evaluation Radiation technical factors: Dose Delivered Dose Planned Fractions Delivered 4600 cGy 6800 cGy Images were reviewed this [...] 0 Wt Readings from Last 3 Encounters: 03/07/19 86.1 kg (189 lb 13.1 oz) 02/28/19 86.2 kg (190 lb 0.6 oz) 02/21/19 86.2 kg (190 lb 0.6 oz) Vitals: 03/07/19 1113 BP: 151/77 Pulse: 65 Resp: 18 Temp: 36.5 C (97.7 F) SpO2: 96% Weight: 86.1 kg (189 lb 13.1 oz) Physical Exam Constitutional: He appears well-developed and well-nourished. Neurological: He is alert. Psychiatric: He has a normal mood and affect. Nurse Assessment and Toxicity Grading: Toxicity Flowsheet 03/07/2019 Diarrhea 0 - Grade 0 Fatigue 1 - Grade 1 Urinary Tract Pain 0 - Grade 0 Karnofsky Performance Score 70% Physician Assessment: Nima Moody is near completion of radiation treatment and continues to do very well. He has mild fatigue, remains in exceptional spirits. Denies changes in urination or bowels. Disposition: Continue radiation treatment as planned. Sherrell Hadley MD Radiation Oncologist documented in this encounter Plan of Treatment +--------+ + + + + | Date | Type | Specialty | Care Team | Description | +--------+ + + + + | 03/04/ | Office | Neurology | Leslie Cbaallero, | | | 2019 | Visit | | MD [address] | | | | | | [address] | | | | | | [place] [address] | | | | | | [phone] | | | | | | | | +--------+ + + + + | 07/03/ | Appointment | Oncology | | | | 2019 | | | | | +--------+ + + + + | 07/03/ | Appointment | Radiation Oncology | Sherrell Hadley | | | 2019 | | | MD Manish [address] | | | | | | [place] | | | | | | [address] | | | | | | | | +--------+ + + + + documented as of this encounter Visit Diagnoses + + | Diagnosis | + + | Prostate cancer (HCC) - Primary Malignant neoplasm of prostate | + + documented in this encounter"
--- OUTSIDE RECORDS SUMMARY | ~2020-02-18 | XMS | Encounter Summary ---
Demographics + + + | Address | [address] | | | [place] [address] | + + + | Home Phone | | + + + | Preferred Language | Unknown | + + + | Marital Status | Single | + + + | Church Affiliation | CHR | + + + | Race | White | + + + | Ethnic Group | Not or | + + + Author + + + | Author | [facility] | + + + | Organization | [facility] | + + + | [...] Team Providers + +------+ + | Care School Custodian Name | Role | Phone | + +------+ + | Reji Morales MD | PCP | | + +------+ + Encounter Details +--------+ + + + + | Date | Type | Department | Care Team | Description | +--------+ + + + + | 04/03/ | Documentati | UNKNOWN DEPARTMENT | Unknown . | | | 2018 | on | [address] | | | | | | [address] | | | | | | [place], [place] | | | | | | [address] | | | +--------+ + + + [...]
--- OUTSIDE RECORDS SUMMARY | ~2020-02-18 | XMS | Encounter Summary ---
Demographics + + + | Address | [address] | | | [place] [address] | + + + | Home Phone | | + + + | Preferred Language | Unknown | + + + | Marital Status | Single | + + + | Christian Affiliation | CHR | + + + [...] Team Providers + +------+ + | Care Studio Director Name | Role | Phone | + +------+ + | Reji Morales MD | PCP | | + +------+ + Reason for Visit + + + | Reason | Comments | + + + | Medication | | + + + | Preop | | + + + Encounter Details +--------+ + + + + | Date | Type | Department | Care Team | Description | +--------+ + + + + | 12/07/ | Telephone | Urology at [facility] | [place], | Medication; Preop | | 2018 | | [address] | Adele Stephens MD | | | | | Mailcode: CH10U | [address] | | | | | [facility] | [facility], | | | | | and Healing, | [place] [address] | | | | | [facility] | [phone] | | | | | [place], [place] | | | | | | [address] | | | | | | [phone] | | | +--------+ + + + [...]
--- OUTSIDE RECORDS SUMMARY | ~2020-02-18 | XMS | Encounter Summary ---
Demographics + + + | Address | [address] | | | [place] [address] | + + + | Home Phone [...] + + + | Author | [facility] | + + + | Organization | [facility] | + + + | [...] Team Providers + +------+ + | Care Tire Groover Name | Role | Phone | + [...] Description | +--------+--------+ + + + | 09/16/ | Refill | Neurology Movement | Joslyn Galdamez MD | Refill Request | | 2016 | | Disorders Clinic at | [address] | | | | | [facility] | [facility] [place] | | | | | and Healing [address] | [address] | | | | | [address] Mailcode: | [phone] | | | | | [address] | | | | | | Health and Healing, | | | | | | Building [address] | | | | | | [facility] [place] | | | | | | [address] | | | | | | [phone] | | | +--------+--------+ + + + [...]
--- OUTSIDE RECORDS SUMMARY | ~2020-02-18 | XMS | Encounter Summary ---
Demographics + + + | Address | [address] | | | [place] [address] | + + + | Home Phone | | + + + | Preferred Language | Unknown | + + + | Marital Status | Single | + + + | Roman Catholic Affiliation | CHR | + + + | Race | White | + + + | Ethnic Group | Not or | + + + Author + + + | Author | [facility] | + + + | Organization | [facility] | + + + | [...] Team Providers + +------+ + | Care Traffic Enumerator Name | Role | Phone | + +------+ + | Reji Morales MD | PCP | | + +------+ + Encounter Details +--------+ + + + + | Date | Type | Department | Care Team | Description | +--------+ + + + + | 08/23/ | Telephone | Neurology Movement | Ivonne Bustos ANP | | | 2005 | | Disorders Clinic at | [address] | | | | | [facility] | [address] | | | | | and Healing [address] | [place], [place] | | | | | [address] Mailcode: | [address] | | | | | [address] | [phone] | | | | | Health and Healing, | | | | | | [facility] | | | | | | [place], [place] | | | | | | [address] | | | | | | [phone] | | | +--------+ + + + [...]
--- OUTSIDE RECORDS SUMMARY | ~2020-02-18 | XMS | Encounter Summary ---
Demographics + + + | Address | [address] | | | [place] [address] | + + + | Home Phone | | + + + | Preferred Language | Unknown | + + + | Marital Status | Single | + + + | Yarsanism Affiliation | CHR | + + + [...] Team Providers + +------+ + | Care Ward Service Supervisor Name | Role | Phone | + +------+ + | Reji Morales MD | PCP | | + +------+ + Reason for Visit Benefits Check (Routine) +--------+--------+ + + + + | Status | Reason | Specialty | Diagnoses / | Referred By | Referred To | | | | | Procedures | Contact | Contact | +--------+--------+ + + + + | Closed | | Urology | | Non-[facility] | Uro | | | | | | Epic Dept | Oncology [facility] | | | | | | | [address] | | | | | | [address] | | | | | | | Mailcode: | | | | | | | CH10U [place] | | | | | | | [facility] | | | | | | | and Healing, | | | | | | | Building 1, | | | | | | | 10th Floor | | | | | | | [facility] [place] | | | | | | | [address] | | | | | | | Phone: | | | | | | | [phone] | | | | | | | Fax: | | | | | | | [phone] | +--------+--------+ + + + + Encounter Details +--------+---------+ + + + | Date | Type | Department | Care Team | Description | +--------+---------+ + + + | 11/23/ | Office | Urology at [facility] | Rn, Uro [address] | Prostate cancer | | 2018 | Visit | [address] | [address] | ([facility]) (Primary Dx) | | | | Mailcode: CH10U | Road [place], [place] | | | | | [facility] | [address] | | | | | and Healing, | | | | | | Building [address], 10th | | | | | | Floor [place], [place] | | | | | | [address] | | | | | | [phone] | | | +--------+---------+ + + + [...] + documented as of this encounter Progress Diana Morocho RN - 11/23/2017 1:00 PM PDTPreoperative preparation nursing education not e: I called and spoke with Mr. Moody and we reviewed the presurgical bowel preparation instru ctions. He states he is not currently taking aspirin or other blood thinners. Patient verbalized agreement and understanding of these instructions and had no questions. A surgical consent will need to be completed on the day of surgery. Contact information was provided should they have any concerns or clarification questions. documented in this en counter Plan of Treatment Not on filedocumented as of this encounter Visit Diagnoses + + | Diagnosis | + + | Prostate cancer (HCC) - Primary Malignant neoplasm of prostate | + + documented in this encounter"
--- OUTSIDE RECORDS SUMMARY | ~2020-02-18 | XMS | Encounter Summary ---
Demographics + + + | Address | [address] | | | [place] [address] | + + + | Home Phone [...] Team Providers + +------+ + | Care Digital Campaign Specialist Name | Role | Phone | + +------+ + PCP | Unavailable | + +------+ + Encounter Details +--------+ + + + + | Date | Type | Department | Care Team | Description | +--------+ + + + + | 05/04/ | Office | | Note, Outpatient | [...] as of this encounter Progress Notes Interface, Wigs Salesperson In - 10/27/2006 6:42 AM PST [id number] / [id number] [facility] Date: 05/04/2004 Clinic: [facility] Subjective: Nima Moody returns to the [facility] for followup evaluation of tremor. I last saw Mr. Moody 6 months ago with our chief resident Dr. Frantz Arizmendi. We felt that he had features of both benign essential tremors and emerging Parkinson's type tremor in the left lower extremity. We recommended that his beta maryse be switched to propranolol followed by a trial of primidone if the beta maryse did not afford relief. Although his new left lower extremity tremor was very consistent with a parkinsonian tremor, we were not comfortable making a definitive diagnosis at that time, as he did not have much evidence of bradykinesia, rigidity, or other features of Parkinson's disease. Hence the return evaluation. Mr. Moody reports that his left lower extremity tremor has become a bit more troublesome over the last 6 months. 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 He has also noticed recently that the toes of his left foot want to curl under involuntarily, and this is uncomfortable. He does not feel his left upper extremity tremor has changed any and nor does he feel that this particularly interferes with function. He is not sure that the switch to propranolol has made much difference to the either tremor. There has been no interval changes in his medical, social, or family history. Current Medications: Inderal LA 160 mg q.day. Physical Examination Vital Signs: He weighs 224 pounds. Blood pressure is 150/90 with a pulse of 79 (a little surprising on 160-mg Inderal). General: His general physical exam other than the mild hypertension, is unremarkable. Neurologic: He has a normal mental status, but a slightly anxious affect. Cranial nerve exam is unremarkable; I do not appreciate any marked hypomimia or hypophonia. His motor examination is notable for tremor in the head and left upper extremities that is fairly high frequency, 8 to 10 Hz, present in the head and left upper extremity. He may have very minimal tremor in the right upper extremity with posture. There is not much action tremor. In the left lower extremity, he has a higher amplitude, intermittent rest tremor that he can briefly suppress voluntarily or with movement, but which reemerges quickly whenever he stops moving the leg. It is of lower frequency and higher amplitude than the arm and head tremor, about 4 to 5 Hz. Mild intermittent dystonic curling of the toes is observed and slight inversion of the foot. His finger tap, hand movements, and heel tap are minimally decreased in amplitude and velocity on the left, really not much more than I would expect for handedness. He certainly does not have prominent bradykinesia, and his tone was really pretty normal, although there may have been slight reinforcement in the left upper extremity. Assessment: Assessment of gait, posture, and balance finds him unable to rise from the chair without a push off, and he walks with a good stride length, fluid turns, and really no suggestion of decreased arm swing on the left. He did not retropulse on a pull test. Impression 1. Benign essential tremor affecting the head and left upper extremity. 2. Emerging parkinsonism in the left lower extremity. 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 His left lower extremity tremor is very suggestive of emerging parkinsonism, and his new symptom of dystonic curling of the toes and inversion of the foot on examination adds evidence. We had mooted this possibility at last visit, and I told him today that I thought it was pretty clear that he did have very early Parkinson's disease. We spent well over half of today's 1-hour appointment discussing the diagnosis, prognosis, treatment options, likely course, and educational opportunities. Although, we have our big annual symposium coming up shortly, I have actually discouraged Mr. Moody from attending this, as I think it would be overwhelming for him at this point. Instead, I have strongly encouraged him to come to a much smaller intimate "newly diagnosed" group which will be happening next month at the [facility]. Coincidentally, it is being run by RENETTA Mcgraw, with whom Mr. Moody went to school in [facility]! We also spent quite a while discussing whether to initiate treatment of his Parkinson's disease now or defer this. 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 We discussed the upcoming NIH neuroprotection study that will begin at the [facility] in August 2004. I was careful to explain that the drug to be used in this study is not intended to offer any symptomatic benefit, but rather a purported protective benefit. I explained that if he feels he needs symptomatic relief of his left lower extremity tremor and dystonia, we should probably proceed with initiating dopamine agonist therapy. Although, he is undecided at this point, I did provide him with a starter pack of one of the dopamine agonists with instructions as to how to begin it. If he proceeds with this, I have asked that he touch base by phone once it is underway to report his progress. We could then prescribe through a local pharmacy if necessary. I do not think he needs to make an immediate decision, and it might be helpful for him to hear the discussion here and participate in the discussion of the newly diagnosed group first. Mr. Moody would like to be followed here for his Parkinson's disease, and we are happy to do that. I therefore plan to see him back in 6 months. Sherry Mcmahon M.D. PH / HS [id number] / [id number] / [id number] / [id number] cc: Mohinder Morales MD [facility] [address] [place] [address] FAX: [phone] nterface, Wigs Salesperson In - 04/10/2005 8:24 AM PDT [id number] [facility] Date: 05/04/2004 Clinic: [facility] Subjective: Nima Moody returns to the [facility] for followup evaluation of tremor. I last saw Mr. Moody 6 months ago with our chief resident Dr. Frantz Arizmendi. We felt that he had features of both benign essential tremors and emerging Parkinson's type tremor in the left lower extremity. We recommended that his beta maryse be switched to propranolol followed by a trial of primidone if the beta maryse did not afford relief. Although his new left lower extremity tremor was very consistent with a parkinsonian tremor, we were not comfortable making a definitive diagnosis at that time, as he did not have much evidence of bradykinesia, rigidity, or other features of Parkinson's disease. Hence the return evaluation. Mr. Moody reports that his left lower extremity tremor has become a bit more troublesome over the last 6 months. 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 He has also noticed recently that the toes of his left foot want to curl under involuntarily, and this is uncomfortable. He does not feel his left upper extremity tremor has changed any and nor does he feel that this particularly interferes with function. He is not sure that the switch to propranolol has made much difference to the either tremor. There has been no interval changes in his medical, social, or family history. Current Medications: Inderal LA 160 mg q.day. Physical Examination Vital Signs: He weighs 224 pounds. Blood pressure is 150/90 with a pulse of 79 (a little surprising on 160-mg Inderal). General: His general physical exam other than the mild hypertension, is unremarkable. Neurologic: He has a normal mental status, but a slightly anxious affect. Cranial nerve exam is unremarkable; I do not appreciate any marked hypomimia or hypophonia. His motor examination is notable for tremor in the head and left upper extremities that is fairly high frequency, 8 to 10 Hz, present in the head and left upper extremity. He may have very minimal tremor in the right upper extremity with posture. There is not much action tremor. In the left lower extremity, he has a higher amplitude, intermittent rest tremor that he can briefly suppress voluntarily or with movement, but which reemerges quickly whenever he stops moving the leg. It is of lower frequency and higher amplitude than the arm and head tremor, about 4 to 5 Hz. Mild intermittent dystonic curling of the toes is observed and slight inversion of the foot. His finger tap, hand movements, and heel tap are minimally decreased in amplitude and velocity on the left, really not much more than I would expect for handedness. He certainly does not have prominent bradykinesia, and his tone was really pretty normal, although there may have been slight reinforcement in the left upper extremity. Assessment: Assessment of gait, posture, and balance finds him unable to rise from the chair without a push off, and he walks with a good stride length, fluid turns, and really no suggestion of decreased arm swing on the left. He did not retropulse on a pull test. Impression 1. Benign essential tremor affecting the head and left upper extremity. 2. Emerging parkinsonism in the left lower extremity. 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 His left lower extremity tremor is very suggestive of emerging parkinsonism, and his new symptom of dystonic curling of the toes and inversion of the foot on examination adds evidence. We had mooted this possibility at last visit, and I told him today that I thought it was pretty clear that he did have very early Parkinson's disease. We spent well over half of today's 1-hour appointment discussing the diagnosis, prognosis, treatment options, likely course, and educational opportunities. Although, we have our big annual symposium coming up shortly, I have actually discouraged Mr. Moody from attending this, as I think it would be overwhelming for him at this point. Instead, I have strongly encouraged him to come to a much smaller intimate "newly diagnosed" group which will be happening next month at the [facility]. Coincidentally, it is being run by RENETTA Mcgraw, with whom Mr. Moody went to school in [facility] We also spent quite a while discussing whether to initiate treatment of his Parkinson's disease now or defer this. 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 We discussed the upcoming NIH neuroprotection study that will begin at the [facility] in August 2004. I was careful to explain that the drug to be used in this study is not intended to offer any symptomatic benefit, but rather a purported protective benefit. I explained that if he feels he needs symptomatic relief of his left lower extremity tremor and dystonia, we should probably proceed with initiating dopamine agonist therapy. Although, he is undecided at this point, I did provide him with a starter pack of one of the dopamine agonists with instructions as to how to begin it. If he proceeds with this, I have asked that he touch base by phone once it is underway to report his progress. We could then prescribe through a local pharmacy if necessary. I do not think he needs to make an immediate decision, and it might be helpful for him to hear the discussion here and participate in the discussion of the newly diagnosed group first. Mr. Moody would like to be followed here for his Parkinson's disease, and we are happy to do that. I therefore plan to see him back in 6 months. Sherry Mcmahon M.D. PH / HS [id number] / [id number] / [id number] / [id number] cc: Mohinder Morales MD [facility] [address] [address] FAX: [phone] documented i n this encounter Plan of Treatment Not on filedocumented as of this encounter Visit Diagnoses Not on filedocumented in this encounter
--- OUTSIDE RECORDS SUMMARY | ~2020-02-18 | XMS | Encounter Summary ---
Demographics + + + | Address | [address] | | | [place] [address] | + + + | Home Phone [...] Team Providers + +------+ + | Care Supervising Broker Name | Role | Phone | + [...] | | | | | | [address] [place] | | | | | | | | | | | | | | and Healing, | | | | | | | Building [address], | | | | | | | 10th Floor | | | | | | | [facility] [place] | | | | | | | [address] | | | | | | | Phone: | | | | | | | [phone] | | | | | | | Fax: | | | | | | | [phone] | +--------+--------+ + + + + Encounter Details +--------+---------+ + + + | Date | Type | Department | Care Team | Description | +--------+---------+ + + + | 11/23/ | Office | Urology at [facility] | Rn, Uro [address] | Prostate cancer | | 2018 | Visit | [address] | [address] | ([facility]) (Primary Dx) | | | | Mailcode: [address] | Road [place], [place] | | | | | [facility] | [address] | | | | | and Healing, | | | | | | Building [address], 10th | | | | | | Floor [place], [place] | | | | | | [address] | | | | | | [phone] | | | +--------+---------+ + + + [...]
--- OUTSIDE RECORDS SUMMARY | ~2020-02-18 | XMS | Encounter Summary ---
Demographics + + + | Address | [address] | | | [place] [address] | + + + | Home Phone | | + + + | Preferred Language | Unknown | + + + | Marital Status | Single | + + + | Scientology Affiliation | CHR | + + + | Race | White | + + + | Ethnic Group | Not or | + + + Author + + + | Author | [facility] | + + + | Organization | [facility] | + + + | [...] Team Providers + +------+ + | Care Country Printer Apprentice Name | Role | Phone | + [...] Disorders Clinic at | [address] | ([facility]) (Primary Dx) | | | | [facility] | [facility] | | | | | and Connie [address] | [place] [address] | | | | | [address] Mailcode: | [phone] | | | | | [address] | | | | | | Health and Healing, | | | | | | [facility] [address], | | | | | | [place], [place] | | | | | | [address] | | | | | | [phone] | | | +--------+---------+ + + + [...] (16 and above is clinically significant): 19* [place] (10 and above is clinically significant): 2 CG Strain (30 and above is clinically significant): --- Irene Rivas RN isandroKrishna - 01/29/2008 10:22 AM PDT Nima Moody is a 58 y.o. 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 He drove here from [employer] yesterday and visited with his daughter who lives in [place]. He is unaccompanied for today's visit. He [...] occasionally. 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
--- OUTSIDE RECORDS SUMMARY | ~2020-02-18 | XMS | Encounter Summary ---
Demographics + + + | Address | [address] | | | [place] [address] | + + + | Home Phone | | + + + | Preferred Language | Unknown | + + + | Marital Status | Single | + + + | Yazidi Affiliation | CHR | + + + | Race | White | + + + | Ethnic Group | Not or | + + + Author + + + | Author | [facility] | + + + | Organization | [facility] | + + + | [...] Team Providers + +------+ + | Care Cavalry Officer Name | Role | Phone | [...] Description | +--------+--------+ + + + | 06/06/ | Refill | Neurology Movement | Joslyn Galdamez MD | Refill Request | | 2013 | | Disorders Clinic at | [address] | | | | | [facility] | [facility] [place] | | | | | and Healing [address] | [address] | | | | | [address] Mailcode: | [phone] | | | | | [address] | | | | | | Health and Healing, | | | | | | Building | | | | | | [facility] [place] | | | | | | [address] | | | | | | [phone] | | | +--------+--------+ + + + [...]
--- OUTSIDE RECORDS SUMMARY | ~2020-02-18 | XMS | Encounter Summary ---
Demographics + + + | Address | [address] | | | [place] [address] | + + + | Home Phone | | + + + | Preferred Language | Unknown | + + + | Marital Status | Single | + + + | Denominational Affiliation | CHR | + + + | Race | White | + + + | Ethnic Group | Not or | + + + Author + + + | Author | [facility] | + + + | Organization | [facility] | + + + | Address [...] Team Providers + +------+ + | Care Breastfeeding Peer Counselor Name | Role | Phone | + [...] | +--------+ + + + + | 04/05/ | Telephone | Urology at [facility] | Yiing, | Post Op | | 2018 | | [address] | Adeel Stephens MD | | | | | Mailcode: [facility] | [address] | | | | | [facility] | [address] [place], | | | | | and Healing, | [place] [address] | | | | | Building | [phone] | | | | | Floor [place], [place] | | | | | | [address] | | | | | | [phone] | | | +--------+ + + + [...]
--- OUTSIDE RECORDS SUMMARY | ~2020-02-18 | XMS | Encounter Summary ---
Demographics + + + | Address | [address] | | | [place] [address] | + + + | Home Phone | | + + + | Preferred Language | Unknown | + + + | Marital Status | | + + + | Sikh Affiliation | Unknown | + + + | Race | Unknown | + + + | Ethnic Group | Unknown | + + + Author + + + | Author | [facility] | | | and [place] | + + + | Organization | [facility] | | | and [place] | + + + | Address | Unknown | + + + | Phone | Unavailable | + + + Support + + + + + | Name | Relationship | Address | Phone | + + + + + | Mati Moody | YOANNA | [place] | | | | | [address] | | + + + + + | Ayde Rojas | ECON | [place] | | | | | [address] | | + + + + + Care Team Providers + +------+ + | Care Ceramics Teacher Name | Role | Phone | + +------+ + | Adina Lloyd MD | PCP | | + +------+ + Encounter Details +--------+ + + + + | Date | Type | Department | Care Team | Description | +--------+ + + + + | 03/25/ | Documentati | [facility] | Sherrell Hadley | | | 2019 | on | [facility] | MD Man[facility] [address] | | | | | [facility] [address] | [place], [place] | | | | | [address] | [address] | | | | | [place] [address] | | | | | | [phone] | | | +--------+ + + + [...] encounter Progress Notes Sherrell Hadley MD - 03/25/2019 4:19 PM PDT Radiation Treatment Summary Diagnosis: ICD-10-CM ICD-9-CM 1. Prostate cancer (HCC) C61 185 Treatment Dates: Nima Moody was treated in our clinic between the dates of 02/05/2019 - 03/25/2019. Intent: Curative Treatment Technique: VMAT Treatment Site: Prostate Fossa Prescription and Treatment Summary: Course: Pelvis Plan ID Energy Fractions Dose per Fraction (cGy) Dose Correction (cGy) Total Dose Delivered (cGy) Elapsed Days PTV Fossa 10X 34 / 34 200 0 6,800 48 Chemotherapy: No systemic or hormonal therapy Assessment: Nima Moody completed the planned course of course of external beam radiation therapy w ithout any unexpected complications or breaks. Treatment tolerance: excellent. Mild fatigue. Disease response to treatment: No evidence of disease. Disposition: 1. Follow-up in our clinic: [address] Hadley. Appointment made for 07/05/2019. a. Labs: PSA b. Imaging: none 2. Follow-up with Dr. Lai as directed. Coordination of care will be arranged between pr oviders for future visits. Nima Moody was encouraged to call our clinic with any further questions or concerns. Thank you for allowing me to participate in his care. If you should have any questions regar ding this treatment summary, please do not hesitate to contact me. Sherrell Hadley MD Radiation Oncologist Department of Radiation Oncology [facility] documented in this encounter Plan of Treatment [...] D | | | | | | [place] [address] | | | | | | [phone] | | | | | | | | +--------+ + + + + | 07/03/ | Appointment | Oncology | | | | 2019 | | | | | +--------+ + + + + | 07/03/ | Appointment | Radiation Oncology | Sherrell Hadley | | | 2019 | | | MD [place] [address] | | | | | | [place] | | | | | | [address] | | | | | | | | +--------+ + + + + documented as of this encounter Visit Diagnoses + + | Diagnosis | + + | Prostate cancer (HCC) - Primary Malignant neoplasm of prostate | + + documented in this encounter"
--- OUTSIDE RECORDS SUMMARY | ~2020-02-18 | XMS | Encounter Summary ---
Demographics + + + | Address | [address] | | | [place] [address] | + + + | Home Phone [...] Team Providers + +------+ + | Care Model Photographers' Name | Role | Phone | + +------+ + | Reji Morales MD | PCP | | + +------+ + Encounter Details +--------+ + + + + | Date | Type | Department | Care Team | Description | +--------+ + + + + | 10/11/ | [place] | Urology at [facility] | [place], | Prostate cancer | | 2018 | | [address] | Adeel Stephens MD | ([facility]LY [facility]) (Primary Dx) | | | | Mailcode: [id number] | [address] | | | | | [facility] | [facility], | | | | | and [facility], | [place] [address] | | | | | Building | [phone] | | | | | [place], [place] | | | | | | [address] | | | | | | [phone] | | | +--------+ + + + [...] OUTSIDE | e | 10:22 AM | ([facility]LY [facility]) | procedure are in the [...] | Electronically | | Pathologic | biopsies ([id number], | | DEPARTMENT | signed by Nima [...] biopsies | | | | | | ([id number], 09.14.17, | | | | | | B):? 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 Tumor | | | | | | focus measures approx. | | | | | | 0.1 cmC. Left apex, | | | | | | core biopsies | | | | | | ([id number], 09.14.17, | | | | | | C):? 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 Tumor | | | | | | focus measures approx. | | | | | | 0.1 cmD. Right base, | | | | | | core biopsies | | | | | | ([id number], 09.14.17, | | | | | | D): ? 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 Tumor | | | | | | focus measures approx. | | | | | | 0.5 cmE. Right mid, core | | | | | | biopsies([id number], | | | | | | 09.14.17, [...] | | | | | | biopsies ([id number], | | | | | | 09.14.17, F):? | | | | | | Adenocarcinoma of the | | | | | | prostate gland, [place] | | | | | | grade 4+4? Tumor focus | | | | | | measures approx. 0.3 | | | | | | cmQ. Left transitional | | | | | | zone, core biopsies | | | | | | ([id number], 09.14.17, | | | | | | Q):? Prostatic glands | | | | | | and stroma with focal | | | | | | high-grade PIN? Negative | | | | | | for maligncyR. Right | | | | | | transitional zone, core | | | | | | biopsies ([id number], | | | | | | 09.14.17, [...] | | | Received | Institution: [facility] | | DEPARTMENT | | | | [facility], | | [place] | | | | [place] [address] | | PATHOLOGY | | | | Accession Number: | | | | | | [id number] | | | | | | Collection [...] | + + + + + | [facility] | [address] | [place] [address] | | | PATHOLOGY | [address] | | | + + + + + documented in this encounter Visit Diagnoses + + | Diagnosis | + + | Prostate cancer (HCC) - Primary Malignant neoplasm of prostate | + + documented in this encounter"
--- OUTSIDE RECORDS SUMMARY | ~2020-02-18 | XMS | Encounter Summary ---
Demographics + + + | Address | [address] | | | [place] [address] | + + + | Home Phone | | + + + | Preferred Language | Unknown | + + + | Marital Status | | + + + | Alevism Affiliation | Unknown | + + + | Race | Unknown | + + + | Ethnic Group | Unknown | + + + Author + + + | Author | [facility] | | | and [place] | + + + | Organization | [facility] | | | and [place] | + + + | Address | Unknown | + + + | Phone | Unavailable | + + + Support + + + + + | Name | Relationship | Address | Phone | + + + + + | Mati Moody | YOANNA | [place] | | | | | [address] | | + + + + + | Ayde Rojas | ECON | [place] | | | | | [address] | | + + + + + Care Team Providers + +------+ + | Care Head Of Maintenance Name | Role | Phone | + [...] | +--------+ + + + + | 07/05/ | [facility] | [facility] | Sherrell Hadley | Prostate cancer | | 2019 | Encounter | MED CTR RADIATION | MD Manish [address] | (HCC) (Primary Dx) | | | | [facility]IN[facility] [address] | [place], [place] | | | | | [address] | [address] | | | | | [place] [address] | | | | | | [phone] | | | +--------+ + + + [...] + + + | Blood Pressure | 143/70 | 07/05/2019 1:40 PM | | | | | PDT | | + + + + + | Pulse | 64 | 07/05/2019 1:40 PM | | | | | PDT | | + + + + + | Temperature | 36.3 C (97.3 F) | 07/05/2019 1:40 PM | | | | | PDT | | + + + + + | Respiratory Rate | 18 | 07/05/2019 1:40 PM | | | | | PDT | | + + + + + | Oxygen Saturation | 100% | 07/05/2019 1:40 PM | | | | | PDT | | + + + + + | Inhaled Oxygen | - | - | | | Concentration | | | | + + + + + | Weight | 88.3 kg (194 lb 10.7 | 07/05/2019 1:40 PM | | | | oz) | PDT | | + + + + + | Height | - | - | | + + + + + | Body Mass Index | 24.33 | 01/22/2019 10:00 AM | | | | | PDT | | + + + + + documented in this encounter Discharge Instructions Patient Instructions Melinda Wilson RN - 07/05/2019 2:07 [address] up with Dr. Princess bender in 6 months with PSA prior to appointmentElectronically signed by Melinda Wilson RN at 2:11 PM PDT documented in this encounter Medications at Time [...] + +---------+ + + | | Take 1 tablet by | | 0 | 05/15/20 | | | hydroCHLOROthiazide | mouth Daily. | | | 19 | | | 25 mg tablet | | | | | [...] encounter Progress Notes Sherrell Hadley MD - 07/05/2019 2:00 PM PDT Radiation Oncology Follow-up Chief Complaint/ICD10 ICD-10-CM ICD-9-CM 1. Prostate cancer (HCC) C61 185 History of Present Illness: Prostate cancer (HCC) 12/12/2017 Initial Diagnosis Prostate cancer (HCC) Nima Moody was initially diagnosed with prostate cancer in September 2017. He presented with an elevated PSA, 5.61 with 11% free fraction August 2017. Prostate biopsy on 09/14/17 identified Kim 4+4 = 8 involving 6 22% of core tissue, detailed below. He opted for p rostatectomy, performed at [facility] on 12/08/17, final pathology demonstrated pT2 pN0, Kim 3+ 4=7, negative margin, +PNI. 02/05/2019 - 03/25/2019 Radiation Therapy Total dose delivered 6,800 cGy in a total of 34 fractions. Nima Moody completed radiation 3 months ago, he returns for routine follow-up. Reports frequency of urine during treatment, now improving. Up about twice nightly. His AU A is currently 17, baseline AUA was 19. Denies pain, burning or blood with urination. Dawson es diarrhea or pain with bowel movements takes miralx to keep regular. Denies any new bone pain. Continues to report fatigue. Ongoing treatment: none Review of systems: Constitutional: Pt reports low levels of fatigue - ongoing. Denies high fevers, shaking chi lls, anorexia, nausea, vomiting, weight loss, or night sweats. Appetite without changes. Ear, Nose, Mouth, Throat: Pt reports intermittent dysphagia - ongoing. Pt reports ongoing t innitus. Denies odynophagia. Cardiovascular: Denies shortness of breath, dyspnea on exertion, chest pain, palpitations o r orthopnea. Respiratory: Denies cough, hemoptysis, or sputum production. Gastrointestinal: Pt reports ongoing constipation - managed well with Miralax. Denies abdom inal pain, diarrhea, melena, or bright red blood per rectum. Genitourinary: Denies hematuria or dysuria. Musculoskeletal: Denies joint pain or tenderness. Neurologic: Denies headache, visual changes, or numbness/tingling of the extremities. Endocrine: Pt reports occasional swelling of the ankles. Denies heat/cold intolerance. Hematologic: Denies spontaneous bruising or bleeding. Bruises easily. Integumentary: Denies rash, wounds or other skin concerns. Pain: Denies pain. ROS otherwise negative Note: Here for 3 month follow up with Dr. Hadlye. My chart: Declined Pain assessment: No reportable pain Questionnaires: IPSS Questionnaire (AUA-7): Over the past month 1) How often have you had a sensation of not emptying your bladder completely after you fi soheila urinating? 2 - Less than half the time 2) How often have you had to urinate again less than two hours after you finished urinatin g? 4 - More than half the time 3) How often have you found you stopped and started again several times when you urinated? 3 - About half the time 4) How difficult have you found it to postpone urination? 1 - Less than 1 time in 5 5) How often have you had a weak urinary stream? 3 - About half the time 6) How often have you had to push or strain to begin urination? 1 - Less than 1 time in 5 7) How many times did you most typically get up to urinate from the time you went to bed un til the time you got up in the morning? 3 - 3 times Total score: 0-7 mildly symptomatic 8-19 moderately symptomatic 20-35 severely symptomatic Total: 17 Current Outpatient Medications Medication Sig Dispense Refill amantadine (SYMMETREL) 100 [...] then once daily No current facility-administered medications for this visit. Allergies No active allergies Intolerance No active intolerances/contraindications Vitals: 07/05/19 1340 BP: 143/70 Pulse: 64 Resp: 18 Temp: 36.3 C (97.3 F) Wt Readings from Last 3 Encounters: 07/05/19 88.3 kg (194 lb 10.7 oz) 03/21/19 87.4 kg (192 lb 10.9 oz) 03/13/19 87 kg (191 lb 12.8 oz) Physical Exam: General: Healthy appearing older gentleman in no acute medical distress. KPS: 90% HEENT: Pupils equal, round and reactive to light. No conjunctival icterus or injection. EOM I. Oral, moist mucus membranes. Lymphatic: No cervical, supraclavicular or axillary lymphadenopathy. Cardiovascular: Regular rate and rhythm, no murmur. Pulmonary: Breath sounds heard throughout, no adventitial sounds or increased work of breat zi at rest. Extremities: Upper and lower extremities warm and well perfused with no upper or lower extr emity edema. Neurologic: Alert, oriented and appropriated in conversation. CN II-IX grossly intact. Par kinsonian speech and gait patterns, stable. Psychiatric: Appropriate. Labs: PSA 07/02/19 0.125 Salvage prostate fossa radiation, completed 03/25/19. 01/02/19 0.160 10/17/18 0.100 testosterone 2.79 (normal range 1.75 7.81) 10/10/18 0.117 06/06/2018 0.050 03/06/2018 0.034 01/08/18 0.060 Prostatectomy 08/22/17 5.61, 11.14% free Imaging: No recent relevant results. Assessment: ICD-10-CM ICD-9-CM 1. Prostate cancer (HCC) C61 185 Nima returns for routine follow-up, 3 months since completing salvage prostate fossa radia tion alone for biochemical persistence after undergoing prostatectomy for intermediate risk prostate cancer. He tolerated radiation well, expected mild side effects of fatigue and in creased urinary frequency. The symptoms seem to be resolving, back to his baseline. Histor y and exam do not demonstrate any evidence of disease activity. PSA is slightly reduced on current testing at 0.125. We will continue to monitor PSA every 6 months, with correlating follow-up in clinic. Plan/ patient instructions: Follow up with Dr. Hadley in 6 months with PSA prior to appointment Thank you for allowing me to participate in the care of Nima Moody. If you should have any questions regarding this evaluation, please do not hesitate to contact me. Sherrell Hadley M.D. Radiation Oncologist Department of Radiation Oncology [facility] Office: [phone] documented in this encounter Plan of Treatment [...] D | | | | | | [place] [address] | | | | | | [phone] | | | | | | | | +--------+ + + + + | 07/03/ | Appointment | Oncology | | | | 2020 | | | | | +--------+ + + + + | 07/03/ | Appointment | Radiation Oncology | Sherrell Hadley | | | 2019 | | | MD [facility] [address] | | | | | | [place] | | | | | | [address] | | | | | | | | +--------+ + + + + + +------+--------+ + + | Name | Type | Priori | Associated Diagnoses | Order Schedule | | | | ty | | | + +------+--------+ + + | PSA, Diagnostic | Lab | Routin | Prostate cancer | Expected: | | | | e | (HCC) | 01/04/2020, Expires: | | | | | | 07/05/2020 | + +------+--------+ + + documented as of this encounter Procedures + +--------+ + + + | Procedure Name | Priori | Date/Time | Associated Diagnosis | Comments | | | ty | | | | + +--------+ + + + | LABS - EXTERNAL SCAN | | 07/02/2019 | | Results for this | | | | 12:00 AM | | procedure are in the | | | | PDT | | results section. | + +--------+ + + + documented in this encounter Results LABS - EXTERNAL SCAN (07/02/2019 12:00 AM PDT) + + + | Narrative | Performed At | + + + | Ordered by an | | | unspecified provider. | | + + + documented in this encounter Visit Diagnoses + + | Diagnosis | + + | Prostate cancer (HCC) - Primary Malignant neoplasm of prostate | + + documented in this encounter"
--- OUTSIDE RECORDS SUMMARY | ~2020-02-18 | XMS | Encounter Summary ---
Demographics + + + | Address | [address] | | | [place] [address] | + + + | Home Phone | | + + + | Preferred Language | Unknown | + + + | Marital Status | Single | + + + | Anglican Affiliation | CHR | + + + [...] Team Providers + +------+ + | Care Law Examiner Name | Role | Phone | + +------+ + | Reji Morales MD | PCP | | + +------+ + Encounter Details +--------+ + + + + | Date | Type | Department | Care Team | Description | +--------+ + + + + | 06/04/ | Ancillary | Registration [id number] | | | | 2004 | Registratio | [address] | | | | | n | [place] Mailcode: [id number] | | | | | | [place], [place] | | | | | | [address] | | | | | | [phone] | | | +--------+ + + + [...]
--- OUTSIDE RECORDS SUMMARY | ~2020-02-18 | XMS | Encounter Summary ---
Demographics + + + | Address | [address] | | | [place] [address] | + + + | Home Phone | | + + + | Preferred Language | Unknown | + + + | Marital Status | | + + + | Anabaptism Affiliation | Unknown | + + + | Race | Unknown | + + + | Ethnic Group | Unknown | + + + Author + + + | Author | [facility] | | | and [place] | + + + | Organization | [facility] | | | and [place] | + + + | Address | Unknown | + + + | Phone | Unavailable | + + + Support + + + + + | Name | Relationship | Address | Phone | + + + + + | Mati Moody | [place] | [place] | | | | | [address] | | + + + + + | Ayde Rojas | ECON | [place] | | | | | [address] | | + + + + + Care Team Providers + +------+ + | Care Site Monitor Name | Role | Phone | + +------+ + | Adina Lloyd MD | PCP | | + +------+ + Encounter Details +--------+ + + + + | Date | Type | Department | Care Team | Description | +--------+ + + + + | 01/11/ | Imaging | [facility] | Provider, | | | 2019 | Exam | MED CTR EXTERNAL | MD [address] | | | | | IMAGING [address] | [address] | | | | | [address] | [place] [address] | | | | | [place] [address] | | | | | | [phone] | | | +--------+ + + + [...] | | | | | [place] [address] | | | | | | [phone] | | | | | | | [...] [place] | | | | | | [address] | | | | | | | | +--------+ + + + + documented as of this encounter Procedures + +--------+ + + + | Procedure Name | Priori | Date/Time | Associated Diagnosis | Comments | | | ty | | | | + +--------+ + + + | XR ABDOMEN SUPINE | Routin | 12/15/2017 | | Results for this | | AND UPRIGHT | e | 4:40 PM | | procedure are in the | | | | PDT | | results section. | + +--------+ + + + documented in this encounter Results XR Abdomen Supine and Upright (12/15/2017 4:40 PM PDT) + + | Specimen | + [...]
--- OUTSIDE RECORDS SUMMARY | ~2020-02-18 | XMS | Encounter Summary ---
Demographics + + + | Address | [address] | | | [place] [address] | + + + | Home Phone | | + + + | Preferred Language | Unknown | + + + | Marital Status | Single | + + + | Episcopal Affiliation | CHR | + + + [...] | + + +---------+ + | Mati Mooyd | ECON | Unknown | | + + +---------+ + | Christine Moody | ECON | Unknown | | + + +---------+ + Care Team Providers + +------+ + | Care Ruby Rails Developer Name | Role | Phone | [...] [address] | | | | | [place] [facility] | [facility] | | | | | and Healing [address] | [place] [address] | | | | | [address] Mailcode: | [phone] | | | | | [facility] | | | | | | Health and Healing, | | | | | | [facility] | | | | | | [place], [place] | | | | | | [address] | | | | | | [phone] | | | +--------+ + + + [...]
--- OUTSIDE RECORDS SUMMARY | ~2020-02-18 | XMS | Encounter Summary ---
Demographics + + + | Address | [address] | | | [place] [address] | + + + | Home Phone [...] Team Providers + +------+ + | Care Carpentry Foreman Name | Role | Phone | + +------+ + | Reji Morales MD | PCP | | + +------+ + Encounter Details +--------+ + + + + | Date | Type | Department | Care Team | Description | +--------+ + + + + | 04/30/ | Documentati | Neurology Movement | Joslyn Galdamez MD | | | 2015 | on | Disorders Clinic at | [address] | | | | | [facility] | [place], [place] | | | | | and Healing [address] | [address] | | | | | [address] Mailcode: | [phone] | | | | | [facility] | | | | | | Health and Healing, | | | | | | [facility] | | | | | | [place], [place] | | | | | | [address] | | | | | | [phone] | | | +--------+ + + + [...]
--- OUTSIDE RECORDS SUMMARY | ~2020-02-18 | XMS | Encounter Summary ---
Demographics + + + | Address | [address] | | | [place] [address] | + + + | Home Phone | | + + + | Preferred Language | Unknown | + + + | Marital Status | Single | + + + | Rastafari Affiliation | CHR | + + + | Race | White | + + + | Ethnic Group | Not or | + + + Author + + + | Author | [facility] | + + + | Organization | [facility] | + + + | Address [...] Team Providers + +------+ + | Care Peoplesoft Functional Analyst Name | Role | Phone | [...] [place] | | | | | [facility] | [facility] [place] | | | | | and Healing [address] | [address] | | | | | [address] Mailcode: | [phone] | | | | | [address] | | | | | | Health and Healing, | | | | | | [address] | | | | | | [facility] [place] | | | | | | [address] | | | | | | [phone] | | | +--------+--------+ + + + [...]
--- OUTSIDE RECORDS SUMMARY | ~2020-02-18 | XMS | Encounter Summary ---
Demographics + + + | Address | [address] | | | [place] [address] | + + + | Home Phone | | + + + | Preferred Language | Unknown | + + + | Marital Status | | + + + | Gnosticism Affiliation | Unknown | + + + | Race | Unknown | + + + | Ethnic Group | Unknown | + + + Author + + + | Author | [facility] | | | and [place] | + + + | Organization | [facility] | | | and [place] | + + + | Address | Unknown | + + + | Phone | Unavailable | + + + Support + + + + + | Name | Relationship | Address | Phone | + + + + + | Mati Moody | YOANNA | [place] | | | | | [address] | | + + + + + | Ayde Rojas | ECON | [place] | | | | | [address] | | + + + + + Care Team Providers + +------+ + | Care Slide Fastener Repairer Name | Role | Phone | + +------+ + | Adina Lloyd MD | PCP | | + +------+ + Reason for Visit Evaluate & Treat (Routine) + +--------+ + + + + | Status | Reason | Specialty | Diagnoses / | Referred By | Referred To | | | | | Procedures | Contact | Contact | + +--------+ + + + + | Authorizatio | | Nurse | Diagnoses | Ming, | Gaston, | | n not | | Practitioner | PROSTATE | Donavon Le MD | Irene Felix, | | Required | | / Radiation | Procedures | [address] | PROPULSION GENERATOR REPAIRER [address] | | | | Oncology | [place] OFFICE | [facility] | [facility] | | | | | OUTPATIENT | [place], [place] | [place], | | | | | VIS[address] | [address] | [place] [address] | | | | | MINUTES | Phone: | Phone: | | | | | | [phone] | [phone] | | | | | | Fax: | Fax: | | | | | | [phone] | [phone] | + +--------+ + + + + Encounter Details +--------+ + + + + | Date | Type | Department | Care Team | Description | +--------+ + + + + | 01/05/ | Hospital | [facility] | Irene Feldman | Prostate cancer | | 2020 | Encounter | [facility] | FERMIN Felix [address] | (HCC) (Primary Dx) | | | | ONCOLOGY CLINIC [address] | [address] [facility] | | | | | [address] | [place] [address] | | | | | [place] [address] | [phone] | | | | | [phone] | | | +--------+ + + + [...] documented as of this encounter Progress Notes Irene Feldman ARNP - 01/06/2020 2:30 PM PDTFormatting of this note might be diffe rent from the original. Radiation Oncology Telephone Visit Patient ID: Nima Moody is a 69 y.o. male. The encounter diagnosis was Prostate cancer (HCC). Prostate cancer (HCC) 12/12/2017 Initial Diagnosis Prostate cancer (HCC) Nima Moody was initially diagnosed with prostate cancer in September 2017. He presented with an elevated PSA, 5.61 with 11% free fraction August 2017. Prostate biopsy on 09/14/17 identified Kim 4+4 = 8 involving 6 22% of core tissue, detailed below. He opted for p rostatectomy, performed at [facility] on 12/08/17, final pathology demonstrated pT2 pN0, Kim 3+ 4=7, negative margin, +PNI. 02/05/2019 - 03/25/2019 Radiation Therapy Total dose delivered 6,800 cGy in a total of 34 fractions. Subjective The patient AUA today is 19, however he states he is "getting a little bit better" and his symptoms are "completely tolerable." He is very thrilled to hear that his PSA is 0.055, whi ch is the lowest it has been since his prostatectomy. He asks today about whether or not he needs to have a colonoscopy that he has scheduled. Participants: Patient Medications and Allergies Current Outpatient Medications Medication Sig Dispense Refill amantadine (SYMMETREL) 100 MG TABS Take 100 mg by mouth 2 times daily. carbidopa-levodopa (SINEMET) 25-100 mg per tablet Take 0.5 tablets by mouth 6 times cezar ly. enalapril (VASOTEC) 20 MG tablet Take 1 tablet by mouth Daily. hydroCHLOROthiazide 25 mg tablet Take 1 tablet by mouth Daily. 0 ketoconazole (NIZORAL) 2% shampoo Apply 1 Dose topically as needed. metoprolol tartrate (LOPRESSOR) 50 mg tablet Take 1 tablet by mouth 2 times daily. polyethylene glycol (MIRALAX) powder Take 17 g by mouth Daily. potassium chloride (MICRO-K) 10 mEq CR capsule Take 1 capsule by mouth Daily. No current facility-administered medications for this encounter. Allergies No active allergies Intolerance No active intolerances/contraindications ROS REVIEW OF SYSTEMS Constitutional: Denies fatigue. Denies high fevers, shaking chills, anorexia, nausea, vomit ing, weight loss, or night sweats. Appetite without changes. Ear, Nose, Mouth, Throat: Reports some difficulty swallowing to to Parkinson's. Denies alpa nophagia, dysphagia, or tinnitus. Cardiovascular: Denies shortness of breath, dyspnea on exertion, chest pain, palpitations o r orthopnea. Respiratory: Denies cough, hemoptysis, or sputum production. Gastrointestinal: Denies abdominal pain, constipation, diarrhea, melena, or bright red bloo d per rectum. Genitourinary: Denies hematuria or dysuria. Musculoskeletal: Reports neck and wrist pain. Neurologic: Denies headache, visual changes, or numbness/tingling of the extremities. Endocrine: Reports bilateral lower extremity edema. Denies peripheral edema or heat/cold i ntolerance. Hematologic: Reports easy bruising. Denies spontaneous bruising or bleeding. Integumentary: Denies rash, wounds or other skin concerns. Pain: Denies pain. Note: Telephone follow up for prostate cancer, patient completed radiation treatment on . My chart: Inactive Questionnaires Questionnaires: IPSS Questionnaire (AUA-7): Over the past month 1) How often have you had a sensation of not emptying your bladder completely after you fi soheila urinating? 4 - More than half the time 2) How often have you had to urinate again less than two hours after you finished urinatin g? 4 - More than half the time 3) How often have you found you stopped and started again several times when you urinated? 4 - More than half the time 4) How difficult have you found it to postpone urination? 1 - Less than 1 time in 5 5) How often have you had a weak urinary stream? 2 - Less than half the time 6) How often have you had to push or strain to begin urination? 1-Less then 1 in 5 7) How many times did you most typically get up to urinate from the time you went to bed un til the time you got up in the morning? 3 - 3 times Total score: 0-7 mildly symptomatic 8-19 moderately symptomatic 20-35 severely symptomatic Total: 19 Assessment & Plan 1. Prostate cancer: Patient completed radiation treatment 9 months ago. Overall, he feels alcira arias is doing well in this regard. We will continue to follow him every 6 months with a PSA. The patient states that he had a colonoscopy "about 4 years ago" and is scheduled to have a nother. He wants to know if he can postpone it. He is unsure if he has ever had polyps found on previous colonoscopies. He states his credit collections specialist's name is Dr. Sky Galarza ). I asked him to call their office to discuss but he states he would prefer me to call instead. After our visit was completed, I called Dr. Galarza's office and spoke with Lesia. She states t hat the patient is scheduled for 01/15/20 but that because colonoscopies call under the catego ry of "elective surgery" this will have to be moved due to the Stay Home Stay Healthy order due to the COVID-19 pandemic. She plans to call him closer to the date in case the order ge ts extended. She states that his last colonoscopy was in January 2015 and their report states th at at that time the patient had 2 adenomatous polyps removed. I attempted to call the patient back. My recommendation is to proceed with colonoscopy, but at a later date. There is no reason, in the absence of symptoms, that his colonoscopy could not be postponed by 3 to 4 months, to a time when hopefully the COVID-19 pandemic has slowe d. I was unable to reach the patient. Either I or my nurse will continue to try to contact him. Follow up Instructions: 1. Follow-up in 6 months with PSA drawn prior. 2. Call the patient back to let him know my above recommendation about rescheduling. Addend um: Patient contacted 01/06/2020 at 3:28pm. We discussed the above recommendations. fang Graf at Dr. Galarza's office will call the patient to reschedule colonoscopy. Obtain res ults prior to patient's next visit. This consultation was provided via telemedicine using two-way, real-time interactive teleco mmunication technology between the patient and the physician. The interactive telecommunica tion technology included audio without video. The patient was offered telemedicine as an op tion for care delivery to decrease risk of exposure to COVID-19 during the current pandemic crisis. She verbally consented to this option. Patient has not been seen in office within the past 7 days, and outcome of this call is not to recommend soonest available office visit. Clinical discussion length: 11-20 min ([id number]) FERMIN Lynch, AOCNP Department of Radiation Oncology [facility] Office: [phone] documented i n this encounter Plan of Treatment +--------+ + + + + | Date | Type | Specialty | Care Team | Description | +--------+ + + + + | 03/04/ | Office | Neurology | Leslie Caballero, | | | 2019 | Visit | | MD [address]all[address] [facility] | | | | | | [address] | | | | | | [facility] [place] [address] | | | | | | [phone] | | | | | | | | +--------+ + + + + | 07/03/ | Appointment | Oncology | | | | 2019 | | | | | +--------+ + + + + | 07/03/ | Appointment | Radiation Oncology | Sherrell Hadley | | | 2019 | | | MD Manish [address] | | | | | | [address] [place] | | | | | | [address] | | | | | | | | +--------+ + + + + documented as of this encounter Visit Diagnoses + + | Diagnosis | + + | Prostate cancer (HCC) - Primary Malignant neoplasm of prostate | + + documented in this encounter
--- OUTSIDE RECORDS SUMMARY | ~2020-02-18 | XMS | Encounter Summary ---
Demographics + + + | Address | [address] | | | [place] [address] | + + + | Home Phone [...] + + + | Author | [facility] | + + + | Organization | [facility] | + + + | [...] Team Providers + +------+ + | Care Black Top Spreader Machine Operator Name | Role | Phone [...] Description | +--------+---------+ + + + | 11/05/ | Office | Neurology Movement | Krishna Mcmahon, | Parkinson disease | | 2012 | Visit | Disorders Clinic at | [address] | ([facility]) (Primary Dx) | | | | [facility] | [address] | | | | | and Healing [address] | [place] [address] | | | | | Arvin Yanez Mailcode: | [phone] | | | | | [address] | | | | | | Health and Healing, | | | | | | [facility], | | | | | | [place], [place] | | | | | | [address] | | | | | | [phone] | | | +--------+---------+ + + + [...] + + + | Blood Pressure | 127/70 | 11/05/2012 2:11 PM | | | | | PST | | + + + + + | Pulse | 66 | 11/05/2012 2:11 PM | | | | | PST | | + + + + + | Temperature | - | - | | + + + + + | Respiratory Rate | 15 | 11/05/2012 2:09 PM | | | | | PST | | + + + + + | Oxygen Saturation | - | - | | + + + + + | Inhaled Oxygen | - | - | | | Concentration | | | | + + + + + | Weight | 95.7 kg (211 lb) | 11/05/2012 2:09 PM | | | | | PST | | + + + + + | Height | - | - | | + + + + + | Body Mass Index | 26.37 | 01/17/2011 2:53 PM | | | | | PDT | | + + + + + documented in this encounter Progress Notes Krishna Mcmahon MD - 11/05/2012 2:50 PM PSTBP better, on half as much medication Lipids better Nima Moody is a 62 y.o. male returning to the Movement Disorders Clinic for follow up Parkinson's Disease. He is accompanied by his daughter and new grandson. Since his last visit, Nima has continued to do very well, having had something of a "healt h epiphany" a year ago, with the initiation of an exercise program and healthy diet with res ultant weight loss and improvement in his blood pressure and [facility]. He is justifiably proud of himself for the changes in lifestyle; his blood pressure cont rol continues to be good, even as he has reduced his BP medications, and his lipid profile i s also better. He notes no great change in his Parkinson's Disease symptoms. With some pro mpting form me, he does endorse occasional dyskinesia in his left lower extremity. Nima's current Parkinson's Disease medications are: Sinemet 25/250 QID (occasionally TID) Exam shows BP 127/70 | Pulse 66 | RR 15 | Wt 95.709 kg (211 lb). His general physical exam is unremarkable; he looks good. Speech is not hypophonic at all. Mental status is normal and affect is bright. He has no masked facies. He has an occasional rest tremor in his lef t leg and hand which alternates with some very mild dyskinesia in the leg. He also has a mi ld sustentiona nd action tremor consistent with benign essential tremor, a coexistent diagno sis. Tone is mildly increased on the left more than the right. Fingertaps, hand movements, and heel taps are all quite good in his "on" state today. Nima is able to arise from the c hair without a pushoff and walks with a normal base, slightly reduced left armswing, good st ride length, and fluid turns. He shows no retropulsion on a pull test. Impression: Idiopathic Parkinson's Disease, with coexistent benign essential tremor. This is the first time I have seen dyskinesia on Nima's exam, but he is barely aware of it ; I do not think any adjustments in his medication regimen are needed. He is happy with his level of function: his tremor is under adequate control from his perspective and he does no t want to change anything at this time. I encouraged him to continue with his healthy lifes tyle and will see him back in about 6 months. I spent 30 minutes with the patient. Greater than 50% of the time was spent counseling the patient regarding the above issues. KRISHNA MCMAHON MD documented in this encounter Plan of Treatment Not on filedocumented as of this encounter Visit Diagnoses + + | Diagnosis | + + | Parkinson disease (HCC) - Primary Paralysis agitans | + + documented in this encounter
--- OUTSIDE RECORDS SUMMARY | ~2020-02-18 | XMS | Clinical Summary ---
Demographics + + + | Address | [address] | | | [place] [address] | + + + | Home Phone | | + + + | Preferred Language | Unknown | + + + | Marital Status | | + + + | Protestant Affiliation | Unknown | + + + | Race | Unknown | + + + | Ethnic Group | Unknown | + + + Author + + + | Author | [facility] | | | and [place] | + + + | Organization | [facility] | | | and [place] | + + + | Address | Unknown | + + + | Phone | Unavailable | + + + Support + + + + + | Name | Relationship | Address | Phone | + + + + + | Mati Moody | YOANNA | [place] | | | | | [address] | | + + + + + | Ayde Rojas | ECON | [place] | | | | | [address] | | + + + + + Care Team Providers + +------+ + | Care Chrome Tanner Name | Role | Phone | + +------+ + | Adina Lloyd MD | PCP | | + +------+ + Allergies No Known Allergies Medications + + + +---------+------+------+-------+ | Medication | Sig | Dispensed | Refills | Star | End | Statu | | | | | | t | Date | s | | | | | | Date | | | + + + +---------+------+------+-------+ | carbidopa-levodopa | Take 0.5 tablets by | | 0 | 01/0 | | Activ | | (SINEMET) 25-100 mg | mouth 6 times daily. | | | /20 | | e | | per tablet | | | | 16 | | | + + + +---------+------+------+-------+ | enalapril | Take 1 tablet by | | 0 | | | Activ | | (VASOTEC) 20 MG | mouth Daily. | | | | | e | | tablet | | | | | | | + + + +---------+------+------+-------+ | ketoconazole | Apply 1 Dose | | 0 | 03/2 | | Activ | | (NIZORAL) 2% shampoo | topically as needed. | | | 6/20 | | e | | | | | | 19 | | | + + + +---------+------+------+-------+ | metoprolol | Take 1 tablet by | | 0 | | | Activ | | tartrate (LOPRESSOR) | mouth 2 times daily. | | | | | e | | 50 mg tablet | | | | | | | + + + +---------+------+------+-------+ | potassium chloride | Take 1 capsule by | | 0 | 05/2 | | Activ | | (MICRO-K) 10 mEq CR | mouth Daily. | | | 20 | | e | | capsule | | | | 16 | | | + + + +---------+------+------+-------+ | amantadine | Take 100 mg by mouth | | 0 | 03/3 | | Activ | | (SYMMETREL) 100 MG | 2 times daily. | | | 20 | | e | | TABS | | | | 18 | | | + + + +---------+------+------+-------+ | polyethylene | Take 17 g by mouth | | 0 | | | Activ | | glycol (MIRALAX) | Daily. | | | | | e | | powder | | | | | | | + + + +---------+------+------+-------+ | | Take 1 tablet by | | 0 | /0 | | Activ | | hydroCHLOROthiazide | mouth Daily. | | | 12/29 | | e | | 25 mg tablet | | | | 19 | | | + + + +---------+------+------+-------+ Active Problems + + + | Problem | Noted Date | + + + | Benign colonic polyp | 01/22/2019 | + + + | Constipation, chronic | 01/22/2019 | + + + | Seborrheic dermatitis | 01/22/2019 | + + + | Diverticulosis of colon | 01/22/2019 | + + + | Dyskinesia, drug-induced | 01/22/2019 | + + + | Erectile dysfunction | 01/22/2019 | + + + | GERD (gastroesophageal reflux disease) | 01/22/2019 | + + + | Gout | 01/22/2019 | + + + | Hydrocele | 01/22/2019 | + + + | Hyperlipidemia | 01/22/2019 | + + + | Hypothyroidism | 01/22/2019 | + + + | EIC (epidermal inclusion cyst) | 01/22/2019 | + + + | Multiple nevi | 01/22/2019 | + + + | Actinic keratosis | 01/22/2019 | + + + | Slowing of urinary stream | 01/22/2019 | + + + | Squamous cell carcinoma of face | 01/22/2019 | + + + | Squamous cell carcinoma of left wrist | 01/22/2019 | + + + | Type 2 diabetes mellitus | 01/22/2019 | + + + | Vitamin D deficiency | 01/22/2019 | + + + | Weakness of left side of body | 01/22/2019 | + + + | Acute pseudo-obstruction of colon | 12/15/2017 | + + + | Essential hypertension | 12/15/2017 | + + + | History of radical prostatectomy | 12/15/2017 | + + + | Dysphagia | 12/12/2017 | + + + | Prostate cancer | 12/12/2017 | + + + | Benign essential tremor | 07/06/2006 | + + + | Parkinson's disease | 07/06/2006 | + + + Encounters +--------+ + + + + | Date | Type | Specialty | Care Team | Description | +--------+ + + + + | 01/05/ | Hospital | Radiation Oncology | Irene Feldman | Prostate cancer | | 2019 | Encounter | | FERMIN Felix | (HCC) (Primary Dx) | +--------+ + + + + | 01/05/ | Orders Only | Radiation Oncology | Sherrell Hadley | Prostate cancer | | 2019 | | | M, MD | (HCC) (Primary Dx) | +--------+ + + + + | 12/13/ | Telephone | Oncology | Sherrell Hadley | Follow-up | | 2019 | | | MD Man[place] | | +--------+ + + + + | 12/08/ | Telephone | Neurology | Leslie Caballero, | New Patient (12/12/19 | | 2019 | | | MD | Appointment ) | +--------+ + + + + from Last 3 Months Immunizations + + + + | Name | Administration Dates | Next Due | + + + + | INFLUENZA PF 4Y OR | 07/25/2018 | | | >,QUAD DERIVED FROM | | | | TISS-CULT | | | + + + + | INFLUENZA PF 65 Y OR | 05/30/2017 | | | >,TRIVALENT (FLUAD) | | | + + + + | INFLUENZA PF | 07/26/2016, 07/09/2015 | | | QUAD(PED/ADOL/ADULT) | | | | ,PSKT or VIAL | | | + + + + | INFLUENZA PF | 05/26/2013, 07/01/2012, 06/12/2011 | | | TRIVALENT(PED/ADOL/A | | | | FRANCO) PSKT | | | + + + + | INFLUENZA, | 06/26/2009 | | | UNSPECIFIED | | | | FORMULATION | | | + + + + | PNEUMOCOCCAL | 05/30/2017 | | | POLYSACCHARIDE | | | | 23-VALENT (PPSV23) | | | + + + + | ZOSTER NON-LIVE | 11/02/2018, 05/01/2018 | | | (SHINGRIX) | | | + + + + | ZOSTER, 1 DOSE | 08/23/2010 | | | (ZOSTAVAX) | | | + + + + Family History + + +------+ + | Medical History | Relation | Name | Comments | + + +------+ + | Cancer | Brother | | in lymph nodes in neck | + + +------+ + | HIV | Brother | | | + + +------+ + | Diabetes | Father | | | + + +------+ + | Hypertension | Father | | | + + +------+ + | Stroke | Mother | | | + + +------+ + + +------+ + + | Relation | Name | Status | Comments | + +------+ + + | Brother | | | | + +------+ + + | Brother | | | | + +------+ + + | Father | | | | + +------+ + + | Mother | | | | + +------+ + + Social History + +-------+ +--------+------+ [...] recent travel history available. | + + Last Filed Vital Signs + [...] Height | 190.5 cm (6' 3") | 01/22/2019 10:00 AM | | | | | PDT | | + + + + + | Body Mass Index | 24.33 | 01/22/2019 10:00 AM | | | | | PDT | | + + + + + Plan of Treatment +--------+ + + + + | Date | Type | Specialty | Care Team | Description | +--------+ + + + + | 03/04/ | Office | Neurology | Leslie Caballero, | | | 2019 | Visit | | MD Dallin [facility] | | | | | | [address] | | | | | | [place] [address] | | | | | | [phone] | | | | | | | [...] [place] | | | | | | [address] | | | | | | | | +--------+ + + + + + + + + + | Health Maintenance | Due Date | Last Done | Comments | + + + + + | Hepatitis C | | | | | Screening | 0 | | | + + + + + | Vaccine: | | | | | Dtap/Tdap/Td (1 - | 1 | | | | Tdap) | | | | + + + + + | Diabetic Eye Exam | | | | | | 8 | | | + + + + + | Diabetic Foot Exam | | | | | | 8 | | | + + + + + | Hemoglobin A1c | | | | | Screening | 8 | | | + + + + + | Colorectal Cancer | | | | | Screening | 0 | | | | (Colonoscopy) | | | | + + + + + | Vaccine: | | 05/30/2017 | | | Pneumococcal 65+ (2 | 8 | | | | of 2 - PCV13) | | | | + + + + + | Adult Annual | | | | | Wellness Visit | 9 | | | + + + + + | Statin Therapy | | | | | (optimal intensity) | 9 | | | + + + + + | AAA Screening | Completed | 12/15/2017 | | + + + + + | Vaccine: Zoster | Completed | 11/02/2018, 05/01/2018, | | | | | 08/23/2010 | | + + + + + | Vaccine: Influenza | Completed | 06/25/2019, 07/25/2018, | | | | | 05/30/2017, Additional history | | | | | exists | | + + + + + Results Not on filefrom Last 3 Months Insurance + +--------+ +--------+ +---------+--------+ | Payer | Benefi | Subscriber | Effect | Phone | Address | Type | | | t Plan | ID | jania | | | | | | / | | Dates | | | | | | Group | | | | | | + +--------+ +--------+ +---------+--------+ | MEDICARE | MEDICA | [id number] | 12/11/19 | [phone] | | Medica | | | RE | | 15-Pre | 5 | | re | | | PART A | | sent | | | | | | AND B | | | | | | + +--------+ +--------+ +---------+--------+ | MEDICARE | MEDICA | [id number] | 12/11/19 | [phone] | | Medica | | | RE | | 15-Pre | 5 | | re | | | PART A | | sent | | | | | | AND B | | | | | | + +--------+ +--------+ +---------+--------+ | BCBS | BCBS | [id number] | 09/11/19 | | | Indemn | | | OOS | 9 | 16-Pre | | | ity | | | MDCR | | sent | | | | | | SUPPL | | | | | | + +--------+ +--------+ +---------+--------+ + +--------+ +--------+ + + | Guarantor Name | Accoun | Relation to | Date | Phone | Billing Address | | | t Type | Patient | of | | | | | | | | | | + +--------+ +--------+ + + | Nima Moody | Person | Self | [birth year] | [address] | | | al/Fam | | 1950 | [phone] | [place] [address] | | | cierra | | | 9 (Home) | | | | | | | [phone] | | | | | | | 9 (Work) | | + +--------+ +--------+ + + | Nima Moody | Person | Self | [birth year] | [address] | | | al/Fam | | 1950 | [phone] | [place] [address] | | | cierra | | | 9 (Home) | | | | | | | [phone] | | | | | | | 9 (Work) | | + +--------+ +--------+ + + Advance Directives + + + + + | Type | Date Recorded | Patient | Explanation | | | | Basketball Assembler | | + + + + + | Power of | | | | | Senior Electronics Design Engineer | | | | + + + + + | Advance | | | | | Directive | | | | + + + + +
--- OUTSIDE RECORDS SUMMARY | ~2020-02-18 | XMS | Encounter Summary ---
Demographics + + + | Address | [address] | | | [place] [address] | + + + | Home Phone | | + + + | Preferred Language | Unknown | + + + | Marital Status | | + + + | Yarsanism Affiliation | Unknown | + + + | Race | Unknown | + + + | Ethnic Group | Unknown | + + + Author + + + | Author | [facility] | | | and [place] | + + + | Organization | [facility] | | | and [place] | + + + | Address | Unknown | + + + | Phone | Unavailable | + + + Support + + + + + | Name | Relationship | Address | Phone | + + + + + | Mati Moody | YOANNA | [place] | | | | | [address] | | + + + + + | Ayde Rojas | ECON | [place] | | | | | [address] | | + + + + + Care Team Providers + +------+ + | Care Renewable Energy Engineer Name | Role | Phone | [...] | | | ONCOLOGY CLINIC [address] | [place], [place] | | | | | [facility] | [address] | | | | | [place] [address] | | | | | | [phone] | | | +--------+ + + + [...] | | | | | [place] [address] | | | | | | [phone] | | | | | | | [...] [place] | | | | | | [address] | | | | | | | | +--------+ + + + + documented as of this encounter Visit Diagnoses Not on filedocumented in this encounter"
--- OUTSIDE RECORDS SUMMARY | ~2020-02-18 | XMS | Encounter Summary ---
Demographics + + + | Address | [address] | | | [place] [address] | + + + | Home Phone | | + + + | Preferred Language | Unknown | + + + | Marital Status | | + + + | Baptist Affiliation | Unknown | + + + | Race | Unknown | + + + | Ethnic Group | Unknown | + + + Author + + + | Author | [facility] | | | and [place] | + + + | Organization | [facility] | | | and [place] | + + + | Address | Unknown | + + + | Phone | Unavailable | + + + Support + + + + + | Name | Relationship | Address | Phone | + + + + + | Mati Moody | YOANNA | [place] | | | | | [address] | | + + + + + | Ayde Rojas | ECON | [place] | | | | | [address] | | + + + + + Care Team Providers + +------+ + | Care Painter Set Name | Role | Phone | + +------+ + | Adina Lloyd MD | PCP | | + +------+ + Encounter Details +--------+ + + + + | Date | Type | Department | Care Team | Description | +--------+ + + + + | 03/21/ | Orders Only | [facility] | Sherrell Hadley | Prostate cancer | | 2019 | | [facility] RAD[facility] | MD Manish [address] | (HCC) (Primary Dx) | | | | ONCOLOGY CLINIC [address] | [place], [place] | | | | | [address] | [address] | | | | | [place] [address] | | | | | | [phone] | | | +--------+ + + + [...] | | | | | [place] [address] | | | | | | [phone] | | | | | | | [...] [place] | | | | | | [address] | | | | | | | | +--------+ + + + + + +------+--------+ + + | Name | Type | Priori | Associated Diagnoses | Order Schedule | | | | ty | | | + +------+--------+ + + | PSA, Diagnostic | Lab | Routin | Prostate cancer | Expected: | | | | e | (HCC) | 06/21/2019, Expires: | | | | | | 03/21/2020 | + +------+--------+ + + documented as of this encounter Visit Diagnoses + + | Diagnosis | + + | Prostate cancer (HCC) - Primary Malignant neoplasm of prostate | + + documented in this encounter"
--- OUTSIDE RECORDS SUMMARY | ~2020-02-18 | XMS | Encounter Summary ---
Demographics + + + | Address | [address] | | | [place] [address] | + + + | Home Phone | | + + + | Preferred Language | Unknown | + + + | Marital Status | Single | + + + | Taoism Affiliation | CHR | + + + | Race | White | + + + | Ethnic Group | Not or | + + + Author + + + | Author | [facility] | + + + | Organization | [facility] | + + + | Address [...] Team Providers + +------+ + | Care Brim Stretching Machine Operator Name | Role | Phone [...] + + | 12/08/ | Hospital | Diagnostic Imaging | Yi, | | | 2018 | Encounter | [address] | Adeel Stephens MD | | | | | [address] | [address] | | | | | [place], [place] | [place], | | | | | [address] | [place] [address] | | | | | | [phone] | | | | | | | [...] + + documented in this encounter Results INTRAPROCEDURE IMAGING (12/08/2017 9:47 AM PDT) + + | Specimen | + + | | + + + + + | Narrative | Performed At | + + + | See admission or procedure notes for details of any intraprocedure | | | images obtained. | | + + + documented in this encounter Visit Diagnoses Not on filedocumented in this encounter"
--- OUTSIDE RECORDS SUMMARY | ~2020-02-18 | XMS | Encounter Summary ---
Demographics + + + | Address | [address] | | | [place] [address] | + + + | Home Phone | | + + + | Preferred Language | Unknown | + + + | Marital Status | | + + + | Spiritism Affiliation | Unknown | + + + | Race | Unknown | + + + | Ethnic Group | Unknown | + + + Author + + + | Author | [facility] | | | and [place] | + + + | Organization | [facility] | | | and [place] | + + + | Address | Unknown | + + + | Phone | Unavailable | + + + Support + + + + + | Name | Relationship | Address | Phone | + + + + + | Mati Moody | YOANNA | [place] | | | | | [address] | | + + + + + | Ayde Rojas | ECON | [place] | | | | | [address] | | + + + + + Care Team Providers + +------+ + | Care Organ Pipe Voicer Name | Role | Phone | + +------+ + | Adina Lloyd MD | PCP | | + +------+ + Encounter Details +--------+ + + + + | Date | Type | Department | Care Team | Description | +--------+ + + + + | 01/22/ Hospital | [facility] | Sherrell Hadley | | | 2019 | Encounter | MED CTR RADIATION | M, [address] | | | | | ONCOLOGY [address] | [place], [place] | | | | | [place], | [address] | | | | | [place] [address] | | | | | | [phone] | | | +--------+ + + + [...] + + + +---------+ + + | cholecalciferol | Take 2,000 Units by | | 0 | | | | (VITAMIN D-3) 2000 | mouth Daily. | | | | 9 | | units TABS | | | | | | + + + +---------+ + + | | Take 12.5 mg by | | 0 | | | | hydroCHLOROthiazide | mouth Daily. | | | | 9 | | (HYDRODIURIL) 12.5 | | | | | | | MG tablet | | | | | | + + + +---------+ + + | niacinamide 500 MG | Take 500 mg by mouth | | 0 | | | | tablet | 2 times daily (with | | | | 9 | | | breakfast & | | | | | | | dinner). | | | | | + + [...] Neurology | Leslie Caballero, | | | 2020 | Visit | | MD Dallin [address] | | | | | | [address] | | | | | | [place] [address] | | | | | | [phone] | | | | | | | | +--------+ + + + + | 07/03/ | Appointment | Oncology | | | | 2019 | | | | | +--------+ + + + + | 07/03/ | Appointment | Radiation Oncology | Sherrell Hadley | | | 2019 | | | MD Raghav Hammond [address] | | | | | | [place] | | | | | | [address] | | | | | | | | +--------+ + + + + documented as of this encounter Visit Diagnoses Not on filedocumented in this encounter"
--- OUTSIDE RECORDS SUMMARY | ~2020-02-18 | XMS | Encounter Summary ---
Demographics + + + | Address | [address] | | | [place] [address] | + + + | Home Phone [...] Team Providers + +------+ + | Care Production Proofreader Name | Role | Phone | + +------+ + | Reji Morales MD | PCP | | + +------+ + Encounter Details +--------+ + + + + | Date | Type | Department | Care Team | Description | +--------+ + + + + | 07/16/ | Document-Sc | UNKNOWN DEPARTMENT | Unknown . | | | 2013 | anned | [address] | | | | | | [address] | | | | | | [place], [place] | | | | | | [address] | | | +--------+ + + + [...]
--- OUTSIDE RECORDS SUMMARY | ~2020-02-18 | XMS | Encounter Summary ---
Demographics + + + | Address | [address] | | | [place] [address] | + + + | Home Phone | | + + + | Preferred Language | Unknown | + + + | Marital Status | Single | + + + | Bahai Affiliation | CHR | + + + [...] Team Providers + +------+ + | Care Doughnut Icer Machine Name | Role | Phone | + +------+ + | Reji Morales MD | PCP | | + +------+ + Encounter Details +--------+ + + + + | Date | Type | Department | Care Team | Description | +--------+ + + + + | 12/08/ | Procedure | 6[address] Intra Op [id number] | | | | 2017 | Pass | [address] | | | | | | [place] [facility] | | | | | | Hospital Admitting | | | | | | Desk Located on the | | | | | | 9th floor | | | | | | [place], [place] | | | | | | [address] | | | +--------+ + + + [...]
--- OUTSIDE RECORDS SUMMARY | ~2020-02-18 | XMS | Encounter Summary ---
Demographics + + + | Address | [address] | | | [place] [address] | + + + | Home Phone [...] Team Providers + +------+ + | Care Sewing Trimmer Name | Role | Phone | + [...] Disorders Clinic at | [address] | ([facility]) (Primary Dx) | | | | [facility] | [facility] | | | | | and Connie [address] | [place] [address] | | | | | [address]ane[address] Mailcode: | [phone] | | | | | [address] | | | | | | Health and Healing, | | | | | | [facility], | | | | | | [place], [place] | | | | | | [address] | | | | | | [phone] | | | +--------+---------+ + + + [...] (16 and above is clinically significant): 19* Velva (10 and above is clinically significant): 2 CG Strain (30 and above is clinically significant): --- Irene Rivas RN isandroKrishna - 01/29/2008 10:22 AM PDT Nima Moody is a 58 y.o. 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 He drove here from [place] yesterday and visited with his daughter who lives in [place]. He is unaccompanied for today's visit. He [...] occasionally. 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
--- OUTSIDE RECORDS SUMMARY | ~2020-02-18 | XMS | Clinical Summary ---
Demographics + + + | Address | [address] | | | [place] [address] | + + + | Home Phone | | + + + | Preferred Language | Unknown | + + + | Marital Status | | + + + | Baptism Affiliation | Unknown | + + + | Race | Unknown | + + + | Ethnic Group | Unknown | + + + Author + + + | Author | [facility] | | | and [place] | + + + | Organization | [facility] | | | and [place] | + + + | Address | Unknown | + + + | Phone | Unavailable | + + + Support + + + + + | Name | Relationship | Address | Phone | + + + + + | Mati Moody | YOANNA | [place] | | | | | [address] | | + + + + + | Ayde Rojas | ECON | [place] | | | | | [address] | | + + + + + Care Team Providers + +------+ + | Care Continuous Process Machine Operator Name | Role | Phone [...] | | | | | | [place] [address] | | | | | | [phone] | | | | | | | [...] [place] | | | | | | [address] | | | | | | | [...] +--------+ +---------+--------+ | MEDICARE | MEDICA | [id number] | 12/11/19 | [phone] | | Medica | | | RE | | 15-Pre | 5 | | re | | | PART A | | sent | | | | | | AND B | | | | | | + +--------+ +--------+ +---------+--------+ | MEDICARE | MEDICA | [id number] | 12/11/19 | [phone] | | Medica | | | RE | | 15-Pre | 5 | | re | | | PART A | | sent | | | | | | AND B | | | | | | + +--------+ +--------+ +---------+--------+ | BCBS | BCBS | [id number] | 09/11/19 | | | Indemn | [...] Person | Self | [birth year] | [address] | | | al/Fam | | 1950 | [phone] | [place] [address] | | | cierra | | | 9 (Home) | | | | | | | [phone] | | | | | | | 9 (Work) | | + +--------+ +--------+ + + | Nima Moody | Person | Self | [birth year] | | [address] | | | al/Fam | | 1950 | [phone] | [place] [address] | | | cierra | | | 9 (Home) | | | | | | | [phone] | | | | | | | 9 (Work) | | + +--------+ +--------+ + + Advance Directives + + + + + | Type | Date Recorded | Patient | Explanation | | | | Fuel Cell Technician | | + + + + + | Power of | | | | | Vehicle Dynamics Engineer | | | | + + + + + | Advance | | | | | Directive | | | | + + + + +
--- OUTSIDE RECORDS SUMMARY | ~2020-02-18 | XMS | Encounter Summary ---
Demographics + + + | Address | [address] | | | [place] [address] | + + + | Home Phone [...] Author + + + | Author | [facility] | + + + | Organization | [facility] | + + + | Address [...] Team Providers + +------+ + | Care Bakery Products Checker Name | Role | Phone | + [...] | 05/09/ | Telephone | Urology at [facility] | Roxy Boykin Kimberly, | Lab Order | | 2017 | | [address] | [place] [address] | | | | | Mailcode: [id number] | [address] | | | | | [facility] | [place], [place] | | | | | and Connie, | [address] | | | | | Building | [phone] | | | | | Floor [place], [place] | | | | | | [address] | | | | | | [phone] | | | +--------+ + + + [...]
--- OUTSIDE RECORDS SUMMARY | ~2020-02-18 | XMS | Encounter Summary ---
Demographics + + + | Address | [address] | | | [place] [address] | + + + | Home Phone | | + + + | Preferred Language | Unknown | + + + | Marital Status | | + + + | Mormonism Affiliation | Unknown | + + + | Race | Unknown | + + + | Ethnic Group | Unknown | + + + Author + + + | Author | [facility] | | | and [place] | + + + | Organization | [facility] | | | and [place] | + + + | Address | Unknown | + + + | Phone | Unavailable | + + + Support + + + + + | Name | Relationship | Address | Phone | + + + + + | Mati Moody | YOANNA | [place] | | | | | [address] | | + + + + + | Ayde Rojas | ECON | [place] | | | | | [address] | | + + + + + Care Team Providers + +------+ + | Care Beer Brewer Name | Role | Phone | + [...] | Procedures | [address] | NEONATAL PEDIATRIC NURSE [address] | | | | Oncology | [place] OFFICE | [facility] | [facility] | | | | | OUTPATIENT | [place], [place] | [place], | | | | | VISIT 25 | [address] | [place] [address] | | | | | MINUTES | Phone: | Phone: | | | | | | [phone] | [phone] | | | | | | Fax: | Fax: | | | | | | [phone] | [phone] | + +--------+ + + + + Encounter Details +--------+ + + + + | Date | Type | Department | Care Team | Description | +--------+ + + + + | 01/05/ | Hospital | [facility] | Irene Feldman | Prostate cancer | | 2020 | Encounter | MED CTR RADIATION | FERMIN Felix [address] | (HCC) (Primary Dx) | | | | ONCOLOGY CLINIC [address] | [address] [facility] | | | | | [address] | [place] [address] | | | | | [place] [address] | [phone] | | | | | [phone] | | | +--------+ + + + [...] He opted for p rostatectomy, performed at [facility] on 12/08/17, final pathology demonstrated pT2 pN0, [...] found on previous colonoscopies. He states his internet marketing intern's name is Dr. Sky Galarza ). I [...] office visit. Clinical discussion length: 11-20 min ([id number]) FERMIN Lynch, AOCNP Department of Radiation Oncology [facility] Office: [phone] documented i n this encounter Plan of [...] D | | | | | | [facility] [place] [address] | | | | | | [phone] | | | | | | | [...] [place] | | | | | | [address] | | | | | | | | +--------+ + + + + documented as of this encounter Visit Diagnoses + + | Diagnosis | + + | Prostate cancer (HCC) - Primary Malignant neoplasm of prostate | + + documented in this encounter
--- OUTSIDE RECORDS SUMMARY | ~2020-02-18 | XMS | Encounter Summary ---
Demographics + + + | Address | [address] | | | [place] [address] | + + + | Home Phone | | + + + | Preferred Language | Unknown | + + + | Marital Status | Single | + + + | Uatsdin Affiliation | CHR | + + + | Race | White | + + + | Ethnic Group | Not or | + + + Author + + + | Author | [facility] | + + + | Organization | [facility] | + + + | Address [...] Team Providers + +------+ + | Care Director Of Student Services Name | Role | Phone | + [...] Description | +--------+--------+ + + + | 03/29/ | Refill | Neurology Movement | Sherry Mcmahon, | Refill Request | | 2010 | | Disorders Clinic at | [address] | | | | | [facility] | [facility] | | | | | and Healing [address] | [place] [address] | | | | | Arvin Yanez Mailcode: | [phone] | | | | | [address] | | | | | | Health and Healing, | | | | | | Building [address] | | | | | | [place], [place] | | | | | | [address] | | | | | | [phone] | | | +--------+--------+ + + + [...]
--- OUTSIDE RECORDS SUMMARY | ~2020-02-18 | XMS | Encounter Summary ---
Demographics + + + | Address | [address] | | | [place] [address] | + + + | Home Phone | | + + + | Preferred Language | Unknown | + + + | Marital Status | | + + + | Pentecostal Affiliation | Unknown | + + + | Race | Unknown | + + + | Ethnic Group | Unknown | + + + Author + + + | Author | [facility] | | | and [place] | + + + | Organization | [facility] | | | and [place] | + + + | Address | Unknown | + + + | Phone | Unavailable | + + + Support + + + + + | Name | Relationship | Address | Phone | + + + + + | Mati Moody | YOANNA | [place] | | | | | [address] | | + + + + + | Ayde Rojas | ECON | [place] | | | | | [address] | | + + + + + Care Team Providers + +------+ + | Care Tub Washer Name | Role | Phone | + +------+ + | Adina Lloyd MD | PCP | | + +------+ + Encounter Details +--------+ + + + + | Date | Type | Department | Care Team | Description | +--------+ + + + + | 03/16/ | Hospital | [facility] | Sherrell Hadley | | | 2019 | Encounter | MED CTR RADIATION | M, [address] | | | | | ONCOLOGY [address] | [address] [place], [place] | | | | | [place], | [address] | | | | | [place] [address] | | | | | | [phone] | | | +--------+ + + + [...] | | | | | [place] [address] | | | | | | [phone] | | | | | | | [...]
--- OUTSIDE RECORDS SUMMARY | ~2020-02-18 | XMS | Encounter Summary ---
Demographics + + + | Address | [address] | | | [place] [address] | + + + | Home Phone [...] Author + + + | Author | [facility] | + + + | Organization | [facility] | + + + | Address [...] Team Providers + +------+ + | Care Veneer Glue Jointer Feedback Name | Role | Phone | + +------+ + | Reji Morales MD | PCP | | + +------+ + Encounter Details +--------+ + + + + | Date | Type | Department | Care Team | Description | +--------+ + + + + | 12/06/ | Abstract | Urology at [facility] | Roxy Boykin, | | | 2018 | | [address] | [place] [address] [facility] | | | | | Mailcode: [id number] | [address] | | | | | [facility] | [place], [place] | | | | | and Healing, | [address] | | | | | [facility] | [phone] | | | | | Floor [place], [place] | | | | | | [address] | | | | | | [phone] | | | +--------+ + + + [...]
--- OUTSIDE RECORDS SUMMARY | ~2020-02-18 | XMS | Encounter Summary ---
Demographics + + + | Address | [address] | | | [place] [address] | + + + | Home Phone [...] Team Providers + +------+ + | Care Motorcycle Engine Assembler Name | Role | Phone | + [...] Description | +--------+---------+ + + + | 07/25/ | Office | Neurology Movement | Krishna Mcmahon, | Parkinson disease | | 2010 | Visit | Disorders Clinic at | [address] | ([facility]) (Primary Dx) | | | | [facility] | [address] | | | | | and Healing [address] | [place] [address] | | | | | Arvin Yanez Mailcode: | [phone] | | | | | [address] | | | | | | Health and Healing, | | | | | | [facility], | | | | | | [place], [place] | | | | | | [address] | | | | | | [phone] | | | +--------+---------+ + + + [...] + + + | Blood Pressure | 146/76 | 07/25/2011 3:33 PM | | | | | PST | | + + + + + | Pulse | 73 | 07/25/2011 3:33 PM | | | | | PST | | + + + + + | Temperature | - | - | | + + + + + | Respiratory Rate | 18 | 07/25/2011 3:33 PM | | | | | PST | | + + + + + | Oxygen Saturation | - | - | | + + + + + | Inhaled Oxygen | - | - | | | Concentration | | | | + + + + + | Weight | 110.2 kg (243 lb) | 07/25/2011 3:32 PM | | | | | PST | | + + + + + | Height | - | - | | + + + + + | Body Mass Index | 30.37 | 01/17/2011 2:53 PM | | | | | PDT | | + + + + + documented in this encounter Patient Instructions Patient Instructions Krishna Mcmahon MD - 07/27/2011 1:24 PM PSTYou seem to be doing we ll from a Parkinson's Disease point of view. I think your approach of taking the Sinemet 3- 4 times a day with an additional tablet as needed is working for you and would not recommend changes at this time. KRISHNA MCMAHON MD P ST documented in this encounter Progress Notes Krishna Mcmahon MD - 07/27/2011 1:08 PM PSTDachristopherd Sho Moody is a 61 y.o. left-handed man who returns to the Movement Disorders Clinic for follow up mixed Parkinson's Disease / b enign essential tremor. He is unaccompanied. 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 Nima's current Parkinson's Disease medications are: Sinemet 25/250 up to 4 tablets a day He takes metoprolol for blood pressure (along with HCTZ and enalapril) and this beta blocke r is likely helping the benign essential tremor component of his tremor. Exam shows BP 146/76 | Pulse 73 | RR 18 | Wt 110.224 kg (243 lb). His general physical exa m is unremarkable. Speech is not hypophonic at all. Mental status is normal and affect is bright. He has had some depression in the past, but his mood has been overall good int he l ast couple years, though he has taken a while to recover from the loss of his elderly mother . He has no significant masked facies. He does have a significant rest tremor on the left more than the right, affecting both arm and leg. He took some Sinemet shortly before his ap pointment, but says that he got rattled by a tough drive here and this made his tremor worse than usual. Tone is increased on the left more than the right. Fingertaps, hand movements , and heel taps are all mildly slowed on the left greater than the right. He is able to mariam e from the chair without a pushoff and walks with a normal base, reduced left armswing, good stride length, and slightly cautious turns. He does not retropulse on a pull test. 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 He is comfortable with his drug regimen, and takes an extra dose of Sinemet as needed, which generally works quite well. I spent 25 minutes with this patient, more than half of which time was spent in counseling about medication management. I will see him back in 6-7 months. KRISHNA MCMAHON MD P STdocumented in this encounter Plan of Treatment Not on filedocumented as of this encounter Visit Diagnoses + + | Diagnosis | + + | Parkinson disease (HCC) - Primary Paralysis agitans | + + documented in this encounter"
--- OUTSIDE RECORDS SUMMARY | ~2020-02-18 | XMS | Encounter Summary ---
Demographics + + + | Address | [address] | | | [place] [address] | + + + | Home Phone [...] + +------+ + | Care Director Of Guidance Name | Role | Phone | + [...] Disorders Clinic at | [address] | ([facility]) (Primary Dx) | | | | [facility] | [address] | | | | | and Healing [address] | [place] [address] | | | | | Arvin Yanez Mailcode: | [phone] | | | | | [address] | | | | | | Health and Healing, | | | | | | [facility], | | | | | | [place], [place] | | | | | | [address] | | | | | | [phone] | | | +--------+---------+ + + + [...] past. 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 [...]
--- OUTSIDE RECORDS SUMMARY | ~2020-02-18 | XMS | Encounter Summary ---
Demographics + + + | Address | [address] | | | [place] [address] | + + + | Home Phone | | + + + | Preferred Language | Unknown | + + + | Marital Status | Single | + + + | Methodist Affiliation | CHR | + + + [...] Team Providers + +------+ + | Care Lumber Mover Name | Role | Phone | + [...] [id number] | | | | | | [facility] | | | | | | and Healing, | | | | | | Building [address], | | | | | | Floor [place], [place] | | | | | | [address] | | | | | | [phone] | | | +--------+ + + + [...] skin, | | | | | | [id number]. The surgical | | | | | [...] papular | | | | | | [id number] skin, | | | | | | [id number]. Thesurgical | | | | | | [...] [facility] | Mailcode [address] | [place] [address] | | | DERMATOPATHOLOGY | [address] [...]
--- OUTSIDE RECORDS SUMMARY | ~2020-02-18 | XMS | Encounter Summary ---
Demographics + + + | Address | [address] | | | [place] [address] | + + + | Home Phone [...] | Author | [facility] | | | and [place]riel[place] | + + + | Organization | [facility] | | | and [place] | + + + | Address | Unknown | + + + | Phone | Unavailable | + + + Support + + + + + | Name | Relationship | Address | Phone | + + + + + | Mati Moody | YOANNA | [place] | | | | | [address] | | + + + + + | Ayde Rojas | ECON | [place] | | | | | [address] | | + + + + + Care Team Providers + +------+ + | Care Auto Servicer Name | Role | Phone | + +------+ + | Adina Lloyd MD | PCP | | + +------+ + Encounter Details +--------+ + + + + | Date | Type | Department | Care Team | Description | +--------+ + + + + | 03/16/ | Hospital | [facility] | Sherrell Hadley | | | 2019 | Encounter | MED CTR RADIATION | M, [address] | | | | | ONCOLOGY [address] [place], [place] | | | | | [place], | [address] | | | | | [place] [address] | | | | | | [phone] | | | +--------+ + + + [...] 03/04/ | Office | Neurology | Leslie Caballreo, | | | 2019 | Visit | | MD Dallin OCAMPO | | | | | | [address] | | | | | | [place] [address] | | | | | | [phone] | | | | | | | [...]
--- OUTSIDE RECORDS SUMMARY | ~2020-02-18 | XMS | Encounter Summary ---
Demographics + + + | Address | [address] | | | [place] [address] | + + + | Home Phone | | + + + | Preferred Language | Unknown | + + + | Marital Status | Single | + + + | Protestant Affiliation | CHR | + + + [...] Providers + +------+ + | Care Product Management Analyst Name | Role | Phone | [...] Clinic at | MD [address] | ([facility]) (Primary Dx) | | | | [facility] | [facility] | | | | | and Healing [address] | [place] [address] | | | | | Sheridan Renata Mailcode: | [phone] | | | | | [facility] | | | | | Health and Healing, | | | | | | [facility] | | | | | | Floor [place], [place] | | | | | | [address] | | | | | | [phone] | | | +--------+---------+ + + + [...] MD Irene Amaya - [facility]2007 [facility]: --Falls - 4 in last month. --Memory/cognition issues - n/a BEN-D (16 and above is clinically significant): 10 [place] (10 and above is clinically significant): 3 [...]
--- OUTSIDE RECORDS SUMMARY | ~2020-02-18 | XMS | Encounter Summary ---
Demographics + + + | Address | [address] | | | [place] [address] | + + + | Home Phone | | + + + | Preferred Language | Unknown | + + + | Marital Status | Single | + + + | Hindu Affiliation | CHR | + + + [...] Team Providers + +------+ + | Care Javascript Programmer Name | Role | Phone | + [...] Arvin Yanez | | | | | [facility] | [facility] [place] | | | | | and Healing [address] | [address] | | | | | Arvin Yanez Mailcode: | [phone] | | | | | [address] | | | | | | Health and Healing, | | | | | | [address] | | | | | | [facility] [place] | | | | | | [address] | | | | | | [phone] | | | +--------+--------+ + + + [...]
--- OUTSIDE RECORDS SUMMARY | ~2020-02-18 | XMS | Encounter Summary ---
Demographics + + + | Address | [address] | | | [place] [address] | + + + | Home Phone | | + + + | Preferred Language | Unknown | + + + | Marital Status | Single | + + + | Christianity Affiliation | CHR | + + + | Race | White | + + + | Ethnic Group | Not or | + + + Author + + + | Author | [facility] | + + + | Organization | [facility] | + + + | Address | [...] Team Providers + +------+ + | Care Cooler Servicer Name | Role | Phone | [...] Description | +--------+--------+ + + + | 03/26/ | Refill | Neurology Movement | Sherry Mcmahon, | Refill Request | | 2006 | | Disorders Clinic at | [address] | | | | | [facility] | [facility] | | | | | and Healing [address] | [place] [address] | | | | | Arvin Yanez Mailcode: | [phone] | | | | | [address] | | | | | | Health and Healing, | | | | | | [address] | | | | | | [place], [place] | | | | | | [address] | | | | | | [phone] | | | +--------+--------+ + + + [...]
--- OUTSIDE RECORDS SUMMARY | ~2020-02-18 | XMS | Encounter Summary ---
Demographics + + + | Address | [address] | | | [place] [address] | + + + | Home Phone | | + + + | Preferred Language | Unknown | + + + | Marital Status | Single | + + + | Latter-Day Affiliation | CHR | + + + [...] Team Providers + +------+ + | Care Tube Skiver Name | Role | Phone | + [...] Arvin Yanez | | | | | [facility] | [facility] [place] | | | | | and Healing [address] | [address] | | | | | Arvin Yanez Mailcode: | [phone] | | | | | [address] | | | | | | Health and Healing, | | | | | | Building | | | | | | [facility] [place] | | | | | | [address] | | | | | | [phone] | | | +--------+--------+ + + + [...]
--- OUTSIDE RECORDS SUMMARY | ~2020-02-18 | XMS | Encounter Summary ---
Demographics + + + | Address | [address] | | | [place] [address] | + + + | Home Phone [...] Team Providers + +------+ + | Care Senior Software Engineering Manager Name | Role | Phone | [...] + + | 12/12/ | Hospital | [address] | [place], | | | 2018 - | Encounter | [address] | [address] | | | | | [facility] | [address] | | | 12/13/ | | [place], [place] | [place], [place] | | | 2018 | | [address] | [address] | | | | | [phone] | [phone] | | | | | | | | | | | | Stacia Schmidt MD | | | | | | [address] | | | | | | [address] | | | | | | [place], [place] | | | | | | [address] | | | | | | [phone] | | | | | | | | | | | | Adeel Salas | | | | | | MD Angelo [address] [facility] | | | | | | [address] | | | | | | [place], [place] | | | | | | [address] | | | | | | [phone] | | | | | | | [...] Pressure | 133/91 | 12/13/2017 2:39 PM | | | | | PDT | | + + + + + | Pulse | 64 | 12/13/2017 8:00 AM | | | | | PDT | | + + + + + | Temperature | 36.6 C (97.8 F) | 12/13/2017 2:39 PM | | | | | PDT | | + + + + + | Respiratory Rate | 17 | 12/13/2017 2:39 PM | | | | | PDT | | + + + + + | Oxygen Saturation | 97% | 12/13/2017 8:00 AM | | | | | PDT | | + + + + + | Inhaled Oxygen | - | - | | | Concentration | | | | + + + + + | Weight | 89.1 kg (196 lb 6.9 | 12/12/2017 7:00 AM | | | | oz) | PDT | | + + + + + | Height | 190.5 cm (6' 3") | 12/12/2017 8:18 PM | | | | | PDT | | + + + + + | Body Mass Index | 24.55 | 12/12/2017 7:00 AM | | | | | PDT | | + + + + + documented in this encounter Discharge Summaries Leonel Zamora MD - 12/13/2017 6:22 AM PDT [facility]GERY INPATIENT DISCHARGE SUMMARY Author: Leonel Zamora MD Attending Physician: Adeel Salas MD PCP: Reji Morales MD Admission Date: 12/12/2017 Discharge Date: 13 Dec 2017 Diagnoses Patients Hospital Problem List: Active Hospital Problems 1) Parkinson disease (HCC) 2) Prostate cancer (HCC) 3) Dehydration 4) Other dysphagia 5) Pneumomediastinum (HCC) Brief Hospital Course Nima Moody is a 67 y.o. male with a hx of organ confined prostate cancer. A RALP on 12/08/17 and came back in with constipation. He responded to an aggressive bowel regimen and he was feeling better on hospital day 2. His east is still in place and he will keep his o riginal appointment to have it removed. He will take his antibiotics prior to east removal. Future Appointments Provider Department Dept Phone Center 12/18/2017 1:00 PM Uro Bench Worker at [facility] [phone] Urology 01/15/2018 1:15 PM Roxy Boykin Urology at [facility] [phone] Urology Medications: Medication List START taking these medications polyethylene glycol 17 gram Pwpk Commonly known as: MIRALAX Mix 1 packet and take orally once daily for 15 days. CONTINUE taking these medications amantadine HCl 100 mg Tab Commonly known as: SYMMETREL Take 1 tablet by mouth two times daily. carbidopa-levodopa 25-100 mg Tab Commonly known as: SINEMET Take 1 tablet by mouth four times daily. enalapril 20 mg Tab Commonly known as: VASOTEC take 1 tablet (20mg) by oral route once daily hydroCHLOROthiazide 25 mg Tab Commonly known as: HYDRODIURIL take 1 tablet (25mg) by oral route once daily LORazepam 0.5 mg Tab Commonly known as: ATIVAN Take 0.5 mg by mouth every four hours as needed for anxiety. metoprolol tartrate 50 mg Tab Commonly known as: LOPRESSOR Take 1 tablet by mouth two times daily. omeprazole 20 mg Cpdr Commonly known as: PRILOSEC Take 20 mg by mouth once daily. Not sure on dose oxybutynin 5 mg Tab Commonly known as: DITROPAN Take 5 mg by mouth three times daily as needed (Bladder spasm). oxyCODONE (immediate release) 5 mg Tab Commonly known as: ROXICODONE Take 1 tablet by mouth every four hours as needed for moderate pain. phytonadione 100 mcg Tab Commonly known as: VITAMIN K, MEPHYTON Take 100 mcg by mouth once daily. senna-docusate 8.6-50 mg Tab Commonly known as: SENOKOT S Take 2 tablets by mouth twice daily as needed. tamsulosin 0.4 mg Cp24 Commonly known as: FLOMAX Take 0.8 mg by mouth once daily. Diet Regular Regular diet- There are no restrictions to your diet. You may eat or drink whatever you pr efer, though healthy food choices are recommended. Activity Activity restrictions: - No lifting more than 10 pounds for 6 weeks. This will allow your wound to heal as well as possible. - Avoid bearing down or straining with bowel movements. - Narcotics can cause constipation, so you may take ehew-zuz-qjqyfgg stool softeners (Senok ot-S, Miralax, Colace) following the instructions on the box. Stop taking these pills if yo u are experiencing diarrhea. - No driving while on narcotics or with a urinary catheter in place. Wound Care General Wound Care Keep your incision clean [...] all soapy residue off. Pat area dr burton with a clean towel when finished. No need to apply any lotions or ointments to the sites. Maintain East Catheter Antibiotics for East Removal Take 2 doses of the antibiotic provided on the day before your follow-up appointment (one d ose in morning and one dose in evening), 2 doses on the day of your appointment, and 2 doses the day after your appointment. East Catheter Care Instructions -- Always wash your [...] burning in your urethra, bladder, or abdomen. Condition on Discharge Stable Urology Follow Up Please follow up with Dr. Salas in Clinic. Future Appointments Provider Department Dept Phone Center 12/18/2017 1:00 PM Uro Bench Worker at [facility] [phone] Urology 01/15/2018 1:15 PM Roxy Boykin Urology at [facility] [phone] Urology Our schedulers will contact you to make an appointment. Your appointment will be on the 10t h floor of the [facility] and [facility]. If you do not hear from our schedulers in [facility] [place] call the clinic at . Please call the Urology Clinic at with any questions or concerns, or if you experience symptoms of fever; chills; severe nausea; vomiting; pain that does not go away wi th usual medication; drainage or bleeding from the incision site; sudden numbness, weakness, or difficulty speaking; or any other concerns. If after hours, call the Urology Resident o n call at . Vitals on discharge: Ht 1.905 m (6' 3"), Wt 89.1 kg (196 lb 6.9 oz), BP 128/74, Pulse 61, T emperature 36.9 C (98.4 F), RR 16, SpO2 95%, BMI 24.55 kg/(m^2). Last 24 hour min/max Temp: 36.9 C (98.4 F) Temp Min: 36.3 C (97.3 F) Max: 36.9 C (98.4 F) Pulse: 61 Pulse Min: 58 Max: 80 Resp: 16 Resp Min: 16 Max: 24 BP: 128/74 BP Min: 114/63 Max: 160/64 SpO2: 95 % SpO2 Min: 95 % Max: 100 % Body mass index is 24.55 kg/m. General: healthy, well-nourished, comfortable, no distress HEENT: PERRL, EOMI Cardiac: rate normal, no lower extremity edema Respiratory: unlabored breathing Abdomen: flat, soft, appropriately tender. Mild distension improved from yesterday Genitourinary: east in place draining yellow urine Extremities:no deformities, no skin discoloration, warm bilaterally Mental status: awake and alert Outstanding labs/studies: Pathology pending Future Appointments Provider Department Dept Phone Center 12/18/2017 1:00 PM Uro Bench Worker at [facility] [phone] Urology 01/15/2018 1:15 PM Roxy Boykin Urology at [facility] [phone] Urology Discharging Physician: Leonel Zamora MD Attending Physician: MD LEONEL Crooks MD Urology, PGY1 [facility] documented in t his encounter Medications at Time of Discharge + [...] documented as of this encounter Progress Notes Marta Martin RN - 12/13/2017 7:59 AM PDTActing as scribe for the UR Committee Physician connor nunez. The primary medical team for this patient and the [facility] UR Committee have agreed after [facility] study that an inpatient admission was not medically necessary. This hospital stay is con verted to an outpatient stay through use of Medicare Condition Code 44. The patient was not ified of this change in writing. The providers involved in this decision were: For patient s primary medical team: Adeel Salas MD For [facility] UR Committee: Lesia Blanchard MD documented in this encoun ter Plan of Treatment Not on filedocumented as of this encounter Procedures + +--------+ + + + | Procedure Name | Priori | Date/Time | Associated Diagnosis | Comments | | | ty | | | | + +--------+ + + + | X-RAY ABDOMEN 1 VIEW | Routin | 12/12/2017 | | Results for this | | | e | 10:47 AM | | procedure are in the | | | | PDT | | results section. | + +--------+ + + + | CBC AND AUTO DIFF | Routin | 12/12/2017 | | Results for this | | | e | 9:23 AM | | procedure are in the | | | | PDT | | results section. | + +--------+ + + + | INR | Routin | 12/12/2017 | | Results for this | | | e | 9:23 AM | | procedure are in the | | | | PDT | | results section. | + +--------+ + + + | CBC, WITH | Routin | 12/12/2017 | | Results for this | | DIFFERENTIAL | e | 9:23 AM | | procedure are in the | | | | PDT | | results section. | + +--------+ + + + | COMPLETE METABOLIC | Routin | 12/12/2017 | | Results for this | | SET | e | 9:23 AM | | procedure are in the | | (NA,K,CL,CO2,BUN,CRE | | PDT | | results section. | | AT,GLUC,CA,AST,ALT,B | | | | | | MOSES TOTAL,ALK | | | | | | PHOS,ALB,PROT TOTAL) | | | | | + +--------+ + + + | MAGNESIUM, PLASMA | Routin | 12/12/2017 | | Results for this | | | e | 9:23 AM | | procedure are in the | | | | PDT | | results section. | + +--------+ + + + documented in this encounter Results X-RAY ABDOMEN 1 VIEW (12/12/2017 10:47 AM PDT) + + | Specimen | + + | | + + + + + | Narrative | Performed At | + + + | EXAM: ABDOMEN 1 VIEW HISTORY: Abdominal pain COMPARISON: | [facility] | | None FINDINGS: Diffuse dilatation of the small bowel and | RADIOLOGY VOICE | | colon identified. Loops of colon measure up to 10.1 cm most notable in | RECOGNITION | | the transverse colon. The cecum is also distended measuring up to | | | 11.9 cm. There is some gas within the pelvis, however not as distended | | | as the remaining small bowel and colon. IMPRESSION: Findings | | | likely representing ileus versus developing large bowel obstruction. | | | CT may be helpful for further interpretation. END IMPRESSION | | | I have personally reviewed the images and, if necessary, edited the | | | report. I agree with the report as now presented. | | + + + + + | Procedure Note | + + | Service Account, Biodesy Res In Interface - 12/12/2017 10:53 AM PDT [...] as now presented. | + + + +---------+ + + | Performing | Address | City/State/Zipcode | Phone Number | | Organization | | | | + +---------+ + + | [facility] | | | | | VOICE RECOGNITION | | | | + +---------+ + + CBC AND AUTO DIFF (12/12/2017 9:23 AM PDT) + + + + + + | Component | Value | Ref Range | Performed | Pathologist | | | | | At | Signature | + + + + + + | WHITE CELL | 10.86 (H) | 3.50 - 10.80 | [facility] | | | COUNT | | K/cu mm | LABORATORY | | | | | | SERVICES, | | | | | | CORE | | + + + + + + | RED CELL | 4.18 (L) | 4.50 - 6.00 | [facility] | | | COUNT | | M/cu mm | LABORATORY | | | | | | SERVICES, | | | | | | CORE | | + + + + + + | HEMOGLOBIN | 12.7 (L) | 13.5 - 17.5 | [facility] [...] 89.0 | 80.0 - 96.0 fL | [facility] | | | | | | LABORATORY | | | | | | SERVICES, | | | | | | CORE | | + + + + + + | MCHC | 34.1 | 33.0 - 35.5 | [facility] | | | | | g/dL | LABORATORY | | | | | | SERVICES, | | | | | | CORE | | + + + + + + | RDW SD | 41.8 | 35.1 - 46.3 fL | [facility] | | | | | | LABORATORY | | | | | | SERVICES, | | | | | | CORE | | + + + + + + | PLATELET | 234 | 150 - 400 K/cu | [facility] | | | COUNT | | mm | LABORATORY | | | | | | SERVICES, | | | | | | CORE | | + + + + + + | MPV | 11.3 | 9.7 - 12.3 fL | [facility] [...] + + + + + + | NEUTROPHIL | 63.1 | 50.0 - 70.0 % | [facility] | | | % | | | LABORATORY | | | | | | SERVICES, | | | | | | CORE | | + + + + + + | LYMPHOCYTE | 26.1 | 18.0 - 42.0 % | [facility] | | | % | | | LABORATORY | | | | | | SERVICES, | | | | | | CORE | | + + + + + + | MONOCYTE % | 8.5 | 3.5 - 9.0 % | [facility] | | | | | | LABORATORY | | | | | | SERVICES, | | | | | | CORE | | + + + + + + | EOS % | 1.7 | 1.0 - 3.0 % | [facility] | | | | | | LABORATORY | | | | | | SERVICES, | | | | | | CORE | | + + + + + + | BASO % | 0.3 | 0.0 - 2.0 % | [facility] | | | | | | LABORATORY | | | | | | SERVICES, | | | | | | CORE | | + + + + + + | IG% | 0.3Comment: Increased | 0.0 - 1.0 % | [facility] | | | | immature granulocytes | | LABORATORY | | | | (IG) define a left | | SERVICES, | | | | shift. Immature | | CORE | | | | granulocytes (IG) are an | | | | | | automated count of | | | | | | metamyelocytes, | | | | | | myelocytes and | | | | | | promyelocytes. Bands | | | | | | are not included in the | | | | | | IG count. Bands are | | | | | | included in the | | | | | | neutrophil count. | | | | + + + + + + | NEUTROPHIL | 6.86 | 1.80 - 7.70 | [facility] | | | # | | K/cu mm | LABORATORY | | | | | | SERVICES, | | | | | | CORE | | + + + + + + | LYMPHOCYTE | 2.83 | 1.00 - 4.80 | [facility] | | | # | | K/cu mm | LABORATORY | | | | | | SERVICES, | | | | | | CORE | | + + + + + + | MONOCYTE # | 0.92 (H) | 0.10 - 0.90 | [facility] | | | | | K/cu mm | LABORATORY | | | | | | SERVICES, | | | | | | CORE | | + + + + + + | EOS # | 0.19 | 0.00 - 0.50 | [facility] | | | | | K/cu mm | LABORATORY | | | | | | SERVICES, | | | | | | CORE | | + + + + + + | BASO # | 0.03 | 0.00 - 0.10 | [facility] | | | | | K/cu mm | LABORATORY | | | | | | SERVICES, | | | | | | CORE | | + + + + + + | IG# | 0.03 | 0.00 - 0.10 | [facility] | | | | | K/cu mm | LABORATORY | | | | | | SERVICES, | | | | | | CORE | | + + + + + + + + | Specimen | + + | Blood - Blood | | (substance) | + + + + + | Narrative | Performed At | + + + | New reference ranges for IG% and IG# effective 10/01/2017. | [facility] | | Increased immature granulocytes (IG) define a left shift. Immature | LABORATORY | | granulocytes (IG) are an automated count of metamyelocytes, myelocytes | SERVICES, CORE | | and promyelocytes. Bands are not included in the IG count. Bands are | | | included in the neutrophil count. | | + + + + + + + + | Performing | Address | City/State/Zipcode | Phone Number | | Organization | | | | + + + + + | [facility] | [address] | [place] [address] | | | SERVICES, CORE | [address] | | | + + + + + INR (12/12/2017 9:23 AM PDT) + +-------+ + + + | Component | Value | Ref Range | Performed | Pathologist | | | | | At | Signature | + +-------+ + + + | INR | 1.14 | 0.90 - 1.20 INR | [facility] | | | | | | LABORATORY | | | | | | SERVICES, | | | | | | CORE | | + +-------+ + + + + + | Specimen | + + | Blood - Blood | | (substance) | + + + + + | Narrative | Performed At | + + + | INR Therapeutic ranges for full anticoagulation: INR for | [facility] | | Venous Thromboembolism (2.0 - 3.0) INR INR for | LABORATORY | | most patients with mech. valves (2.5 - 3.5) INR | [facility] | + + + + + + + + | Performing | Address | City/State/Zipcode | Phone Number | | Organization | | | | + + + + + | [facility] | [address] | [place] [address] | | | YOLANDA, YISSEL | [address] | | | + + + + + MAGNESIUM, PLASMA (12/12/2017 9:23 AM PDT) + +-------+ + + + | Component | Value | Ref Range | Performed | Pathologist | | | | | At | Signature | + +-------+ + + + | MAGNESIUM,P | 2.0 | 1.6 - 2.6 mg/dL | [facility] | | | LASMA | | | LABORATORY | | | | | | SERVICES, | | | | | | CORE | | + +-------+ + + + + + | Specimen | + + | Blood - Blood | | (substance) | + + + + + | Narrative | Performed At | + + + | Reference range change effective 04/25/17. | [facility] | | | LABORATORY | | | [facility] | + + + + + + + + | Performing | Address | City/State/Zipcode | Phone Number | | Organization | | | | + + + + + | [facility] | [address] | [place] [address] | | | SERVICES, CORE | [address] | | | + + + + + COMPLETE METABOLIC SET (NA,K,CL,CO2,BUN,CREAT,GLUC,CA,AST,ALT,BILI TOTAL,ALK PHOS,ALB,PROT TOTAL) (12/12/2017 9:23 AM PDT) + +---------+ + + + | Component | Value | Ref Range | Performed | Pathologist | | | | | At | Signature | + +---------+ + + + | GLUCOSE, | 100 (H) | 70 - 99 mg/dL | [facility] | | | PLASMA | | | LABORATORY | | | (LAB) | | | SERVICES, | | | | | | CORE | | + +---------+ + + + | BUN, PLASMA | 22 (H) | 6 - 20 mg/dL | [facility] | | | (LAB) | | | LABORATORY | | | | | | SERVICES, | | | | | | CORE | | + +---------+ + + + | CREATININE | 1.17 | 0.70 - 1.30 | [facility] | | | PLASMA | | mg/dL | LABORATORY | | | (LAB) | | | SERVICES, | | | | | | CORE | | + +---------+ + + + | EGFR | >60 | >60 mL/min | [facility] | | | - | | | LABORATORY | | | HONDURAN | | | SERVICES, | | | | | | CORE | | + +---------+ + + + | EGFR NON | >60 | >60 mL/min | [facility] | | | -SANTOSH | | | LABORATORY | | | RICAN | | | SERVICES, | | | | | | CORE | | + +---------+ + + + | SODIUM, | 139 | 136 - 145 | [facility] | | | PLASMA | | mmol/L | LABORATORY | | | (LAB) | | | SERVICES, | | | | | | CORE | | + +---------+ + + + | POTASSIUM, | 3.2 (L) | 3.4 - 5.0 | [facility] | | | PLASMA | | mmol/L | LABORATORY | | | (LAB) | | | SERVICES, | | | | | | CORE | | + +---------+ + + + | CHLORIDE, | 102 | 97 - 108 mmol/L | [facility] [...] +---------+ + + + | CALCIUM, | 8.7 | 8.6 - 10.2 | [facility] | | | PLASMA | | mg/dL | LABORATORY | | | (LAB) | | | SERVICES, | | | | | | CORE | | + +---------+ + + + | CALCIUM(ALB | 9.3 | 8.6 - 10.2 | [facility] | | | CORRECTED) | | mg/dL | LABORATORY | | | | | | SERVICES, | | | | | | CORE | | + +---------+ + + + | BILIRUBIN | 2.0 (H) | 0.3 - 1.2 mg/dL | [facility] | | | TOTAL | | | LABORATORY | | | | | | SERVICES, | | | | | | CORE | | + +---------+ + + + | TOTAL | 6.6 | 6.4 - 8.2 g/dL | [facility] | | | PROTEIN, | | | LABORATORY | | | PLASMA | | | SERVICES, | | | (LAB) | | | CORE | | + +---------+ + + + | ALBUMIN, | 3.3 (L) | 3.5 - 4.7 g/dL | [facility] | | | PLASMA | | | LABORATORY | | | (LAB) | | | SERVICES, | | | | | | CORE | | + +---------+ + + + | ALK PHOS | 51 (L) | 56 - 119 U/L | [facility] | | | | | | LABORATORY | | | | | | SERVICES, | | | | | | CORE | | + +---------+ + + + | AST(SGOT) | 17 | <=41 U/L | [facility] | | | | | | LABORATORY | | | | | | SERVICES, | | | | | | CORE | | + +---------+ + + + | ALT (SGPT) | 15 | <=60 U/L | [facility] | | | | | | LABORATORY | | | | | | SERVICES, | | | | | | CORE | | + +---------+ + + + | ANION GAP | 11 | 4 - 11 mmol/L | [facility] | | | | | | LABORATORY | | | | | | SERVICES, | | | | | | CORE | | + +---------+ + + + | ANION | 12 (H) | 4 - 11 mmol/L | [facility] | | | GAP(ALB | | | LABORATORY | | | CORRECTED) | | | SERVICES, | | | | | | CORE | | + +---------+ + + + | POTASSIUM | No Hemo | | [facility] | | | CMNT | | | LABORATORY | | | | | | SERVICES, | | | | | | CORE | | + +---------+ + + + | BILI T CMNT | No Hemo | | [facility] | | | | | | LABORATORY | | | | | | SERVICES, | | | | | | CORE | | + +---------+ + + + | AST CMNT | No Hemo | | [facility] | | | | | | LABORATORY | | | | | | SERVICES, | | | | | | CORE | | + +---------+ + + + + + | Specimen | + + | Blood - Blood | | (substance) | + + + + + | Narrative | Performed At | + + + | Adult glucose reference range change effective 7. GFR is | [facility] | | estimated [...] | + + + + + | [facility] Delivered | [address] | [place] [address] | | | SERVICES, CORE | [address] | | | + + + + + documented in this encounter Visit Diagnoses + + | Diagnosis | + + | Pneumomediastinum (HCC) - Primary Interstitial emphysema | + + | Prostate cancer (HCC) Malignant neoplasm of prostate | + + | Dehydration | + + | Other dysphagia | + + | Parkinson disease (HCC) Paralysis agitans | + + documented in this encounter Administered Medications + +--------+ + +------+------+ | Medication Order | MAR | Action | Dose | Rate | Site | | | Action | Date | | | | + +--------+ + +------+------+ | acetaminophen (TYLENOL) tablet | Given | 12/14/19 | 1,000 mg | | | | 1,000 mg 1,000 mg, oral, THREE | | 18 9:02 | | | | | TIMES DAILY, First dose on Mon | | AM PDT | | | | | 12/12/17 at 0915, Until | | | | | | | Discontinued | | | | | | + +--------+ + +------+------+ +-------+ + +---+---+ | Given | 12/13/19 | 1,000 mg | | | | | 18 10:05 | | | | | | PM PDT | | | | +-------+ + +---+---+ | Given | 12/13/19 | 1,000 mg | | | | | 18 4:14 | | | | | | PM PDT | | | | +-------+ + +---+---+ +---+---+ | | | +---+---+ + +-------+ +--------+---+---+ | amantadine HCl (SYMMETREL) | Given | 12/14/19 | 100 mg | | | | capsule 100 mg 100 mg, oral, | | 18 9:06 | | | | | TWICE DAILY, First dose on Mon | | AM PDT | | | | | 12/12/17 at 0900, Until | | | | | | | Discontinued | | | | | | + +-------+ +--------+---+---+ +-------+ +--------+---+---+ | Given | 12/13/19 | 100 mg | | | | | 18 10:05 | | | | | | PM PDT | | | | +-------+ +--------+---+---+ | Given | 12/13/19 | 100 mg | | | | | 18 10:22 | | | | | | AM PDT | | | | +-------+ +--------+---+---+ +---+---+ | | | +---+---+ + +-------+ +-------+---+---+ | bisacodyl (DULCOLAX) | Given | 12/14/19 | 10 mg | | | | suppository 10 mg 10 mg, rectal, | | 18 11:01 | | | | | DAILY NEEDED, Starting Tue | | AM PDT | | | | | 12/12/17 [...] +-------+ +-------+---+---+ +-------+ +-------+---+---+ | Given | 12/13/19 | 10 mg | | | | | 18 1:25 | | | | | | PM PDT | | | | +-------+ +-------+---+---+ +---+---+ | | | +---+---+ + +-------+ + +---+---+ | carbidopa-levodopa (SINEMET) | Given | 12/14/19 | 1 tablet | | | | 25-100 mg 0.5-1 tablet 0.5-1 | | 18 12:48 | | | | | tablet, oral, EVERY 4 HOURS, | | PM PDT | | | | | First dose (after last | | | | | | | modification) on Mon12/12/17 at | | | | | | | 0845, Until Discontinued | | | | | | + +-------+ + +---+---+ +-------+ + +---+---+ | Given | 12/14/19 | 1 tablet | | | | | 18 9:06 | | | | | | AM PDT | | | | +-------+ + +---+---+ | Given | 12/14/19 | 1 tablet | | | | | 18 5:03 | | | | | | AM PDT | | | | +-------+ + +---+---+ +---+---+ | | | +---+---+ + +---------+ +-------+-------+---+ | lactated Ringers IV 200 mL/hr, | New Bag | 12/13/19 | 200 | 200 | | | intravenous, CONTINUOUS, | | 18 9:20 | mL/hr | mL/hr | | | Starting Mon12/12/17 at 0900, | | AM PDT | | | | | Until e 12/12/17 at 1046 | | | | | | + +---------+ +-------+-------+---+ +---+---+ | | | +---+---+ + +---------+ +-------+-------+---+ | lactated Ringers IV 125 mL/hr, | New Bag | 12/13/19 | 125 | 125 | | | intravenous, CONTINUOUS, | | 18 11:05 | mL/hr | mL/hr | | | Starting 12/12/17 at 1100, | | AM PDT | | | | | Until e 12/12/17 at 1329 | | | | | | + +---------+ +-------+-------+---+ +---+---+ | | | +---+---+ + + + +-------+-------+---+ | lactated Ringers IV 100 mL/hr, | Rate/Dos | 12/14/19 | 100 | 100 | | | intravenous, CONTINUOUS, | e Verify | 18 6:58 | mL/hr | mL/hr | | | Starting 12/12/17 at 1400, | | AM PDT | | | | | Until 12/13/17 at 2223 | | | | | | + + + +-------+-------+---+ + + +-------+-------+---+ | New Bag | 12/14/19 | 100 | 100 | | | | 18 2:30 | mL/hr | mL/hr | | | | AM PDT | | | | + + +-------+-------+---+ | Rate/Dose Verify | 12/14/19 | 100 | 100 | | | | 18 12:52 | mL/hr | mL/hr | | | | AM PDT | | | | + + +-------+-------+---+ +---+---+ | | | +---+---+ + +-------+ +--------+---+---+ | LORazepam (ATIVAN) tablet 0.5 | Given | 12/14/19 | 0.5 mg | | | | mg 0.5 mg, oral, EVERY 4 HOURS | | 18 3:09 | | | | | NEEDED, Starting Mon12/12/17 at | | PM PDT | | | | | 1519, Until Mon12/13/17 at 2223, | | | | | | | anxiety, agitation | | | | | | + +-------+ +--------+---+---+ +-------+ +--------+---+---+ | Given | 12/13/19 | 0.5 mg | | | | | 18 8:36 | | | | | | PM PDT | | | | +-------+ +--------+---+---+ | Given | 12/13/19 | 0.5 mg | | | | | 18 4:33 | | | | | | PM PDT | | | | +-------+ +--------+---+---+ +---+---+ | | | +---+---+ + +-------+ +-------+---+---+ | metoprolol tartrate (LOPRESSOR) | Given | 12/14/19 | 50 mg | | | | tablet 50 mg 50 mg, oral, TWICE | | 18 9:02 | | | | | DAILY, First dose on Mon12/12/17 | | AM PDT | | | | | at 0900, Until Discontinued | | | | | | + +-------+ +-------+---+---+ +-------+ +-------+---+---+ | Given | 12/13/19 | 50 mg | | | | | 18 10:05 | | | | | | PM PDT | | | | +-------+ +-------+---+---+ | Given | 12/13/19 | 50 mg | | | | | 18 9:21 | | | | | | AM PDT | | | | +-------+ +-------+---+---+ +---+---+ | | | +---+---+ + +-------+ +------+---+---+ | oxyCODONE (immediate release) | Given | 12/14/19 | 5 mg | | | | (ROXICODONE) tablet 5-10 mg 5-10 | | 18 12:48 | | | | | mg, oral, EVERY 4 HOURS | | PM PDT | | | | | NEEDED, Starting Mon12/12/17 at | | | | | | | 0824, Until Mon12/13/17 at 2223, | | | | | | | moderate pain | | | | | | + +-------+ +------+---+---+ +-------+ +------+---+---+ | Given | 12/14/19 | 5 mg | | | | | 18 6:00 | | | | | | AM PDT | | | | +-------+ +------+---+---+ | Given | 12/13/19 | 5 mg | | | | | 18 8:36 | | | | | | PM PDT | | | | +-------+ +------+---+---+ +---+---+ | | | +---+---+ + +-------+ +---------+---+---+ | phytonadione (VITAMIN K, | Given | 12/14/19 | 100 mcg | | | | MEPHYTON) tablet 100 mcg 100 | | 18 9:06 | | | | | mcg, oral, DAILY, First dose on | | AM PDT | | | | | 12/12/17 at 1015, Until | | | | | | | Discontinued | | | | | | + +-------+ +---------+---+---+ +-------+ +---------+---+---+ | Given | 12/13/19 | 100 mcg | | | | | 18 10:22 | | | | | | AM PDT | | | | +-------+ +---------+---+---+ +---+---+ | | | +---+---+ + +-------+ +------+---+---+ | polyethylene glycol (MIRALAX) | Given | 12/13/19 | 17 g | | | | packet 17 g 17 g, oral, TWICE | | 18 10:05 | | | | | DAILY, First dose (after last | | PM PDT | | | | | modification) on Mon12/12/17 at | | | | | | | 0915, Until Discontinued | | | | | | + +-------+ +------+---+---+ +-------+ +------+---+---+ | Given | 12/13/19 | 17 g | | | | | 18 10:22 | | | | | | AM PDT | | | | +-------+ +------+---+---+ +---+---+ | | | +---+---+ + +-------+ +------+---+---+ | polyethylene glycol (MIRALAX) | Given | 12/14/19 | 34 g | | | | packet 34 g 34 g, oral, THREE | | 18 11:01 | | | | | TIMES DAILY NEEDED, Starting | | AM PDT | | | | | 12/12/17 at 0826, Until Wed | | | | | | | 12/13/17 at 2223, 1st line - for no | | | | | | | BM for 2 days | | | | | | + +-------+ +------+---+---+ +---+---+ | | | +---+---+ + +-------+ +--------+---+---+ | potassium chloride (KLOR-CON) | Given | 12/13/19 | 20 mEq | | | | packet 20 mEq 20 mEq, oral, | | 18 7:07 | | | | | ONCE, 1 dose, Tu12/12/17 at 1830 | | PM PDT | | | | + +-------+ +--------+---+---+ +---+---+ | | | +---+---+ + +-------+ +--------+---+---+ | potassium chloride (KLOR-CON) | Given | 12/13/19 | 40 mEq | | | | packet 40 mEq 40 mEq, oral, | | 18 3:47 | | | | | ONCE, 1 dose, 12/12/17 at 1430 | | PM PDT | | | | + +-------+ +--------+---+---+ +---+---+ | | | +---+---+ + +-------+ +---------+---+---+ | senna-docusate (SENOKOT S) | Given | 12/14/19 | 2 | | | | 8.6-50 mg 2 tablet 2 tablet, | | 18 9:02 | tablets | | | | oral, TWICE DAILY, First dose on | | AM PDT | | | | | 12/12/17 at 0900, Until | | | | | | | Discontinued | | | | | | + +-------+ +---------+---+---+ +-------+ +---------+---+---+ | Given | 12/13/19 | 2 | | | | | 18 10:04 | tablets | | | | | PM PDT | | | | +-------+ +---------+---+---+ | Given | 12/13/19 | 2 | | | | | 18 9:21 | tablets | | | | | AM PDT | | | | +-------+ +---------+---+---+ +---+---+ | | | +---+---+ + +-------+ + +---+---+ | sodium phosphates (ROSALINA) 19-7 | Given | 12/14/19 | 1 Bottle | | | | gram/118 mL rectal enema 1 Bottle | | 18 12:51 | | | | | 1 Bottle, rectal, ONCE, 1 dose, | | PM PDT | | | | | 12/13/17 at 1315 | | | | | | + +-------+ + +---+---+ +---+---+ | | | +---+---+ documented in this encounter
--- OUTSIDE RECORDS SUMMARY | ~2020-02-18 | XMS | Encounter Summary ---
Demographics + + + | Address | [address] | | | [place] [address] | + + + | Home Phone [...] Author + + + | Author | [facility] | + + + | Organization | [facility] | + + + | Address [...] Team Providers + +------+ + | Care Print Graphic Designer Name | Role | Phone | [...] Clinic at | [address] | [facility] Dx) | | | | [facility] | [facility] | | | | | and Healing [address] | [place] [address] | | | | | Ar[address] Yanez Mailcode: | [phone] | | | | | [address] | | | | | | Health and Healing, | | | | | | [facility], | | | | | | [place], [place] | | | | | | [address] | | | | | | [phone] | | | +--------+---------+ + + + [...]
--- OUTSIDE RECORDS SUMMARY | ~2020-02-18 | XMS | Encounter Summary ---
Demographics + + + | Address | [address] | | | [place] [address] | + + + | Home Phone | | + + + | Preferred Language | Unknown | + + + | Marital Status | Single | + + + | Buddhist Affiliation | CHR | + + + [...] Team Providers + +------+ + | Care Fur Nailer Name | Role | Phone | + [...] [address] | | | | | [facility] | [facility] | | | | | and Healing [address] | [place] [address] | | | | | Arvin Yanez Mailcode: | [phone] | | | | | [address] | | | | | | Health and Healing, | | | | | | Building [address] | | | | | | [place], [place] | | | | | | [address] | | | | | | [phone] | | | +--------+--------+ + + + [...]
--- OUTSIDE RECORDS SUMMARY | ~2020-02-18 | XMS | Clinical Summary ---
Demographics + + + | Address | [address] | | | [place] [address] | + + + | Home Phone [...] Team Providers + +------+ + | Care Sail Lay Out Worker Name | Role | Phone | + +------+ + | Reji Morales MD | PCP | | + +------+ + Source Comments NELLY is fully live on both [facility] and [facility] Allergies No Known Allergies Medications + + + +---------+------+------+-------+ | Medication | Sig | Dispensed | Refills | Star | End | Statu | | | | | | t | Date | s | | | | | | Date | | | + + + +---------+------+------+-------+ | Enalapril Maleate | take 1 tablet (20mg) | | 0 | | | Activ | | 20 mg OR TABS | by oral route once | | | | | e | | | daily | | | | | | + + + +---------+------+------+-------+ | phytonadione 100 | Take 100 mcg by | | 0 | | | Activ | | mcg oral tablet | mouth once daily. | | | | | e | + + + +---------+------+------+-------+ | carbidopa-levodopa | Take 1 tablet by | 120 | 11 | 01/0 | | Activ | | 25-100 mg oral | mouth four times | tablet | | 7/20 | | e | | tablet | daily. | | | 16 | | | + + + +---------+------+------+-------+ | LORazepam 0.5 mg | Take 0.5 mg by mouth | | 0 | | | Activ | | oral tablet | every four hours as | | | | | e | | | needed for anxiety. | | | | | | + + + +---------+------+------+-------+ | senna-docusate | Take 2 tablets by | 20 | 0 | 03/3 | | Activ | | 8.6-50 mg oral | mouth twice daily as | tablet | | 20 | | e | | tabletIndications: | needed. | | | 18 | | | | Malignant neoplasm | | | | | | | | of prostate (HCC) | | | | | | | + + + +---------+------+------+-------+ | amantadine HCl 100 | Take 1 tablet by | | 1 | 03/3 | | Activ | | mg oral tablet | mouth two times | | | 20 | | e | | | daily. | | | 18 | | | + + + +---------+------+------+-------+ | MELATONIN ORAL | Take by mouth. | | 0 | | | Activ | | | | | | | | e | + + + +---------+------+------+-------+ | tadalafil (CIALIS) | Take 0.5 tablets by | 45 | 3 | 04/1 | | Activ | | 10 mg oral tablet | mouth once daily as | tablet | | 20 | | e | | | needed. [...] 12/12/2017 | + + + | Pneumomediastinum | 12/12/2017 | + + + | Benign essential tremor | 07/06/2006 | + + + | Parkinson disease | 07/06/2006 | + + + Family History + + [...] + + + + + | Pneumococcal | | 05/30/2017 | | | vaccination (2 of 2 | 8 | | | | - PCV13) | | | | + + + + + | Influenza (Flu) | | 07/25/2018, 07/26/2016, | | | vaccination (#1) | 9 | 07/09/2015, Additional history | | | | | exists | | + + + + + Results Not on filefrom Last 3 Months Insurance + +--------+ +--------+ + +--------+ | Payer | Benefi | Subscriber | Effect | Phone | Address | Type | | | t Plan | ID | jania | | | | | | / | | Dates | | | | | | Group | | | | | | + +--------+ +--------+ + +--------+ | MEDICARE | MEDICA | xxxxxxxxxx | Effect | [phone] | [address] | Medica | | | RE A & | | jania | [address] | [phone] | re | | | B | | for | | [place], [place] | | | | | | all | | [id number] | | | | | | dates | | | | + +--------+ +--------+ + +--------+ | BLUE CROSS BLUE | REGENC | xxxxxxxxxxx | Effect | [phone] | [address] | PPO | | SHIELD | E BCBS | x | jania | 8 | [phone] | | | | | | for | | [place], | | | | MEDICA | | all | | [place] | | | | RE | | dates | | [address] | | | | SUPPLE | | | | | | | | MENT | | | | | | + +--------+ +--------+ + +--------+ + +--------+ +--------+ + + | Guarantor Name | Accoun | Relation to | Date | Phone | Billing Address | | | t Type | Patient | of | | | | | | | | | | + +--------+ +--------+ + + | Nima Moody | Person | Self | [birth year] | [address] | | | al/Fam | | 1950 | [phone] | [place] [address] | | | cierra | | | 9 (Home) | | + +--------+ +--------+ + + Advance Directives + + + + + | Type | Date Recorded | Patient | Explanation | | | | Gullet Slitter | | + + + + + | Advance | | | | | Directives and | | | | | Living Will | | | | + + + + + | Power of | | | | | Breakfast Cook | | | | + + + + + + + + + + | Code Status | Date | Date | Comments | | | Activated | Inactivated | | + + + + + | Full Code | 12/12/2017 | 12/13/2017 | | | | 8:32 AM | 10:23 PM | | + + + + + + + + +---+ | | | | | + + + +---+ | Full Code | 12/08/2017 | 12/09/2017 | | | | 6:55 PM | 9:40 PM | | + + + +---+ + + + +---+ | | | | | + + + +---+ | Full Code | 12/08/2017 | 12/08/2017 | | | | 9:47 AM | 9:48 AM | | + + + +---+
--- OUTSIDE RECORDS SUMMARY | ~2020-02-18 | XMS | Encounter Summary ---
Demographics + + + | Address | [address] | | | [place] [address] | + + + | Home Phone | | + + + | Preferred Language | Unknown | + + + | Marital Status | | + + + | Quaker Affiliation | Unknown | + + + | Race | Unknown | + + + | Ethnic Group | Unknown | + + + Author + + + | Author | [facility] | | | and [place] | + + + | Organization | [facility] | | | and [place] | + + + | Address | Unknown | + + + | Phone | Unavailable | + + + Support + + + + + | Name | Relationship | Address | Phone | + + + + + | Mati Moody | YOANNA | [place] | | | | | [address] | | + + + + + | Ayde Rojas | ECON | [place] | | | | | [address] | | + + + + + Care Team Providers + +------+ + | Care Firer Boiler Name | Role | Phone | + [...] + + | 08/07/ | Telephone | [facility] | Leslie Caballero, | Referral | | 2019 | | NEUROLOGY [address] | | | | | [address] | [facility] [address] | | | | | [place], [place] | [place] [address] | | | | | [address] | [phone] | | | | | [phone] | | | +--------+ + + + [...] | | | | | [place] [address] | | | | | | [phone] | | | | | | | [...]
--- OUTSIDE RECORDS SUMMARY | ~2020-02-18 | XMS | Encounter Summary ---
Demographics + + + | Address | [address] | | | [place] [address] | + + + | Home Phone [...] Providers + +------+ + | Care Production Administrator Name | Role | Phone | + [...] | 04/05/ | Telephone | [facility]rology at [facility] | Yiing, | Post Op | | 2018 | | [address] | Adeel Stephens MD | | | | | Mailcode: [id number] | [address] | | | | | [facility] | [address] [place], | | | | | and Healing, | [place] [address] | | | | | Building | [phone] | | | | | Floor [place], [place] | | | | | | [address] | | | | | | [phone] | | | +--------+ + + + [...]
--- OUTSIDE RECORDS SUMMARY | ~2020-02-18 | XMS | Encounter Summary ---
Demographics + + + | Address | [address] | | | [place] [address] | + + + | Home Phone | | + + + | Preferred Language | Unknown | + + + | Marital Status | Single | + + + | Confucianism Affiliation | CHR | + + + [...] Team Providers + +------+ + | Care Varnish Thinner Name | Role | Phone | + +------+ + | Rjei Morales MD | PCP | | + +------+ + Reason for Visit + + + | Reason | Comments | + + + | Medication Question | | + + + Encounter Details +--------+ + + + + | Date | Type | Department | Care Team | Description | +--------+ + + + + | 11/01/ | Telephone | Neurology Movement | Sherry Mcmahon, | Medication Question | | 2011 | | Disorders Clinic at | [address] | | | | | [facility] | [facility] | | | | | and Healing [address] | [place] [address] | | | | | Arvin Yanez Mailcode: | [phone] | | | | | [facility] | | | | | | Health and Healing, | | | | | | [facility] 1 | | | | | | Floor [place], [place] | | | | | | [address] | | | | | | [phone] | | | +--------+ + + + [...]
--- OUTSIDE RECORDS SUMMARY | ~2020-02-18 | XMS | Encounter Summary ---
Demographics + + + | Address | [address] | | | [place] [address] | + + + | Home Phone | | + + + | Preferred Language | Unknown | + + + | Marital Status | | + + + | Restorationist Affiliation | Unknown | + + + | Race | Unknown | + + + | Ethnic Group | Unknown | + + + Author + + + | Author | [facility] | | | and [place] | + + + | Organization | [facility] | | | and [place] | + + + | Address | Unknown | + + + | Phone | Unavailable | + + + Support + + + + + | Name | Relationship | Address | Phone | + + + + + | Mati Moody | YOANNA | [place] | | | | | [address] | | + + + + + | Ayde Rojas | ECON | [place] | | | | | [address] | | + + + + + Care Team Providers + +------+ + | Care Skeet Operator Name | Role | Phone | + +------+ + | Adina Lloyd MD | PCP | | + +------+ + Reason for Visit + + + | Reason | Comments | + + + | Prostate Cancer | | + + + | Under Treatment | | + + + Encounter Details +--------+ + + + + | Date | Type | Department | Care Team | Description | +--------+ + + + + | 03/21/ | Hospital | [facility] | Sherrell Hadley | Prostate cancer | | 2019 | Encounter | [facility] RAD[facility]ATION | MD Manish [address] | (HCC) (Primary Dx) | | | | ONCOLOGY CLINIC [address] | [place], [place] | | | | | [address] [facility] | [address] | | | | | [place] [address] | | | | | | [phone] | | | +--------+ + + + [...] + + + | Blood Pressure | 142/66 | 03/21/2019 10:59 AM | | | | | PDT | | + + + + + | Pulse | 50 | 03/21/2019 10:59 AM | | | | | PDT | | + + + + + | Temperature | 36.5 C (97.7 F) | 03/21/2019 10:59 AM | | | | | PDT | | + + + + + | Respiratory Rate | 16 | 03/21/2019 10:59 AM | | | | | PDT | | + + + + + | Oxygen Saturation | 100% | 03/21/2019 10:59 AM | | | | | PDT | | + + + + + | Inhaled Oxygen | - | - | | | Concentration | | | | + + + + + | Weight | 87.4 kg (192 lb 10.9 | 03/21/2019 10:59 AM | | | | oz) | PDT | | + + + + + | Height | - | - | | + + + + + | Body Mass Index | 24.08 | 01/22/2019 10:00 AM | | | [...] encounter Progress Notes Sherrell Hadley MD - 03/21/2019 11:00 AM PDT Radiation Oncology Weekly On Treatment Note Diagnosis: ICD-10-CM ICD-9-CM 1. Prostate cancer (HCC) C61 185 Reason for visit: On treatment evaluation Radiation technical factors: Dose Delivered Dose Planned Fractions Delivered 6400 cGy 6800 cGy Images were reviewed this [...] 0 Wt Readings from Last 3 Encounters: 03/21/19 87.4 kg (192 lb 10.9 oz) 03/13/19 87 kg (191 lb 12.8 oz) 03/07/19 86.1 kg (189 lb 13.1 oz) Vitals: 03/21/19 1059 BP: 142/66 Pulse: 50 Resp: 16 Temp: 36.5 C (97.7 F) TempSrc: Temporal SpO2: 100% Weight: 87.4 kg (192 lb 10.9 oz) Physical Exam Constitutional: He appears well-developed and well-nourished. Neurological: He is alert. Psychiatric: He has a normal mood and affect. Nurse Assessment and Toxicity Grading: Toxicity Flowsheet 03/21/2019 Diarrhea 0 - Grade 0 Nausea 0 - Grade 0 Vomiting 0 - Grade 0 Fatigue 1 - Grade 1 Urinary Tract Pain 0 - Grade 0 Karnofsky Performance Score 70% Physician Assessment: Nima is near completion of radiation treatment and continues to do extremely well. He has very mild fatigue. Denies any bothersome changes in urinary or bowel function. Disposition: Continue radiation treatment as planned. Follow-up 3 months posttreatment with PSA. Sherrell Hadley MD Radiation Oncologist documented in [...] | | | | | [place] [address] | | | | | | [phone] | | | | | | | | +--------+ + + + + | 07/03/ | Appointment | Oncology | | | | 2019 | | | | | +--------+ + + + + | 07/03/ | Appointment | Radiation Oncology | Sherrell Hadley | | | 2019 | | | MD Manish [address] | | | | | | [place], [place] | | | | | | [address] | | | | | | | | +--------+ + + + + documented as of this encounter Visit Diagnoses + + | Diagnosis | + + | Prostate cancer (HCC) - Primary Malignant neoplasm of prostate | + + documented in this encounter"
--- OUTSIDE RECORDS SUMMARY | ~2020-02-18 | XMS | Encounter Summary ---
Demographics + + + | Address | [address] | | | [place] [address] | + + + | Home Phone | | + + + | Preferred Language | Unknown | + + + | Marital Status | | + + + | Pentecostalism Affiliation | Unknown | + + + | Race | Unknown | + + + | Ethnic Group | Unknown | + + + Author + + + | Author | [facility] | | | and [place] | + + + | Organization | [facility] | | | and [place] | + + + | Address | Unknown | + + + | Phone | Unavailable | + + + Support + + + + + | Name | Relationship | Address | Phone | + + + + + | Mati Moody | YOANNA | [place] | | | | | [address] | | + + + + + | Ayde Rojas | ECON | [place] | | | | | [address] | | + + + + + Care Team Providers + +------+ + | Care It Systems Analyst Consultant Name | Role | Phone | + +------+ + | Adina Lloyd MD | PCP | | + +------+ + Reason for Visit +--------+ + | Reason | Comments | +--------+ + | Other | | +--------+ + Encounter Details +--------+ + + + + | Date | Type | Department | Care Team | Description | +--------+ + + + + | 03/21/ | Telephone | [facility] | Sherrell Hadley | Other | | 2019 | | MED CTR RADIATION | MD Manish [address] | | | | | ONCOLOGY CLINIC [address] | [place], [place] | | | | | [facility] | [id number] | | | | | [place] [address] | | | | | | [phone] | | | +--------+ + + + [...] | | | | | [place] [address] | | | | | | [phone] | | | | | | | [...]
--- OUTSIDE RECORDS SUMMARY | ~2020-02-18 | XMS | Encounter Summary ---
Demographics + + + | Address | [address] | | | [place] [address] | + + + | Home Phone [...] Team Providers + +------+ + | Care Biomass Production Manager Name | Role | Phone | [...] Clinic at | [address] | ([facility]) (Primary Dx) | | | | [facility] | [address] | | | | | and Healing [address] | [place] [address] | | | | | [address]ane[address] Mailcode: | [phone] | | | | | [address] | | | | | | Health and Healing, | | | | | | [facility], | | | | | | [place], [place] | | | | | | [address] | | | | | | [phone] | | | +--------+---------+ + + + [...] blood pressure and attitude towards life in [facility]. He is justifiably proud of [...]
--- OUTSIDE RECORDS SUMMARY | ~2020-02-18 | XMS | Clinical Summary ---
Demographics + + + | Address | [address] | | | [place] [address] | + + + | Home Phone [...] Team Providers + +------+ + | Care Explosive Ordnance Disposal Specialist Name | Role | Phone | + +------+ + | Reji Morales MD | PCP | | + +------+ + Source Comments NELLY is fully live on both [facility] and [facility] In[facility] Allergies No Known Allergies Medications + + [...] | | | | all | | [address] | | | | | | dates | | | | + +--------+ +--------+ + +--------+ | BLUE CROSS BLUE | REGENC | [phone] | Effect | [phone] | [address] | PPO | | SHIELD | E BCBS | x | jania | 8 | [phone] | | | | | | for | | [place], | | | | MEDICA | | all | | [place] | | | | RE | | dates | | [address] | | | | SUPPLE | | [...] Person | Self | [birth year] | [address] | | | al/Fam | | 1950 | [phone] | [place] [address] | | | cierra | | | 9 (Home) | | + +--------+ +--------+ + + Advance Directives + + + + + | Type | Date Recorded | Patient | Explanation | | | | Flat Ironer | | + + + + + | Advance | | | | | Directives and | | | | | Living Will | | | | + + + + + | Power of | | | | | Feller Operator | | | | + + + [...]
--- OUTSIDE RECORDS SUMMARY | ~2020-02-18 | XMS | Encounter Summary ---
Demographics + + + | Address | [address] | | | [place] [address] | + + + | Home Phone | | + + + | Preferred Language | Unknown | + + + | Marital Status | | + + + | Muslim Affiliation | Unknown | + + + | Race | Unknown | + + + | Ethnic Group | Unknown | + + + Author + + + | Author | [facility] | | | and [place] | + + + | Organization | [facility] [...] [place] | | | | | [address] | | + + + + + | Ayde Rojas | ECON | [place] | | | | | [address] | | + + + + + Care Team Providers + +------+ + | Care National Coverage Specialist Name | Role | Phone | [...] | +--------+ + + + + | 02/28/ | Hospital | [facility] | Sherrell Hadley | Prostate cancer | | 2019 | Encounter | MED CTR RADIATION | MD [place] [address] | (HCC) (Primary Dx) | | | | ONCOLOGY CLINIC [address] | [place], [place] | | | | | [address] [facility] | [address] | | | | | [place] [address] | | | | | | [phone] | | | +--------+ + + + [...] + + + | Blood Pressure | 142/80 | 02/28/2019 11:40 AM | | | | | PDT | | + + + + + | Pulse | 56 | 02/28/2019 11:40 AM | | | | | PDT | | + + + + + | Temperature | 36.3 C (97.3 F) | 02/28/2019 11:40 AM | | | | | PDT | | + + + + + | Respiratory Rate | 18 | 02/28/2019 11:40 AM | | | | | PDT | | + + + + + | Oxygen Saturation | - | - | | + + + + + | Inhaled Oxygen | - | - | | | Concentration | | | | + + + + + | Weight | 86.2 kg (190 lb 0.6 | 02/28/2019 11:40 AM | | | | oz) | PDT | | + + + + + | Height | - | - | | + + + + + | Body Mass Index | 23.75 | 01/22/2019 10:00 AM | | | [...] Apply 1 Dose | | 0 | 03/26/20 | | | (NIZORAL) 2% shampoo | [...] encounter Progress Notes Sherrell Hadley MD - 02/28/2019 11:45 AM PDT Radiation Oncology Weekly On Treatment Note Diagnosis: ICD-10-CM ICD-9-CM 1. Prostate cancer (HCC) C61 185 Reason for visit: On treatment evaluation Radiation technical factors: Dose Delivered Dose Planned Fractions Delivered 3600 cGy 6800 cGy Images were reviewed this [...] Pain Level: PAIN PROG PAIN LEVEL: 0 Vitals: 02/28/19 1140 BP: 142/80 Pulse: 56 Resp: 18 Temp: 36.3 C (97.3 F) TempSrc: Temporal Weight: 86.2 kg (190 lb 0.6 oz) Physical Exam Constitutional: He appears well-developed and well-nourished. Neurological: He is alert. Psychiatric: He has a normal mood and affect. Physician Assessment: Nima Moody is though 3 weeks of treatment and continues to do very well. He report mild fatigue, but remains in excellent spirits. He tends towards constipation. Has not noticed a change in bowel or bladder function since starting radiation. Toxicities reviewed in nursing note. Disposition: Continue [...] | | | | | | [facility] [address] | | | | | | [place] [address] | | | | | | [phone] | | | | | | | | +--------+ + + + + | 07/03/ | Appointment | Oncology | | | 2019 | | | | | +--------+ + + + + | 07/03/ | Appointment | Radiation Oncology | JodieusebiojulianoSherrell | | | 2019 | | | MD Raghva [address] | | | | | | [address] [place] | | | | | | [address] | | | | | | | | +--------+ + + + + documented as of this encounter Visit Diagnoses + + | Diagnosis | + + | Prostate cancer (HCC) - Primary Malignant neoplasm of prostate | + + documented in this encounter"
--- OUTSIDE RECORDS SUMMARY | ~2020-02-18 | XMS | Encounter Summary ---
Demographics + + + | Address | [address] | | | [place] [address] | + + + | Home Phone [...] Team Providers + +------+ + | Care Toll Transmission Worker Name | Role | Phone | + +------+ + | Reji Morales MD | PCP | | + +------+ + Encounter Details +--------+ + + + + | Date | Type | Department | Care Team | Description | +--------+ + + + + | 07/13/ | Hospital | [facility] | | | | 2015 | Encounter | [address] | | | | | | [place], | | | | | | [place] [address] | | | +--------+ + + + [...] at Time of Discharge + + + +---------+--------+ + | Medication | Sig | Dispensed | Refills | Start | End Date | | | | | | Date | | + + + +---------+--------+ + | Enalapril Maleate | take 1 tablet (20mg) | | 0 | | | | 20 mg OR TABS | by oral route once | | | | | | | daily | | | | | + + + +---------+--------+ + | phytonadione 100 | Take 100 mcg by | | 0 | | | | mcg oral tablet | mouth once daily. | | | | | + + + +---------+--------+ + documented as of this encounter Plan of Treatment Not on filedocumented as of this encounter Visit Diagnoses Not on filedocumented in this encounter"
--- OUTSIDE RECORDS SUMMARY | ~2020-02-18 | XMS | Encounter Summary ---
Demographics + + + | Address | [address] | | | [place] [address] | + + + | Home Phone [...] Team Providers + +------+ + | Care Medical Assistant Ob Gyn Name | Role | Phone | + [...] at | [address] | ([facility]) (Primary Dx) | | | | [facility] | [place], [place] | | | | | and Healing [address] | [address] | | | | | [address] Mailcode: | [phone] | | | | | [facility] | | | | | | Health and Healing, | | | | | | [facility] | | | | | | Floor [place], [place] | | | | | | [address] | | | | | | [phone] | | | +--------+---------+ + + + [...] has 3 children 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 -- Continue with exercise. -- Follow-up in 6 months, call before then if concerns or questions. I spent 25 minutes with the patient in [id number] time. Greater than 50% of the time was spent counseling the patient regarding the above issues. Joslyn Chapa MD Movement Disorders Neurologist [facility] documented in this e ncounter Plan of Treatment Not on filedocumented as of this encounter Visit Diagnoses + + | Diagnosis | + + | Parkinson disease (HCC) - Primary Paralysis agitans | + + documented in this encounter
--- OUTSIDE RECORDS SUMMARY | ~2020-02-18 | XMS | Encounter Summary ---
Demographics + + + | Address | [address] | | | [place] [address] | + + + | Home Phone | | + + + | Preferred Language | Unknown | + + + | Marital Status | Single | + + + | Mandaen Affiliation | CHR | + + + [...] Team Providers + +------+ + | Care Continuity Tester Name | Role | Phone | + +------+ + | Reji Morales MD | PCP | | + +------+ + Reason for Visit + + + | Reason | Comments | + + + | Medication | | | management | | + + + Encounter Details +--------+ + + + + | Date | Type | Department | Care Team | Description | +--------+ + + + + | 08/26/ | Telephone | Neurology Movement | Sherry Mcmahon, | Medication | | 2007 | | Disorders Clinic | [address] | management | | | | [address] | [address] | | | | | [address] Mailcode: [id number] | [facility] [place] [address] | | | | | Outpatient Clinic | [phone] | | | | | Building [place], | | | | | | [place] [address] | | | | | | [phone] | | | +--------+ + + + [...]
--- OUTSIDE RECORDS SUMMARY | ~2020-02-18 | XMS | Encounter Summary ---
Demographics + + + | Address | [address] | | | [place] [address] | + + + | Home Phone | | + + + | Preferred Language | Unknown | + + + | Marital Status | | + + + | Holiness Affiliation | Unknown | + + + | Race | Unknown | + + + | Ethnic Group | Unknown | + + + Author + + + | Author | [facility] | | | and [place] | + + + | Organization | [facility] | | | and [place] | + + + | Address | Unknown | + + + | Phone | Unavailable | + + + Support + + + + + | Name | Relationship | Address | Phone | + + + + + | Mati Moody | [address]O[place] | [place] | | | | | [address] | | + + + + + | Ayde Rojas | ECON | [place] | | | | | [address] | | + + + + + Care Team Providers + +------+ + | Care Type Rolling Machine Operator Name | Role | Phone | + +------+ + | Adina Lloyd MD | PCP | | + +------+ + Encounter Details +--------+ + + + + | Date | Type | Department | Care Team | Description | +--------+ + + + + | [facility]22/ Hospital | [facility] | Sherrell Hadley | | | 2019 | Encounter | MED CTR RADIATION | M, [address] | | | | | ONCOLOGY [address] [place], [place] | | | | | [place], | [address] | | | | | [place] [address] | | | | | | [phone] | | | +--------+ + + + [...] D | | | | | | [place] [address] | | | | | | [phone] | | | | | | | [...]
--- OUTSIDE RECORDS SUMMARY | ~2020-02-18 | XMS | Encounter Summary ---
Demographics + + + | Address | [address] | | | [place] [address] | + + + | Home Phone [...] Team Providers + +------+ + | Care Switch Repairer Name | Role | Phone | [...] [address] | | | | | | [place], [place] | | | | | | [address] | | | +--------+ + + + [...]
--- OUTSIDE RECORDS SUMMARY | ~2020-02-18 | XMS | Encounter Summary ---
Demographics + + + | Address | [address] | | | [place] [address] | + + + | Home Phone [...] Team Providers + +------+ + | Care International Controller Name | Role | Phone | + [...] Description | +--------+---------+ + + + | 02/19/ | Office | Neurology Movement | Krishna Mcmahon, | Parkinson disease | | 2011 | Visit | Disorders Clinic at | [address] | ([facility]) (Primary Dx) | | | | [facility] | [address] | | | | | and Healing [address] | [place] [address] | | | | | [address] Mailcode: | [phone] | | | | | [address] | | | | | | Health and Healing, | | | | | | [facility], | | | | | | [place], [place] | | | | | | [address] | | | | | | [phone] | | | +--------+---------+ + + + [...] + + + | Blood Pressure | 132/74 | 02/20/2012 12:28 PM | | | | | PDT | | + + + + + | Pulse | 74 | 02/20/2012 12:28 PM | | | | | PDT | | + + + + + | Temperature | - | - | | + + + + + | Respiratory Rate | 15 | 02/20/2012 12:25 PM | | | | | PDT | | + + + + + | Oxygen Saturation | - | - | | + + + + + | Inhaled Oxygen | - | - | | | Concentration | | | | + + + + + | Weight | 97.1 kg (214 lb) | 02/20/2012 12:25 PM | | | | | PDT | | + + + + + | Height | - | - | | + + + + + | Body Mass Index | 26.75 | 01/17/2011 2:53 PM | | | | | PDT | | + + + + + documented in this encounter Progress Notes Irene Rivas RN - 02/20/2012 1:34 PM PDT GUILLAUME PD SCALES 02/20/2012 BEN-D: 16 & Above 3 rishna Mcmahon MD - 9:41 PM PDTDaleslie Sho Moody is a 62 y.o. man returning to the Movement Disorders Clinic for follow up Parkinson's Disease. He is accompanied by his daughter Mary. Jean comes to clinic today full of good news: he has had a health epiphany of sorts. In the face of the arrival of his first grandchild, he has started to watch his diet, get more exercise, and generally take better care of himself. He has lost quite a bit of weight, his blood pressure is down, and he is needing less medication to keep his Parkinson's Disease s ymptoms under control. He is justifiably feeling very good about these changes. Nima's current Parkinson's Disease medications are: Sinemet 25/250 2-3 tablets per day - rarely now takes a 4th. Exam shows BP 132/74 | Pulse 74 | RR 15 | Wt 97.07 kg (214 lb). This represents a substanti al (and desirable) loss of nearly 20lbs since his last visit. His general physical exam is u nremarkable. Speech is not hypophonic. Mental status is normal and affect is very cheerful . He really doesn''t have any masking of the facies. He has a very intermittent rest tremo r in the left hand but I don't see any tremor in his leg today. Tone is increased on the le ft more than the right. Fingertaps, hand movements, and heel taps are all minimally slowed on the left compared with the right. Juliann is able to arise from the chair slowly (he is ve ry tall and it is a long way up!) but without a pushoff and walks with a normal base, slight ly decreased left armswing, but good stride length, and fairly fluid turns. He does not re tropulse on a pull test. 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 Plan: I told Nima that I was truly delighted to see him doing so well form a [facility] point of view. He seems to be doing well on a slightly lower routine dose of Sinemet, and I gave him permission to adjust as his symptoms allow. I spent >45 minutes with this patient, more than half of which time was spent in counseling as documented above. I will see him back in 6-8 months. KRISHNA MCMAHON MD documented in this encounter Plan of Treatment Not on filedocumented as of this encounter Visit Diagnoses + + | Diagnosis | + + | Parkinson disease (HCC) - Primary Paralysis agitans | + + documented in this encounter"
--- OUTSIDE RECORDS SUMMARY | ~2020-02-18 | XMS | Encounter Summary ---
Demographics + + + | Address | [address] | | | [place] [address] | + + + | Home Phone [...] + + + | Author | [facility] | + + + | Organization | [facility] | + + + [...] Team Providers + +------+ + | Care A R Specialist Name | Role | Phone | [...] [address] | | | | | | [place], [place] | | | | | | [address] | | | +--------+ + + + [...]
--- OUTSIDE RECORDS SUMMARY | ~2020-02-18 | XMS | Encounter Summary ---
Demographics + + + | Address | [address] | | | [place] [address] | + + + | Home Phone | | + + + | Preferred Language | Unknown | + + + | Marital Status | Single | + + + | Pentecostal Affiliation | CHR | + + + | Race | White | + + + | Ethnic Group | Not or | + + + Author + + + | Author | [facility] | + + + | Organization | [facility] | + + + | Address [...] Providers + +------+ + | Care Supervisor Hospitality House Name | Role | Phone | + +------+ + | Reji Morales MD | PCP | | + +------+ + Reason for Visit + + + | Reason | Comments | + + + | Medication Response | | + + + Encounter Details +--------+ + + + + | Date | Type | Department | Care Team | Description | +--------+ + + + + | 02/15/ | Telephone | Neurology Movement | Sherry Mcmahon, | Medication Response | | 2006 | | Disorders Clinic at | [address] | | | | | [facility] | [facility] | | | | | and Healing [address] | [place] [address] | | | | | [address] Mailcode: | [phone] | | | | | [facility] | | | | | | Health and Healing, | | | | | | [facility] | | | | | | Floor [place], [place] | | | | | | [address] | | | | | | [phone] | | | +--------+ + + + [...]
--- OUTSIDE RECORDS SUMMARY | ~2020-02-18 | XMS | Encounter Summary ---
Demographics + + + | Address | [address] | | | [place] [address] | + + + | Home Phone | | + + + | Preferred Language | Unknown | + + + | Marital Status | Single | + + + | Orthodox Affiliation | CHR | + + [...] Team Providers + +------+ + | Care Pony Ride Operator Name | Role | Phone | + +------+ + | Reji Morales MD | PCP | | + +------+ + Encounter Details +--------+---------+ + + + | Date | Type | Department | Care Team | Description | +--------+---------+ + + + | 12/21/ | Office | Urology at [facility] | Rn, U[address] | Prostate cancer | | 2018 | Visit | [address] | [address] | ([facility]) (Primary Dx) | | | | Mailcode: [id number] | Road [place], [place] | | | | | [facility] | [address] | | | | | and Healing, | | | | | | Building , [address] | | | | | | Floor [place], [place] | | | | | | [address] | | | | | | [phone] | | | +--------+---------+ + + + [...] documented as of this encounter Progress Notes Diana Ruelas RN - 12/21/2017 1:30 PM PDTMr. Moody came into the clinic requesting to be seen related to clear, thin fluid coming from his wounds. Mr. Moody denies fever, chills , warmness at the site, site redness, or pus from the site or indication of infection. documented in this en counter Plan of Treatment Not on filedocumented as of this encounter Visit Diagnoses + + | Diagnosis | + + | Prostate cancer (HCC) - Primary Malignant neoplasm of prostate | + + documented in this encounter"
--- OUTSIDE RECORDS SUMMARY | ~2020-02-18 | XMS | Encounter Summary ---
Demographics + + + | Address | [address] | | | [place] [address] | + + + | Home Phone [...] | Author | [facility] | | | and [place] | + + + | Organization | [facility] | | | and [place] | + + + | Address | Unknown | + + + | Phone | Unavailable | + + + Support + + + + + | Name | Relationship | Address | Phone | + + + + + | Mati [place] | [place] | [place] | | | | | [address] | | + + + + + | Ayde Rojas | ECON | [place] | | | | | [address] | | + + + + + Care Team Providers + +------+ + | Care Insurance Application Investigator Name | Role | Phone | + +------+ + | Adina Lloyd MD | PCP | | + +------+ + Reason for Visit + + + | Reason | Comments | + + + | New Patient | 12/12/19 Appointment | + + + Encounter Details +--------+ + + + + | Date | Type | Department | Care Team | Description | +--------+ + + + + | 12/08/ | Telephone | [facility] | Ada Leslie, | New Patient (12/12/19 | | 2020 | | NEUROLOGY [address] | Appointment ) | | | | [address] | [address] | | | | | [place], [place] | [place] [address] | | | | | [address] | [phone] | | | | | [phone] | | | +--------+ + + + [...] [address] | | | | | | [place] [address] | | | | | | [phone] | | | | | | | [...] [place] | | | | | | [address] | | | | | | | | +--------+ + + + + documented as of this encounter Visit Diagnoses Not on filedocumented in this encounter"
--- OUTSIDE RECORDS SUMMARY | ~2020-02-18 | XMS | Encounter Summary ---
Demographics + + + | Address | [address] | | | [place] [address] | + + + | Home Phone | | + + + | Preferred Language | Unknown | + + + | Marital Status | Single | + + + | Cheondoism Affiliation | CHR | + + + [...] Team Providers + +------+ + | Care Beamer Operator Name | Role | Phone | [...] [address] | | | | | [facility] | [facility] | | | | | and Healing [address] | [place] [address] | | | | | [address] Mailcode: | [phone] | | | | | [address] | | | | | | Health and Healing, | | | | | | Building [address] | | | | | | [place], [place] | | | | | | [address] | | | | | | [phone] | | | +--------+--------+ + + + [...]
--- OUTSIDE RECORDS SUMMARY | ~2020-02-18 | XMS | Encounter Summary ---
Demographics + + + | Address | [address] | | | [place] [address] | + + + | Home Phone | | + + + | Preferred Language | Unknown | + + + | Marital Status | | + + + | Anabaptism Affiliation | Unknown | + + + | Race | Unknown | + + + | Ethnic Group | Unknown | + + + Author + + + | Author | [facility] | | | and [place] | + + + | Organization | [facility] | | | and [place] | + + + | Address | Unknown | + + + | Phone | Unavailable | + + + Support + + + + + | Name | Relationship | Address | Phone | + + + + + | Mati Moody | YOANNA | [place] | | | | | [address] | | + + + + + | Ayde Rojas | ECON | [place] | | | | | [address] | | + + + + + Care Team Providers + +------+ + | Care Vp Rheumatology Name | Role | Phone | + +------+ + | Aidna Lloyd MD | PCP | | + +------+ + Reason for Referral Diagnostic/Screening (Routine) +--------+--------+ + + + + | Status | Reason | Specialty | Diagnoses / | Referred By | Referred To | | | | | Procedures | Contact | Contact | +--------+--------+ + + + + | Closed | | Radiology | Diagnoses | Riegert, | [address] | | | | | Prostate | Sherrell Hammond, | [address] | | | | | cancer (HCC) | MD [address] | [place], | | | | | Procedures | [address] | [place] [address] | | | | | CT | [place], | Phone: | | | | | Treatment | [place] [address] | [phone] | | | | | Plan Complex | Phone: | Fax: | | | | | CT [place] PLAN | [phone] | [phone] | | | | | | Fax: | | | | | | | [phone] | | +--------+--------+ + + + + Reason for Visit + + + | Reason | Comments | + + + | Consult | | + + + | Prostate Cancer | | + + + Evaluate & Treat (Routine) +--------+--------+ + + + + | Status | Reason | Specialty | Diagnoses / | Referred By | Referred To | | | | | Procedures | Contact | Contact | +--------+--------+ + + + + | Closed | | Radiation | Diagnoses | [place], | [place], | | | | Oncology | Prostate | Donavon Le MD | Sherrell Hammond MD | | | | | neoplasm, M1 | [address] | [address] | | | | | (HCC) | [place] | [address] | | | | | Consult/Pros | [place], [place] | [place], | | | | | alarcon/[place] | [address] | [place] [address] | | | | | Procedures | Phone: | Phone: | | | | | CO OFFICE | [phone] | [phone] | | | | | OUTPATIENT | Fax: | Fax: | | | | | NEW 60 | [phone] | [phone] | | | | | MINUTES NEW | | | | | | | PATIENT | | | +--------+--------+ + + + + Encounter Details +--------+ + + + + | Date | Type | Department | Care Team | Description | +--------+ + + + + | 01/22/ | Hospital | [facility] | Sherrell Hadley | Prostate cancer | | 2019 | Encounter | [facility] | MD Manish [address] | (HCC) (Primary Dx); | | | | [facility]Y CLINIC [address] | [place], [place] | History of radical | | | | [address] | [address] | prostatectomy | | | | [place] [address] | | | | | | [phone] | | | +--------+ + + + [...] + + + | Blood Pressure | 142/71 | 01/22/2019 10:00 AM | | | | | PDT | | + + + + + | Pulse | 82 | 01/22/2019 10:00 AM | | | | | PDT | | + + + + + | Temperature | 37.1 C (98.8 F) | 01/22/2019 10:00 AM | | | | | PDT | | + + + + + | Respiratory Rate | 16 | 01/22/2019 10:00 AM | | | | | PDT | | + + + + + | Oxygen Saturation | 98% | 01/22/2019 10:00 AM | | | | | PDT | | + + + + + | Inhaled Oxygen | - | - | | | Concentration | | | | + + + + + | Weight | 86 kg (189 lb 9.5 | 01/22/2019 10:00 AM | | | | oz) | PDT | | + + + + + | Height | 190.5 cm (6' 3") | 01/22/2019 10:00 AM | | | | | PDT | | + + + + + | Body Mass Index | 23.7 | 01/22/2019 10:00 AM | | | [...] Apply 1 Dose | | 0 | 03// | | | (NIZORAL) 2% shampoo | [...] encounter Progress Notes Sherrell Hadley MD - 01/22/2019 9:54 AM PDT Radiation Oncology Consultation Chief Complaint: Nima Moody is a 69 y.o. male seen today as a new patient at the request of Dr. Donavon Lai for evaluation and consideration of radiotherapeutic treatment. The primary encounter diagnosis was Prostate cancer (HCC). A diagnosis of History of radica l prostatectomy was also pertinent to this visit. History of Present Illness: Nima Moody was initially diagnosed with prostate cancer in September 2017. He presented with an elevated PSA, 5.61 with 11% free fraction August 2017. Prostate biopsy on 09/14/17 identified Ronceverte 4+4 = 8 involving 6 22% of core tissue, detailed below. He opted for p rostatectomy, performed at [facility] on 12/08/17, final pathology demonstrated pT2 pN0, Ronceverte 3+ 4=7, negative margin, +PNI. Immediate postoperative course complicated by ileus, requiring re-hospitalization. He has now recovered well from surgery, reports some urinary frequency and difficulty fully emptyin g his bladder with interrupted terminal flow. Did experience urinary urgency and incontinen ce for the first few months after surgery, he has now regained full urinary control. No dys uria, incontinence or hematuria. Nocturia x3. He did not maintain erectile function postope ratively. General medical health significant for Parkinson's disease. Tends to be constipated. No d iverticulitis or inflammatory bowel disorders. Review of systems: Constitutional: Denies fatigue. Denies high fevers, shaking chills, anorexia, nausea, vomit ing, weight loss, or night sweats. Appetite without changes. Ear, Nose, Mouth, Throat: Reports issues with swallowing due to parkinson's. Denies odynop hagia or tinnitus. Cardiovascular: Denies shortness of breath, dyspnea on exertion, chest pain, palpitations o r orthopnea. Respiratory: Reports intermittent cough related to Parkinson's Denies hemoptysis, or sputum production. Gastrointestinal: Denies abdominal pain, constipation, diarrhea, melena, or bright red bloo d per rectum. Genitourinary: Denies hematuria or dysuria. Musculoskeletal: Denies joint pain or tenderness. Neurologic: Denies headache, visual changes, or numbness/tingling of the extremities. Endocrine: Denies peripheral edema or heat/cold intolerance. Hematologic: Denies spontaneous bruising or bleeding. Integumentary: Reports dry scaly skin, had a skin cancer on hand, just had it removed by Dr Angelia Jeong. Denies rash, wounds. Pain: Denies pain. Note: Here for consult with Dr. Hadley for prostate cancer. My chart: Questionnaires: IPSS Questionnaire (AUA-7): Over the past month 1) How often have you had a sensation of not emptying your bladder completely after you fi soheila urinating? 4 - More than half the time 2) How often have you had to urinate again less than two hours after you finished urinatin g? 2 - Less than half the time 3) How often have you found you stopped and started again several times when you urinated? 3 - About half the time 4) How difficult have you found it to postpone urination? 1 - Less than 1 time in 5 5) How often have you had a weak urinary stream? 4 - More than half the time 6) How often have you had to push or strain to begin urination? 2 - Less than half the montserrat e 7) How many times did you most typically get up to urinate from the time you went to bed un til the time you got up in the morning? 3 - 3 times Total score: 0-7 mildly symptomatic 19 8-19 moderately symptomatic 20-35 severely symptomatic Pain assessment: Location: NA Pain Level: PAIN PROG PAIN LEVEL: 0 Questionnaires: Have you ever had radiation treatment: no Comments: Do you have a pacemaker or ICD: no Are you claustrophobic? no Do you have a connective tissue disorder such as Lupus, Scleroderma, or other: no Do you have the ability to become : no Current Outpatient Medications Medication Sig Dispense Refill carbidopa-levodopa (SINEMET) 25-100 mg per tablet Take 0.5 tablets by mouth 6 times cezar ly. enalapril (VASOTEC) 20 MG tablet Take 1 tablet by mouth Daily. hydroCHLOROthiazide 25 mg tablet Take 1 tablet by mouth Daily. ketoconazole (NIZORAL) 2% shampoo Apply 1 Dose topically as needed. metoprolol tartrate (LOPRESSOR) 50 mg tablet Take 1 tablet by mouth 2 times daily. potassium chloride (MICRO-K) 10 mEq CR capsule Take 1 capsule by mouth Daily. tadalafil (CIALIS) 10 MG tablet Take 1 tablet by mouth as needed. Take 0.5 mg once deborah y as needed,not to exceed more then once daily No current facility-administered medications for this visit. Allergies Not on File Intolerance Not on File Past Medical History: Diagnosis Date Constipation, chronic Diabetes mellitus, type 2 (HCC) Diverticulitis Dyskinesia Dysphagia Erectile dysfunction Gastroesophageal reflux disease Gout Hyperlipidemia Hypertension Hypothyroidism Parkinson disease (HCC) Prostate cancer (HCC) Squamous cell carcinoma face, wrist Vitamin D deficiency Past Surgical History: Procedure Laterality Date HYDROCELE EXCISION PROSTATECTOMY 12/08/2017 robotic-assisted laparoscopic THYROIDECTOMY, PARTIAL No family history on file. Social History Socioeconomic History Marital status: Not on file Spouse name: Not on file Number of children: Not on file Years of education: Not on file Highest education level: Not on file Social Needs Financial resource strain: Not on file Food insecurity - worry: Not on file Food insecurity - inability: Not on file Transportation needs - medical: Not on file Transportation needs - non-medical: Not on file Occupational History Not on file Tobacco Use Smoking status: Not on file Substance and Sexual Activity Alcohol use: Not on file Drug use: Not on file Sexual activity: Not on file Other Topics Concern Not on file Social History Narrative Not on file Physical Exam: Vitals: 01/22/19 1000 BP: 142/71 Pulse: 82 Resp: 16 Temp: 37.1 C (98.8 F) Wt Readings from Last 3 Encounters: 01/22/19 86 kg (189 lb 9.5 oz) General: Healthy appearing man in no acute medical distress. KPS: 70 HEENT: Pupils equal and round. No conjunctival icterus or injection. Extremities: Upper and lower extremities warm and well perfused with no upper or lower extr emity edema. Neurologic: Alert, oriented and appropriated in conversation. CN II-IX grossly intact. Move s all 4 extremities normally with slow gait. Head and bilateral UE tremor noted. Psychiatric: Appropriate. Labs: PSA 01/02/19 0.160 10/17/18 0.100 testosterone 2.79 (normal range 1.75 7.81) 10/10/18 0.117 06/06/2018 0.050 03/06/2018 0.034 01/08/18 0.060 Prostatectomy 08/22/17 5.61, 11.14% free 01/08/19 CBC: WBC 10.6, RBC 5.02, hemoglobin 13.8, platelets 421 Imaging: No recent results. 12/15/17 CT pelvis with contrast at [facility]. Dilated bowel, consistent with ileus. Bilateral obturator lymphoceles. No adenopathy. No malignant appearing bone changes. Pathology: 09/14/17 prostate biopsy Left base: Benign Left mid: Kim 3+3 =6, 6% Left apex: Kim 3+3 =6, 9% Right base: Ronceverte 3+3 equal 6, 21% Right mid: Ronceverte 3+4 = 7, 17% Right apex: Ronceverte 4+4 = 8, 22% Left transition zone: benign Right transition zone: benign 12/08/17 prostatectomy SPECIMEN Procedure:Radical prostatectomy Prostate Size: Prostate Weight (g):41 g Prostate Greatest Dimension in Centimeters (cm):4.5 Centimeters (cm) Additional Dimension in Centimeters (cm):4 Centimeters (cm) Additional Dimension in Centimeters (cm):4 Centimeters (cm) TUMOR Histologic Type:Acinar adenocarcinoma Kim Pattern: Percentage of Pattern 4:20 % Primary Ronceverte Pattern:Pattern 3 Secondary Kim Pattern:Pattern 4 Tertiary Ronceverte Pattern:Not applicable Total Ronceverte Score:7 Grade Group:2 Intraductal Carcinoma (IDC):Not identified Tumor Quantitation:Estimated percentage of prostate involved by tumor: 15 % Extraprostatic Extension (EPE):Not identified Urinary Bladder Neck Invasion:Not identified Seminal Vesicle Invasion:Not identified Treatment Effect:No known presurgical therapy Lymphovascular Invasion:Not Identified Perineural Invasion:Present MARGINS Margins:Uninvolved by invasive carcinoma LYMPH NODES Regional Lymph Nodes: Number of Lymph Nodes Involved:0 Number of Lymph Nodes Examined:10 PATHOLOGIC STAGE CLASSIFICATION (pTNM, AJCC 8th Edition) Primary Tumor (pT):pT2 Regional Lymph Nodes (pN):pN0 ADDITIONAL FINDINGS Additional Pathologic Findings:High-grade prostatic intraepithelial neoplasia (PIN) Assessment: ICD-10-CM ICD-9-CM 1. Prostate cancer (HCC) C61 185 2. History of radical prostatectomy Z90.79 V15.29 Intermediate risk prostate cancer with biochemical recurrence post-prostatectomy , Kim 3+4=7, pre-operative PSA 5.61. Prostatectomy with 15% tumor involvement, pT2 pN0, negative m argin, PNI present. Postoperative asmita PSA 0.34, current 0.016. Recovery from surgery has been good with full urinary control. Notes moderate urinary symp toms with frequency, urgency and nocturia. We reviewed the prostatectomy pathology findings, recent PSA readings and NCCN guidelines. I explained that his PSA remains very low and staging studies such as bone scan, CT or MRI and even PET scan are very unlikely to be able to identify the site of recurrence. The sens itivity of PSA testing is much greater than the sensitivity of these imaging studies. We di scussed with the probability is greatest that the PSA is coming from the prostate fossa. We reviewed retrospective data published by Melida et al. (YUAN 2008). Discussed that there is predicated prostate cancer specific survival improvement with Post-prostatectomy radiati on when taking into account his pathologic findings and PSA doubling time. The risks, benefits, logistics, and techniques of external beam irradiation for the treatme nt of this condition were discussed in detail including the process of simulation and treatm ent delivery. A detailed discussion regarding signs and symptoms of early(temporary) and la te(permanent) side effects occurred next. Nima verbalized understanding of the treatment re commendation and wishes to proceed to simulation when appropriate. We also discussed the option of adding angina and deprivation. My general maintenance engineer has bee n to omit androgen deprivation for gentleman with a low intermediate risk histology (Gleas on 3+4), however this remains an area of active study. We discussed a current enrolling tri jatin, [id number] randomizing me to placebo or apalutamide with post-prostatectomy salvage radia tion. We also discussed the option of short term bicalutamide or Lupron with radiation. He declined androgen deprivation or trial participation. Primary reason was concern for side- effects and fatigue with his underlying Parkinson's disease. Plan: - Return for CT simulation later this week. - Radiation plan will be for 68 Gy in 34 fractions with IMRT/VMAT planning to spare neighbo ring critical structures. The information found at www.rtanswers.org was advised for further information specific to radiation therapy. Nima was encouraged to call our clinic with any further questions or co ncerns. Thank you for allowing me to participate in the care of Nima. If you should have any quest ions regarding this evaluation, please do not hesitate to contact me. Sherrell Hadley M.D. Radiation Oncologist Department of Radiation Oncology [facility] Office: [phone] signed by Sherrell Hadley MD at 01/22/2019 11:50 AM P DTdocumented in this encounter Plan of Treatment +--------+ [...] | | | | | [place] [address] | | | | | | [phone] | | | | | | | [...] [place] | | | | | | [id number] | | | | | | | | +--------+ + + + + documented as of this encounter Procedures + +--------+ + + + | Procedure Name | Priori | Date/Time | Associated Diagnosis | Comments | | | ty | | | | + +--------+ + + + | LABS - EXTERNAL SCAN | | 01/08/2019 | | Results for this | | | | 12:00 AM | | procedure are in the | | | | PDT | | results section. | + +--------+ + + + | IMAGING REPORT - | | 12/16/2017 | | Results for this | | EXTERNAL SCAN | | 12:00 AM | | procedure are in the | | | | PDT | | results section. | + +--------+ + + + | IMAGING REPORT - | | 12/15/2017 | | Results for this | | EXTERNAL SCAN | | 12:00 AM | | procedure are in the | | | | PDT | | results section. | + +--------+ + + + | PATHOLOGY - EXTERNAL | | 09/14/2017 | | Results for this | | SCAN | | 12:00 AM | | procedure are in the | | | | PST | | results section. | + +--------+ + + + | DIAGNOSTIC REPORT - | | 09/14/2017 | | Results for this | | EXTERNAL SCAN | | 12:00 AM | | procedure are in the | | | | PST | | results section. | + +--------+ + + + documented in this encounter Results CT Treatment Plan Complex (01/24/2019 10:50 AM PDT) + + | Specimen | + + | | + + + + + | Narrative | Performed At | + + + | This exam has been auto-finalized and the interpretation may exist | [facility] | | elsewhere in the chart. | | + + + + +---------+ + + | Performing | Address | City/State/Zipcode | Phone Number | | Organization | | | | + +---------+ + + | [facility] | | | | + +---------+ + + LABS - EXTERNAL SCAN (01/08/2019 12:00 AM PDT) + + + | Narrative | Performed At | + + + | Ordered by an | | | unspecified provider. | | + + + IMAGING REPORT - EXTERNAL SCAN (12/16/2017 12:00 AM PDT) + + + | Narrative | Performed At | + + + | Ordered by an | | | unspecified provider. | | + + + IMAGING REPORT - EXTERNAL SCAN (12/15/2017 12:00 AM PDT) + + + | Narrative | Performed At | + + + | Ordered by an | | | unspecified provider. | | + + + DIAGNOSTIC REPORT - EXTERNAL SCAN (09/14/2017 12:00 AM PST) + + + | Narrative | Performed At | + + + | Ordered by an | | | unspecified provider. | | + + + PATHOLOGY - EXTERNAL SCAN (09/14/2017 12:00 AM PST) + + + | Narrative | Performed At | + + + | Ordered by an | | | unspecified provider. | | + + + documented in this encounter Visit Diagnoses + + | Diagnosis | + + | Prostate cancer (HCC) - Primary Malignant neoplasm of prostate | + + | History of radical prostatectomy Personal history of surgery to other organs | + + documented in this encounter
--- OUTSIDE RECORDS SUMMARY | ~2020-02-18 | XMS | Encounter Summary ---
Demographics + + + | Address | [address] | | | [place] [address] | + + + | Home Phone | | + + + | Preferred Language | Unknown | + + + | Marital Status | Single | + + + | Mormon Affiliation | CHR | + + + | Race | White | + + + | Ethnic Group | Not or | + + + Author + + + | Author | [facility] | + + + | Organization | [facility] | + + + | [...] Team Providers + +------+ + | Care Strap Setter Name | Role | Phone | [...] [place] | | | | | [place] [facility] Main | A, STEAK SAUCE MAKER [address] | | | | | Hospital Admitting | [address] | | | | | Desk Located on the | [place], [place] | | | | | 9th floor | [address] | | | | | [place], [place] | [phone] | | | | | [address] | | | +--------+ + + + [...] | | on | abdomen | Ramón Rondno RN | | +--------+ + + + [...] 12/09/17 1300 by | | francisco | [employer]; Left; Hand; 18 g; 12/09/17; | Michael [...]
--- OUTSIDE RECORDS SUMMARY | ~2020-02-18 | XMS | Encounter Summary ---
Demographics + + + | Address | [address] | | | [place] [address] | + + + | Home Phone | | + + + | Preferred Language | Unknown | + + + | Marital Status | Single | + + + | Baptist Affiliation | CHR | + + + | Race | White | + + + | Ethnic Group | Not or | + + + Author + + + | Author | [facility] | + + + | Organization | [facility] | + + + | Address | [...] Team Providers + +------+ + | Care Restaurant Front Manager Name | Role | Phone | [...] Arvin Yanez | | | | | [facility] | [facility] [place] | | | | | and Healing [address] | [address] | | | | | Arvin a[place]nez Mailcode: | [phone] | | | | | [address] | | | | | | Health and Healing, | | | | | | Building | | | | | | [facility] [place] | | | | | | [address] | | | | | | [phone] | | | +--------+--------+ + + + [...]
--- OUTSIDE RECORDS SUMMARY | ~2020-02-18 | XMS | Encounter Summary ---
Demographics + + + | Address | [address] | | | [place] [address] | + + + | Home Phone [...] Providers + +------+ + | Care Art Instructor Name | Role | Phone | + [...] | | Disorders Clinic at | [address] | | | | | [facility] | [facility] | | | | | and Healing [address] | [place] [address] | | | | | Arvin Yanez Mailcode: | [phone] | | | | | [facility] | | | | | | Health and Healing, | | | | | | [facility] [address] | | | | | | Floor [place], [place] | | | | | | [address] | | | | | | [phone] | | | +--------+ + + + [...]
--- OUTSIDE RECORDS SUMMARY | ~2020-02-18 | XMS | Encounter Summary ---
Demographics + + + | Address | [address] | | | [place] [address] | + + + | Home Phone [...] Team Providers + +------+ + | Care Control Room Helper Name | Role | Phone | + +------+ + | Reji Morales MD | PCP | | + +------+ + Encounter Details +--------+ + + + + | Date | Type | Department | Care Team | Description | +--------+ + + + + | 11/30/ | Abstract | Urology at [facility] | [place], | | | 2018 | | [address] | Adeel Stephens MD | | | | | Mailcode: [id number] | [address] | | | | | [facility] | [facility], | | | | | and Healing, | [place] [address] | | | | | [facility] | [phone] | | | | | Floor [place], [place] | | | | | | [address] | | | | | | [phone] | | | +--------+ + + + [...]
--- OUTSIDE RECORDS SUMMARY | ~2020-02-18 | XMS | Encounter Summary ---
Demographics + + + | Address | [address] | | | [place] [address] | + + + | Home Phone [...] Team Providers + +------+ + | Care Security Police Name | Role | Phone | + [...] + + | 12/12/ | Hospital | [address] | [place], | | | 2018 - | Encounter | [address] | [address] | | | | | [facility] | [address] | | | 12/13/ | | [place], [place] | [place], [place] | | | 2018 | | [address] | [address] | | | | | [phone] | [phone] | | | | | | | | | | | | Stacia Schmidt MD | | | | | | [address] | | | | | | [address] | | | | | | [place], [place] | | | | | | [address] | | | | | | [phone] | | | | | | | | | | | | Adeel Salas | | | | | | MD Angelo [address] [facility] | | | | | | [address] | | | | | | [place], [place] | | | | | | [address] | | | | | | [phone] | | | | | | | [...] Zamora MD - 12/13/2017 6:22 AM PDT [facility] RED SURGERY INPATIENT DISCHARGE SUMMARY Author: Leonel [...] Dept Phone Center 12/18/2017 1:00 PM Uro Electronic Die Maker at [facility] [phone] Urology 01/15/2018 1:15 PM Roxy Boykin Urology at [facility] [phone] Urology Medications: Medication List START taking these [...] can cause constipation, so you may take lqoq-kwv-zadplib stool softeners (Senok ot-S, Miralax, Colace) following [...] Dept Phone Center 12/18/2017 1:00 PM Uro Electronic Die Maker at [facility] [phone] Urology 01/15/2018 1:15 PM Roxy Boykin Urology at [facility] [phone] Urology Our schedulers will contact you to make an appointment. Your appointment will be on the 10t h floor of the [facility]. If you do not hear from our schedulers in [facility] days call the clinic at . Please [...] Dept Phone Center 12/18/2017 1:00 PM Uro Electronic Die Maker at [facility] [phone] Urology 01/15/2018 1:15 PM Roxy Boykin Urology at [facility] [phone] Urology Discharging Physician: Leonel Zamora MD Attending Physician: MD LEONEL Crooks MD Urology, PGY1 [facility] documented in t his encounter Medications [...] medical team for this patient and the [facility] UR Committee have agreed after formerly [facility] er study that an inpatient admission was not medically necessary. This hospital stay is con verted to an outpatient stay through use of Medicare Condition Code 44. The patient was not ified of this change in writing. The providers involved in this decision were: For patient s primary medical team: Adeel Salas MD For [facility] UR Committee: Lesia Blanchard MD documented in [...] Note | + + | Service Account, [facility] In Interface - 12/12/2017 10:53 AM [...] + + + + + | [facility]ORATORY | [address] | [place] [address] | | | SERVICES, CORE | CECELIA [...] [facility] | [address] | [place] [address] | | | YOLANDA, YISSEL | CECELIA [...] + + + + + | [facility] | [address] | [place] [address] | | | SERVICES, CORE | CECELIA [...] | | | LABORATORY | | | QATARI | | | SERVICES, | | | [...] + + + + + | [facility] | [address] | [place] [address] | | | SERVICES, CORE | PARK [...]
--- OUTSIDE RECORDS SUMMARY | ~2020-02-18 | XMS | Encounter Summary ---
Demographics + + + | Address | [address] | | | [place] [address] | + + + | Home Phone | | + + + | Preferred Language | Unknown | + + + | Marital Status | | + + + | Faith Affiliation | Unknown | + + + | Race | Unknown | + + + | Ethnic Group | Unknown | + + + Author + + + | Author | [facility] | | | and [place] | + + + | Organization | [facility] | | | and [place] | + + + | Address | Unknown | + + + | Phone | Unavailable | + + + Support + + + + + | Name | Relationship | Address | Phone | + + + + + | Mati Moody | YOANNA | [place] | | | | | [address] | | + + + + + | Ayde Rojas | ECON | [place] | | | | | [address] | | + + + + + Care Team Providers + +------+ + | Care Computer Tech Name | Role | Phone | + [...] | | | | Prostate | Sherrell M, | [place] | | | | | cancer (HCC) | MD [address] | [place], | | | | | Procedures | [address] | [place] [address] | | | | | CT | [place], | Phone: | | | | | Treatment | [place] [address] | [phone] | | | | | Plan Complex | Phone: | Fax: | | | | | CT TX PLAN | [phone] | [phone] | | | | | | Fax: | | | | | | | [phone] | | +--------+--------+ + + + + Reason for Visit Diagnostic/Screening (Routine) +--------+--------+ + + + + | Status | Reason | Specialty | Diagnoses / | Referred By | Referred To | | | | | Procedures | Contact | Contact | +--------+--------+ + + + + | Closed | | Radiology | Diagnoses | [place], | [address] | | | | | Prostate | Sherrell M, | [place] | | | | | cancer (HCC) | [address] | [place], | | | | | Procedures | [address] | [place] [address] | | | | | CT | [place], | Phone: | | | | | Treatment | [place] [address] | [phone] | | | | | Plan Complex | Phone: | Fax: | | | | | CT TX PLAN | [phone] | [phone] | | | | | | Fax: | | | | | | | [phone] | | +--------+--------+ + + + + Encounter Details +--------+ + + + + | Date | Type | Department | Care Team | Description | +--------+ + + + + | 01/24/ | Hospital | [facility] | Jodieusebiojuliano Sherrell | Prostate cancer | | 2019 | Encounter | MED CTR [address] | M, [address] | (HCC) | | | | [place], | [place], [place] | | | | | [place] [address] | [address] | | | | | [phone] | | | +--------+ + + + [...] | | | | | | [address] | | | | | | [place] [address] | | | | | | [phone] | | | | | | | | +--------+ + + + + | 07/03/ | Appointment | Oncology | | | | 2019 | | | | | +--------+ + + + + | 07/03/ | Appointment | Radiation Oncology | Sherrell Hadley | | | 2020 | | | MD Manish [address] | | | | | | [place] | | | | | | [address] | | | | | | | | +--------+ + + + + documented as of this encounter Procedures + +--------+ + + + | Procedure Name | Priori | Date/Time | Associated Diagnosis | Comments | | | ty | | | | + +--------+ + + + | CT TREATMENT PLAN | Routin | 01/24/2019 | Prostate cancer | Results for this | | COMPLEX | e | 10:50 AM | (HCC) | procedure are in the | [...]
--- OUTSIDE RECORDS SUMMARY | ~2020-02-18 | XMS | Encounter Summary ---
Demographics + + + | Address | [address] | | | [place] [address] | + + + | Home Phone | | + + + | Preferred Language | Unknown | + + + | Marital Status | | + + + | Mosque Affiliation | Unknown | + + + | Race | Unknown | + + + | Ethnic Group | Unknown | + + + Author + + + | Author | [facility] | | | and [place] | + + + | Organization | [facility] | | | and [place] | + + + | Address | Unknown | + + + | Phone | Unavailable | + + + Support + + + + + | Name | Relationship | Address | Phone | + + + + + | Mati Moody | YOANNA | [place] | | | | | [address] | | + + + + + | Ayde Rojas | ECON | [place] | | | | | [address] | | + + + + + Care Team Providers + +------+ + | Care Timber Sizer Operator Name | Role | Phone | [...] + + | 03/21/ | Hospital | [facility] | Sherrell Hadley | Prostate cancer | | 2019 | Encounter | MED CTR RADIATION | MD Manish [address] | (HCC) (Primary Dx) | | | | [facility]OGY CLINIC [address] | [place], [place] | | | | | [address] [facility] | [address] | | | | | [place] [address] | | | | | | [phone] | | | +--------+ + + + [...] | | | | | [place] [address] | | | | | | [phone] | | | | | | | | +--------+ + + + + | 07/03/ | Appointment | Oncology | | | | 2019 | | | | | +--------+ + + + + | 07/03/ | Appointment | Radiation Oncology | Sherrell Hadley | | | 2019 | | | MD Manish [address] | | | | | | ST [place], [place] | | | | | | [address] | | | | | | | | +--------+ + + + + documented as of this encounter Visit Diagnoses + + | Diagnosis | + + | Prostate cancer (HCC) - Primary Malignant neoplasm of prostate | + + documented in this encounter"
--- OUTSIDE RECORDS SUMMARY | ~2020-02-18 | XMS | Encounter Summary ---
Demographics + + + | Address | [address] | | | [place] [address] | + + + | Home Phone [...] Team Providers + +------+ + | Care Analytical Lab Technician Name | Role | Phone | + +------+ + | Reji Morlaes MD | PCP | | + +------+ [...] at | [address] | ([facility]); Benign | | | | [facility] | [address] | essential tremor | | | | and Healing [address] | [place] [address] | | | | | [address] Mailcode: | [phone] | | | | | [address] | | | | | | Health and Healing, | | | | | | [facility] 1, 8th | | | | | | [place], [place] | | | | | | [address] | | | | | | [phone] | | | +--------+---------+ + + + [...] at 02/16/2011 12:20 PM PDTdocumented in this [facility] Plan of Treatment Not on filedocumented [...]
--- OUTSIDE RECORDS SUMMARY | ~2020-02-18 | XMS | Encounter Summary ---
Demographics + + + | Address | [address] | | | [place] [address] | + + + | Home Phone [...] Team Providers + +------+ + | Care Wax Cutter Name | Role | Phone | + +------+ + | Reji Morales MD | PCP | | + +------+ + Reason for Visit + + + | Reason | Comments | + + + | Medication requested | | + + + Encounter Details +--------+ + + + + | Date | Type | Department | Care Team | Description | +--------+ + + + + | 08/19/ | Telephone | Neurology Movement | Sherry Mcmahon, | Medication requested | | 2009 | | Disorders Clinic at | [address] | | | | | [facility] | [facility] | | | | | and Healing [address] | [place] [address] | | | | | [address] Mailcode: | [phone] | | | | | [facility] | | | | | | Health and Healing, | | | | | | [facility] | | | | | | Floor [place], [place] | | | | | | [address] | | | | | | [phone] | | | +--------+ + + + [...]
--- OUTSIDE RECORDS SUMMARY | ~2020-02-18 | XMS | Encounter Summary ---
Demographics + + + | Address | [address] | | | [place] [address] | + + + | Home Phone [...] Providers + +------+ + | Care Supervisor Concrete Stone Fabricating Name | Role | Phone | + [...] [place] | | | | | | [address] | | | | | | | [...] | DERMATOPATH | | | MNT) | [address] [address] | | OLOGY | | | [...] [facility] | Mailcode [address]D [address] | [place] [address] | | | DERMATOPATHOLOGY | [address] | | | + + + + + documented in this encounter Visit Diagnoses Not on filedocumented in this encounter"
--- OUTSIDE RECORDS SUMMARY | ~2020-02-18 | XMS | Encounter Summary ---
Demographics + + + | Address | [address] | | | [place] [address] | + + + | Home Phone | | + + + | Preferred Language | Unknown | + + + | Marital Status | | + + + | Mandaen Affiliation | Unknown | + + + | Race | Unknown | + + + | Ethnic Group | Unknown | + + + Author + + + | Author | [facility] | | | and [place] | + + + | Organization | [facility] | | | and [place] | + + + | Address | Unknown | + + + | Phone | Unavailable | + + + Support + + + + + | Name | Relationship | Address | Phone | + + + + + | Mati Moody | YOANNA | [place] | | | | | [address] | | + + + + + | Ayde Rojas | ECON | [place] | | | | | [address] | | + + + + + Care Team Providers + +------+ + | Care South Asian History Professor Name | Role | Phone | + [...] | | | ONCOLOGY CLINIC [address] | [place], [place] | | | | | [address] | [address] | | | | | [place] [address] | | | | | | [phone] | | | +--------+ + + + [...] MD Radiation Oncologist Department of Radiation Oncology [facility] documented in this encounter Plan of Treatment [...] D | | | | | | [place] [address] | | | | | | [phone] | | | | | | | [...] [place] | | | | | | [address] | | | | | | | | +--------+ + + + + documented as of this encounter Visit Diagnoses + + | Diagnosis | + + | Prostate cancer (HCC) - Primary Malignant neoplasm of prostate | + + documented in this encounter"
--- OUTSIDE RECORDS SUMMARY | ~2020-02-18 | XMS | Encounter Summary ---
Demographics + + + | Address | [address] | | | [place] [address] | + + + | Home Phone [...] Author + + + | Author | [facility] | + + + | Organization | [facility] | + + + | [...] Providers + +------+ + | Care Shoe Designer Name | Role | Phone | [...] [address] | | | | | [facility] | [address] | | | | | and Healing [address] | [place], [place] | | | | | [address] Mailcode: | [address] | | | | | [address] | [phone] | | | | | Health and Healing, | | | | | | [facility] | | | | | | [place], [place] | | | | | | [address] | | | | | | [phone] | | | +--------+ + + + [...]
--- OUTSIDE RECORDS SUMMARY | ~2020-02-18 | XMS | Encounter Summary ---
Demographics + + + | Address | [address] | | | [place] [address] | + + + | Home Phone [...] Providers + +------+ + | Care Geological E Logger Name | Role | Phone | + [...] [address] | | | | | [place], [place] | Yusra Abad [place], | | | | | [address] | [place] [address] | | | | | | [phone] | | | | | | | [...]
--- OUTSIDE RECORDS SUMMARY | ~2020-02-18 | XMS | Encounter Summary ---
Demographics + + + | Address | [address] | | | [place] [address] | + + + | Home Phone [...] Team Providers + +------+ + | Care Packing Tractor Machine Operator Name | Role | Phone [...] | | | | | period | [facility] | [facility] | | | | | | Rd | Rd [place], | | | | | | [place], [place] | [place] | | | | | | [address] | [address] | | | | | | Phone: | Phone: | | | | | | [phone] | [phone] | | | | | | Fax: | Fax: | | | | | | [phone] | [phone] | +--------+--------+ + + + + Encounter Details +--------+---------+ + + + | Date | Type | Department | Care Team | Description | +--------+---------+ + + + | 12/20/ | Office | Urology at [facility] | Rn, Uro [address] | Prostate cancer | | 2018 | Visit | [address] | [address] | ([facility]) (Primary Dx) | | | | Mailcode: CH10U | Road [place], [place] | | | | | [facility] | [address] | | | | | and Healing, | | | | | | Building 1, 10th | | | | | | Floor [place], [place] | | | | | | [address] | | | | | | [phone] | | | +--------+---------+ + + + [...] The progress of urinary control is measured agft-pj-jwxc, or, sxbqh-ch-qnize, not day-by-day. Regaining good urinar y control [...] use Kegel exercises to improve bladder control. [facility] Department of Urology [phone] If you were prescribed Viagra after your [...] located on the 3rd floor of the [facility]. or * Have the PSA collected close to home at a local lab or primary care provider: Prior to yo ur next appointment you will need to have a PSA collected about 3 days prior to the appointm ent and they can fax us the results to our secure fax at [phone]. Dept. of Urology contact information: [phone] or after hours [phone]. Resources: * [facility] [place] Cancer Society Cancer Resource Navigator, Delmi Davis. Delmi's contact numb er is [phone]. * For information about the Annual [facility] Prostate Cancer Conference please call Kinza Garcia at [phone] or email us at [email or web address]. The Prostate Cancer Support Group at [facility] meets the first Mon of each month at the [facility], [address] [place], [place] [address], 3rd floor conference center in rooms 3171 [...] & Healing. Please call PAULETTE Deleon, at [phone] if you have questions. Prostate Cancer Resources Reading material: Dr. Emanuel Damico's Guide to Surviving Prostate Cancer Prostate and Cancer: A Family Guide to Diagnosis, Treatment, and Survival. By Antolin Jeter M.D. PROMOTING WELLNESS for prostate cancer patients. By Ashly Trejo National Cancer Henderson: http://www.cancer.gov/cancertopics/types/prostate The [place] Cancer Society : http://www.cancer.org Us Too!: http://www.usLivingSocialo.com/ or http://www.prostatepointers.org The [place] Prostate Society: http://www.ameripros.org The [place] Society of Clinical Oncology: http://www.asco.org The [place] Urological Association: http://www.auanet.org Prostate Cancer Foundation: http://www.prostatecancerfoundation.org [...] LIP via routed encounter ASHLY VALDEZ RN [facility] UROLOGY [facility] UROLOGY AT [facility] [address] [facility] [address] documented in this e ncounter Plan of Treatment Not on filedocumented as of this encounter Visit Diagnoses + + | Diagnosis | + + | Prostate cancer (HCC) - Primary Malignant neoplasm of prostate | + + documented in this encounter"
--- OUTSIDE RECORDS SUMMARY | ~2020-02-18 | XMS | Encounter Summary ---
Demographics + + + | Address | [address] | | | [place] [address] | + + + | Home Phone [...] Providers + +------+ + | Care Roller Structural Mill Name | Role | Phone | + +------+ + | Reji Morales MD | PCP | | + +------+ + Encounter Details +--------+ + + + + | Date | Type | Department | Care Team | Description | +--------+ + + + + | 11/30/ | Abstract | Urology at [facility] | [place], | | | 2018 | | [address] | Adeel Stephens MD | | | | | Mailcode: CH10U | [address] | | | | | [facility] | [facility], | | | | | and Healing, | [place] [address] | | | | | [facility] | [phone] | | | | | Floor [place], [place] | | | | | | [address] | | | | | | [phone] | | | +--------+ + + + [...]
--- OUTSIDE RECORDS SUMMARY | ~2020-02-18 | XMS | Encounter Summary ---
Demographics + + + | Address | [address] | | | [place] [address] | + + + | Home Phone [...] Team Providers + +------+ + | Care Environmental Protection Geologist Name | Role | Phone | + [...] | [address] | ([facility]) (Primary Dx) | | | | [facility] | [address] | | | | | and Healing [address] | [place] [address] | | | | | [address] Yane[address] Mailcode: | [phone] | | | | | [address] | | | | | | Health and Healing, | | | | | | [facility], | | | | | | [place], [place] | | | | | | [address] | | | | | | [phone] | | | +--------+---------+ + + + [...] him doing so well form a general [facility] point of view. He seems to be [...]
--- OUTSIDE RECORDS SUMMARY | ~2020-02-18 | XMS | Encounter Summary ---
Demographics + + + | Address | [address] | | | [place] [address] | + + + | Home Phone | | + + + | Preferred Language | Unknown | + + + | Marital Status | | + + + | Episcopal Affiliation | Unknown | + + + | Race | Unknown | + + + | Ethnic Group | Unknown | + + + Author + + + | Author | [facility] | | | and [place] | + + + | Organization | [facility] | | | and [place] | + + + | Address | Unknown | + + + | Phone | Unavailable | + + + Support + + + + + | Name | Relationship | Address | Phone | + + + + + | Mati Moody | YOANNA | [place] | | | | | [address] | | + + + + + | Ayde Rojas | ECON | [place] | | | | | [address] | | + + + + + Care Team Providers + +------+ + | Care Oracle Etl Developer Name | Role | Phone | [...] | | | ONCOLOGY CLINIC [address] | [place], [place] | | | | | [address] | [address] | | | | | [place] [address] | | | | | | [phone] | | | +--------+ + + + [...] MD Radiation Oncologist Department of Radiation Oncology [facility] documented in this encounter Plan [...] D | | | | | | [place] [address] | | | | | | [phone] | | | | | | | [...] [place] | | | | | | [address] | | | | | | | | +--------+ + + + + documented as of this encounter Visit Diagnoses + + | Diagnosis | + + | Prostate cancer (HCC) - Primary Malignant neoplasm of prostate | + + documented in this encounter"
--- OUTSIDE RECORDS SUMMARY | ~2020-02-18 | XMS | Encounter Summary ---
Demographics + + + | Address | [address] | | | [place] [address] | + + + | Home Phone [...] Team Providers + +------+ + | Care Brewery Pumper Name | Role | Phone | + [...] | | | | | | [place] [address] | | | +--------+ + + + [...]
--- OUTSIDE RECORDS SUMMARY | ~2020-02-18 | XMS | Encounter Summary ---
Demographics + + + | Address | [address] | | | [place] [address] | + + + | Home Phone | | + + + | Preferred Language | Unknown | + + + | Marital Status | | + + + | Anabaptist Affiliation | Unknown | + + + | Race | Unknown | + + + | Ethnic Group | Unknown | + + + Author + + + | Author | [facility] | | | and [place] | + + + | Organization | [facility] | | | and [place] | + + + | Address | Unknown | + + + | Phone | Unavailable | + + + Support + + + + + | Name | Relationship | Address | Phone | + + + + + | Mati Moody | YOANNA | [place] | | | | | [address] | | + + + + + | Ayde Rojas | ECON | [place] | | | | | [address] | | + + + + + Care Team Providers + +------+ + | Care Collection Systems Modeler Name | Role | Phone | + [...] | | | [address] | [place] [address] | | | | | [place] [address] | | | | | | [phone] | | | +--------+ + + + [...] | | | | | [place] [address] | | | | | | [phone] | | | | | | | [...] [place] | | | | | | [address] | | | | | | | [...]
--- OUTSIDE RECORDS SUMMARY | ~2020-02-18 | XMS | Encounter Summary ---
Demographics + + + | Address | [address] | | | [place] [address] | + + + | Home Phone | | + + + | Preferred Language | Unknown | + + + | Marital Status | Single | + + + | Mu-Ism Affiliation | CHR | + + + [...] Team Providers + +------+ + | Care Vibrating Screed Operator Name | Role | Phone | [...] at | [address] | ([facility]) (Primary Dx) | | | | [facility] | [address] | | | | | and Healing [address] | [place] [address] | | | | | [address] Mailcode: | [phone] | | | | | [address] | | | | | | Health and Healing, | | | | | | [facility] 1, | | | | | | [place], [place] | | | | | | [address] | | | | | | [phone] | | | +--------+---------+ + + + [...]
--- OUTSIDE RECORDS SUMMARY | ~2020-02-18 | XMS | Encounter Summary ---
Demographics + + + | Address | [address] | | | [place] [address] | + + + | Home Phone | | + + + | Preferred Language | Unknown | + + + | Marital Status | Single | + + + | Gnosticism Affiliation | CHR | + + + [...] Team Providers + +------+ + | Care Technologist Development Name | Role | Phone | + [...] Rd | | | | | | [place], [place] | | | | | | [address] | | | +--------+ + + + [...]
--- OUTSIDE RECORDS SUMMARY | ~2020-02-18 | XMS | Encounter Summary ---
Demographics + + + | Address | [address] | | | [place] [address] | + + + | Home Phone | | + + + | Preferred Language | Unknown | + + + | Marital Status | | + + + | Mormon Affiliation | Unknown | + + + | Race | Unknown | + + + | Ethnic Group | Unknown | + + + Author + + + | Author | [facility] | | | and [place] | + + + | Organization | [facility] | | | and [place] | + + + | Address | Unknown | + + + | Phone | Unavailable | + + + Support + + + + + | Name | Relationship | Address | Phone | + + + + + | Mati Moody | YOANNA | [place] | | | | | [address] | | + + + + + | Ayde Rojas | ECON | [place] | | | | | [address] | | + + + + + Care Team Providers + +------+ + | Care Outreach Liaison Name | Role | Phone | + [...] | | | [address] | [place] [address] | | | | | [place] [address] | | | | | | [phone] | | | +--------+ + + + [...] | | | | | [place] [address] | | | | | | [phone] | | | | | | | [...] [place] | | | | | | [address] | | | | | | | | +--------+ + + + + documented as of this encounter Procedures + +--------+ + + + | Procedure Name | Priori | Date/Time | Associated Diagnosis | Comments | | | ty | | | | + +--------+ + + + | XR ABDOMEN AP | Routin | 12/16/2017 | | Results for this | | | e | 12:35 PM | | procedure are in the | | | | PDT | | results section. | + +--------+ + + + documented in this encounter Results XR Abdomen AP (12/16/2017 12:35 PM PDT) + + | Specimen | [...]
--- OUTSIDE RECORDS SUMMARY | ~2020-02-18 | XMS | Encounter Summary ---
Demographics + + + | Address | [address] | | | [place] [address] | + + + | Home Phone [...] Team Providers + +------+ + | Care Pharmacy Benefits Coordinator Name | Role | Phone | + +------+ + | Reji Morales MD | PCP | | + +------+ + Encounter Details +--------+ + + + + | Date | Type | Department | Care Team | Description | +--------+ + + + + | 01/18/ | Abstract | Urology at [facility] | Clinic, | | | 2018 | | [address] | Urology/Oncology | | | | | Mailcode: CH10U | | | | | | [facility] | | | | | | and Healing, | | | | | | | | | | | | Floor [place], [place] | | | | | | [address] | | | | | | [phone] | | | +--------+ + + + [...]
--- OUTSIDE RECORDS SUMMARY | ~2020-02-18 | XMS | Encounter Summary ---
Demographics + + + | Address | [address] | | | [place] [address] | + + + | Home Phone [...] Team Providers + +------+ + | Care Hand Buffing Wheel Former Name | Role | Phone | + [...] Disorders Clinic at | [address] | ([facility]) (Primary Dx) | | | | [facility] | [address] | | | | | and Healing [address] | [place] [address] | | | | | Arvin Yanez Mailcode: | [phone] | | | | | [address] | | | | | | Health and Healing, | | | | | | [facility] [address], | | | | | | [place], [place] | | | | | | [address] | | | | | | [phone] | | | +--------+---------+ + + + [...] blood pressure and attitude towards [facility] in [facility]. He is justifiably proud of himself for [...]
--- OUTSIDE RECORDS SUMMARY | ~2020-02-18 | XMS | Encounter Summary ---
Demographics + + + | Address | [address] | | | [place] [address] | + + + | Home Phone [...] Team Providers + +------+ + | Care Stay Cutter Name | Role | Phone | + +------+ + | Reji Morales MD | PCP | | + +------+ + Encounter Details +--------+ + + + + | Date | Type | Department | Care Team | Description | +--------+ + + + + | 01/18/ | Abstract | Urology at [facility] | Clinic, | | | 2018 | | [address] | Urology/Oncology | | | | | Mailcode: [id number] | | | | | | [facility] | | | | | | and Healing, | | | | | | | | | | | | Floor [place], [place] | | | | | | [address] | | | | | | [phone] | | | +--------+ + + + [...]
--- OUTSIDE RECORDS SUMMARY | ~2020-02-18 | XMS | Encounter Summary ---
Demographics + + + | Address | [address] | | | [place] [address] | + + + | Home Phone | | + + + | Preferred Language | Unknown | + + + | Marital Status | Single | + + + | Temple Affiliation | CHR | + + + [...] Team Providers + +------+ + | Care Coat Presser Name | Role | Phone | + [...] [id number] | | | | | | [place], [place] | | | | | | [address] | | | | | | [phone] | | | +--------+ + + + [...]
--- OUTSIDE RECORDS SUMMARY | ~2020-02-18 | XMS | Encounter Summary ---
Demographics + + + | Address | [address] | | | [place] [address] | + + + | Home Phone | | + + + | Preferred Language | Unknown | + + + | Marital Status | | + + + | Baptist Affiliation | Unknown | + + + | Race | Unknown | + + + | Ethnic Group | Unknown | + + + Author + + + | Author | [facility] | | | and [place] | + + + | Organization | [facility] | | | and [place] | + + + | Address | Unknown | + + + | Phone | Unavailable | + + + Support + + + + + | Name | Relationship | Address | Phone | + + + + + | Mati Moody | YOANNA | [place] | | | | | [address] | | + + + + + | Ayde Rojas | ECON | [place] | | | | | [address] | | + + + + + Care Team Providers + +------+ + | Care Proof Inspector Name | Role | Phone | [...] | +--------+ + + + + | 02/21/ | Hospital | [facility] | Sherrell Hadley | Prostate cancer | | 2019 | Encounter | MED CTR RADIATION | MD Manish [address] | (HCC) (Primary Dx) | | | | ONCOLOGY CLINIC [address] | [place], [place] | | | | | [address] [facility] | [address] | | | | | [place] [address] | | | | | | [phone] | | | +--------+ + + + [...] + + + | Blood Pressure | 153/70 | 02/21/2019 11:09 AM | | | | | PDT | | + + + + + | Pulse | 85 | 02/21/2019 11:09 AM | | | | | PDT | | + + + + + | Temperature | 36.7 C (98.1 F) | 02/21/2019 11:09 AM | | | | | PDT | | + + + + + | Respiratory Rate | 18 | 02/21/2019 11:09 AM | | | | | PDT | | + + + + + | Oxygen Saturation | 98% | 02/21/2019 11:09 AM | | | | | PDT | | + + + + + | Inhaled Oxygen | - | - | | | Concentration | | | | + + + + + | Weight | 86.2 kg (190 lb 0.6 | 02/21/2019 11:09 AM | | | | oz) | [...] documented as of this encounter Progress Notes Mary Barajas RN - 02/21/2019 11:15 AM PDT 02/21/19 1115 Gastrointestinal Constipation 0 - Grade 0 Diarrhea 0 - Grade 0 General Disorders and Administration Site Conditions Fatigue 1 - Grade 1 Renal and Urinary Urinary Tract Pain 0 - Grade 0 Performance Status Karnofsky Performance Score 90% Sherrell Contreras MD - 02/21/2019 7:46 AM PDT Radiation Oncology Weekly On Treatment Note Diagnosis: ICD-10-CM ICD-9-CM 1. Prostate cancer (HCC) C61 185 Reason for visit: On treatment evaluation Radiation technical factors: Dose Delivered Dose Planned Fractions Delivered 2600 cGy 6800 cGy Images were reviewed this [...] facility-administered medications on file prior to encounter. Vitals: 02/21/19 1109 BP: 153/70 Pulse: 85 Resp: 18 Temp: 36.7 C (98.1 F) TempSrc: Temporal SpO2: 98% Weight: 86.2 kg (190 lb 0.6 oz) Physical Exam Constitutional: He appears well-developed and well-nourished. Neurological: He is alert. Psychiatric: He has a normal mood and affect. Physician Assessment: Nima Moody is early in treatment and continues to do well. Reports mild fatigue. No ch anges in bowel or bladder function. Disposition: Continue radiation treatment as planned. Sherrell [...] | | | | | [place] [address] | | | | | | [phone] | | | | | | | | +--------+ + + + + | 07/03/ | Appointment | Oncology | | | | 2019 | | | | | +--------+ + + + + | 07/03/ | Appointment | Radiation Oncology | Sherrell Hadley | | | 2019 | | | MD Manish [address] | | | | | | [place] | | | | | | [address] | | | | | | | | +--------+ + + + + documented as of this encounter Visit Diagnoses + + | Diagnosis | + + | Prostate cancer (HCC) - Primary Malignant neoplasm of prostate | + + documented in this encounter"
--- OUTSIDE RECORDS SUMMARY | ~2020-02-18 | XMS | Encounter Summary ---
Demographics + + + | Address | [address] | | | [place] [address] | + + + | Home Phone | | + + + | Preferred Language | Unknown | + + + | Marital Status | | + + + | Buddhism Affiliation | Unknown | + + + | Race | Unknown | + + + | Ethnic Group | Unknown | + + + Author + + + | Author | [facility] | | | and [place] | + + + | Organization | [facility] | | | and [place] | + + + | Address | Unknown | + + + | Phone | Unavailable | + + + Support + + + + + | Name | Relationship | Address | Phone | + + + + + | Mati Moody | YOANNA | [place] | | | | | [address] | | + + + + + | Ayde Rojas | ECON | [place] | | | | | [address] | | + + + + + Care Team Providers + +------+ + | Care Field Contractor Name | Role | Phone | + [...] | Prostate | Sherrell Hammond, | [address] | | | | | cancer (HCC) | MD [address] | [place], | | | | | Procedures | [address] | [place] [address] | | | | | CT | [place], | Phone: | | | | | Treatment | [place] [address] | [phone] | | | | | Plan Complex | Phone: | Fax: | | | | | CT [place] PLAN | [phone] | [phone] | | | | | | Fax: | | | | | | | [phone] | | +--------+--------+ + + + + [...] | | | | | alar[place] | [address] | [place] [address] | | | | | Procedures | Phone: | Phone: | | | | | [place] OFFICE | [phone] | [phone] | | | | | OUTPATIENT | Fax: | Fax: | | | | | NEW 60 | [phone] | [phone] | | | | | MINUTES NEW | | | | | | | PATIENT | | | +--------+--------+ + + + + Encounter Details +--------+ + + + + | Date | Type | Department | Care Team | Description | +--------+ + + + + | 01/22/ | Hospital | [facility] | Sherrell Hadley | Prostate cancer | | 2019 | Encounter | MED CTR RADIATION | MD Manish [address] | (HCC) (Primary Dx); | | | | ONCOLOGY CLINIC 401 | [place], [place] | History of radical | | | | [address] | [address] | prostatectomy | | | | [place] [address] | | | | | | [phone] | | | +--------+ + + + [...] August 2017. Prostate biopsy on 09/14/17 identified Seymour 4+4 = 8 involving 6 22% of core tissue, detailed below. He opted for p rostatectomy, performed at [facility] on 12/08/17, final pathology demonstrated pT2 pN0, Seymour 3+ 4=7, negative margin, +PNI. Immediate postoperative [...] results. 12/15/17 CT pelvis with contrast at [facility]. Dilated bowel, consistent with ileus. Bilateral obturator lymphoceles. No adenopathy. No malignant appearing bone changes. Pathology: 09/14/17 prostate biopsy Left base: Benign Left mid: Kim 3+3 =6, 6% Left apex: Kim 3+3 =6, 9% Right base: Seymour 3+3 equal 6, 21% Right mid: Seymour 3+4 = 7, 17% Right apex: Seymour 4+4 = 8, 22% Left transition zone: benign Right transition zone: benign 12/08/17 prostatectomy SPECIMEN Procedure:Radical prostatectomy Prostate Size: Prostate Weight (g):41 g Prostate Greatest Dimension in Centimeters (cm):4.5 Centimeters (cm) Additional Dimension in Centimeters (cm):4 Centimeters (cm) Additional Dimension in Centimeters (cm):4 Centimeters (cm) TUMOR Histologic Type:Acinar adenocarcinoma Kim Pattern: Percentage of Pattern 4:20 % Primary Seymour Pattern:Pattern 3 Secondary Kim Pattern:Pattern 4 Tertiary Seymour Pattern:Not applicable Total Seymour Score:7 Grade Group:2 Intraductal Carcinoma (IDC):Not identified [...] of adding angina and deprivation. My general foundry worker has bee n to omit androgen deprivation [...] M.D. Radiation Oncologist Department of Radiation Oncology [facility] Office: [phone] signed by Sherrell Hadley MD at 01/22/2019 [...] | | | | | [place] [address] | | | | | | [phone] | | | | | | | [...] [place] | | | | | | [id number] | | | | | | | [...]
--- OUTSIDE RECORDS SUMMARY | ~2020-02-18 | XMS | Encounter Summary ---
Demographics + + + | Address | [address] | | | [place] [address] | + + + | Home Phone | | + + + | Preferred Language | Unknown | + + + | Marital Status | | + + + | Lutheran Affiliation | Unknown | + + + | Race | Unknown | + + + | Ethnic Group | Unknown | + + + Author + + + | Author | [facility] | | | and [place] | + + + | Organization | [facility] | | | and [place] | + + + | Address | Unknown | + + + | Phone | Unavailable | + + + Support + + + + + | Name | Relationship | Address | Phone | + + + + + | Mati Moody | YOANNA | [place] | | | | | [address] | | + + + + + | Ayde Rojas | ECON | [place] | | | | | [address] | | + + + + + Care Team Providers + +------+ + | Care Order Builder Name | Role | Phone | + [...] + + + + | 07/05/ | [facility] | [facility] | Sherrell Hadley | Prostate cancer | | 2019 | Encounter | MED CTR RADIATION | MD Manish [address] | (HCC) (Primary Dx) | | | | ONCOLOGY CLINIC [address] | [place], [place] | | | | | [address] | [address] | | | | | [place] [address] | | | | | | [phone] | | | +--------+ + + + [...] He opted for p rostatectomy, performed at [facility] on 12/08/17, final pathology demonstrated pT2 [...] for 3 month follow up with Dr. Hadley. My chart: Declined Pain assessment: No reportable [...] M.D. Radiation Oncologist Department of Radiation Oncology [facility] Office: [phone] documented in this encounter Plan of Treatment [...] D | | | | | | [place] [address] | | | | | | [phone] | | | | | | | [...] [place] | | | | | | [address] | | | | | | | [...]
--- OUTSIDE RECORDS SUMMARY | ~2020-02-18 | XMS | Encounter Summary ---
Demographics + + + | Address | [address] | | | [place] [address] | + + + | Home Phone | | + + + | Preferred Language | Unknown | + + + | Marital Status | | + + + | Congregation Affiliation | Unknown | + + + | Race | Unknown | + + + | Ethnic Group | Unknown | + + + Author + + + | Author | [facility] | | | and [place] | + + + | Organization | [facility] | | | and [place] | + + + | Address | Unknown | + + + | Phone | Unavailable | + + + Support + + + + + | Name | Relationship | Address | Phone | + + + + + | Mati Moody | YOANNA | [place] | | | | | [address] | | + + + + + | Ayde Rojas | ECON | [place] | | | | | [address] | | + + + + + Care Team Providers + +------+ + | Care Ore Dressing Engineer Name | Role | Phone | [...] | | | ONCOLOGY CLINIC [address] | [place], [place] | | | | | [address] [facility] | [id number] | | | | | [place] [address] | | | | | | [phone] | | | +--------+ + + + [...] | | | | | [place] [address] | | | | | | [phone] | | | | | | | [...]
--- OUTSIDE RECORDS SUMMARY | ~2020-02-18 | XMS | Encounter Summary ---
Demographics + + + | Address | [address] | | | [place] [address] | + + + | Home Phone [...] Team Providers + +------+ + | Care Desilverizer Name | Role | Phone | + [...] Pharmacy | | | | | | [address] | | | | | | [place], [place] | | | | | | [address] | | | | | | [phone] | | | +--------+ + + + [...]
--- OUTSIDE RECORDS SUMMARY | ~2020-02-18 | XMS | Encounter Summary ---
Demographics + + + | Address | [address] | | | [place] [address] | + + + | Home Phone [...] Team Providers + +------+ + | Care Book Author Name | Role | Phone | + [...] 12/23/ | Office | Neurology Movement | Krsihna Mcmahon, | Parkinson Disease | | 2008 | Visit | Disorders Clinic at | [address] | ([facility]) (Primary Dx) | | | | [facility] | [address] | | | | | and Healing [address] | [place] [address] | | | | | Arvin Yanez Mailcode: | [phone] | | | | | [address] | | | | | | Health and Healing, | | | | | | [facility], | | | | | | [place], [place] | | | | | | [address] | | | | | | [phone] | | | +--------+---------+ + + + [...] past. 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 [...]
--- OUTSIDE RECORDS SUMMARY | ~2020-02-18 | XMS | Encounter Summary ---
Demographics + + + | Address | [address] | | | [place] [address] | + + + | Home Phone | | + + + | Preferred Language | Unknown | + + + | Marital Status | | + + + | Caodaism Affiliation | Unknown | + + + | Race | Unknown | + + + | Ethnic Group | Unknown | + + + Author + + + | Author | [facility] | | | and [place] | + + + | Organization | [facility] | | | and [place] | + + + | Address | Unknown | + + + | Phone | Unavailable | + + + Support + + + + + | Name | Relationship | Address | Phone | + + + + + | Mati Moody | YOANNA | [place] | | | | | [address] | | + + + + + | Ayde Rojas | ECON | [place] | | | | | [address] | | + + + + + Care Team Providers + +------+ + | Care General Worker Name | Role | Phone | [...] + + | 02/21/ | Hospital | [facility] | Sherrell Hadley | Prostate cancer | | 2019 | Encounter | MED CTR RADIATION | MD Manish [address] | (HCC) (Primary Dx) | | | | ONCOLOGY CLINIC [address] | [place], [place] | | | | | [address] [facility] | [address] | | | | | [place] [address] | | | | | | [phone] | | | +--------+ + + + [...] | | | | | [place] [address] | | | | | | [phone] | | | | | | | [...] | | | | [place] | | | | | | [address] | | | | | | | | +--------+ + + + + documented as of this encounter Visit Diagnoses + + | Diagnosis | + + | Prostate cancer (HCC) - Primary Malignant neoplasm of prostate | + + documented in this encounter"
--- OUTSIDE RECORDS SUMMARY | ~2020-02-18 | XMS | Encounter Summary ---
Demographics + + + | Address | [address] | | | [place] [address] | + + + | Home Phone [...] Providers + +------+ + | Care Pharmacy Ancillary Name | Role | Phone | + [...] [id number] | | | | | | [facility] | | | | | | and Healing, | | | | | | Building [address], | | | | | | Floor [place], [place] | | | | | | [address] | | | | | | [phone] | | | +--------+ + + + [...] skin, | | | | | | [id number]. The surgical | | | | | [...] papular | | | | | | [id number] skin, | | | | | | [id number]. Thesurgical | | | | | | [...] [facility] | Mail[address] | [place] [address] | | | DERMATOPATHOLOGY | [address] [...]
--- OUTSIDE RECORDS SUMMARY | ~2020-02-18 | XMS | Encounter Summary ---
Demographics + + + | Address | [address] | | | [place] [address] | + + + | Home Phone [...] Team Providers + +------+ + | Care Right Of Way Clearer Name | Role | Phone | + [...] Description | +--------+---------+ + + + | 12/09/ | Office | Neurology Movement | Joslyn Galdamez MD | Parkinson disease | | 2013 | Visit | Disorders Clinic at | [address] | (HCC) (Primary Dx) | | | | [facility] | [place], [place] | | | | | and Healing [address] | [address] | | | | | [address] Mailcode: | [phone] | | | | | [facility] | | | | | | Health and Healing, | | | | | | [facility] | | | | | | [place], [place] | | | | | | [address] | | | | | | [phone] | | | +--------+---------+ + + + [...] + + + | Blood Pressure | 125/58 | 12/09/2013 3:35 PM | | | | | PDT | | + + + + + | Pulse | 71 | 12/09/2013 3:35 PM | | | | | PDT | | + + + + + | Temperature | - | - | | + + + + + | Respiratory Rate | 15 | 12/09/2013 3:33 PM | | | | | PDT | | + + + + + | Oxygen Saturation | - | - | | + + + + + | Inhaled Oxygen | - | - | | | Concentration | | | | + + + + + | Weight | 92.1 kg (203 lb) | 12/09/2013 3:33 PM | | | | | PDT | | + + + + + | Height | - | - | | + + + + + | Body Mass Index | 25.37 | 01/17/2011 2:53 PM | | | | | PDT | | + + + + + documented in this encounter Patient Instructions Patient Instructions Joslyn Chapa MD - 12/09/2013 4:02 PM PDTTry decreasing each dose carbidopa/levodopa 25/100mg to 1.5 pills, if not effective in helping with left foot moveme nts call [phone] Dr. Chapa to start amantidine documented in this encounter Progress Notes Joslyn Chapa MD - 12/08/2013 10:05 PM PDTFormatting of this note might be different fr om the original. CHIEF COMPLAINT: Follow up Parkinson's Disease. HPI: Nima Moody is a 63 y.o. male returning to the Movement Disorders Clinic for fo llow up Parkinson's Disease. He was diagnosed in 2003, symptoms probably started about 2000 . At the last visit I recommended the following: -- Try taking 1.5-2 tablets 25/100mg's 5-6 times a day. Is taking 2 pills each dose, genera lly 5 doses a day. Has not noticed any progression of things. Has not really noticed any change in the last 2- 3 years. ROS: Denies bowel problems Denies urinary problems Sleep good overall, some nocturia Denies cognitive issues Denies hallucinations Denies significant depression or anxiety, denies any suicidal ideations Denies swallowing difficulties, says it has been a bit better Denies significant speech problems, but does say he will taper off towards off the end of a long conversation, not interested in speech therapy Dyskinesias in the left foot can be bothersome, sounds like clearly peak dose Less wearing off after last visit adjustment Denies falls, dose sometimes stumble with the left foot dragging Exercise - walks at least a couple miles a day, also does some running Occasional mild orthostasis, can manage with taking his time Medications: Current outpatient prescriptions:carbidopa-levodopa 25-100 mg Oral tablet, Take 1.5 to 2 ta blets 5-6 times a day, Disp: 360 Tab, Rfl: 11 Enalapril Maleate 20 mg OR TABS, take 1 tablet (20mg) by oral route once daily, Disp: , Rfl : Hydrochlorothiazide 25 mg Oral Tablet, take 1 tablet (25mg) by oral route once daily, Disp: , Rfl: 0 Metoprolol Succinate 200 mg OR TB24, 2 tabs bid, Disp: , Rfl: Interval Medical History: none FROM PRIOR VISITS: Allergies: No Known Allergies Past Medical History Diagnosis Date Parkinson disease Benign essential tremor Depression Hypertension Unspecified disorder of thyroid Past Surgical History Procedure Laterality Date Thyroidectomy Vasectomy Social History: The pt denies tob, illicit drug use. Occasional etoh. The pt is . Lives alone in a house. 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 Mental Status: Speech is of good volume. Answers questions appropriately and gives a clear history. UPDRS Score: About 2 hours since last levodopa Dyskinesias are moderate but only in the left foot Feels on UPDRS FLOWSHEET (Questionnaire) 12/09/2013 Speech 1 Slight loss of expression, diction &/or volume Face Expression 1 Minimal hypomimia, could be normal "poker face" Face Tremor 0 Absent Rt Hand Tremor 0 Absent Lt Hand Tremor 0 Absent Rt Foot Tremor 0 Absent Lt Foot Tremor 0 Absent Post Tremor Rt Hand 0 Absent Post Tremor Lt Hand 0 Absent Neck Rigid 1 Slight or detectable only when activated by mirror/other movements Rt Upper Ext Rigid 1 Slight or detectable only when activated by mirror/other movements Lt Upper Ext Rigid 1 Slight or detectable only when activated by mirror/other movements Rt Lower Ext Rigid 2 Mild to moderate Lt Lower Ext Rigid 1 Slight or detectable only when activated by mirror/other movements Rt Hand Finger Taps 0 Normal Lt Hand Finger Taps 1 Mild slowing &/or reduction in amplitude Hand Mvmts Rt Hand 0 Normal Hand Mvmts Lt Hand 1 Mild slowing &/or reduction in amplitude Rapid Alt Rt Hand 0 Normal Rapid Alt Lt Hand 1 Mild slowing &/or reduction in amplitude Agility Rt Leg 0 Normal Agility Lt Leg 2 Moderately impaired; definite/early fatiguing; may have occasional arrest s Arising from Chair 0 Normal Posture 0 Normal Gait 0 Normal Posture Stability 0 Normal erect Vinod/Hypokinesia 2 Mild degree of slowness; definitely abnormal Total UPDRS Score Laboratory Data: Basic labs included TSH fairly unremarkable in 2010, elevated lipids Impression: Idiopathic Parkinson's Disease, 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 Overall doing well. --Try decreasing each dose carbidopa/levodopa 25/100mg to 1.5 pills, if not effective in he lping with left foot movements will plan to start amantidine. -- Follow-up in 6 months, call before then if concerns or questions. I spent 25 minutes with the patient in [id number] time. Greater than 50% of the time was spent counseling the patient regarding the above issues. Joslyn Chapa MD Movement Disorders Neurologist [facility] documented in this e ncounter Plan of Treatment Not on filedocumented as of this encounter Visit Diagnoses + + | Diagnosis | + + | Parkinson disease (HCC) - Primary Paralysis agitans | + + documented in this encounter
--- OUTSIDE RECORDS SUMMARY | ~2020-02-18 | XMS | Encounter Summary ---
Demographics + + + | Address | [address] | | | [place] [address] | + + + | Home Phone | | + + + | Preferred Language | Unknown | + + + | Marital Status | | + + + | Baptist Affiliation | Unknown | + + + | Race | Unknown | + + + | Ethnic Group | Unknown | + + + Author + + + | Author | [facility] | | | and [place] | + + + | Organization | [facility] | | | and [place] | + + + | Address | Unknown | + + + | Phone | Unavailable | + + + Support + + + + + | Name | Relationship | Address | Phone | + + + + + | Mati Moody | YOANNA | [place] | | | | | [address] | | + + + + + | Ayde Rojas | ECON | [place] | | | | | [address] | | + + + + + Care Team Providers + +------+ + | Care Insurance Administrator Name | Role | Phone | [...] + + | 12/08/ | Telephone | [facility] | Ada Leslie, | New Patient (12/12/19 | | 2020 | | NEUROLOGY [address] | Appointment ) | | | | [address] | [address] | | | | | [place], [place] | [place] [address] | | | | | [address] | [phone] | | | | | [phone] | | | +--------+ + + + [...] [address] | | | | | | [place] [address] | | | | | | [phone] | | | | | | | [...] [place] | | | | | | [address] | | | | | | | | +--------+ + + + + documented as of this encounter Visit Diagnoses Not on filedocumented in this encounter"
--- OUTSIDE RECORDS SUMMARY | ~2020-02-18 | XMS | Encounter Summary ---
Demographics + + + | Address | [address] | | | [place] [address] | + + + | Home Phone | | + + + | Preferred Language | Unknown | + + + | Marital Status | Single | + + + | Baptism Affiliation | CHR | + + + | Race | White | + + + | Ethnic Group | Not or | + + + Author + + + | Author | [facility] | + + + | Organization | [facility] | + + + | Address | [...] Team Providers + +------+ + | Care Envelope Addresser Name | Role | Phone | + +------+ + | Reji Morales MD | PCP | | + +------+ + Reason for Visit + + + | Reason | Comments | + + + | Post Op Concern | | + + + Encounter Details +--------+ + + + + | Date | Type | Department | Care Team | Description | +--------+ + + + + | 12/27/ | Telephone | Urology at [facility] | [place], | Post Op Concern | | 2018 | | [address] | Adeel Stephens MD | | | | | Mailcode: CH10U | [address] [facility] | | | | | [facility] | [facility], | | | | | and Healing, | [place] [address] | | | | | Building | [phone] | | | | | Floor [place], [place] | | | | | | [address] | | | | | | [phone] | | | +--------+ + + + [...]
--- OUTSIDE RECORDS SUMMARY | ~2020-02-18 | XMS | Encounter Summary ---
Demographics + + + | Address | [address] | | | [place] [address] | + + + | Home Phone [...] Team Providers + +------+ + | Care Copyright Expert Name | Role | Phone | + +------+ + | Reji Morales MD | PCP | | + +------+ + Encounter Details +--------+ + + + + | Date | Type | Department | Care Team | Description | +--------+ + + + + | 10/11/ | Teaching Associate | Urology at [facility] | [place], | Prostate cancer | | 2018 | | [address] | Adeel Stephens MD | ([facility]) (Primary Dx) | | | | Mailcode: CH10 | [address] | | | | | [facility] | [facility], | | | | | and [facility], | [place] [address] | | | | | Building | [phone] | | | | | [place], [place] | | | | | | [address] | | | | | | [phone] | | | +--------+ + + + [...] OUTSIDE | e | 10:22 AM | ([facility]) | procedure are in the [...] | Electronically | | Pathologic | biopsies ([id number], | | DEPARTMENT | signed by Nima [...] biopsies | | | | | | ([id number], 09.14.17, | | | | | | B):? 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 Tumor | | | | | | focus measures approx. | | | | | | 0.1 cmC. Left apex, | | | | | | core biopsies | | | | | | ([id number], 09.14.17, | | | | | | C):? 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 Tumor | | | | | | focus measures approx. | | | | | | 0.1 cmD. Right base, | | | | | | core biopsies | | | | | | ([id number], 09.14.17, | | | | | | D): ? 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 Tumor | | | | | | focus measures approx. | | | | | | 0.5 cmE. Right mid, core | | | | | | biopsies([id number], | | | | | | 09.14.17, [...] | | | | | | biopsies ([id number], | | | | | | 09.14.17, F):? | | | | | | Adenocarcinoma of the | | | | | | prostate gland, [place] | | | | | | grade 4+4? Tumor focus | | | | | | measures approx. 0.3 | | | | | | cmQ. Left transitional | | | | | | zone, core biopsies | | | | | | ([id number], 09.14.17, | | | | | | Q):? Prostatic glands | | | | | | and stroma with focal | | | | | | high-grade PIN? Negative | | | | | | for maligncyR. Right | | | | | | transitional zone, core | | | | | | biopsies ([id number], | | | | | | 09.14.17, [...] [facility] | | | Received | Institution: [facility] | | DEPARTMENT | | | | [facility], | | [place] | | | | [place] [id number] | | PATHOLOGY | | | | Accession Number: | | | | | | [id number] | | | | | | Collection [...] | + + + + + | [facility] | [address] | [place] [address] | | | PATHOLOGY | [address] | | | + + + + + documented in this encounter Visit Diagnoses + + | Diagnosis | + + | Prostate cancer (HCC) - Primary Malignant neoplasm of prostate | + + documented in this encounter"
--- OUTSIDE RECORDS SUMMARY | ~2020-02-18 | XMS | Encounter Summary ---
Demographics + + + | Address | [address] | | | [place] [address] | + + + | Home Phone [...] Team Providers + +------+ + | Care Men'S Furnishings Salesperson Name | Role | Phone | + [...] [address] | | | | | [facility] | [facility] | | | | | and Healing [address] | [place] [address] | | | | | [address] Mailcode: | [phone] | | | | | [address] | | | | | | Health and Healing, | | | | | | Building [address] | | | | | | Floor [place], [place] | | | | | | [address] | | | | | | [phone] | | | +--------+--------+ + + + [...]
--- OUTSIDE RECORDS SUMMARY | ~2020-02-18 | XMS | Encounter Summary ---
Demographics + + + | Address | [address] | | | [place] [address] | + + + | Home Phone [...] Team Providers + +------+ + | Care Elementary School Teacher Name | Role | Phone | [...] Clinic at | MD [address] | ([facility]) (Primary Dx) | | | | [facility] | [facility] | | | | | and Healing [address] | [place] [address] | | | | | [address] Renata Mailcode: | [phone] | | | | | [facility] | | | | | Health and Healing, | | | | | | [facility] | | | | | | Floor [place], [place] | | | | | | [address] | | | | | | [phone] | | | +--------+---------+ + + + [...] MD Irene Amaya - 07/31/2007 10[facility] in [facility]-visit paperwork: --Falls - 4 in last month. --Memory/cognition issues - n/a BEN-D (16 and above is clinically significant): 10 [place] (10 and above is clinically significant): 3 [...]
--- OUTSIDE RECORDS SUMMARY | ~2020-02-18 | XMS | Encounter Summary ---
Demographics + + + | Address | [address] | | | [place] [address] | + + + | Home Phone [...] + | Author | [facility] | | | and [place] | + + + | Organization | [facility] | | | and [place] | + + + | Address | Unknown | + + + | Phone | Unavailable | + + + Support + + + + + | Name | Relationship | Address | Phone | + + + + + | Mati Moody | YOANNA | [place] | | | | | [address] | | + + + + + | Ayde Rojas | ECON | [place] | | | | | [address] | | + + + + + Care Team Providers + +------+ + | Care District Sales Manager Name | Role | Phone | [...] | | | [address] | [place] [address] | | | | | [place] [address] | | | | | | [phone] | | | +--------+ + + + [...] | | | | | [place] [address] | | | | | | [phone] | | | | | | | [...] [place] | | | | | | [address] | | | | | | | | +--------+ + + + + documented as of this encounter Procedures + +--------+ + + + | Procedure Name | Priori | Date/Time | Associated Diagnosis | Comments | | | ty | | | | + +--------+ + + + | CT ANGIOGRAM | Routin | 12/12/2017 | | Results for this | | PULMONARY | e | 2:25 AM | | procedure are in the | | | | PDT | | results section. | + +--------+ + + + documented in this encounter Results CT Angiogram Pulmonary (12/12/2017 2:25 AM PDT) + + | Specimen | [...]
--- OUTSIDE RECORDS SUMMARY | ~2020-02-18 | XMS | Encounter Summary ---
Demographics + + + | Address | [address] | | | [place] [address] | + + + | Home Phone [...] Author + + + | Author | [facility] | + + + | Organization | [facility] | + + + | [...] Providers + +------+ + | Care Order Checker Name | Role | Phone | [...] [address] | MD [address] | | | | | Mailcode: CH10U | [address] [facility] | | | | | [facility] | Rd [place], [place] | | | | | and Healing, | [address] | | | | | [facility] | [phone] | | | | | Floor [place], [place] | | | | | | [address] | | | | | | [phone] | | | +--------+ + + + [...]
--- OUTSIDE RECORDS SUMMARY | ~2020-02-18 | XMS | Encounter Summary ---
Demographics + + + | Address | [address] | | | [place] [address] | + + + | Home Phone | | + + + | Preferred Language | Unknown | + + + | Marital Status | | + + + | Hoahaoism Affiliation | Unknown | + + + | Race | Unknown | + + + | Ethnic Group | Unknown | + + + Author + + + | Author | [facility] | | | and [place] | + + + | Organization | [facility] | | | and [place] | + + + | Address | Unknown | + + + | Phone | Unavailable | + + + Support + + + + + | Name | Relationship | Address | Phone | + + + + + | Mati Moody | YOANNA | [place] | | | | | [address] | | + + + + + | Ayde Rojas | ECON | [place] | | | | | [address] | | + + + + + Care Team Providers + +------+ + | Care Folder Stitcher Operator Name | Role | Phone | [...] | | | [address] | [place] [address] | | | | | [place] [address] | | | | | | [phone] | | | +--------+ + + + [...] | | | | | [place] [address] | | | | | | [phone] | | | | | | | [...] [place] | | | | | | [address] | | | | | | | [...]
--- OUTSIDE RECORDS SUMMARY | ~2020-02-18 | XMS | Encounter Summary ---
Demographics + + + | Address | [address] | | | [place] [address] | + + + | Home Phone | | + + + | Preferred Language | Unknown | + + + | Marital Status | | + + + | Sabianism Affiliation | Unknown | + + + | Race | Unknown | + + + | Ethnic Group | Unknown | + + + Author + + + | Author | [facility] | | | and [place] | + + + | Organization | [facility] | | | and [place] | + + + | Address | Unknown | + + + | Phone | Unavailable | + + + Support + + + + + | Name | Relationship | Address | Phone | + + + + + | Mati Moody | YOANNA | [place] | | | | | [address] | | + + + + + | Ayde Rojas | ECON | [place] | | | | | [address] | | + + + + + Care Team Providers + +------+ + | Care Regional Business Development Manager Name | Role | Phone | [...] | | | [address] | [place] [address] | | | | | [place] [address] | | | | | | [phone] | | | +--------+ + + + [...] | | | | | [place] [address] | | | | | | [phone] | | | | | | | [...] [place] | | | | | | [address] | | | | | | | [...]
--- OUTSIDE RECORDS SUMMARY | ~2020-02-18 | XMS | Encounter Summary ---
Demographics + + + | Address | [address] | | | [place] [address] | + + + | Home Phone | | + + + | Preferred Language | Unknown | + + + | Marital Status | Single | + + + | Rastafarian Affiliation | CHR | + + + [...] Team Providers + +------+ + | Care Human Resources Administrator Name | Role | Phone | [...] [address] | | | | | | ([facility]) | Ave | | | | | | Hypophonia | [place], [place] | | | | | | Procedures | [address] | | | | | | SPEECH | Phone: | | | | | | THERAPY | [phone] | | | | | | REFERRAL | Fax: | | | | | | | [phone] | | +--------+--------+ + + + + [...] at | [address] | ([facility]); Hypophonia | | | | [facility] | [place], [place] | | | | | and Healing [address] | [address] | | | | | [address] Mailcode: | [phone] | | | | | [facility] | | | | | | Health and Healing, | | | | | | [facility] | | | | | | Floor [place], [place] | | | | | | [address] | | | | | | [phone] | | | +--------+---------+ + + + [...] Therapy - Flori Gill and Bella Hollins [phone] or [phone] Continue carbidopa/levodopa 25/100mg up to four times [...] equipment at home, considering spending Kenny in [place] Dyskinesias - left foot can be effected, [...] has 3 children 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 Greater than 50% of the time was spent counseling the patient regarding the above issues. Joslyn Galdamez MD Movement Disorders Neurologist [facility] documented in this enc ounter Plan of Treatment Not on filedocumented as of this encounter Visit Diagnoses + + | Diagnosis | + + | Parkinson disease (HCC) Paralysis agitans | + + | Hypophonia Other voice and resonance disorders | + + documented in this encounter
--- OUTSIDE RECORDS SUMMARY | ~2020-02-18 | XMS | Encounter Summary ---
Demographics + + + | Address | [address] | | | [place] [address] | + + + | Home Phone | | + + + | Preferred Language | Unknown | + + + | Marital Status | | + + + | Druze Affiliation | Unknown | + + + | Race | Unknown | + + + | Ethnic Group | Unknown | + + + Author + + + | Author | [facility] | | | and [place] | + + + | Organization | [facility] | | | and [place] | + + + | Address | Unknown | + + + | Phone | Unavailable | + + + Support + + + + + | Name | Relationship | Address | Phone | + + + + + | Mati Moody | YOANNA | [place] | | | | | [address] | | + + + + + | Ayde Rojas | ECON | [place] | | | | | [address] | | + + + + + Care Team Providers + +------+ + | Care Assistant Professor Of Marine Biology Name | Role | Phone | + [...] | Procedures | [address] | ICT ACCOUNT MANAGER [address] | | | | Oncology | [place] OFFICE | [facility] | [facility] | | | | | OUTPATIENT | [place], [place] | [place], | | | | | VISIT 25 | [address] | [place] [address] | | | | | MINUTES | Phone: | Phone: | | | | | | [phone] | [phone] | | | | | | Fax: | Fax: | | | | | | [phone] | [phone] | + +--------+ + + + + Encounter Details +--------+ + + + + | Date | Type | Department | Care Team | Description | +--------+ + + + + | 01/05/ | Hospital | [facility] | Irene Feldman | Prostate cancer | | 2020 | Encounter | [facility] | FERMIN Felix [address] | (HCC) (Primary Dx) | | | | [facility]COLOGY CLINIC [address] | [address] [facility] | | | | | [address] | [place] [address] | | | | | [place] [address] | [phone] | | | | | [phone] | | | +--------+ + + + [...] He opted for p rostatectomy, performed at [facility] on 12/08/17, final pathology demonstrated pT2 pN0, [...] found on previous colonoscopies. He states his contact center professional's name is Dr. Sky Galarza ([phone]). I asked him to call their office [...] office visit. Clinical discussion length: 11-20 min ([id number]) FERMIN Lynch, AOCNP Department of Radiation Oncology [facility] Office: [phone] documented i n this encounter Plan of [...] D | | | | | | [facility] [place] [address] | | | | | | [phone] | | | | | | | | +--------+ + + + + | 07/03/ | Appointment | Oncology | | | | 2019 | | | | | +--------+ + + + + | 07/03/ | Appointment | Radiation Oncology | Sherrell Hadley | | | 2019 | | | MD Manish [address] | | | | | | [address] [place] | | | | | | [address] | | | | | | | | +--------+ + + + + documented as of this encounter Visit Diagnoses + + | Diagnosis | + + | Prostate cancer (HCC) - Primary Malignant neoplasm of prostate | + + documented in this encounter
--- OUTSIDE RECORDS SUMMARY | ~2020-02-18 | XMS | Encounter Summary ---
Demographics + + + | Address | [address] | | | [place] [address] | + + + | Home Phone [...] Team Providers + +------+ + | Care Float Nurse Name | Role | Phone | + [...] | | Disorders Clinic at | [address] | | | | | [facility] | [facility] | | | | | and Healing [address] | [place] [address] | | | | | [address] Mailcode: | [phone] | | | | | [facility] | | | | | | Health and Healing, | | | | | | [facility] 1 | | | | | | Floor [place], [place] | | | | | | [address] | | | | | | [phone] | | | +--------+ + + + [...]
--- OUTSIDE RECORDS SUMMARY | ~2020-02-18 | XMS | Encounter Summary ---
Demographics + + + | Address | [address] | | | [place] [address] | + + + | Home Phone [...] Providers + +------+ + | Care Metal Spraying Machine Operator Name | Role | Phone [...] Description | +--------+---------+ + + + | 05/06/ | Office | Neurology Movement | Joslyn Galdamez MD | Parkinson disease | | 2013 | Visit | Disorders Clinic at | [address] | ([facility]) (Primary Dx) | | | | [facility] | [facility] [place] | | | | | and Healing [address] | [address] | | | | | [address] Mailcode: | [phone] | | | | | [facility] | | | | | | Health and Healing, | | | | | | [facility] 1 | | | | | | Floor [place], [place] | | | | | | [address] | | | | | | [phone] | | | +--------+---------+ + + + [...] + + + | Blood Pressure | 131/71 | 05/06/2013 2:27 PM | | | | | PDT | | + + + + + | Pulse | 68 | 05/06/2013 2:27 PM | | | | | PDT [...] + + + + | Weight | 93.4 kg (206 lb) | 05/06/2013 2:27 PM | | | | | PDT | | + + + + + | Height | - | - | | + + + + + | Body Mass Index | 25.75 | 01/17/2011 2:53 PM | | | | | PDT | | + + + + + documented in this encounter Patient Instructions Patient Instructions Joslyn Chapa MD - 05/06/2013 3:00 PM PDTTry taking 1.5-2 tablets 25/100mg's 5-6 times a day. 3:0 0 PM PDT documented in this encounter Progress Notes Joslyn Chapa MD - 05/03/2013 4:47 PM PDTFormatting of this note might be different fr om the original. CHIEF COMPLAINT: Follow up Parkinson's Disease. HPI: Nima Moody is a 63 y.o. male returning to the Movement Disorders Clinic for fo llow up Parkinson's Disease. He was diagnosed in 2003, symptoms probably started about 2000 . He previously saw Dr. Mcmahon. She did not make any changes at his last visit. Things have been going well. He feels like there have been no changes for years. He first noticed the t remor on left side. His walking is also slow and his left foot tends to drag. He has some fo ot dyskinesias that seem worst about an hour after he takes his medications. Takes first dos e then wakes up then will usually take 3 more, but does not take at set times. ROS: Denies bowel problems Denies urinary problems Sleep problems, occasionally wakes up at night but not a big deal Denies cognitive issues Denies hallucinations Denies depression/anxiety Denies swallowing difficulties, but does feel he needs to water, no coughing/chocking on fo od Denies speech problems Dyskinesias Waits for a touch of wearing off to take next pills Denies falls Exercise - lost about 50 pounds in the last 18 months intensionally and walks at least a co uple miles a day, also does some running Medications: Current outpatient prescriptions:carbidopa-levodopa (SINEMET-25/250) 25-250 mg Oral tablet, Take 1 Tab by mouth four times daily., Disp: 360 Tab, Rfl: 3 Enalapril Maleate 20 mg OR TABS, take 1 tablet (20mg) by oral route once daily, Disp: , Rfl : Hydrochlorothiazide 25 mg Oral Tablet, take 1 tablet (25mg) by oral route once daily, Disp: , Rfl: 0 Metoprolol Succinate 200 mg OR TB24, 2 tabs bid, Disp: , Rfl: Krill oil, vitamin D (in the winter), some other supplements Allergies: No Known Allergies Past Medical History Diagnosis Date Parkinson disease Benign essential tremor Depression Hypertension Unspecified disorder of thyroid Past Surgical History Procedure Laterality Date Thyroidectomy Vasectomy Social History: The pt denies tob, illicit drug use. Occational etoh. The pt is . Lives alone in a house. 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 Mental Status: Speech is of good volume. Draws a clock well without difficulty. Answers q uestions appropriately and gives a clear history. UPDRS Score: About 1.5 hours since last levodopa Dyskinesias in left foot - marked Feels on UPDRS FLOWSHEET (Questionnaire) 05/06/2013 Speech 0 Normal Face Expression 1 Minimal hypomimia, could be normal "poker face" Face Tremor 0 Absent Rt Hand Tremor 0 Absent Lt Hand Tremor 1 Slight & infrequently present Rt Foot Tremor 0 Absent Lt Foot Tremor 0 Absent Post Tremor Rt Hand 1 Absent Post Tremor Lt Hand 1 Absent Neck Rigid 1 Slight or detectable only when activated by mirror/other movements Rt Upper Ext Rigid 2 Mild to moderate Lt Upper Ext Rigid 2 Mild to moderate Rt Lower Ext Rigid 1 Slight or detectable only when activated by mirror/other movements Lt Lower Ext Rigid 2 Mild to moderate Rt Hand Finger Taps 0 Normal Lt Hand Finger Taps 0 Normal Hand Mvmts Rt Hand 0 Normal Hand Mvmts Lt Hand 0 Normal Rapid Alt Rt Hand 0 Normal Rapid Alt Lt Hand 0 Normal Agility Rt Leg 0 Normal Agility Lt Leg 0 Normal Arising from Chair 0 Normal Posture 1 Not quite erect; slightly stooped; could be normal for older person Gait 0 Normal Posture Stability 0 Normal erect Vinod/Hypokinesia 0 None Total UPDRS Score Laboratory Data: Basic labs included TSH fairly unremarkable in 2010, elevated lipids Impression: Idiopathic Parkinson's Disease, 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 -- Try taking 1.5-2 tablets 25/100mg's 5-6 times a day. -- Follow-up in 6-9 months, call before then if concerns or questions. I spent 30 minutes with the patient in [id number] time. Greater than 50% of the time was spent counseling the patient regarding the above issues. Joslyn Chapa MD Movement Disorders Neurologist [facility] documented in this e ncounter Plan of Treatment Not on filedocumented as of this encounter Visit Diagnoses + + | Diagnosis | + + | Parkinson disease (HCC) - Primary Paralysis agitans | + + documented in this encounter
--- OUTSIDE RECORDS SUMMARY | ~2020-02-18 | XMS | Encounter Summary ---
Demographics + + + | Address | [address] | | | [place] [address] | + + + | Home Phone [...] Team Providers + +------+ + | Care Mold Repairer Name | Role | Phone | [...] [address] | | | | | [facility] | [facility] | | | | | and Healing [address] | [place] [address] | | | | | [address] Mailcode: | [phone] | | | | | [address] | | | | | | Health and Healing, | | | | | | Building 1 | | | | | | Floor [place], [place] | | | | | | [address] | | | | | | [phone] | | | +--------+--------+ + + + [...]
--- OUTSIDE RECORDS SUMMARY | ~2020-02-18 | XMS | Encounter Summary ---
Demographics + + + | Address | [address] | | | [place] [address] | + + + | Home Phone [...] + + + | Author | [facility] | + + + | Organization | [facility] | + + + | [...] Team Providers + +------+ + | Care Mineralogy Professor Name | Role | Phone | [...] | 12/21/ | Telephone | Urology at [facility] | [place], | Post Op | | 2018 | | [address] | Adeel Stephens MD | | | | | Mailcode: [id number] | [address] | | | | | [facility] | [address] [place], | | | | | and Healing, | [place] [address] | | | | | Building | [phone] | | | | | Floor [place], [place] | | | | | | [address] | | | | | | [phone] | | | +--------+ + + + [...]
--- OUTSIDE RECORDS SUMMARY | ~2020-02-18 | XMS | Encounter Summary ---
Demographics + + + | Address | [address] | | | [place] [address] | + + + | Home Phone | | + + + | Preferred Language | Unknown | + + + | Marital Status | | + + + | Congregation Affiliation | Unknown | + + + | Race | Unknown | + + + | Ethnic Group | Unknown | + + + Author + + + | Author | [facility] | | | and [place] | + + + | Organization | [facility] | | | and [place] | + + + | Address | Unknown | + + + | Phone | Unavailable | + + + Support + + + + + | Name | Relationship | Address | Phone | + + + + + | Mati Moody | YOANNA | [place] | | | | | [address] | | + + + + + | Ayde Rojas | ECON | [place] | | | | | [address] | | + + + + + Care Team Providers + +------+ + | Care Park Guard Name | Role | Phone | + [...] | | | [address] [place] | [place] [address] | | | | | [place] [address] | | | | | | [phone] | | | +--------+ + + + [...] | | | | | [place] [address] | | | | | | [phone] | | | | | | | [...] [place] | | | | | | [address] | | | | | | | | +--------+ + + + + documented as of this encounter Procedures + +--------+ + + + | Procedure Name | Priori | Date/Time | Associated Diagnosis | Comments | | | ty | | | | + +--------+ + + + | CT ABDOMEN PELVIS W | Routin | 12/15/2017 | | Results for this | | CONTRAST | e | 8:10 PM | | procedure are in the | | | | PDT | | results section. | + +--------+ + + + documented in this encounter Results CT Abdomen Pelvis w Contrast (12/15/2017 8:10 PM PDT) + + | Specimen | [...]
--- OUTSIDE RECORDS SUMMARY | ~2020-02-18 | XMS | Encounter Summary ---
Demographics + + + | Address | [address] | | | [place] [address] | + + + | Home Phone [...] Providers + +------+ + | Care Senior Program Planner Name | Role | Phone | + [...] | | | [address] | [address]usra | | | | | Loop Mailcode: OP32 | [facility] [place] [address] | | | | | Outpatient Clinic | [phone] | | | | | Building [place], | | | | | | [place] [address] | | | | | | [phone] | | | +--------+ + + + [...]
--- OUTSIDE RECORDS SUMMARY | ~2020-02-18 | XMS | Encounter Summary ---
Demographics + + + | Address | [address] | | | [place] [address] | + + + | Home Phone | | + + + | Preferred Language | Unknown | + + + | Marital Status | | + + + | Restorationism Affiliation | Unknown | + + + | Race | Unknown | + + + | Ethnic Group | Unknown | + + + Author + + + | Author | [facility] | | | and [place] | + + + | Organization | [facility] [...] [place] | | | | | [address] | | + + + + + | Ayde Rojas | ECON | [place] | | | | | [address] | | + + + + + Care Team Providers + +------+ + | Care Glove Brusher Name | Role | Phone | + [...] | +--------+ + + + + | 03/13/ | Hospital | [facility] | Sherrell Hadley | Prostate cancer | | 2019 | Encounter | [facility] RAD[facility] | MD Manish [address] | (HCC) (Primary Dx) | | | | ONCOLOGY CLINIC [address] | [place], [place] | | | | | [address] [facility] | [address] | | | | | [place] [address] | | | | | | [phone] | | | +--------+ + + + [...] + + + | Blood Pressure | 142/78 | 03/13/2019 11:06 AM | | | | | PDT | | + + + + + | Pulse | 64 | 03/13/2019 11:06 AM | | | | | PDT | | + + + + + | Temperature | 36.5 C (97.7 F) | 03/13/2019 11:06 AM | | | | | PDT | | + + + + + | Respiratory Rate | 18 | 03/13/2019 11:06 AM | | | | | PDT | | + + + + + | Oxygen Saturation | 99% | 03/13/2019 11:06 AM | | | | | PDT | | + + + + + | Inhaled Oxygen | - | - | | | Concentration | | | | + + + + + | Weight | 87 kg (191 lb 12.8 | 03/13/2019 11:06 AM | | | | oz) | PDT | | + + + + + | Height | - | - | | + + + + + | Body Mass Index | 23.97 | 01/22/2019 10:00 AM | | | [...] [address] | | | | | | [place] [address] | | | | | | [phone] | | | | | | | | +--------+ + + + + | 07/03/ | Appointment | Oncology | | | | 2019 | | | | | +--------+ + + + + | 07/03/ | Appointment | Radiation Oncology | JodieusebiojulianoSherrell | | | 2019 | | | MD Raghav [address] | | | | | | [address] [place] | | | | | | [address] | | | | | | | | +--------+ + + + + documented as of this encounter Visit Diagnoses + + | Diagnosis | + + | Prostate cancer (HCC) - Primary Malignant neoplasm of prostate | + + documented in this encounter"
--- OUTSIDE RECORDS SUMMARY | ~2020-02-18 | XMS | Encounter Summary ---
Demographics + + + | Address | [address] | | | [place] [address] | + + + | Home Phone | | + + + | Preferred Language | Unknown | + + + | Marital Status | | + + + | Gnosticist Affiliation | Unknown | + + + | Race | Unknown | + + + | Ethnic Group | Unknown | + + + Author + + + | Author | [facility] | | | and [place] | + + + | Organization | [facility] | | | and [place] | + + + | Address | Unknown | + + + | Phone | Unavailable | + + + Support + + + + + | Name | Relationship | Address | Phone | + + + + + | Mati Moody | YOANNA | [place] | | | | | [address] | | + + + + + | Ayde Rojas | ECON | [place] | | | | | [address] | | + + + + + Care Team Providers + +------+ + | Care Accountant Bookkeeper Name | Role | Phone | + +------+ + | Adina Lloyd MD | PCP | | + +------+ + Reason for Visit +--------+ + | Reason | Comments | +--------+ + | Other | | +--------+ + Encounter Details +--------+ + + + + | Date | Type | Department | Care Team | Description | +--------+ + + + + | 01/14/ | Telephone | [facility] | Ana Cloud RN | Other | | 2019 | | [facility] | | | | | | ONCOLOGY CLINIC [address] | | | | | | [address] | | | | | | [place] [address] | | | | | | [phone] | | | +--------+ + + + [...] | | | | | [place] [address] | | | | | | [phone] | | | | | | | [...] [place] | | | | | | [address] | | | | | | | | +--------+ + + + + documented as of this encounter Visit Diagnoses Not on filedocumented in this encounter"
--- OUTSIDE RECORDS SUMMARY | ~2020-02-18 | XMS | Encounter Summary ---
Demographics + + + | Address | [address] | | | [place] [address] | + + + | Home Phone | | + + + | Preferred Language | Unknown | + + + | Marital Status | | + + + | Taoism Affiliation | Unknown | + + + | Race | Unknown | + + + | Ethnic Group | Unknown | + + + Author + + + | Author | [facility] | | | and [place] | + + + | Organization | [facility] | | | and [place] | + + + | Address | Unknown | + + + | Phone | Unavailable | + + + Support + + + + + | Name | Relationship | Address | Phone | + + + + + | Mati Moody | YOANNA | [place] | | | | | [address] | | + + + + + | Ayde Rojas | ECON | [place] | | | | | [address] | | + + + + + Care Team Providers + +------+ + | Care Interventional Physiatrist Name | Role | Phone | + [...] + + | 12/08/ | Telephone | [facility] | Ada Leslie, | New Patient (12/12/19 | | 2020 | | NEUROLOGY [address] | [address] | Appointment ) | | | | [address] | [address] | | | | | [place], [place] | [place] [address] | | | | | [address] | [phone] | | | | | [phone] | | | +--------+ + + + [...] [address] | | | | | | [place] [address] | | | | | | [phone] | | | | | | | [...] [place] | | | | | | [address] | | | | | | | | +--------+ + + + + documented as of this encounter Visit Diagnoses Not on filedocumented in this encounter"
--- OUTSIDE RECORDS SUMMARY | ~2020-02-18 | XMS | Encounter Summary ---
Demographics + + + | Address | [address] | | | [place] [address] | + + + | Home Phone [...] Team Providers + +------+ + | Care Double End Production Grinder Name | Role | Phone | + [...] [address] | MD [address]ce [address] | | | | | Mailcode: [id number] | [facility] | | | | | [facility] | Rd [place], [place] | | | | | and Healing, | [address] | | | | | [facility] | [phone] | | | | | Floor [place], [place] | | | | | | [address] | | | | | | [phone] | | | +--------+ + + + [...]
--- OUTSIDE RECORDS SUMMARY | ~2020-02-18 | XMS | Encounter Summary ---
Demographics + + + | Address | [address] | | | [place] [address] | + + + | Home Phone [...] Team Providers + +------+ + | Care Yard Pilot Name | Role | Phone | + [...] [address] | | | | | [facility] | [facility] | | | | | and Healing [address] | [place] [address] | | | | | [address] Mailcode: | [phone] | | | | | [address] | | | | | | Health and Healing, | | | | | | Building [address] | | | | | | [place], [place] | | | | | | [address] | | | | | | [phone] | | | +--------+--------+ + + + [...]
--- OUTSIDE RECORDS SUMMARY | ~2020-02-18 | XMS | Encounter Summary ---
Demographics + + + | Address | [address] | | | [place] [address] | + + + | Home Phone [...] Author | [facility] | + + + | Organization | [facility] | + + + | Address | [...] Providers + +------+ + | Care Hand Shoes Sewer Name | Role | Phone | + [...] (HCC) | [place] | MD [address] | | | | | | CLINIC | [facility] | | | | | | UROLOGY & | [facility] | | | | | | SURGERY [address] | [address] [place], | | | | | | [address] | [place] | | | | | | [place] | [address] | | | | | | [place] | Phone: | | | | | | [address] | [phone] | | | | | | Phone: | Fax: | | | | | | [phone] | [phone] | | | | | | Fax: | | | | | | | [phone] | | +--------+--------+ + + + + Encounter Details +--------+---------+ + + + | Date | Type | Department | Care Team | Description | +--------+---------+ + + + | 02// | Office | Urology at [facility] | [place], | Prostate cancer | | 2018 | Visit | [address] | Adeel Stephens MD | ([facility]) (Primary Dx) | | | | Mailcode: [id number] | [address] | | | | | [facility] | [facility], | | | | | and [facility], | [place] [address] | | | | | Building | [phone] | | | | | [facility], [place] | | | | | | [address] | | | | | | [phone] | | | +--------+---------+ + + + [...] 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
--- OUTSIDE RECORDS SUMMARY | ~2020-02-18 | XMS | Encounter Summary ---
Demographics + + + | Address | [address] | | | [place] [address] | + + + | Home Phone [...] Team Providers + +------+ + | Care Electrical Lineman Name | Role | Phone | + [...] | | SURGERY | Rd | [address] [place], | | | | | [address] | [place], [place] | [place] | | | | | [place] | [address] | [address] | | | | | LAP,PROSTATE | Phone: | Phone: | | | | | CTOMY,RADICA | [phone] | [phone] | | | | | L,W/NERVE | Fax: | Fax: | | | | | [place] | [phone] | [phone] | | | | | LAP,PELVIC | [...] | 10/17/ | Telephone | Urology at [facility] | [place], | Surgery | | 2018 | | [address] | Adeel Stephens MD | | | | | Mailcode: [id number] | [address] | | | | | [facility] | [address] [facility], | | | | | and Healing, | [place] [address] | | | | | Building | [phone] | | | | | Floor [place], [place] | | | | | | [address] | | | | | | [phone] | | | +--------+ + + + [...]
--- OUTSIDE RECORDS SUMMARY | ~2020-02-18 | XMS | Encounter Summary ---
Demographics + + + | Address | [address] | | | [place] [address] | + + + | Home Phone | | + + + | Preferred Language | Unknown | + + + | Marital Status | | + + + | Faith Affiliation | Unknown | + + + | Race | Unknown | + + + | Ethnic Group | Unknown | + + + Author + + + | Author | [facility] | | | and [place] | + + + | Organization | [facility] | | | and [place] | + + + | Address | Unknown | + + + | Phone | Unavailable | + + + Support + + + + + | Name | Relationship | Address | Phone | + + + + + | Mati Moody | YOANNA | [place] | | | | | [address] | | + + + + + | Ayde Rojas | ECON | [place] | | | | | [address] | | + + + + + Care Team Providers + +------+ + | Care Chocolate Production Machine Operator Name | Role | Phone [...] + + | 03/13/ | Hospital | [facility] | Sherrell Hadley | Prostate cancer | | 2019 | Encounter | [facility] RAD[facility] | MD Manish [address] | (HCC) (Primary Dx) | | | | ONCOLOGY CLINIC [address] | [place], [place] | | | | | [address] [facility] | [address] | | | | | [place] [address] | | | | | | [phone] | | | +--------+ + + + [...] [address] | | | | | | [place] [address] | | | | | | [phone] | | | | | | | [...] [place] | | | | | | [address] | | | | | | | | +--------+ + + + + documented as of this encounter Visit Diagnoses + + | Diagnosis | + + | Prostate cancer (HCC) - Primary Malignant neoplasm of prostate | + + documented in this encounter"
--- OUTSIDE RECORDS SUMMARY | ~2020-02-18 | XMS | Encounter Summary ---
Demographics + + + | Address | [address] | | | [place] [address] | + + + | Home Phone [...] Team Providers + +------+ + | Care Vision Impaired Teacher Name | Role | Phone | + +------+ + PCP | Unavailable | + +------+ + Reason for Visit + + + | Reason | Comments | + + + | Follow-up visit | | + + + | Parkinson's disease | | + + + Encounter Details +--------+---------+ + + + | Date | Type | Department | Care Team | Description | +--------+---------+ + + + | 06/20/ | Office | Neurology Movement | LisandroKrishna, | Parkinson Disease | | 2005 | Visit | Disorders Clinic | MD [address] | ([facility]); Benign | | | | [address] | Essential Tremor | | | | Loop Mailcode: OP32 | [place] [address] | | | | | Outpatient Clinic | [phone] | | | | | [facility], | | | | | | [place] [address] | | | | | | [phone] | | | +--------+---------+ + + + [...] + + + | Blood Pressure | 142/100 | 06/20/2006 10:55 AM | | | | | PDT | | + + + + + | Pulse | 61 | 06/20/2006 10:55 AM | | | | | PDT [...] + + + + | Weight | 104.8 kg (231 lb) | 06/20/2006 10:54 AM | | | | | PDT | | + + + + + | Height | - | - | | + + + + + | Body Mass Index | - | - | | + + + + + documented in this encounter Progress Notes Krishna Mcmahon - 06/20/2006 11:41 AM Vladimir Sho Moody is a 56 y.o. ambidextrous mal e here for follow up Parkinson's Disease. Between this vist and last he felt his tremor and stiffness were getting worse and he was thinking seriously about starting medication, but t hen things improved and he decided against it. He now attributes his increased sx to "stres s, anxiety, depression". He has simplified finances and working life somewhat, which has im proved his mood. He has not started anti-depressant medication since we saw him last: I enc ouraged him to discuss this with Dr. Morales, his PCP, as he seemed quite depresssed at the montserrat e. Now, he reports ongoing tremor on the left, worse in the leg, and intermittent curling of t he toes and cramping in the left foot. He also report some slowness of movement and fatigue . He also has pain from arthritis in his hands and feet which is not PD related. There have been no interval changes in his medical, social or family history. General physical exam is unremarkable, though I note his blood pressure is slightly elevate d. On neurological exam, he has a moderate amplitude tremor in the left hand and leg that i s fairly continuous. He has mild rigidity on the left, and his fingertaps, hand movements, and heel taps are all mildly slowed on the left greater than the right. I did not perform a sensory exam today. He is able to arise from the chair without a pushoff, and he walks wi th a good stride length, mildly stooped posture and fluid turns. He has no retropulsion on a pull test. 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 I think Nima's exam looks a little worse than at his last visit, in that his left-sided Pa rkinsonian tremor seems more continuous, but he continues to have very slow progression. We have been talking about starting Parkinson's medications for 2 years, but he remains reluct ant to take this step. I don't want to push him before he is ready, but I strongly encourage d him to call me between appointments if he is not doing well. As mentioned, he seemed quite depressed at his last visit, and scored within the clinically significant range on the BEN-D. I note that his score on this depression melvin is normal to day, concordant with my clinical impression of improved mood. KRISHNA MCMAHON MD documented in this enco unter Plan of Treatment Not on filedocumented as of this encounter Visit Diagnoses + + | Diagnosis | + + | Parkinson disease (HCC) Paralysis agitans | + + | Benign essential tremor Essential and other specified forms of tremor | + + documented in this encounter
--- OUTSIDE RECORDS SUMMARY | ~2020-02-18 | XMS | Encounter Summary ---
Demographics + + + | Address | [address] | | | [place] [address] | + + + | Home Phone [...] Team Providers + +------+ + | Care Braille Typist Name | Role | Phone | + [...] Disorders Clinic | MD [address] | ([facility]); Benign | | | | [address] | [address] | Essential Tremor | | | | Loop Mailcode: OP32 | [place] [address] | | | | | Outpatient Clinic | [phone] | | | | | [facility], | | | | | | [place] [address] | | | | | | [phone] | | | +--------+---------+ + + + [...]
--- OUTSIDE RECORDS SUMMARY | ~2020-02-18 | XMS | Encounter Summary ---
Demographics + + + | Address | [address] | | | [place] [address] | + + + | Home Phone | | + + + | Preferred Language | Unknown | + + + | Marital Status | | + + + | Amish Affiliation | Unknown | + + + | Race | Unknown | + + + | Ethnic Group | Unknown | + + + Author + + + | Author | [facility] | | | and [place] | + + + | Organization | [facility] | | | and [place] | + + + | Address | Unknown | + + + | Phone | Unavailable | + + + Support + + + + + | Name | Relationship | Address | Phone | + + + + + | Mati Moody | YO[place]NA | [place] | | | | | [address] | | + + + + + | Ayde Rojas | ECON | [place] | | | | | [address] | | + + + + + Care Team Providers + +------+ + | Care Glassine Machine Tender Name | Role | Phone [...] + + | 08/07/ | Telephone | [facility] | Leslie Caballero, | Referral | | 2019 | | NEUROLOGY [address] | | | | | [address] | [facility] | | | | | [place], [place] | [place] [address] | | | | | [address] | [phone] | | | | | [phone] | | | +--------+ + + + [...] | | | | | [place] [address] | | | | | | [phone] | | | | | | | [...]
--- OUTSIDE RECORDS SUMMARY | ~2020-02-18 | XMS | Encounter Summary ---
Demographics + + + | Address | [address] | | | [place] [address] | + + + | Home Phone [...] Team Providers + +------+ + | Care President + Publisher Name | Role | Phone | + [...] [address] | | | | | [facility] | [facility] | | | | | and Healing [address] | [place] [address] | | | | | [address] Mailcode: | [phone] | | | | | [address] | | | | | | Health and Healing, | | | | | | Building [address] | | | | | | [place], [place] | | | | | | [address] | | | | | | [phone] | | | +--------+--------+ + + + [...]
--- OUTSIDE RECORDS SUMMARY | ~2020-02-18 | XMS | Encounter Summary ---
Demographics + + + | Address | [address] | | | [place] [address] | + + + | Home Phone [...] Team Providers + +------+ + | Care Skein Inspector Name | Role | Phone | [...] | | Loop Mailcode: OP32 | [facility] [place] [place] [address] | | | | | Outpatient Clinic | [phone] | | | | | Building [place], | | | | | | [place] [address] | | | | | | [phone] | | | +--------+ + + + [...]
--- OUTSIDE RECORDS SUMMARY | ~2020-02-18 | XMS | Encounter Summary ---
Demographics + + + | Address | [address] | | | [place] [address] | + + + | Home Phone | | + + + | Preferred Language | Unknown | + + + | Marital Status | | + + + | Religion Affiliation | Unknown | + + + | Race | Unknown | + + + | Ethnic Group | Unknown | + + + Author + + + | Author | [facility] | | | and [place] | + + + | Organization | [facility] | | | and [place] | + + + | Address | Unknown | + + + | Phone | Unavailable | + + + Support + + + + + | Name | Relationship | Address | Phone | + + + + + | Mati Moody | YOANNA | [place] | | | | | [address] | | + + + + + | Ayde Rojas | ECON | [place] | | | | | [address] | | + + + + + Care Team Providers + +------+ + | Care Welder Gas Automatic Name | Role | Phone | + [...] | | | [address] | [place] [address] | | | | | [place] [address] | | | | | | [phone] | | | +--------+ + + + [...] | | | | | [place] [address] | | | | | | [phone] | | | | | | | [...] [place] | | | | | | [address] | | | | | | | [...]
--- OUTSIDE RECORDS SUMMARY | ~2020-02-18 | XMS | Encounter Summary ---
Demographics + + + | Address | [address] | | | [place] [address] | + + + | Home Phone | | + + + | Preferred Language | Unknown | + + + | Marital Status | | + + + | Episcopal Affiliation | Unknown | + + + | Race | Unknown | + + + | Ethnic Group | Unknown | + + + Author + + + | Author | [facility] | | | and [place] | + + + | Organization | [facility] | | | and [place] | + + + | Address | Unknown | + + + | Phone | Unavailable | + + + Support + + + + + | Name | Relationship | Address | Phone | + + + + + | Mati Moody | YOANNA | [place] | | | | | [address] | | + + + + + | Ayde Rojas | ECON | [place] | | | | | [address] | | + + + + + Care Team Providers + +------+ + | Care Asphalt Still Operator Name | Role | Phone | + +------+ + | Adina Lloyd MD | PCP | | + +------+ + Encounter Details +--------+ + + + + | Date | Type | Department | Care Team | Description | +--------+ + + + + | 03/16/ | Hospital | [facility] | Sherrell Hadley | | | 2019 | Encounter | MED CTR RADIATION | M, [address] | | | | | ONCOLOGY [address] [place], [place] | | | | | [place], | [address] | | | | | [place] [address] | | | | | | [phone] | | | +--------+ + + + [...] | | | | | [place] [address] | | | | | | [phone] | | | | | | | [...]
--- OUTSIDE RECORDS SUMMARY | ~2020-02-18 | XMS | Encounter Summary ---
Demographics + + + | Address | [address] | | | [place] [address] | + + + | Home Phone [...] Team Providers + +------+ + | Care Pyroglazer Name | Role | Phone | + [...] [address] | | | | | [facility] | [facility] [place] | | | | | and Healing [address] | [address] | | | | | [address] Mailcode: | [phone] | | | | | [address] | | | | | | Health and Healing, | | | | | | Building [address] | | | | | | [facility] [place] | | | | | | [address] | | | | | | [phone] | | | +--------+--------+ + + + [...]
--- OUTSIDE RECORDS SUMMARY | ~2020-02-18 | XMS | Encounter Summary ---
Demographics + + + | Address | [address] | | | [place] [address] | + + + | Home Phone | | + + + | Preferred Language | Unknown | + + + | Marital Status | | + + + | Sikh Affiliation | Unknown | + + + | Race | Unknown | + + + | Ethnic Group | Unknown | + + + Author + + + | Author | [facility] | | | and [place] | + + + | Organization | [facility] | | | and [place] | + + + | Address | Unknown | + + + | Phone | Unavailable | + + + Support + + + + + | Name | Relationship | Address | Phone | + + + + + | Mati Moody | YOANNA | [place] | | | | | [address] | | + + + + + | Ayde Rojas | ECON | [place] | | | | | [address] | | + + + + + Care Team Providers + +------+ + | Care Energy Conservation Technician Name | Role | Phone | + +------+ + | Adina Lloyd MD | PCP | | + +------+ + Encounter Details +--------+ + + + + | Date | Type | Department | Care Team | Description | +--------+ + + + + | 02/14/ | Hospital | [facility] | Sherrell Hadley | | | 2019 | Encounter | MED CTR RADIATION | M, [address] | | | | | ONCOLOGY [address] [place], [place] | | | | | [place], | [address] | | | | | [place] [address] | | | | | | [phone] | | | +--------+ + + + [...] | | | | | [place] [address] | | | | | | [phone] | | | | | | | [...]
--- OUTSIDE RECORDS SUMMARY | ~2020-02-18 | XMS | Encounter Summary ---
Demographics + + + | Address | [address] | | | [place] [address] | + + + | Home Phone [...] + + | Author | [facility] | + + + | Organization | [facility] | + + + | [...] Team Providers + +------+ + | Care Gynecologist Name | Role | Phone | + [...] | | | | REQUEST TO | [facility] | [facility] | | | | | SURGERY | Rd | Rd [place], | | | | | BATCHMAKER | [place], [place] | [place] | | | | | [place] | [address] | [address] | | | | | LAP,PROSTATE | Phone: | Phone: | | | | | CTOMY,RADICA | [phone] | [phone] | | | | | L,W/NERVE | Fax: | Fax: | | | | | [place] | [phone] | [phone] | | | | | LAP,PELVIC | [...] | 10/17/ | Telephone | Urology at [facility] | [place], | Surgery | | 2018 | | [address] | Adeel Stephens MD | | | | | Mailcode: [id number] | [address] | | | | | [facility] | Park [facility], | | | | | and Healing, | [place] [address] | | | | | Building | [phone] | | | | | Floor [place], [place] | | | | | | [address] | | | | | | [phone] | | | +--------+ + + + [...]
--- OUTSIDE RECORDS SUMMARY | ~2020-02-18 | XMS | Encounter Summary ---
Demographics + + + | Address | [address] | | | [place] [address] | + + + | Home Phone [...] + | Author | [facility] | | | and [place] | + + + | Organization | [facility] | | | and [place] | + + + | Address | Unknown | + + + | Phone | Unavailable | + + + Support + + + + + | Name | Relationship | Address | Phone | + + + + + | Mati Moody | YOANNA | [place] | | | | | [address] | | + + + + + | Ayde Rojas | ECON | [place] | | | | | [address] | | + + + + + Care Team Providers + +------+ + | Care Remediation Technician Name | Role | Phone | [...] | | | [address] | [place] [address] | | | | | [place] [address] | | | | | | [phone] | | | +--------+ + + + [...] | | | | | [place] [address] | | | | | | [phone] | | | | | | | [...] [place] | | | | | | [address] | | | | | | | [...]
--- OUTSIDE RECORDS SUMMARY | ~2020-02-18 | XMS | Encounter Summary ---
Demographics + + + | Address | [address] | | | [place] [address] | + + + | Home Phone | | + + + | Preferred Language | Unknown | + + + | Marital Status | Single | + + + | Advent Affiliation | CHR | + + + [...] Team Providers + +------+ + | Care Plasterer Rough Name | Role | Phone | + [...] [address] | | | | | [facility] | [place], [place] | | | | | and Healing [address] | [address] | | | | | [address] Mailcode: | [phone] | | | | | [address] [facility] | | | | | | Health and Healing, | | | | | | [facility] | | | | | | [place], [place] | | | | | | [address] | | | | | | [phone] | | | +--------+ + + + [...]
--- OUTSIDE RECORDS SUMMARY | ~2020-02-18 | XMS | Encounter Summary ---
Demographics + + + | Address | [address] | | | [place] [address] | + + + | Home Phone [...] | | | [facility] | [facility] | | | | | and Healing [address] | [place] [address] | | | | | [address] Mailcode: | [phone] | | | | | [address] | | | | | | Health and Healing, | | | | | | Building 1 | | | | | | Floor [place], [place] | | | | | | [address] | | | | | | [phone] | | | +--------+--------+ + + + [...]
--- OUTSIDE RECORDS SUMMARY | ~2020-02-18 | XMS | Encounter Summary ---
Demographics + + + | Address | [address] | | | [place] [address] | + + + | Home Phone | | + + + | Preferred Language | Unknown | + + + | Marital Status | Single | + + + | Yarsani Affiliation | CHR | + + + [...] Team Providers + +------+ + | Care Hurl Shaker Name | Role | Phone | + [...] [address] | ([facility]) (Primary Dx) | | | | [facility] | [facility] [place] | | | | | and Healing [address] | [address] | | | | | [address] Mailcode: | [phone] | | | | | 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 Greater than 50% of the time was spent counseling the patient regarding the above issues. Joslyn Chapa MD Movement Disorders Neurologist [facility] documented in this e ncounter Plan of Treatment Not on filedocumented as of this encounter Visit Diagnoses + + | Diagnosis | + + | Parkinson disease (HCC) - Primary Paralysis agitans | + + documented in this encounter
--- OUTSIDE RECORDS SUMMARY | ~2020-02-18 | XMS | Encounter Summary ---
Demographics + + + | Address | [address] | | | [place] [address] | + + + | Home Phone | | + + + | Preferred Language | Unknown | + + + | Marital Status | | + + + | Hinduism Affiliation | Unknown | + + + | Race | Unknown | + + + | Ethnic Group | Unknown | + + + Author + + + | Author | [facility] | | | and [place] | + + + | Organization | [facility] | | | and [place] | + + + | Address | Unknown | + + + | Phone | Unavailable | + + + Support + + + + + | Name | Relationship | Address | Phone | + + + + + | Mati Moody | YOANNA | [place] | | | | | [address] | | + + + + + | Ayde Rojas | ECON | [place] | | | | | [address] | | + + + + + Care Team Providers + +------+ + | Care Ager Operator Name | Role | Phone | [...] | | | | [place] [address] | | | | | | [phone] | | | +--------+ + + + [...] | | | | | [place] [address] | | | | | | [phone] | | | | | | | [...] [place] | | | | | | [address] | | | | | | | | +--------+ + + + + documented as of this encounter Visit Diagnoses Not on filedocumented in this encounter"
--- OUTSIDE RECORDS SUMMARY | ~2020-02-18 | XMS | Encounter Summary ---
Demographics + + + | Address | [address] | | | [place] [address] | + + + | Home Phone [...] Providers + +------+ + | Care Elementary Education Tutor Name | Role | Phone | + [...] | 12/27/ | Telephone | Urology at [facility] | [place], | Post Op Concern | | 2018 | | [address] | Adeel Stephens MD | | | | | Mailcode: [id number] | [address] | | | | | [facility] | Park [facility], | | | | | and Healing, | [place] [address] | | | | | Building | [phone] | | | | | Floor [place], [place] | | | | | | [address] | | | | | | [phone] | | | +--------+ + + + [...]
--- OUTSIDE RECORDS SUMMARY | ~2020-02-18 | XMS | Encounter Summary ---
Demographics + + + | Address | [address] | | | [place] [address] | + + + | Home Phone | | + + + | Preferred Language | Unknown | + + + | Marital Status | | + + + | Adventism Affiliation | Unknown | + + + | Race | Unknown | + + + | Ethnic Group | Unknown | + + + Author + + + | Author | [facility] | | | and [place] | + + + | Organization | [facility] [...] [place] | | | | | [address] | | + + + + + | Ayde Rojas | ECON | [place] | | | | | [address] | | + + + + + Care Team Providers + +------+ + | Care Last Sorter Name | Role | Phone | [...] | ONCOLOGY CLINIC [address] [place], [place] | | | | | [address] | [address] | | | | | [facility] [address] | | | | | | [phone] | | | +--------+ + + + [...] | | | | | [place] [address] | | | | | | [phone] | | | | | | | [...] [place] | | | | | | [address] | | | | | | | [...]
--- OUTSIDE RECORDS SUMMARY | ~2020-02-18 | XMS | Encounter Summary ---
Demographics + + + | Address | [address] | | | [place] [address] | + + + | Home Phone | | + + + | Preferred Language | Unknown | + + + | Marital Status | | + + + | Mandaeism Affiliation | Unknown | + + + | Race | Unknown | + + + | Ethnic Group | Unknown | + + + Author + + + | Author | [facility] | | | and [place] | + + + | Organization | [facility] | | | and [place] | + + + | Address | Unknown | + + + | Phone | Unavailable | + + + Support + + + + + | Name | Relationship | Address | Phone | + + + + + | Mati Moody | YOANNA | [place] | | | | | [address] | | + + + + + | Ayde Rojas | ECON | [place] | | | | | [address] | | + + + + + Care Team Providers + +------+ + | Care Parking Lot Laborer Name | Role | Phone | + [...] | +--------+ + + + + | 02/07/ | Hospital | [facility] | Sherrell Hadley | Prostate cancer | | 2019 | Encounter | MED CTR RADIATION | MD Manish [address] | (HCC) (Primary Dx) | | | | ONCOLOGY CLINIC 401 | [place], [place] | | | | | [address] [facility] | [address] | | | | | [place] [address] | | | | | | [phone] | | | +--------+ + + + [...] + + + | Blood Pressure | 140/67 | 02/07/2019 11:12 AM | | | | | PDT | | + + + + + | Pulse | 95 | 02/07/2019 11:12 AM | | | | | PDT | | + + + + + | Temperature | 36.4 C (97.6 F) | 02/07/2019 11:12 AM | | | | | PDT | | + + + + + | Respiratory Rate | 16 | 02/07/2019 11:12 AM | | | | | PDT | | + + + + + | Oxygen Saturation | 99% | 02/07/2019 11:12 AM | | | | | PDT | | + + + + + | Inhaled Oxygen | - | - | | | Concentration | | | | + + + + + | Weight | 85.2 kg (187 lb 13.3 | 02/07/2019 11:12 AM | | | | oz) | PDT | | + + + + + | Height | - | - | | + + + + + | Body Mass Index | 23.48 | 01/22/2019 10:00 AM | | | [...] encounter Progress Notes Sherrell Hadley MD - 02/07/2019 11:20 AM PDT Radiation Oncology Weekly On Treatment Note Diagnosis: ICD-10-CM ICD-9-CM 1. Prostate cancer (HCC) C61 185 Reason for visit: On treatment evaluation Radiation technical factors: Dose Delivered Dose Planned Fractions Delivered 600 cGy 6800 cGy Images were reviewed this week and results of the review have been recorded in ARIA. Corre ctions were applied as necessary. No Known Allergies Current Outpatient Medications on File Prior to Encounter Medication Sig Dispense Refill amantadine (SYMMETREL) 100 MG TABS Take 100 mg by mouth. carbidopa-levodopa (SINEMET) 25-100 mg per tablet Take 0.5 tablets by mouth 6 times cezar ly. cholecalciferol (VITAMIN D-3) 2000 units TABS Take 2,000 Units by mouth Daily. enalapril (VASOTEC) 20 MG tablet Take 1 tablet by mouth Daily. hydroCHLOROthiazide 25 mg tablet Take 1 tablet by mouth Daily. ketoconazole (NIZORAL) 2% shampoo Apply 1 Dose topically as needed. metoprolol tartrate (LOPRESSOR) 50 mg tablet Take 1 tablet by mouth 2 times daily. niacinamide 500 MG tablet Take 500 mg by mouth 2 times daily (with breakfast & dinner). polyethylene glycol (MIRALAX) powder Take 17 g [...] 0 Wt Readings from Last 3 Encounters: 02/07/19 85.2 kg (187 lb 13.3 oz) 01/22/19 86 kg (189 lb 9.5 oz) Vitals: 02/07/19 1112 BP: 140/67 Pulse: 95 Resp: 16 Temp: 36.4 C (97.6 F) TempSrc: Tympanic SpO2: 99% Weight: 85.2 kg (187 lb 13.3 oz) Physical Exam Constitutional: He appears well-developed and well-nourished. Neurological: He is alert. Psychiatric: He has a normal mood and affect. Physician Assessment: 02/07/2019: Nima Moody started radiation this week. He is feeling well. We reviewed pos sible side-effects and timing. Discussed bowel and bladder habits, his alignment for treatm ent has been good. Toxicities reviewed in nursing note. Disposition: Continue radiation treatment as planned. Sherrell Hadley MD Radiation Oncologist Mary Munguia RN - 02/07/2019 11:15 AM PDTMet with patient today for nurse education. Verbal and written education given to patient regarding general radiation therapy side effects as well as site specific side effects. Reviewed process of OT day for their doctor, all questions at this time were answered. Mary Munguia RN - 02/07/2019 11:15 AM PDT 02/07/19 1113 Gastrointestinal Constipation 1 - Grade 1 Diarrhea 0 - Grade 0 General Disorders and Administration Site Conditions Fatigue 1 - Grade 1 Renal and Urinary Urinary Tract Pain 0 - Grade 0 Performance Status Karnofsky Performance Score 80% documented in this encounter Plan of Treatment [...] | | | | | [place] [address] | | | | | | [phone] | | | | | | | | +--------+ + + + + | 07/03/ | Appointment | Oncology | | | | 2019 | | | | | +--------+ + + + + | 07/03/ | Appointment | Radiation Oncology | Sherrell Hadley | | | 2019 | | | MD Raghav [address] | | | | | | [place], [place] | | | | | | [address] | | | | | | | | +--------+ + + + + documented as of this encounter Visit Diagnoses + + | Diagnosis | + + | Prostate cancer (HCC) - Primary Malignant neoplasm of prostate | + + documented in this encounter"
--- OUTSIDE RECORDS SUMMARY | ~2020-02-18 | XMS | Encounter Summary ---
Demographics + + + | Address | [address] | | | [place] [address] | + + + | Home Phone | | + + + | Preferred Language | Unknown | + + + | Marital Status | | + + + | Synagogue Affiliation | Unknown | + + + | Race | Unknown | + + + | Ethnic Group | Unknown | + + + Author + + + | Author | [facility] | | | and [place] | + + + | Organization | [facility] | | | and [place] | + + + | Address | Unknown | + + + | Phone | Unavailable | + + + Support + + + + + | Name | Relationship | Address | Phone | + + + + + | Mati Moody | YOANNA | [place] | | | | | [address] | | + + + + + | Ayde Rojas | ECON | [place] | | | | | [address] | | + + + + + Care Team Providers + +------+ + | Care Inclusion Intern Name | Role | Phone | + [...] | Prostate | Sherrell M, | [address] | | | | | cancer (HCC) | MD [address] | [place], | | | | | Procedures | [address] | [place] [address] | | | | | CT | [place], | Phone: | | | | | Treatment | [place] [address] | [phone] | | | | | Plan Complex | Phone: | Fax: | | | | | CT TX PLAN | [phone] | [phone] | | | | | | Fax: | | | | | | | [phone] | | +--------+--------+ + + + + [...] | Prostate | Sherrell M, | [place] | | | | | cancer (HCC) | [address] | [place], | | | | | Procedures | [address] | [place] [address] | | | | | CT | [place], | Phone: | | | | | Treatment | [place] [address] | [phone] | | | | | Plan Complex | Phone: | Fax: | | | | | CT TX PLAN | [phone] | [phone] | | | | | | Fax: | | | | | | | [phone] | | +--------+--------+ + + + + Encounter Details +--------+ + + + + | Date | Type | Department | Care Team | Description | +--------+ + + + + | 01/24/ | Hospital | [facility] | Jodieusebiojuliano Sherrell | Prostate cancer | | 2019 | Encounter | MED CTR CT [address] | M, [address] | (HCC) | | | | [place], | [place], [place] | | | | | [place] [address] | [address] | | | | | [phone] | | | +--------+ + + + [...] D | | | | | | [place] [address] | | | | | | [phone] | | | | | | | [...] | | | | [place] | | | | | | [address] | | | | | | | [...]
--- OUTSIDE RECORDS SUMMARY | ~2020-02-18 | XMS | Encounter Summary ---
Demographics + + + | Address | [address] | | | [place] [address] | + + + | Home Phone [...] Team Providers + +------+ + | Care Exceptional Student Education Teacher Name | Role | Phone | [...] | 05/09/ | Telephone | Urology at [facility] | Roxy Boykin Kimberly, | Lab Order | | 2017 | | [address] | [place]UD[place] [address] | | | | | Mailcode: CH10U | Dennis Meng [address] | | | | | [facility] | [place], [place] | | | | | and Connie, | [address] | | | | | Building | [phone] | | | | | Floor [place], [place] | | | | | | [address] | | | | | | [phone] | | | +--------+ + + + [...]
--- OUTSIDE RECORDS SUMMARY | ~2020-02-18 | XMS | Encounter Summary ---
Demographics + + + | Address | [address] | | | [place] [address] | + + + | Home Phone | | + + + | Preferred Language | Unknown | + + + | Marital Status | | + + + | Caodaism Affiliation | Unknown | + + + | Race | Unknown | + + + | Ethnic Group | Unknown | + + + Author + + + | Author | [facility] | | | and [place] | + + + | Organization | [facility] | | | and [place] | + + + | Address | Unknown | + + + | Phone | Unavailable | + + + Support + + + + + | Name | Relationship | Address | Phone | + + + + + | Mati Moody | YOANNA | [place] | | | | | [address] | | + + + + + | Ayde Rojas | ECON | [place] | | | | | [address] | | + + + + + Care Team Providers + +------+ + | Care Transportation Attendant Name | Role | Phone | [...] + + | 02/14/ | Hospital | [facility] | Sherrell Hadley | Prostate cancer | | 2019 | Encounter | MED CTR RADIATION | MD Manish [address] | (HCC) (Primary Dx) | | | | ONCOLOGY CLINIC [address] | [place], [place] | | | | | [address] [facility] | [address] | | | | | [place] [address] | | | | | | [phone] | | | +--------+ + + + [...] | | | | | | [place] [address] | | | | | | [phone] | | | | | | | | +--------+ + + + + | 07/03/ | Appointment | Oncology | | | | 2019 | | | | | +--------+ + + + + | 07/03/ | Appointment | Radiation Oncology | Sherrell Hadley | | | 2019 | | | MD Raghav Hammond | | | | | | [place] | | | | | | [id number] | | | | | | | | +--------+ + + + + documented as of this encounter Visit Diagnoses + + | Diagnosis | + + | Prostate cancer (HCC) - Primary Malignant neoplasm of prostate | + + documented in this encounter"
--- OUTSIDE RECORDS SUMMARY | ~2020-02-18 | XMS | Encounter Summary ---
Demographics + + + | Address | [address] | | | [place] [address] | + + + | Home Phone [...] Team Providers + +------+ + | Care Campaign Marketing Specialist Name | Role | Phone | [...] | 12/18/ | Telephone | Urology at [facility] | Roxy Boykin, | Pathology Report | | 2018 | | [address] | [place] [facility] | | | | | Mailcode: CH10U | [facility] | | | | | [facility] | [place], [place] | | | | | and Connie, | [address] | | | | | [facility] | [phone] | | | | | Floor [place], [place] | | | | | | [address] | | | | | | [phone] | | | +--------+ + + + [...]
--- OUTSIDE RECORDS SUMMARY | ~2020-02-18 | XMS | Encounter Summary ---
Demographics + + + | Address | [address] | | | [place] [address] | + + + | Home Phone [...] Providers + +------+ + | Care Executive Sous Chef Name | Role | Phone | + [...] as of this encounter Progress Notes Interface, Blind Stitch Machine Operator In - 04/09/2005 6:49 PM PDTClinic Date: [...] History: Currently lives in a farm in [place]. He is . He does not smoke, [...] touch, pinprick, proprioception, as well as vibration. Idcchu-ta-rbed reveals a slight action tremor on the left compared to the right. Pzqv-xi-xrcj within normal limits. Gait: The patient has [...] agreement. Nico Cleaning M.D. REGGIE / KUSH [id number] / [id number] / [id number] / [id number] cc: Reji Morales M.D. [address] [id number] signed by Solange, Blind Stitch Machine Operator In at 04/09/2005 6:4 9 PM PDTdocumented in this encounter Plan of Treatment Not on filedocumented as of this encounter Visit Diagnoses Not on filedocumented in this encounter"
--- OUTSIDE RECORDS SUMMARY | ~2020-02-18 | XMS | Encounter Summary ---
Demographics + + + | Address | [address] | | | [place] [address] | + + + | Home Phone [...] Author + + + | Author | [facility] | + + + | Organization | [facility] | + + + | [...] Team Providers + +------+ + | Care Table Worker Name | Role | Phone | [...] | | Disorders Clinic at | [address] [facility] | | | | | [facility] | [facility] | | | | | and Healing [address] | [place] [address] | | | | | Arvin Yanez Mailcode: | [phone] | | | | | [facility] | | | | | | Health and Healing, | | | | | | [facility] 1 | | | | | | Floor [place], [place] | | | | | | [address] | | | | | | [phone] | | | +--------+ + + + [...]
--- OUTSIDE RECORDS SUMMARY | ~2020-02-18 | XMS | Encounter Summary ---
Demographics + + + | Address | [address] | | | [place] [address] | + + + | Home Phone [...] Team Providers + +------+ + | Care Outside Sales Manager Name | Role | Phone [...] (HCC) (Primary Dx) | | | | [facility] | [place], [place] | | | | | and Healing [address] | [address] | | | | | [place] Mailcode: | [phone] | | | | | [id number] | | | | | | Health and Healing, | | | | | | [facility] | | | | | | [place], [place] | | | | | | [address] | | | | | | [phone] | | | +--------+---------+ + + + [...] helping with left foot moveme nts call [phone] Dr. 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 Greater than 50% of the time was spent counseling the patient regarding the above issues. Joslyn Chapa MD Movement Disorders Neurologist [facility] documented in this e ncounter Plan of Treatment Not on filedocumented as of this encounter Visit Diagnoses + + | Diagnosis | + + | Parkinson disease (HCC) - Primary Paralysis agitans | + + documented in this encounter
--- OUTSIDE RECORDS SUMMARY | ~2020-02-18 | XMS | Encounter Summary ---
Demographics + + + | Address | [address] | | | [place] [address] | + + + | Home Phone [...] Providers + +------+ + | Care Manager Voice Name | Role | Phone | + [...] [place] | | | | | | [id number] | | | | | | | [...] | DERMATOPATH | | | MNT) | [address] CLINICAL | | OLOGY | | | [...] [facility] | Mailcode CH5D [address] | [place] [address] | | | DERMATOPATHOLOGY | [address] | | | + + + + + documented in this encounter Visit Diagnoses Not on filedocumented in this encounter"
--- OUTSIDE RECORDS SUMMARY | ~2020-02-18 | XMS | Encounter Summary ---
Demographics + + + | Address | [address] | | | [place] [address] | + + + | Home Phone [...] Team Providers + +------+ + | Care Factory Engineer Name | Role | Phone | [...] as of this encounter Progress Notes Interface, Machine Rough Rounder In - 10/27/2006 6:42 AM PST [id number] / [id number] [facility]: 05/04[facility]2004 Clinic: [facility] [...] next month at the [facility]. Coincidentally, it is being run by RENETTA Mcgraw, with whom Mr. Moody went to school in [facility]! We also spent quite a while discussing whether to initiate treatment of his Parkinson's disease now or defer this. 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 We discussed the upcoming NIH neuroprotection study that will begin at the [facility] in August 2004. I was careful to [...] months. Sherry Mcmahon M.D. PH / HS [id number] / [id number] / [id number] / [id number] cc: Mohinder Morales MD [facility] [address] [place] [address] FAX: [phone] nterface, Machine Rough Rounder In - 04/10/2005 8:24 AM PDT [id number] [facility] Date: 05/04/2004 Clinic: MOVEMENTS [...] be happening next month at the [facility]. Coincidentally, it is being run by RENETTA Mcgraw, with whom Mr. Moody went to school in [place] [facility] We also spent quite a while discussing whether to initiate treatment of his Parkinson's disease now or defer this. 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 We discussed the upcoming NIH neuroprotection study that will begin at the [facility] in August 2004. I was careful [...] months. Sherry Mcmahon M.D. PH / HS [id number] / [id number] / [id number] / [id number] cc: Mohinder Morales MD [facility] [address] [address] FAX: [phone] documented i n this encounter Plan of Treatment Not on filedocumented as of this encounter Visit Diagnoses Not on filedocumented in this encounter
--- OUTSIDE RECORDS SUMMARY | ~2020-02-18 | XMS | Encounter Summary ---
Demographics + + + | Address | [address] | | | [place] [address] | + + + | Home Phone [...] Author + + + | Author | [facility] | + + + | Organization | [facility] | + + + | Address [...] Team Providers + +------+ + | Care Aba Therapist Name | Role | Phone | + [...] LAPAROSCOPIC RADICAL | | | | [facility] | [address] | PROSTATECTOMY WITH | | | | Hospital Admitting | Cecelia Abad [place], | BILATERAL PELVIC | | | | Desk Located on the | [place] [address] | LYMPH NODE | | | | 9th floor | [phone] | DISSECTION | | | | [place], [place] | | | | | | [address] | | | +--------+---------+ + + + [...] can cause constipation, so you may take gvbq-ddk-awgbftm stool softeners (Senok ot-S, Miralax, Colace) following [...] Physician: Adeel Salas MD Patient: CHAUNCEY VICKERS [id number] 24H events/Subjective: BAKARI overnight. Pain is well [...] 0659 12/09/17 0700 - 12/10/17 0659 Shift 2592-3049 3433-5138 24 Hour Total 6139-9627 7260-9213 8347-0794 24 Hour Total I N T A K E [address] 143 3960 565 565 I.V. 538.8 1385 2723.8 375 [...] Salas MD. Nupur Bardales MD Urology Pager [phone] documented in this enc ounter Plan of [...] + + + + + | [facility] Targeter App | [address] | [place] [address] | | | SERVICES, CORE | CECELIA [...] | | | LABORATORY | | | [place] | | | SERVICES, | | | [...] | + + + + + | [facility] | [address] | [place] [address] | | | SERVICES, [facility] | [address] | | | + [...] Surgeon: John | | | MD Waylon Utilization Supervisor: Roxy Boykin PA-C Preoperative | | | [...] running 3-0 v-loc. A | | | 20-Prydeinig catheter was placed, and irrigation showed no | | | extravasation. The robot was then undocked. The fascia of the 12mm | | | delinquent tax collector assistant port was closed with 0-Vicryl using [...] and acted as first | | | delinquent tax collector assistant at the patient | | | | | | s bedside. The resident, Dr. 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 [facility] | | | control console and did not perform assistant banquet manager duties on the | | | robotic-assisted [...] ROLON | [address] | [place], [place] | | | LASHAWN RAYMUNDO OF [place] | [address] | [address] | | | TESTS | | | [...] | | | | | | adenocarcinoma, Ahmeek | | | | | | score [...] | | PATHOLOGY | | | | [id number]. Right Pelvic | | | | | [...] nodes":A | | | | | | abnda-yellow fragment of | | | | | [...] | + + + + + | [facility] | [address] | [place] [address] | | | PATHOLOGY | [address] [...] NELLY ROLON | [address] | [place], [place] | | | ZACKARY [facility] | [address] | [address] | | | TESTS | | | [...]
--- OUTSIDE RECORDS SUMMARY | ~2020-02-18 | XMS | Encounter Summary ---
Demographics + + + | Address | [address] | | | [place] [address] | + + + | Home Phone [...] Team Providers + +------+ + | Care Lpn Rn Name | Role | Phone | + [...] [address] | | | | | [place] [facility] | [address] | | | | | and Healing [address] | [place], [place] | | | | | Arvin Yanez Mailcode: | [address] | | | | | [address] | [phone] | | | | | Health and Healing, | | | | | | [facility] | | | | | | [place], [place] | | | | | | [address] | | | | | | [phone] | | | +--------+ + + + [...]
--- OUTSIDE RECORDS SUMMARY | ~2020-02-18 | XMS | Encounter Summary ---
Demographics + + + | Address | [address] | | | [place] [address] | + + + | Home Phone | | + + + | Preferred Language | Unknown | + + + | Marital Status | Single | + + + | Judaism Affiliation | CHR | + + + [...] Team Providers + +------+ + | Care Skidway Worker Name | Role | Phone | [...] | | | | | | [facility] | | | | | | Hospital Admitting | | | | | | Desk Located on the | | | | | | 9th floor | | | | | | [place], [place] | | | | | | [address] | | | +--------+ + + + [...]
--- OUTSIDE RECORDS SUMMARY | ~2020-02-18 | XMS | Encounter Summary ---
Demographics + + + | Address | [address] | | | [place] [address] | + + + | Home Phone [...] | Author | [facility] | | | and [place] | + + + | Organization | [facility] | | | and [place] | + + + | Address | Unknown | + + + | Phone | Unavailable | + + + Support + + + + + | Name | Relationship | Address | Phone | + + + + + | Mati Moody | YOANNA | [place] | | | | | [address] | | + + + + + | Ayde Rojas | ECON | [place] | | | | | [address] | | + + + + + Care Team Providers + +------+ + | Care Knuckle Strap Sewer Name | Role | Phone | [...] + + + + | 07/05/ | [facility] | [facility] | Sherrell Hadley | Prostate cancer | | 2019 | Encounter | MED CTR RADIATION | MD Manish [address] | (HCC) (Primary Dx) | | | | ONCOLOGY CLINIC [address] | [place], [place] | | | | | [address] | [address] | | | | | [place] [address] | | | | | | [phone] | | | +--------+ + + + [...] He opted for p rostatectomy, performed at [facility] on 12/08/17, final pathology demonstrated pT2 [...] M.D. Radiation Oncologist Department of Radiation Oncology [facility] Office: [phone] documented in this encounter Plan of Treatment [...] D | | | | | | [place] [address] | | | | | | [phone] | | | | | | | [...] [place] | | | | | | [address] | | | | | | | [...]
--- OUTSIDE RECORDS SUMMARY | ~2020-02-18 | XMS | Encounter Summary ---
Demographics + + + | Address | [address] | | | [place] [address] | + + + | Home Phone [...] Providers + +------+ + | Care Yarn Man Name | Role | Phone | [...] (HCC) (Primary Dx) | | | | [facility] | [place], [place] | | | | | and Healing [address] | [address] | | | | | Arvin Yanez Mailcode: | [phone] | | | | | [facility] | | | | | | Health and Healing, | | | | | | [facility] | | | | | | [place], [place] | | | | | | [address] | | | | | | [phone] | | | +--------+---------+ + + + [...] helping with left foot moveme nts call [phone] Dr. 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 Greater than 50% of the time was spent counseling the patient regarding the above issues. Joslyn Chapa MD Movement Disorders Neurologist [facility] documented in this e ncounter Plan of Treatment Not on filedocumented as of this encounter Visit Diagnoses + + | Diagnosis | + + | Parkinson disease (HCC) - Primary Paralysis agitans | + + documented in this encounter
--- OUTSIDE RECORDS SUMMARY | ~2020-02-18 | XMS | Encounter Summary ---
Demographics + + + | Address | [address] | | | [place] [address] | + + + | Home Phone [...] Team Providers + +------+ + | Care Hydrotel Operator Name | Role | Phone | [...] | 12/27/ | Telephone | Urology at [facility] | [place], | Post Op Concern | | 2018 | | [address] | Adeel Stephens MD | | | | | Mailcode: CH10U | [address] [facility] | | | | | [facility] | [facility], | | | | | and Healing, | [place] [address] | | | | | Building | [phone] | | | | | Floor [place], [place] | | | | | | [address] | | | | | | [phone] | | | +--------+ + + + [...]
--- OUTSIDE RECORDS SUMMARY | ~2020-02-18 | XMS | Encounter Summary ---
Demographics + + + | Address | [address] | | | [place] [address] | + + + | Home Phone [...] Providers + +------+ + | Care Metal Bonding Press Operator Name | Role | Phone | [...] | | Disorders Clinic at | [address] [facility] | | | | | [facility] | [facility] | | | | | and Healing [address] | [place] [address] | | | | | [address] Mailcode: | [phone] | | | | | [facility] | | | | | | Health and Healing, | | | | | | [facility] | | | | | | Floor [place], [place] | | | | | | [address] | | | | | | [phone] | | | +--------+ + + + [...]
--- OUTSIDE RECORDS SUMMARY | ~2020-02-18 | XMS | Encounter Summary ---
Demographics + + + | Address | [address] | | | [place] [address] | + + + | Home Phone [...] Team Providers + +------+ + | Care Cash Posting Representative Name | Role | Phone | [...] | | | | | period | [facility] | [facility] | | | | | | Rd | Rd [place], | | | | | | [place], [place] | [place] | | | | | | [address] | [address] | | | | | | Phone: | Phone: | | | | | | [phone] | [phone] | | | | | | Fax: | Fax: | | | | | | [phone] | [phone] | +--------+--------+ + + + + Encounter Details +--------+---------+ + + + | Date | Type | Department | Care Team | Description | +--------+---------+ + + + | 12/20/ | Office | Urology at [facility] | Rn, Uro [address] | Prostate cancer | | 2018 | Visit | [address] | [address] | ([facility]) (Primary Dx) | | | | Mailcode: CH10U | Road [place], [place] | | | | | [facility] | [address] | | | | | and Healing, | | | | | | Building 1, 10th | | | | | | Floor [place], [place] | | | | | | [address] | | | | | | [phone] | | | +--------+---------+ + + + [...] The progress of urinary control is measured fabo-yg-iqbk, or, jhkin-qo-zgyib, not day-by-day. Regaining good urinar y control [...] use Kegel exercises to improve bladder control. [facility] Department of Urology [phone] If you were prescribed Viagra after your [...] the 3rd floor of the [facility]. or * Have the PSA collected close to home at a local lab or primary care provider: Prior to yo ur next appointment you will need to have a PSA collected about 3 days prior to the appointm ent and they can fax us the results to our secure fax at [phone]. Dept. of Urology contact information: [phone] or after hours [phone]. Resources: * [facility] [employer] Society Cancer Resource Navigator, Delmi Davis. Delmi's contact numb er is [phone]. * For information about the Annual [facility] Prostate Cancer Conference please call Kinza Garcia at [phone] or email us at [email or web address]. The Prostate Cancer Support Group at [facility] meets the first Mon of each month at the [facility], [address] [place], [place] [address], 3rd floor conference center in rooms 3171 [...] & Healing. Please call PAULETTE Deleon, at [phone] if you have questions. Prostate Cancer Resources Reading material: Dr. Emanuel Damico's Guide to Surviving Prostate Cancer Prostate and Cancer: A Family Guide to Diagnosis, Treatment, and Survival. By Antolin Jeter M.D. PROMOTING WELLNESS for prostate cancer patients. By Ashly Trejo National Cancer [place]: http://www.cancer.gov/cancertopics/types/prostate The [employer] Cancer Society : http://www.cancer.org Us Too!: http://www.usReapplixo.com/ or http://www.prostatepointers.org The [place] Prostate Society: http://www.ameripros.org The [place] Society of Clinical Oncology: http://www.asco.org The [place] Urological Association: http://www.auanet.org Prostate Cancer Foundation: http://www.prostatecancerfoundation.org [...] LIP via routed encounter ASHLY VALDEZ RN [facility] UROLOGY [facility] UROLOGY AT [facility] [address] [facility] [address] documented in this e ncounter Plan of Treatment Not on filedocumented as of this encounter Visit Diagnoses + + | Diagnosis | + + | Prostate cancer (HCC) - Primary Malignant neoplasm of prostate | + + documented in this encounter"
--- OUTSIDE RECORDS SUMMARY | ~2020-02-18 | XMS | Encounter Summary ---
Demographics + + + | Address | [address] | | | [place] [address] | + + + | Home Phone [...] Team Providers + +------+ + | Care Count Team Clerk Name | Role | Phone | [...] Rd | | | | | | [place], [place] | | | | | | [address] | | | +--------+ + + + [...]
--- OUTSIDE RECORDS SUMMARY | ~2020-02-18 | XMS | Encounter Summary ---
Demographics + + + | Address | [address] | | | [place] [address] | + + + | Home Phone | | + + + | Preferred Language | Unknown | + + + | Marital Status | | + + + | Presybeterian Affiliation | Unknown | + + + | Race | Unknown | + + + | Ethnic Group | Unknown | + + + Author + + + | Author | [facility] | | | and [place] | + + + | Organization | [facility] | | | and [place] | + + + | Address | Unknown | + + + | Phone | Unavailable | + + + Support + + + + + | Name | Relationship | Address | Phone | + + + + + | Mati Moody | YOANNA | [place] | | | | | [address] | | + + + + + | Ayde Rojas | ECON | [place] | | | | | [address] | | + + + + + Care Team Providers + +------+ + | Care Family Nurse Name | Role | Phone | [...] + + | 02/21/ | Hospital | [facility] | Sherrell Hadley | Prostate cancer | | 2019 | Encounter | MED CTR RADIATION | MD Manish [address] | (HCC) (Primary Dx) | | | | ONCOLOGY CLINIC [address] | [place], [place] | | | | | [address] [facility] | [address] | | | | | [place] [address] | | | | | | [phone] | | | +--------+ + + + [...] | | | | | [place] [address] | | | | | | [phone] | | | | | | | [...] | | | | [place] | | | | | | [address] | | | | | | | | +--------+ + + + + documented as of this encounter Visit Diagnoses + + | Diagnosis | + + | Prostate cancer (HCC) - Primary Malignant neoplasm of prostate | + + documented in this encounter"
--- OUTSIDE RECORDS SUMMARY | ~2020-02-18 | XMS | Encounter Summary ---
Demographics + + + | Address | [address] | | | [place] [address] | + + + | Home Phone | | + + + | Preferred Language | Unknown | + + + | Marital Status | | + + + | Jainism Affiliation | Unknown | + + + | Race | Unknown | + + + | Ethnic Group | Unknown | + + + Author + + + | Author | [facility] | | | and [place] | + + + | Organization | [facility] | | | and [place] | + + + | Address | Unknown | + + + | Phone | Unavailable | + + + Support + + + + + | Name | Relationship | Address | Phone | + + + + + | Mati Moody | YOANNA | [place] | | | | | [address] | | + + + + + | Ayde Rojas | ECON | [place] | | | | | [address] | | + + + + + Care Team Providers + +------+ + | Care Grease Worker Name | Role | Phone | [...] | | | ONCOLOGY CLINIC [address] | [place], [place] | | | | | [address] | [id number] | | | | | [place] [address] | | | | | | [phone] | | | +--------+ + + + [...] | | | | | [place] [address] | | | | | | [phone] | | | | | | | [...]
--- OUTSIDE RECORDS SUMMARY | ~2020-02-18 | XMS | Encounter Summary ---
Demographics + + + | Address | [address] | | | [place] [address] | + + + | Home Phone [...] Team Providers + +------+ + | Care Lunch Truck Driver Name | Role | Phone | + [...] [address] | | | | | [place], [place] | [address], | | | | | [address] | [place] [address] | | | | | | [phone] | | | | | | | [...]
--- OUTSIDE RECORDS SUMMARY | ~2020-02-18 | XMS | Encounter Summary ---
Demographics + + + | Address | [address] | | | [place] [address] | + + + | Home Phone [...] Providers + +------+ + | Care Medical Billing Coder Name | Role | Phone | + [...] at | [address] | ([facility]) (Primary Dx) | | | | [facility] | [facility] [address] | | | | | and Healing [address] | [place] [address] | | | | | [address] Mailcode: | [phone] | | | | | [address] | | | | | | Health and Healing, | | | | | | [facility] [address], | | | | | | [place], [place] | | | | | | [address] | | | | | | [phone] | | | +--------+---------+ + + + [...] him doing so well form a general [facility] point of view. He seems to [...]
--- OUTSIDE RECORDS SUMMARY | ~2020-02-18 | XMS | Encounter Summary ---
Demographics + + + | Address | [address] | | | [place] [address] | + + + | Home Phone [...] + | Author | [facility] | | | and [place] | + + + | Organization | [facility] | | | and [place] | + + + | Address | Unknown | + + + | Phone | Unavailable | + + + Support + + + + + | Name | Relationship | Address | Phone | + + + + + | Mati Moody | YOANNA | [place] | | | | | [address] | | + + + + + | Ayde Rojas | ECON | [place] | | | | | [address] | | + + + + + Care Team Providers + +------+ + | Care Soda Worker Name | Role | Phone | [...] | ONCOLOGY CLINIC [address] | [place], [place] | | | | | [address] | [address] | | | | | [place] [address] | | | | | | [phone] | | | +--------+ + + + [...] | | | | | [place] [address] | | | | | | [phone] | | | | | | | [...] [place] | | | | | | [address] | | | | | | | [...]
--- OUTSIDE RECORDS SUMMARY | ~2020-02-18 | XMS | Encounter Summary ---
Demographics + + + | Address | [address] | | | [place] [address] | + + + | Home Phone | | + + + | Preferred Language | Unknown | + + + | Marital Status | | + + + | Taoism Affiliation | Unknown | + + + | Race | Unknown | + + + | Ethnic Group | Unknown | + + + Author + + + | Author | [facility] | | | and [place] | + + + | Organization | [facility] | | | and [place] | + + + | Address | Unknown | + + + | Phone | Unavailable | + + + Support + + + + + | Name | Relationship | Address | Phone | + + + + + | Mati Moody | YOANNA | [place] | | | | | [address] | | + + + + + | Ayde Rojas | ECON | [place] | | | | | [address] | | + + + + + Care Team Providers + +------+ + | Care Manager Laboratory Name | Role | Phone | + [...] | ONCOLOGY CLINIC [address] | [place], [place] | | | | | [address] [place] | [address] | | | | | [place] [address] | | | | | | [phone] | | | +--------+ + + + [...] | | | | | [place] [address] | | | | | | [phone] | | | | | | | | +--------+ + + + + | 07/03/ | Appointment | Oncology | | | | 2019 | | | | | +--------+ + + + + | 07/03/ | Appointment | Radiation Oncology | Sherrell Hadley | | | 2019 | | | MD [address] | | | | | | [place] | | | | | | [address] | | | | | | | [...]
--- OUTSIDE RECORDS SUMMARY | ~2020-02-18 | XMS | Encounter Summary ---
Demographics + + + | Address | [address] | | | [place] [address] | + + + | Home Phone [...] Team Providers + +------+ + | Care Piercer Name | Role | Phone | + [...] (HCC) | [place] | MD [address] | | | | | | CLINIC | [facility] | | | | | | UROLOGY & | [facility] | | | | | | SURGERY [address] | [address] [place], | | | | | | [address] | [place] | | | | | | [place] | [address] | | | | | | [place] | Phone: | | | | | | [address] | [phone] | | | | | | Phone: | Fax: | | | | | | [phone] | [phone] | | | | | | Fax: | | | | | | | [phone] | | +--------+--------+ + + + + Encounter Details +--------+---------+ + + + | Date | Type | Department | Care Team | Description | +--------+---------+ + + + | 02// | Office | Urology at [facility] | [place], | Prostate cancer | | 2018 | Visit | [address] | Adeel Stephens MD | ([facility]) (Primary Dx) | | | | Mailcode: CH10U | [address] | | | | | [facility] | [facility], | | | | | and [facility], | [place] [address] | | | | | Building | [phone] | | | | | [facility], [place] | | | | | | [address] | | | | | | [phone] | | | +--------+---------+ + + + [...] 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
--- OUTSIDE RECORDS SUMMARY | ~2020-02-18 | XMS | Encounter Summary ---
Demographics + + + | Address | [address] | | | [place] [address] | + + + | Home Phone | | + + + | Preferred Language | Unknown | + + + | Marital Status | | + + + | Restorationism Affiliation | Unknown | + + + | Race | Unknown | + + + | Ethnic Group | Unknown | + + + Author + + + | Author | [facility] | | | and [place] | + + + | Organization | [facility] | | | and [place] | + + + | Address | Unknown | + + + | Phone | Unavailable | + + + Support + + + + + | Name | Relationship | Address | Phone | + + + + + | Mati Moody | YOANNA | [place] | | | | | [address] | | + + + + + | Ayde Rojas | ECON | [place] | | | | | [address] | | + + + + + Care Team Providers + +------+ + | Care Inserter Promotional Item Name | Role | Phone | + [...] + + | 03/07/ | Hospital | [facility] | Sherrell Hadley | Prostate cancer | | 2019 | Encounter | MED CTR RADIATION | MD Manish [address] | (HCC) (Primary Dx) | | | | ONCOLOGY CLINIC [address] | [place], [place] | | | | | [address] [facility] | [address] | | | | | [place] [address] | | | | | | [phone] | | | +--------+ + + + [...] D | | | | | | [place] [address] | | | | | | [phone] | | | | | | | [...] [place] | | | | | | [address] | | | | | | | | +--------+ + + + + documented as of this encounter Visit Diagnoses + + | Diagnosis | + + | Prostate cancer (HCC) - Primary Malignant neoplasm of prostate | + + documented in this encounter"
--- OUTSIDE RECORDS SUMMARY | ~2020-02-18 | XMS | Encounter Summary ---
Demographics + + + | Address | [address] | | | [place] [address] | + + + | Home Phone | | + + + | Preferred Language | Unknown | + + + | Marital Status | | + + + | Temple Affiliation | Unknown | + + + | Race | Unknown | + + + | Ethnic Group | Unknown | + + + Author + + + | Author | [facility] | | | and [place] | + + + | Organization | [facility] | | | and [place] | + + + | Address | Unknown | + + + | Phone | Unavailable | + + + Support + + + + + | Name | Relationship | Address | Phone | + + + + + | Mati Moody | YOANNA | [place] | | | | | [address] | | + + + + + | Ayde Rojas | ECON | [place] | | | | | [address] | | + + + + + Care Team Providers + +------+ + | Care Manager Case Management Name | Role | Phone | + [...] | Prostate | Sherrell Hammond, | [address] [place] | | | | | cancer (HCC) | MD [address] | [place], | | | | | Procedures | [address] | [place] [address] | | | | | CT | [place], | Phone: | | | | | Treatment | [place] [address] | [phone] | | | | | Plan Complex | Phone: | Fax: | | | | | CT TX PLAN | [phone] | [phone] | | | | | | Fax: | | | | | | | [phone] | | +--------+--------+ + + + + [...] | | | | | [address] | [address] | [place] [address] | | | | | Procedures | Phone: | Phone: | | | | | [place] OFFICE | [phone] | [phone] | | | | | OUTPATIENT | Fax: | Fax: | | | | | NEW 60 | [phone] | [phone] | | | | | MINUTES NEW | | | | | | | PATIENT | | | +--------+--------+ + + + + Encounter Details +--------+ + + + + | Date | Type | Department | Care Team | Description | +--------+ + + + + | 01/22/ | Hospital | [facility] | Sherrell Hadley | Prostate cancer | | 2019 | Encounter | MED CTR RADIATION | MD Man[address] | (HCC) (Primary Dx); | | | | ONCOLOGY CLINIC [address] | [place], [place] | History of radical | | | | [address] [place] [address] | [address] | prostatectomy | | | | [place] [address] | | | | | | [phone] | | | +--------+ + + + [...] August 2017. Prostate biopsy on 09/14/17 identified [place] 4+4 = 8 involving 6 22% of core tissue, detailed below. He opted for p rostatectomy, performed at [facility] on 12/08/17, final pathology demonstrated pT2 pN0, [place] 3+ 4=7, negative margin, +PNI. Immediate postoperative [...] results. 12/15/17 CT pelvis with contrast at [facility]. Dilated bowel, consistent with ileus. Bilateral obturator lymphoceles. No adenopathy. No malignant appearing bone changes. Pathology: 09/14/17 prostate biopsy Left base: Benign Left mid: Kim 3+3 =6, 6% Left apex: Kim 3+3 =6, 9% Right base: [place] 3+3 equal 6, 21% Right mid: [place] 3+4 = 7, 17% Right apex: [place] 4+4 = 8, 22% Left transition zone: benign Right transition zone: benign 12/08/17 prostatectomy SPECIMEN Procedure:Radical prostatectomy Prostate Size: Prostate Weight (g):41 g Prostate Greatest Dimension in Centimeters (cm):4.5 Centimeters (cm) Additional Dimension in Centimeters (cm):4 Centimeters (cm) Additional Dimension in Centimeters (cm):4 Centimeters (cm) TUMOR Histologic Type:Acinar adenocarcinoma Kim Pattern: Percentage of Pattern 4:20 % Primary [place] Pattern:Pattern 3 Secondary Kim Pattern:Pattern 4 Tertiary [place] Pattern:Not applicable Total [place] Score:7 Grade Group:2 Intraductal Carcinoma (IDC):Not identified [...] option of adding angina and deprivation. My appeals and generalist clerk has bee n to omit androgen deprivation [...] M.D. Radiation Oncologist Department of Radiation Oncology [facility] Office: [phone] signed by Sherrell Hadley MD at 01/22/2019 [...] | | | | | [place] [address] | | | | | | [phone] | | | | | | | [...] [place] | | | | | | [address] | | | | | | | [...]
--- OUTSIDE RECORDS SUMMARY | ~2020-02-18 | XMS | Encounter Summary ---
Demographics + + + | Address | [address] | | | [place] [address] | + + + | Home Phone [...] Team Providers + +------+ + | Care Communications Project Lead Name | Role | Phone | [...] | Telephone | Urology at [facility] | [place], | Medication; Preop | | 2018 | | [address] | Adeel Stephens MD | | | | | Mailcode: CH10U | [address] | | | | | [facility] | [facility], | | | | | and Healing, | [place] [address] | | | | | [facility] | [phone] | | | | | [place], [place] | | | | | | [address] | | | | | | [phone] | | | +--------+ + + + [...]
--- OUTSIDE RECORDS SUMMARY | ~2020-02-18 | XMS | Encounter Summary ---
Demographics + + + | Address | [address] | | | [place] [address] | + + + | Home Phone [...] Author + + + | Author | [facility] | + + + | Organization | [facility] | + + + | [...] Providers + +------+ + | Care Home Restoration Service Supervisor Name | Role | Phone [...] at | [address] | ([facility]) (Primary Dx) | | | | [facility] | [facility] [place] | | | | | and Healing [address] | [address] | | | | | [address] Mailcode: | [phone] | | | | | [facility] | | | | | | Health and Healing, | | | | | | [facility] 1 | | | | | | Floor [place], [place] | | | | | | [address] | | | | | | [phone] | | | +--------+---------+ + + + [...] spent 30 minutes with the patient in ztxw-sl-gcta time. Greater than 50% of the time was spent counseling the patient regarding the above issues. Joslyn Chapa MD Movement Disorders Neurologist [facility] documented in this e ncounter Plan of Treatment Not on filedocumented as of this encounter Visit Diagnoses + + | Diagnosis | + + | Parkinson disease (HCC) - Primary Paralysis agitans | + + documented in this encounter
--- OUTSIDE RECORDS SUMMARY | ~2020-02-18 | XMS | Encounter Summary ---
Demographics + + + | Address | [address] | | | [place] [address] | + + + | Home Phone | | + + + | Preferred Language | Unknown | + + + | Marital Status | Single | + + + | Worship Affiliation | CHR | + + + [...] Team Providers + +------+ + | Care Marketing Services Specialist Name | Role | Phone | [...] Disorders Clinic | MD [address] | ([facility]); Benign | | | | [address] | [address] | [facility] [place] | | | | Loop Mailcode: OP32 | [place] [address] | | | | | Outpatient Clinic | [phone] | | | | | [facility], | | | | | | [place] [address] | | | | | | [phone] | | | +--------+---------+ + + + [...]
--- OUTSIDE RECORDS SUMMARY | ~2020-02-18 | XMS | Encounter Summary ---
Demographics + + + | Address | [address] | | | [place] [address] | + + + | Home Phone | | + + + | Preferred Language | Unknown | + + + | Marital Status | | + + + | Latter Day Affiliation | Unknown | + + + | Race | Unknown | + + + | Ethnic Group | Unknown | + + + Author + + + | Author | [facility] | | | and [place] | + + + | Organization | [facility] | | | and [place] | + + + | Address | Unknown | + + + | Phone | Unavailable | + + + Support + + + + + | Name | Relationship | Address | Phone | + + + + + | Mati Moody | YOANNA | [place] | | | | | [address] | | + + + + + | Ayde Rojas | ECON | [place] | | | | | [address] | | + + + + + Care Team Providers + +------+ + | Care Focused Factory Manager Name | Role | Phone | [...] + + | 02/07/ | Hospital | [facility] | Sherrell Hadley | Prostate cancer | | 2019 | Encounter | MED CTR RADIATION | MD Man[place] [address] | (HCC) (Primary Dx) | | | | ONCOLOGY CLINIC 401 | [place], [place] | | | | | [address] [facility] | [address] | | | | | [place] [address] | | | | | | [phone] | | | +--------+ + + + [...] | | | | | [place] [address] | | | | | | [phone] | | | | | | | | +--------+ + + + + | 07/03/ | Appointment | Oncology | | | | 2019 | | | | | +--------+ + + + + | 07/03/ | Appointment | Radiation Oncology | Sherrell Hadley | | | 2019 | | | MD Raghav Hammond [address] | | | | | | [place], [place] | | | | | | [address] | | | | | | | | +--------+ + + + + documented as of this encounter Visit Diagnoses + + | Diagnosis | + + | Prostate cancer (HCC) - Primary Malignant neoplasm of prostate | + + documented in this encounter"
--- OUTSIDE RECORDS SUMMARY | ~2020-02-18 | XMS | Encounter Summary ---
Demographics + + + | Address | [address] | | | [place] [address] | + + + | Home Phone [...] Team Providers + +------+ + | Care Quality Assurance/R&D Lab Technician Name | Role | Phone | + +------+ + | Reji Morales MD | PCP | | + +------+ + Encounter Details +--------+ + + + + | Date | Type | Department | Care Team | Description | +--------+ + + + + | 09/26/ | Abstract | Urology at [facility] | [place], | | | 2018 | | [address] | Adeel Stephens MD | | | | | Mailcode: CH10U | [address] | | | | | [facility] | [facility], | | | | | and Healing, | [place] [address] | | | | | [facility] | [phone] | | | | | Floor [place], [place] | | | | | | [address] | | | | | | [phone] | | | +--------+ + + + [...]
--- OUTSIDE RECORDS SUMMARY | ~2020-02-18 | XMS | Encounter Summary ---
Demographics + + + | Address | [address] | | | [place] [address] | + + + | Home Phone [...] Team Providers + +------+ + | Care Neon Molder Name | Role | Phone | + [...] Posey | | | | | [place] [facility] Main | A, PATIENT SERVICES ASSISTANT [address] | | | | | Hospital Admitting | [address] | | | | | Desk Located on the | [place], [place] | | | | | 9th floor | [address] | | | | | [place], [place] | [phone] | | | | | [address] | | | +--------+ + + + [...] 12/09/17 1300 by | | francisco | PATIENT SERVICES ASSISTANT; Left; Hand; 18 g; 12/09/17; | Michael [...]
--- OUTSIDE RECORDS SUMMARY | ~2020-02-18 | XMS | Encounter Summary ---
Demographics + + + | Address | [address] | | | [place] [address] | + + + | Home Phone | | + + + | Preferred Language | Unknown | + + + | Marital Status | Single | + + + | Amish Affiliation | CHR | + + + [...] Team Providers + +------+ + | Care Oliving Machine Operator Name | Role | Phone | + +------+ + | Reji Morales MD | PCP | | + +------+ + Encounter Details +--------+ + + + + | Date | Type | Department | Care Team | Description | +--------+ + + + + | 01/06/ | Document-Sc | UNKNOWN DEPARTMENT | Unknown . | | | 2013 | anned | [address] | | | | | | [address] | | | | | | [place], [place] | | | | | | [address] | | | +--------+ + + + [...]
--- OUTSIDE RECORDS SUMMARY | ~2020-02-18 | XMS | Encounter Summary ---
Demographics + + + | Address | [address] | | | [place] [address] | + + + | Home Phone [...] Phone | + + +---------+ + | aMti Vickers | ECON | Unknown | | + + +---------+ + | Christine Vickers | ECON | Unknown | | + + +---------+ + Care Team Providers + +------+ + | Care Agricultural Research Technologist Name | Role | Phone | [...] + + | 12/08/ | Hospital | [facility] [address] | [place], | | | 2018 - | Encounter | [address] | Adeel Stephens MD | | | | | 12/S31 [facility] | [address] | | | 12/09/ | | [facility] [place], | Cecelia Abad [place], | | | 2017 | | [place] [address] | [place] [address] | | | | | [phone] | [phone] | | | | | | | [...] can cause constipation, so you may take bptt-tgw-pllbfnd stool softeners (Senok ot-S, Miralax, Colace) following [...] Physician: Adeel Salas MD Patient: CHAUNCEY VICKERS [id number] 24H events/Subjective: BAKARI overnight. Pain is well [...] 12/09/17 0612/09/17 0700 - 12/10/17 0659 Shift 9336-2129 4845-1846 24 Hour Total 6567-2169 1654-8473 9574-1562 24 Hour Total I N T A K E [address] 903 9964 565 565 I.V. 538.8 1385 2723.8 375 [...] Salas MD. Nupur Bardales MD Urology Pager [phone] documented in this enc ounter Plan of [...] | + + + + + | [facility] | [address] | [place] [address] | | | SERVICES, CORE | CECELIA [...] | | | LABORATORY | | | SIERRA LEONEAN | | | SERVICES, | | | [...] | + + + + + | [facility] | [address] | [place] [address] | | | [facility] | [address] | | | + [...] Surgeon: John | | | MD [employer] Supervisor: Roxy Boykin PA-C Preoperative | | [...] recent PSA is 5.67ng/dL. 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 A | | | 20-Tajik catheter was placed, and irrigation showed no | | | extravasation. The robot was then undocked. The fascia of the 12mm | | | nutrition assistant port was closed with 0-Vicryl using [...] and acted as first | | | nutrition assistant at the patient | | | | | | s bedside. The resident, Dr. 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 da [facility] | | | control console and did not perform certified ophthalmic surgical assistant duties on the | | | [...] + + + | NELLY ROLON | [address] | [place], [place] | | | LASHAWN RAYMUNDO OF 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 Right Pelvic | | | | | [...] | + + + + + | [facility] | [address] | [place] [address] | | | PATHOLOGY | [address] [...] JAMIAAMELIE | [address] | [place], [place] | | | LASHAWN RAYMUNDO OF [facility] | [facility] | [address] | | | TESTS | | | [...]
--- OUTSIDE RECORDS SUMMARY | ~2020-02-18 | XMS | Encounter Summary ---
Demographics + + + | Address | [address] | | | [place] [address] | + + + | Home Phone [...] Team Providers + +------+ + | Care Bench Hand Machine Name | Role | Phone | [...] Rd | | | | | | [place], [place] | | | | | | [address] | | | +--------+ + + + [...]
--- OUTSIDE RECORDS SUMMARY | ~2020-02-18 | XMS | Encounter Summary ---
Demographics + + + | Address | [address] | | | [place] [address] | + + + | Home Phone | | + + + | Preferred Language | Unknown | + + + | Marital Status | Single | + + + | Buddhism Affiliation | CHR | + + + | Race | White | + + + | Ethnic Group | Not or | + + + Author + + + | Author | [facility] | + + + | Organization | [facility] | + + + | Address [...] Providers + +------+ + | Care Beer Merchant Name | Role | Phone | + [...] [address] | | | | | [facility] | [facility] | | | | | and Healing [address] | [place] [address] | | | | | Arvin Ynaez Mailcode: | [phone] | | | | | [address] | | | | | | Health and Healing, | | | | | | Building 1 | | | | | | Floor [place], [place] | | | | | | [address] | | | | | | [phone] | | | +--------+--------+ + + + [...]
--- OUTSIDE RECORDS SUMMARY | ~2020-02-18 | XMS | Encounter Summary ---
Demographics + + + | Address | [address] | | | [place] [address] | + + + | Home Phone [...] Author + + + | Author | [facility] | + + + | Organization | [facility] | + + + | Address [...] Team Providers + +------+ + | Care Lay Out Former Name | Role | Phone | [...] [id number] | | | | | | [place], [place] | | | | | | [address] | | | | | | [phone] | | | +--------+ + + + [...]
--- OUTSIDE RECORDS SUMMARY | ~2020-02-18 | XMS | Encounter Summary ---
Demographics + + + | Address | [address] | | | [place] [address] | + + + | Home Phone | | + + + | Preferred Language | Unknown | + + + | Marital Status | | + + + | Religion Affiliation | Unknown | + + + | Race | Unknown | + + + | Ethnic Group | Unknown | + + + Author + + + | Author | [facility] | | | and [place] | + + + | Organization | [facility] | | | and [place] | + + + | Address | Unknown | + + + | Phone | Unavailable | + + + Support + + + + + | Name | Relationship | Address | Phone | + + + + + | Mati Moody | YOANNA | [place] | | | | | [address] | | + + + + + | Ayde Rojas | ECON | [place] | | | | | [address] | | + + + + + Care Team Providers + +------+ + | Care Rural Route Carrier Name | Role | Phone | + [...] + + | 02/14/ | Hospital | [facility] | Sherrell Hadley | Prostate cancer | | 2019 | Encounter | MED CTR RADIATION | MD [place] [address] | (HCC) (Primary Dx) | | | | ONCOLOGY CLINIC [address] | [place], [place] | | | | | [address] [facility] | [address] | | | | | [place] [address] | | | | | | [phone] | | | +--------+ + + + [...] | | | | | | [place] [address] | | | | | | [phone] | | | | | | | | +--------+ + + + + | 07/03/ | Appointment | Oncology | | | | 2019 | | | | | +--------+ + + + + | 07/03/ | Appointment | Radiation Oncology | Sherrell Hadley | | | 2019 | | | MD Raghav Hammond | | | | | | [place] | | | | | | [id number] | | | | | | | | +--------+ + + + + documented as of this encounter Visit Diagnoses + + | Diagnosis | + + | Prostate cancer (HCC) - Primary Malignant neoplasm of prostate | + + documented in this encounter"
--- OUTSIDE RECORDS SUMMARY | ~2020-02-18 | XMS | Encounter Summary ---
Demographics + + + | Address | [address] | | | [place] [address] | + + + | Home Phone [...] Providers + +------+ + | Care Control Technician Name | Role | Phone | [...] [address] | | | | | [facility] | [facility] | | | | | and Healing [address] | [place] [address] | | | | | [address] Yane[address] Mailcode: | [phone] | | | | | [address] | | | | | | Health and Healing, | | | | | | Building 1 | | | | | | Floor [place], [place] | | | | | | [address] | | | | | | [phone] | | | +--------+--------+ + + + [...]
--- OUTSIDE RECORDS SUMMARY | ~2020-02-18 | XMS | Encounter Summary ---
Demographics + + + | Address | [address] | | | [place] [address] | + + + | Home Phone [...] Team Providers + +------+ + | Care Resistance Welding Machine Operator Name | Role | Phone [...] [address] | [address] | ([facility]) (Primary Dx) | | | | Mailcode: CH10U | Road [place], [place] | | | | | [facility] | [address] | | | | | and Healing, | | | | | | Building , 10th | | | | | | Floor [place], [place] | | | | | | [address] | | | | | | [phone] | | | +--------+---------+ + + + [...]
--- OUTSIDE RECORDS SUMMARY | ~2020-02-18 | XMS | Encounter Summary ---
Demographics + + + | Address | [address] | | | [place] [address] | + + + | Home Phone [...] | Author | [facility] | | | and [place] | + + + | Organization | [facility] | | | and [place] | + + + | Address | Unknown | + + + | Phone | Unavailable | + + + Support + + + + + | Name | Relationship | Address | Phone | + + + + + | Mati Moody | YOANNA | [place] | | | | | [address] | | + + + + + | Ayde Rojas | ECON | [place] | | | | | [address] | | + + + + + Care Team Providers + +------+ + | Care Milk House Worker Name | Role | Phone | [...] | | | [address] | [place] [address] | | | | | [place] [address] | | | | | | [phone] | | | +--------+ + + + [...] | | | | | [place] [address] | | | | | | [phone] | | | | | | | [...] [place] | | | | | | [address] | | | | | | | [...]
--- OUTSIDE RECORDS SUMMARY | ~2020-02-18 | XMS | Encounter Summary ---
Demographics + + + | Address | [address] | | | [place] [address] | + + + | Home Phone [...] Team Providers + +------+ + | Care Insulator Tester Name | Role | Phone | [...] would like to | | | | [facility] | [address] | talk to Dr. Mcmahon) | | | | and Healing [address] | [place] [address] | | | | | Ar[address] Yane[address] Mailcode: | [phone] | | | | | [address] | | | | | | Health and Healing, | | | | | | Building 1 | | | | | | [place], [place] | | | | | | [address] | | | | | | [phone] | | | +--------+ + + + [...]
--- OUTSIDE RECORDS SUMMARY | ~2020-02-18 | XMS | Encounter Summary ---
Demographics + + + | Address | [address] | | | [place] [address] | + + + | Home Phone | | + + + | Preferred Language | Unknown | + + + | Marital Status | | + + + | Yazdanism Affiliation | Unknown | + + + | Race | Unknown | + + + | Ethnic Group | Unknown | + + + Author + + + | Author | [facility] | | | and [place] | + + + | Organization | [facility] | | | and [place] | + + + | Address | Unknown | + + + | Phone | Unavailable | + + + Support + + + + + | Name | Relationship | Address | Phone | + + + + + | Mati Moody | YOANNA | [place] | | | | | [address] | | + + + + + | Ayde Rojas | ECON | [place] | | | | | [address] | | + + + + + Care Team Providers + +------+ + | Care Movie Machine Operator Name | Role | Phone [...] + + | 02/07/ | Hospital | [facility] | Sherrell Hadley | Prostate cancer | | 2019 | Encounter | MED CTR RADIATION | MD Manish [address] | (HCC) (Primary Dx) | | | | ONCOLOGY CLINIC [address] | [place], [place] | | | | | [address] [facility] | [address] | | | | | [place] [address] | | | | | | [phone] | | | +--------+ + + + [...] mouth as needed. Take 0.5 mg once debroah y as needed,not to exceed more then [...] | | | | | [place] [address] | | | | | | [phone] | | | | | | | | +--------+ + + + + | 07/03/ | Appointment | Oncology | | | | 2019 | | | | | +--------+ + + + + | 07/03/ | Appointment | Radiation Oncology | Sherrell Hadley | | | 2019 | | | MD Raghav Hammond [address] | | | | | | [place], [place] | | | | | | [address] | | | | | | | | +--------+ + + + + documented as of this encounter Visit Diagnoses + + | Diagnosis | + + | Prostate cancer (HCC) - Primary Malignant neoplasm of prostate | + + documented in this encounter"
--- OUTSIDE RECORDS SUMMARY | ~2020-02-18 | XMS | Encounter Summary ---
Demographics + + + | Address | [address] | | | [place] [address] | + + + | Home Phone [...] Team Providers + +------+ + | Care Coal Cager Name | Role | Phone | + [...] CENTER) (Primary Dx) | | | | [facility] | [address] | | | | | and Healing [address] | [place] [address] | | | | | Arvin Yanez Mailcode: | [phone] | | | | | [address] | | | | | | Health and Healing, | | | | | | [facility] 1, 8th | | | | | | Floor [place], [place] | | | | | | [address] | | | | | | [phone] | | | +--------+---------+ + + + [...] with him and is helping on the [email or web address]. His 25 yo so n is living and working in [place]. His 19 yo daughter has been in [...] the clinic, then check in with the [place] [facility] when he gets home. Dr. Morales [...] [place] - 01/16/2007 8:29 AM PDTCES-D: 13 [place]: 3 CG Strain: n/a Irene Rivas RN documented in this encounter Plan of Treatment Not on filedocumented as of this encounter Visit Diagnoses + + | Diagnosis | + + | Parkinson disease (HCC) - Primary Paralysis agitans | + + documented in this encounter
--- OUTSIDE RECORDS SUMMARY | ~2020-02-18 | XMS | Encounter Summary ---
Demographics + + + | Address | [address] | | | [place] [address] | + + + | Home Phone [...] Team Providers + +------+ + | Care Coil Spring Assembler Name | Role | Phone | [...] | | | | | | [address] [facility] | | | | | | Hospital Admitting | | | | | | Desk Located on the | | | | | | 9th floor | | | | | | [place], [place] | | | | | | [address] | | | +--------+ + + + [...]
--- OUTSIDE RECORDS SUMMARY | ~2020-02-18 | XMS | Encounter Summary ---
Demographics + + + | Address | [address] | | | [place] [address] | + + + | Home Phone [...] + | Author | [facility] | | | and [place] | + + + | Organization | [facility] | | | and [place] | + + + | Address | Unknown | + + + | Phone | Unavailable | + + + Support + + + + + | Name | Relationship | Address | Phone | + + + + + | Mati Moody | YOANNA | [place] | | | | | [address] | | + + + + + | Ayde Rojas | ECON | [place] | | | | | [address] | | + + + + + Care Team Providers + +------+ + | Care Assistant Surveyor Name | Role | Phone | + [...] | Prostate | Sherrell M, | [place] | | | | | cancer (HCC) | MD [address] | [place], | | | | | Procedures | [address] | [place] [address] | | | | | CT | [place], | Phone: | | | | | Treatment | [place] [address] | [phone] | | | | | Plan Complex | Phone: | Fax: | | | | | CT TX PLAN | [phone] | [phone] | | | | | | Fax: | | | | | | | [phone] | | +--------+--------+ + + + + [...] | Prostate | Sherrell M, | [place] | | | | | cancer (HCC) | [address] | [place], | | | | | Procedures | [address] | [place] [address] | | | | | CT | [place], | Phone: | | | | | Treatment | [place] [address] | [phone] | | | | | Plan Complex | Phone: | Fax: | | | | | CT TX PLAN | [phone] | [phone] | | | | | | Fax: | | | | | | | [phone] | | +--------+--------+ + + + + Encounter Details +--------+ + + + + | Date | Type | Department | Care Team | Description | +--------+ + + + + | 01/24/ | Hospital | [facility] | Jodieusebiojuliano Sherrell | Prostate cancer | | 2019 | Encounter | MED CTR [address] | M, [address] | (HCC) | | | | [place], | [place], [place] | | | | | [place] [address] | [address] | | | | | [phone] | | | +--------+ + + + [...] D | | | | | | [place] [address] | | | | | | [phone] | | | | | | | [...] | | | | [place] | | | | | | [address] | | | | | | | [...]
--- OUTSIDE RECORDS SUMMARY | ~2020-02-18 | XMS | Encounter Summary ---
Demographics + + + | Address | [address] | | | [place] [address] | + + + | Home Phone [...] Providers + +------+ + | Care Press Clippings Cutter And Paster Name | Role | Phone | + [...] Rd | | | | | | [place], [place] | | | | | | [address] | | | +--------+ + + + [...]
--- OUTSIDE RECORDS SUMMARY | ~2020-02-18 | XMS | Encounter Summary ---
Demographics + + + | Address | [address] | | | [place] [address] | + + + | Home Phone [...] Team Providers + +------+ + | Care Steel Melter Name | Role | Phone | + [...] | 12/07/ | Telephone | Urology at [facility] | [place], | Medication; Preop | | 2018 | | [address] | Adeel Stephens MD | | | | | Mailcode: CH10U | [address] | | | | | [facility] | [facility], | | | | | and Healing, | [place] [address] | | | | | [facility] | [phone] | | | | | [place], [place] | | | | | | [address] | | | | | | [phone] | | | +--------+ + + + [...]
--- OUTSIDE RECORDS SUMMARY | ~2020-02-18 | XMS | Encounter Summary ---
Demographics + + + | Address | [address] | | | [place] [address] | + + + | Home Phone [...] | Author | [facility] | | | and [place] | + + + | Organization | [facility] | | | and [place] | + + + | Address | Unknown | + + + | Phone | Unavailable | + + + Support + + + + + | Name | Relationship | Address | Phone | + + + + + | Mati Moody | YOANNA | [place] | | | | | [address] | | + + + + + | Ayde Rojas | ECON | [place] | | | | | [address] | | + + + + + Care Team Providers + +------+ + | Care Bag Loader Name | Role | Phone | [...] | | | [address] | [place] [address] | | | | | [place] [address] | | | | | | [phone] | | | +--------+ + + + [...] | | | | | [place] [address] | | | | | | [phone] | | | | | | | [...] [place] | | | | | | [address] | | | | | | | [...]
--- OUTSIDE RECORDS SUMMARY | ~2020-02-18 | XMS | Encounter Summary ---
Demographics + + + | Address | [address] | | | [place] [address] [...] Author + + + | Author | [facility] | | | and [place] | + + + | Organization | [facility] | | | and [place] | + + + | Address | Unknown | + + + | Phone | Unavailable | + + + Support + + + + + | Name | Relationship | Address | Phone | + + + + + | Mati Moody | YOANNA | [place] | | | | | [address] | | + + + + + | Ayde Rojas | ECON | [place] | | | | | [address] | | + + + + + Care Team Providers + +------+ + | Care Auricular Therapist Name | Role | Phone | + +------+ + | Adina Lloyd MD | PCP | | + +------+ + Encounter Details +--------+ + + + + | Date | Type | Department | Care Team | Description | +--------+ + + + + | 02/14/ | Hospital | [facility] | Sherrell Hadley | | | 2019 | Encounter | MED CTR RADIATION | M, [address] | | | | | ONCOLOGY [address] | [place], [place] | | | | | [place], | [address] | | | | | [place] [address] | | | | | | [phone] | | | +--------+ + + + [...] | | | | | [place] [address] | | | | | | [phone] | | | | | | | [...]
--- OUTSIDE RECORDS SUMMARY | ~2020-02-18 | XMS | Encounter Summary ---
Demographics + + + | Address | [address] | | | [place] [address] | + + + | Home Phone | | + + + | Preferred Language | Unknown | + + + | Marital Status | | + + + | Moravian Affiliation | Unknown | + + + | Race | Unknown | + + + | Ethnic Group | Unknown | + + + Author + + + | Author | [facility] | | | and [place] | + + + | Organization | [facility] | | | and [place] | + + + | Address | Unknown | + + + | Phone | Unavailable | + + + Support + + + + + | Name | Relationship | Address | Phone | + + + + + | Mati Moody | YOANNA | [place] | | | | | [address] | | + + + + + | Ayde Rojas | ECON | [place] | | | | | [address] | | + + + + + Care Team Providers + +------+ + | Care Supervisor Intermediates Name | Role | Phone | + [...] | ONCOLOGY CLINIC [address] [place], [place] | | | | | [address] | [address] | | | | | [place] [address] | | | | | | [phone] | | | +--------+ + + + [...] | | | | | [place] [address] | | | | | | [phone] | | | | | | | [...] [place] | | | | | | [address] | | | | | | | [...]
--- OUTSIDE RECORDS SUMMARY | ~2020-02-18 | XMS | Encounter Summary ---
Demographics + + + | Address | [address] | | | [place] [address] | + + + | Home Phone | | + + + | Preferred Language | Unknown | + + + | Marital Status | | + + + | Oriental Orthodox Affiliation | Unknown | + + + | Race | Unknown | + + + | Ethnic Group | Unknown | + + + Author + + + | Author | [facility] | | | and [place] | + + + | Organization | [facility] | | | and [place] | + + + | Address | Unknown | + + + | Phone | Unavailable | + + + Support + + + + + | Name | Relationship | Address | Phone | + + + + + | Mati Moody | YOANNA | [place] | | | | | [address] | | + + + + + | Ayde Rojas | ECON | [place] | | | | | [address] | | + + + + + Care Team Providers + +------+ + | Care Film Sound Coordinator Name | Role | Phone | + +------+ + | Adina Lloyd MD | PCP | | + +------+ + Encounter Details +--------+ + + + + | Date | Type | Department | Care Team | Description | +--------+ + + + + | [facility] | [facility] | Sherrell Hadley | | | 2019 | Encounter | MED CTR RADIATION | M, [address] | | | | | ONCOLOGY [address] [place], [place] | | | | | [place], | [address] | | | | | [place] [address] | | | | | | [phone] | | | +--------+ + + + [...] D | | | | | | [place] [address] | | | | | | [phone] | | | | | | | [...]
--- OUTSIDE RECORDS SUMMARY | ~2020-02-18 | XMS | Encounter Summary ---
Demographics + + + | Address | [address] | | | [place] [address] | + + + | Home Phone [...] Team Providers + +------+ + | Care Solar Pool Heating Installer Name | Role | Phone | + [...] [address] | | | | | [facility] | [facility] | | | | | and Healing [address] | [place] [address] | | | | | Arvin Yanez Mailcode: | [phone] | | | | | [address] | | | | | | Health and Healing, | | | | | | Building [address] | | | | | | [place], [place] | | | | | | [address] | | | | | | [phone] | | | +--------+--------+ + + + [...]
--- OUTSIDE RECORDS SUMMARY | ~2020-02-18 | XMS | Encounter Summary ---
Demographics + + + | Address | [address] | | | [place] [address] | + + + | Home Phone | | + + + | Preferred Language | Unknown | + + + | Marital Status | Single | + + + | Islam Affiliation | CHR | + + + [...] Team Providers + +------+ + | Care Dry Cans Back Tender Name | Role | Phone | [...] as of this encounter Progress Notes Interface, Job Forwarder In - 10/27/2006 6:42 AM PST [id number] / [id number] [facility] Date: 05/04/2004 Clinic: MOVEMENTS [...] next month at the [facility]. Coincidentally, it is being run by RENETTA Mcgraw, with whom Mr. Moody went to school in [facility]! We also spent quite a while discussing whether to initiate treatment of his Parkinson's disease now or defer this. 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 We discussed the upcoming NIH neuroprotection study that will begin at the [facility] in August 2004. I was careful to [...] months. Sherry Mcmahon M.D. PH / HS [id number] / [id number] / [id number] / [id number] cc: Mohinder Morales MD [facility] [address] [place] [address] FAX: [phone] nterface, Job Forwarder In - 04/10/2005 8:24 AM PDT [id number] [facility] Date: 05/04/2004 Clinic: MOVEMENTS [...] be happening next month at the [facility]. Coincidentally, it is being run by RENETTA Mcgraw, with whom Mr. Moody went to school in [facility] We also spent quite a while discussing whether to initiate treatment of his Parkinson's disease now or defer this. 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 We discussed the upcoming NIH neuroprotection study that will begin at the [facility] in August 2004. I was careful [...] months. Sherry Mcmahon M.D. PH / HS [id number] / [id number] / [id number] / [id number] cc: Mohinder Morales MD [facility] [address] [address] FAX: [phone] documented i n this encounter Plan of Treatment Not on filedocumented as of this encounter Visit Diagnoses Not on filedocumented in this encounter
--- OUTSIDE RECORDS SUMMARY | ~2020-02-18 | XMS | Encounter Summary ---
Demographics + + + | Address | [address] | | | [place] [address] | + + + | Home Phone [...] Providers + +------+ + | Care Dry Wall Applicator Name | Role | Phone | + [...] | | Disorders Clinic at | [address] | | | | | [facility] | [facility] | | | | | and Healing [address] | [place] [address] | | | | | Arvin Yanez Mailcode: | [phone] | | | | | [facility] | | | | | | Health and Healing, | | | | | | [facility] 1 | | | | | | Floor [place], [place] | | | | | | [address] | | | | | | [phone] | | | +--------+ + + + [...]
--- OUTSIDE RECORDS SUMMARY | ~2020-02-18 | XMS | Encounter Summary ---
Demographics + + + | Address | [address] | | | [place] [address] | + + + | Home Phone [...] Team Providers + +------+ + | Care Tuna Purse Seiner Name | Role | Phone | + [...] as of this encounter Progress Notes Interface, Budget Examiner In - 04/09/2005 6:49 PM PDTClinic Date: [...] History: Currently lives in a farm in [place]. He is . He does not smoke, [...] touch, pinprick, proprioception, as well as vibration. Hkydca-de-kwdj reveals a slight action tremor on the left compared to the right. Qndz-be-spot within normal limits. Gait: The patient has [...] agreement. Nico Cleaning M.D. REGGIE / KUSH [id number] / [id number] / [id number] / [id number] cc: Reji Morales M.D. [address] [id number] signed by Solange, Budget Examiner In at 04/09/2005 6:4 9 PM PDTdocumented in this encounter Plan of Treatment Not on filedocumented as of this encounter Visit Diagnoses Not on filedocumented in this encounter"
--- OUTSIDE RECORDS SUMMARY | ~2020-02-18 | XMS | Encounter Summary ---
Demographics + + + | Address | [address] | | | [place] [address] | + + + | Home Phone [...] Author + + + | Author | [facility] | + + + | Organization | [facility] | + + + | Address [...] Team Providers + +------+ + | Care Rec Therapist Name | Role | Phone | [...] | 04/05/ | Telephone | Urology at [facility] | Yiing, | Post Op | | 2018 | | [address] | Adeel Stephens MD | | | | | Mailcode: CH10U | [address] | | | | | [facility] | [address] [place], | | | | | and Healing, | [place] [address] | | | | | Building | [phone] | | | | | Floor [place], [place] | | | | | | [address] | | | | | | [phone] | | | +--------+ + + + [...]
--- OUTSIDE RECORDS SUMMARY | ~2020-02-18 | XMS | Encounter Summary ---
Demographics + + + | Address | [address] | | | [place] [address] | + + + | Home Phone [...] Team Providers + +------+ + | Care Commercial Loan Closer Name | Role | Phone | + [...] Ar[address] Yanez | [address] | ([facility]) (Primary Dx) | | | | Mailcode: CH10U | Road [place], [place] | | | | | [facility] | [address] | | | | | and Healing, | | | | | | Building , 10th | | | | | | Floor [place], [place] | | | | | | [address] | | | | | | [phone] | | | +--------+---------+ + + + [...]
--- OUTSIDE RECORDS SUMMARY | ~2020-02-18 | XMS | Encounter Summary ---
Demographics + + + | Address | [address] | | | [place] [address] | + + + | Home Phone [...] Providers + +------+ + | Care Oracle Obiee Developer Name | Role | Phone | [...] + + | 12/12/ | Hospital | [address] | [place], | | | 2018 - | Encounter | [address] | [address] | | | | | [facility] | [address] | | | 12/13/ | | [place], [place] | [place], [place] | | | 2018 | | [address] | [address] | | | | | [phone] | [phone] | | | | | | | | | | | | Stacia Schmidt MD | | | | | | [address] | | | | | | [address] | | | | | | [place], [place] | | | | | | [address] | | | | | | [phone] | | | | | | | | | | | | Adeel Salas | | | | | | MD Angelo [address] [facility] | | | | | | [address] | | | | | | [place], [place] | | | | | | [address] | | | | | | [phone] | | | | | | | [...] Zamora MD - 12/13/2017 6:22 AM PDT [facility] RED SURGERY INPATIENT DISCHARGE SUMMARY Author: [...] Dept Phone Center 12/18/2017 1:00 PM Uro Certified Medical Records Coder at [facility] [phone] Urology 01/15/2018 1:15 PM Roxy Boykin Urology at [facility] [phone] Urology Medications: Medication List START taking these [...] can cause constipation, so you may take xazm-nsa-nwlqqgy stool softeners (Senok ot-S, Miralax, Colace) following [...] Dept Phone Center 12/18/2017 1:00 PM Uro Certified Medical Records Coder at [facility] [phone] Urology 01/15/2018 1:15 PM Roxy Boykin Urology at [facility] [phone] Urology Our schedulers will contact you to make an appointment. Your appointment will be on the 10t h floor of the [facility] and [facility]. If you do not hear from our schedulers in [facility] days call the clinic at . Please [...] Dept Phone Center 12/18/2017 1:00 PM Uro Certified Medical Records Coder at [facility] [phone] Urology 01/15/2018 1:15 PM Roxy Boykin Urology at [facility] [phone] Urology Discharging Physician: Leonel Zamora MD Attending Physician: MD LEONEL Crooks MD Urology, PGY1 [facility] documented in t his encounter Medications [...] medical team for this patient and the [facility] UR Committee have agreed after [facility] study that an inpatient admission was not medically necessary. This hospital stay is con verted to an outpatient stay through use of Medicare Condition Code 44. The patient was not ified of this change in writing. The providers involved in this decision were: For patient s primary medical team: Adeel Salas MD For [facility] UR Committee: Lesia Blanchard MD documented in [...] Note | + + | Service Account, ProtoStar Res In Interface - 12/12/2017 10:53 AM [...] | + + + + + | [facility] | [address] | [place] [address] | | | SERVICES, CORE | CECELIA [...] [facility] | [address] | [place] [address] | | | YOLANDA, YISSEL | CECELIA [...] | + + + + + | [facility] | [address] | [place] [address] | | | SERVICES, CORE | CECELIA [...] | | | LABORATORY | | | GABONESE | | | SERVICES, | | | [...] | + + + + + | [facility] | [address] [facility] | [place] [address] | | | SERVICES, CORE | PARK [...]
--- OUTSIDE RECORDS SUMMARY | ~2020-02-18 | XMS | Encounter Summary ---
Demographics + + + | Address | [address] | | | [place] [address] | + + + | Home Phone [...] Providers + +------+ + | Care Assistant Program Director Name | Role | Phone | [...] | | Disorders Clinic at | [address] [facility] | | | | | [facility] | [facility] | | | | | and Healing [address] | [place] [address] | | | | | Arvin Yanez Mailcode: | [phone] | | | | | [facility] | | | | | | Health and Healing, | | | | | | [facility] | | | | | | Floor [place], [place] | | | | | | [address] | | | | | | [phone] | | | +--------+ + + + [...]
--- OUTSIDE RECORDS SUMMARY | ~2020-02-18 | XMS | Encounter Summary ---
Demographics + + + | Address | [address] | | | [place] [address] | + + + | Home Phone | | + + + | Preferred Language | Unknown | + + + | Marital Status | | + + + | Yarsani Affiliation | Unknown | + + + | Race | Unknown | + + + | Ethnic Group | Unknown | + + + Author + + + | Author | [facility] | | | and [place] | + + + | Organization | [facility] | | | and [place] | + + + | Address | Unknown | + + + | Phone | Unavailable | + + + Support + + + + + | Name | Relationship | Address | Phone | + + + + + | Mati Moody | YOANNA | [place] | | | | | [address] | | + + + + + | Ayde Rojas | ECON | [place] | | | | | [address] | | + + + + + Care Team Providers + +------+ + | Care Product Support Technician Name | Role | Phone | [...] + + | 03/13/ | Hospital | [facility] | Sherrell Hadley | Prostate cancer | | 2019 | Encounter | MED CTR RADIATION | MD Manish [address] | (HCC) (Primary Dx) | | | | ONCOLOGY CLINIC [address] | [place], [place] | | | | | [address] [facility] | [address] | | | | | [place] [address] | | | | | | [phone] | | | +--------+ + + + [...] [address] | | | | | | [place] [address] | | | | | | [phone] | | | | | | | [...] [place] | | | | | | [address] | | | | | | | | +--------+ + + + + documented as of this encounter Visit Diagnoses + + | Diagnosis | + + | Prostate cancer (HCC) - Primary Malignant neoplasm of prostate | + + documented in this encounter"
--- OUTSIDE RECORDS SUMMARY | ~2020-02-18 | XMS | Clinical Summary ---
Demographics + + + | Address | [address] | | | [place] [address] | + + + | Home Phone [...] Team Providers + +------+ + | Care Telegraphic Instrument Supervisor Name | Role | Phone | + +------+ + | Reji Morales MD | PCP | | + +------+ + Source Comments NELLY is fully live on both [facility] and [facility] InPatient.[facility] Allergies No Known Allergies Medications + + [...] | | | | all | | [address] | | | | | | dates | | | | + +--------+ +--------+ + +--------+ | BLUE CROSS BLUE | REGENC | [phone] | Effect | [phone] | [address] | PPO | | SHIELD | E BCBS | x | jania | 8 | [address] | | | | | | for | | [place], | | | | MEDICA | | all | | [place] | | | | RE | | dates | | [address] | | | | SUPPLE | | [...] Person | Self | [birth year] | [address] | | | al/Fam | | 1950 | [phone] | [place] [address] | | | cierra | | | 9 (Home) | | + +--------+ +--------+ + + Advance Directives + + + + + | Type | Date Recorded | Patient | Explanation | | | | Glass Designer | | + + + + + | Advance | | | | | Directives and | | | | | Living Will | | | | + + + + + | Power of | | | | | Archery Instructor | | | | + + + [...]
--- OUTSIDE RECORDS SUMMARY | ~2020-02-18 | XMS | Encounter Summary ---
Demographics + + + | Address | [address] | | | [place] [address] | + + + | Home Phone [...] Providers + +------+ + | Care Field Services Director Name | Role | Phone | [...] | 12/21/ | Telephone | Urology at [facility] | Yiing, | Post Op | | 2018 | | [address] | Adeel Stephens MD | | | | | Mailcode: CH10U | [address] | | | | | [facility] | [address] [place], | | | | | and Healing, | [place] [address] | | | | | Building | [phone] | | | | | Floor [place], [place] | | | | | | [address] | | | | | | [phone] | | | +--------+ + + + [...]
--- OUTSIDE RECORDS SUMMARY | ~2020-02-18 | XMS | Encounter Summary ---
Demographics + + + | Address | [address] | | | [place] [address] | + + + | Home Phone | | + + + | Preferred Language | Unknown | + + + | Marital Status | | + + + | Episcopalian Affiliation | Unknown | + + + | Race | Unknown | + + + | Ethnic Group | Unknown | + + + Author + + + | Author | [facility] | | | and [place] | + + + | Organization | [facility] | | | and [place] | + + + | Address | Unknown | + + + | Phone | Unavailable | + + + Support + + + + + | Name | Relationship | Address | Phone | + + + + + | Mati Moody | YOANNA | [place] | | | | | [address] | | + + + + + | Ayde Rojas | ECON | [place] | | | | | [address] | | + + + + + Care Team Providers + +------+ + | Care Mergers And Acquisitions Attorney Name | Role | Phone | + [...] + + | 02/28/ | Hospital | [facility] | Sherrell Hadley | Prostate cancer | | 2019 | Encounter | MED CTR RADIATION | MD Manish [address] | (HCC) (Primary Dx) | | | | ONCOLOGY CLINIC 401 | [place], [place] | | | | | [address] [facility] | [address] | | | | | [place] [address] | | | | | | [phone] | | | +--------+ + + + [...] | | | | | | [facility] [address] | | | | | | [place] [address] | | | | | | [phone] | | | | | | | [...] [place] | | | | | | [address] | | | | | | | | +--------+ + + + + documented as of this encounter Visit Diagnoses + + | Diagnosis | + + | Prostate cancer (HCC) - Primary Malignant neoplasm of prostate | + + documented in this encounter"
--- OUTSIDE RECORDS SUMMARY | ~2020-02-18 | XMS | Encounter Summary ---
Demographics + + + | Address | [address] | | | [place] [address] | + + + | Home Phone [...] + + + | Author | [facility] | + + + | Organization | [facility] | + + + | [...] Team Providers + +------+ + | Care Hide Dropper Name | Role | Phone | + [...] | | | | | | CH10U [place] | | | | | | | [facility] | | | | | | | and Healing, | | | | | | | Building 1, | | | | | | | 10th Floor | | | | | | | [facility] [place] | | | | | | | [address] | | | | | | | Phone: | | | | | | | [phone] | | | | | | | Fax: | | | | | | | [phone] | +--------+--------+ + + + + Encounter Details +--------+---------+ + + + | Date | Type | Department | Care Team | Description | +--------+---------+ + + + | 11/23/ | Office | Urology at [facility] | Rn, Uro [address] | Prostate cancer | | 2018 | Visit | [address] | [address] | ([facility]) (Primary Dx) | | | | Mailcode: CH10U | Road [place], [place] | | | | | [facility] | [address] | | | | | and Healing, | | | | | | Building 1, 10th | | | | | | Floor [place], [place] | | | | | | [address] | | | | | | [phone] | | | +--------+---------+ + + + [...]
--- OUTSIDE RECORDS SUMMARY | ~2020-02-18 | XMS | Encounter Summary ---
Demographics + + + | Address | [address] | | | [place] [address] | + + + | Home Phone [...] Team Providers + +------+ + | Care Automation Clerk Name | Role | Phone | [...] Pharmacy | | | | | | [address] | | | | | | [address] [place], [place] | | | | | | [address] | | | | | | [phone] | | | +--------+ + + + [...]
--- OUTSIDE RECORDS SUMMARY | ~2020-02-18 | XMS | Encounter Summary ---
Demographics + + + | Address | [address] | | | [place] [address] | + + + | Home Phone | | + + + | Preferred Language | Unknown | + + + | Marital Status | | + + + | Quaker Affiliation | Unknown | + + + | Race | Unknown | + + + | Ethnic Group | Unknown | + + + Author + + + | Author | [facility] | | | and [place] | + + + | Organization | [facility] | | | and [place] | + + + | Address | Unknown | + + + | Phone | Unavailable | + + + Support + + + + + | Name | Relationship | Address | Phone | + + + + + | Mati Moody | YOANNA | [place] | | | | | [address] | | + + + + + | Ayde Rojas | ECON | [place] | | | | | [address] | | + + + + + Care Team Providers + +------+ + | Care Logistics Specialist Name | Role | Phone | [...] | | | [address] | [place] [address] | | | | | [place] [address] | | | | | | [phone] | | | +--------+ + + + [...] | | | | | [place] [address] | | | | | | [phone] | | | | | | | [...] [place] | | | | | | [address] | | | | | | | [...]
--- OUTSIDE RECORDS SUMMARY | ~2020-02-18 | XMS | Encounter Summary ---
Demographics + + + | Address | [address] | | | [place] [address] | + + + | Home Phone [...] Team Providers + +------+ + | Care Hatchery Laborer Name | Role | Phone | [...] | | [facility] | [place], [place] | | | | | and Healing [address] | [address] | | | | | [address]ane[address] Mailcode: | [phone] | | | | | CH[facility] | | | | | | Health and Healing, | | | | | | [facility] | | | | | | [place], [place] | | | | | | [address] | | | | | | [phone] | | | +--------+ + + + [...]
--- OUTSIDE RECORDS SUMMARY | ~2020-02-18 | XMS | Encounter Summary ---
Demographics + + + | Address | [address] | | | [place] [address] | + + + | Home Phone [...] Team Providers + +------+ + | Care Cross Tie Maker Name | Role | Phone | [...] | | | | | | [place] [address] | | | +--------+ + + + [...]
--- OUTSIDE RECORDS SUMMARY | ~2020-02-18 | XMS | Encounter Summary ---
Demographics + + + | Address | [address] | | | [place] [address] | + + + | Home Phone | | + + + | Preferred Language | Unknown | + + + | Marital Status | | + + + | Sikhism Affiliation | Unknown | + + + | Race | Unknown | + + + | Ethnic Group | Unknown | + + + Author + + + | Author | [facility] | | | and [place] | + + + | Organization | [facility] | [...] [place] | | | | | [address] | | + + + + + | Ayde Rojas | ECON | [place] | | | | | [address] | | + + + + + Care Team Providers + +------+ + | Care Truck Dispatcher Name | Role | Phone | + [...] + + | 03/07/ | Hospital | [facility] | Sherrell Hadley | Prostate cancer | | 2019 | Encounter | MED CTR RADIATION | MD Manish [address] | (HCC) (Primary Dx) | | | | ONCOLOGY CLINIC [address] | [place], [place] | | | | | [address] [facility] | [address] | | | | | [place] [address] | | | | | | [phone] | | | +--------+ + + + [...] D | | | | | | [place] [address] | | | | | | [phone] | | | | | | | [...] [place] | | | | | | [address] | | | | | | | | +--------+ + + + + documented as of this encounter Visit Diagnoses + + | Diagnosis | + + | Prostate cancer (HCC) - Primary Malignant neoplasm of prostate | + + documented in this encounter"
--- OUTSIDE RECORDS SUMMARY | ~2020-02-18 | XMS | Encounter Summary ---
Demographics + + + | Address | [address] | | | [place] [address] | + + + | Home Phone | | + + + | Preferred Language | Unknown | + + + | Marital Status | | + + + | Faith Affiliation | Unknown | + + + | Race | Unknown | + + + | Ethnic Group | Unknown | + + + Author + + + | Author | [facility] | | | and [place] | + + + | Organization | [facility] | | | and [place] | + + + | Address | Unknown | + + + | Phone | Unavailable | + + + Support + + + + + | Name | Relationship | Address | Phone | + + + + + | Mati Moody | YOANNA | [place] | | | | | [address] | | + + + + + | Ayde Rojas | ECON | [place] | | | | | [address] | | + + + + + Care Team Providers + +------+ + | Care Director Of Teacher Education Name | Role | Phone | + [...] + + | 02/28/ | Hospital | [facility] | Sherrell Hadley | Prostate cancer | | 2019 | Encounter | MED CTR RADIATION | MD Manish [address] | (HCC) (Primary Dx) | | | | ONCOLOGY CLINIC [address] | [place], [place] | | | | | [address] [facility] | [address] | | | | | [place] [address] | | | | | | [phone] | | | +--------+ + + + [...] | | | | | | [facility] [address] | | | | | | [place] [address] | | | | | | [phone] | | | | | | | [...] [place] | | | | | | [address] | | | | | | | | +--------+ + + + + documented as of this encounter Visit Diagnoses + + | Diagnosis | + + | Prostate cancer (HCC) - Primary Malignant neoplasm of prostate | + + documented in this encounter"
--- OUTSIDE RECORDS SUMMARY | ~2020-02-18 | XMS | Encounter Summary ---
Demographics + + + | Address | [address] | | | [place] [address] | + + + | Home Phone | | + + + | Preferred Language | Unknown | + + + | Marital Status | | + + + | Bahai Affiliation | Unknown | + + + | Race | Unknown | + + + | Ethnic Group | Unknown | + + + Author + + + | Author | [facility] | | | and [place] | + + + | Organization | [facility] | [...] [place] | | | | | [address] | | + + + + + | Ayde Rojas | ECON | [place] | | | | | [address] | | + + + + + Care Team Providers + +------+ + | Care Timber Supervisor Name | Role | Phone | [...] + + | 03/21/ | Hospital | [facility] | Sherrell Hadley | Prostate cancer | | 2019 | Encounter | MED CTR RADIATION | MD Manish [address] | (HCC) (Primary Dx) | | | | ONCOLOGY CLINIC [address] | [place], [place] | | | | | [address] [facility] | [address] | | | | | [place] [address] | | | | | | [phone] | | | +--------+ + + + [...] | | | | | [place] [address] | | | | | | [phone] | | | | | | | | +--------+ + + + + | 07/03/ | Appointment | Oncology | | | | 2019 | | | | | +--------+ + + + + | 07/03/ | Appointment | Radiation Oncology | Sherrell Hadley | | | 2019 | | | MD Manish [address] | | | | | | [place], [place] | | | | | | [address] | | | | | | | | +--------+ + + + + documented as of this encounter Visit Diagnoses + + | Diagnosis | + + | Prostate cancer (HCC) - Primary Malignant neoplasm of prostate | + + documented in this encounter"
--- OUTSIDE RECORDS SUMMARY | ~2020-02-18 | XMS | Clinical Summary ---
Demographics + + + | Address | [address] | | | [place] [address] | + + + | Home Phone | | + + + | Preferred Language | Unknown | + + + | Marital Status | | + + + | Hindu Affiliation | Unknown | + + + | Race | Unknown | + + + | Ethnic Group | Unknown | + + + Author + + + | Author | [facility] | | | and [place] | + + + | Organization | [facility] | | | and [place] | + + + | Address | Unknown | + + + | Phone | Unavailable | + + + Support + + + + + | Name | Relationship | Address | Phone | + + + + + | Mati Moody | OYANNA | [place] | | | | | [address] | | + + + + + | Ayde Rojas | ECON | [place] | | | | | [address] | | + + + + + Care Team Providers + +------+ + | Care Photographic Equipment Technician Name | Role | Phone | [...] | | | | | [place] [address] | | | | | | [phone] | | | | | | | [...] [place] | | | | | | [address] | | | | | | | [...] +--------+ +---------+--------+ | MEDICARE | MEDICA | [id number] | 12/11/19 | [phone] | | Medica | | | RE | | 15-Pre | 5 | | re | | | PART A | | sent | | | | | | AND B | | | | | | + +--------+ +--------+ +---------+--------+ | MEDICARE | MEDICA | [id number] | 12/11/19 | [phone] | | Medica | | | RE | | 15-Pre | 5 | | re | | | PART A | | sent | | | | | | AND B | | | | | | + +--------+ +--------+ +---------+--------+ | BCBS | BCBS | [id number] | 09/11/19 | | | Indemn | [...] Person | Self | [birth year] | [address] | | | al/Fam | | 1950 | [phone] | [place] [address] | | | cierra | | | 9 (Home) | | | | | | | [phone] | | | | | | | 9 (Work) | | + +--------+ +--------+ + + | Nima Moody | Person | Self | [birth year] | | [address] | | | al/Fam | | 1950 | [phone] | [place] [address] | | | cierra | | | 9 (Home) | | | | | | | [phone] | | | | | | | 9 (Work) | | + +--------+ +--------+ + + Advance Directives + + + + + | Type | Date Recorded | Patient | Explanation | | | | Behavioral Therapy Coordinator | | + + + + + | Power of | | | | | Financial Director | | | | + + + + + | Advance | | | | | Directive | | | | + + + + +
--- OUTSIDE RECORDS SUMMARY | ~2020-02-18 | XMS | Encounter Summary ---
Demographics + + + | Address | [address] | | | [place] [address] | + + + | Home Phone [...] Team Providers + +------+ + | Care Xray Tech Name | Role | Phone | [...] [address] | | | | | [facility] | [facility] | | | | | and Healing [address] | [place] [address] | | | | | Arvin Yanez Mailcode: | [phone] | | | | | [address] | | | | | | Health and Healing, | | | | | | Building [address]th | | | | | | [place], [place] | | | | | | [address] | | | | | | [phone] | | | +--------+--------+ + + + [...]
--- OUTSIDE RECORDS SUMMARY | ~2020-02-18 | XMS | Encounter Summary ---
Demographics + + + | Address | [address] | | | [place] [address] | + + + | Home Phone [...] Team Providers + +------+ + | Care Sawmill Production Worker Name | Role | Phone | [...] | 12/21/ | Telephone | Urology at [facility] | Yiing, | Post Op | | 2018 | | [address] | Adeel Stephens MD | | | | | Mailcode: [id number] | [address] | | | | | [facility] | [address] [place], | | | | | and Healing, | [place] [address] | | | | | Building | [phone] | | | | | Floor [place], [place] | | | | | | [address] | | | | | | [phone] | | | +--------+ + + + [...]
--- OUTSIDE RECORDS SUMMARY | ~2020-02-18 | XMS | Encounter Summary ---
Demographics + + + | Address | [address] | | | [place] [address] | + + + | Home Phone [...] Team Providers + +------+ + | Care Welding Machine Operator Submerged Arc Name | Role | Phone | + [...] at | [address] | ([facility]) (Primary Dx) | | | | [facility] | [address] | | | | | and Healing [address] | [place] [address] | | | | | Arvin Yanez Mailcode: | [phone] | | | | | [address] | | | | | | Health and Healing, | | | | | | [facility], | | | | | | [place], [place] | | | | | | [address] | | | | | | [phone] | | | +--------+---------+ + + + [...] eeded. 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 His current Parkinson's Disease medications are: Sinemet [...]
--- OUTSIDE RECORDS SUMMARY | ~2020-02-18 | XMS | Encounter Summary ---
Demographics + + + | Address | [address] | | | [place] [address] | + + + | Home Phone [...] Team Providers + +------+ + | Care Finish Cleaner Name | Role | Phone | + [...] Rd | | | | | | [place], [place] | | | | | | [address] | | | +--------+ + + + [...]
--- OUTSIDE RECORDS SUMMARY | ~2020-02-18 | XMS | Encounter Summary ---
Demographics + + + | Address | [address] | | | [place] [address] | + + + | Home Phone [...] Team Providers + +------+ + | Care Contact Center Assistant Name | Role | Phone | + [...] [address] | | | | | | ([facility]) | Ave | | | | | | Hypophonia | [place], [place] | | | | | | Procedures | [address] | | | | | | SPEECH | Phone: | | | | | | THERAPY | [phone] | | | | | | REFERRAL | Fax: | | | | | | | [phone] | | +--------+--------+ + + + + [...] at | [address] | ([facility]); Hypophonia | | | | [facility] | [place], [place] | | | | | and Healing [address] | [address] | | | | | Arvin Yanez Mailcode: | [phone] | | | | | [facility] | | | | | | Health and Healing, | | | | | | [facility] | | | | | | Floor [place], [place] | | | | | | [address] | | | | | | [phone] | | | +--------+---------+ + + + [...] Therapy - Flori Gill and Bella Hollins [phone] or [phone] Continue carbidopa/levodopa 25/100mg up to four times [...] equipment at home, considering spending Kenny in [place] Dyskinesias - left foot can be effected, [...] has 3 children 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 Greater than 50% of the time was spent counseling the patient regarding the above issues. Joslyn Galdamez MD Movement Disorders Neurologist [facility] documented in this enc ounter Plan of Treatment Not on filedocumented as of this encounter Visit Diagnoses + + | Diagnosis | + + | Parkinson disease (HCC) Paralysis agitans | + + | Hypophonia Other voice and resonance disorders | + + documented in this encounter
--- OUTSIDE RECORDS SUMMARY | ~2020-02-18 | XMS | Encounter Summary ---
Demographics + + + | Address | [address] | | | [place] [address] | + + + | Home Phone [...] Team Providers + +------+ + | Care Sliver Chopper Name | Role | Phone | + [...] Disorders Clinic at | [address] | ([facility]) (Primary Dx) | | | | [facility] | [address] | | | | | and Healing [address] | [place] [address] | | | | | Arvin Yanez Mailcode: | [phone] | | | | | [address] | | | | | | Health and Healing, | | | | | | [facility] 1, 8th | | | | | | Floor [place], [place] | | | | | | [address] | | | | | | [phone] | | | +--------+---------+ + + + [...] with him and is helping on the [employer]. His 25 yo so n is living and working in [place]. His 19 yo daughter has been in [...] the clinic, then check in with the [place] [facility] when he gets home. Dr. Morales [...] Morris - 01/16/2007 8:29 AM PDTCES-D: 13 [place]: 3 CG Strain: n/a Irene Rivas RN documented in this encounter Plan of Treatment Not on filedocumented as of this encounter Visit Diagnoses + + | Diagnosis | + + | Parkinson disease (HCC) - Primary Paralysis agitans | + + documented in this encounter
--- OUTSIDE RECORDS SUMMARY | ~2020-02-18 | XMS | Encounter Summary ---
Demographics + + + | Address | [address] | | | [place] [address] | + + + | Home Phone | | + + + | Preferred Language | Unknown | + + + | Marital Status | | + + + | Oriental Orthodox Affiliation | Unknown | + + + | Race | Unknown | + + + | Ethnic Group | Unknown | + + + Author + + + | Author | [facility] | | | and [place] | + + + | Organization | [facility] | | | and [place] | + + + | Address | Unknown | + + + | Phone | Unavailable | + + + Support + + + + + | Name | Relationship | Address | Phone | + + + + + | Mati Moody | YOANNA | [place] | | | | | [address] | | + + + + + | Ayde Rojas | ECON | [place] | | | | | [address] | | + + + + + Care Team Providers + +------+ + | Care Fisheries Biologist Name | Role | Phone | + [...] | | | | [place] [address] | | | | | | [phone] | | | +--------+ + + + [...] | | | | | [place] [address] | | | | | | [phone] | | | | | | | [...] [place] | | | | | | [address] | | | | | | | | +--------+ + + + + documented as of this encounter Visit Diagnoses Not on filedocumented in this encounter"
--- OUTSIDE RECORDS SUMMARY | ~2020-02-18 | XMS | Encounter Summary ---
Demographics + + + | Address | [address] | | | [place] [address] | + + + | Home Phone [...] Team Providers + +------+ + | Care Clinical Project Manager Name | Role | Phone [...] [address] | | | | | [place] [facility] | [facility] | | | | | and Healing [address] | [place] [address] | | | | | Arvin Yanez Mailcode: | [phone] | | | | | [address] | | | | | | Health and Healing, | | | | | | [facility] | | | | | | [place], [place] | | | | | | [address] | | | | | | [phone] | | | +--------+ + + + [...]
--- OUTSIDE RECORDS SUMMARY | ~2020-02-18 | XMS | Encounter Summary ---
Demographics + + + | Address | [address] | | | [place] [address] | + + + | Home Phone [...] Team Providers + +------+ + | Care Hospital Television Rental Clerk Name | Role | Phone | [...] Rd | | | | | | [place], [place] | | | | | | [address] | | | +--------+ + + + [...]
--- OUTSIDE RECORDS SUMMARY | ~2020-02-18 | XMS | Encounter Summary ---
Demographics + + + | Address | [address] | | | [place] [address] | + + + | Home Phone [...] | Author | [facility] | | | and [place] | + + + | Organization | [facility] | | | and [place] | + + + | Address | Unknown | + + + | Phone | Unavailable | + + + Support + + + + + | Name | Relationship | Address | Phone | + + + + + | Mati Moody | YOANNA | [place] | | | | | [address] | | + + + + + | Ayde Rojas | ECON | [place] | | | | | [address] | | + + + + + Care Team Providers + +------+ + | Care Epic Beacon Analyst Name | Role | Phone | [...] | | | [address] | [place] [address] | | | | | [place] [address] | | | | | | [phone] | | | +--------+ + + + [...] | | | | | [place] [address] | | | | | | [phone] | | | | | | | [...] [place] | | | | | | [address] | | | | | | | [...]
--- OUTSIDE RECORDS SUMMARY | ~2020-02-18 | XMS | Encounter Summary ---
Demographics + + + | Address | [address] | | | [place] [address] | + + + | Home Phone [...] Providers + +------+ + | Care Rn Imaging Name | Role | Phone | + [...] [address] | | | | | | [facility] | | | | | | [place], [place] | | | | | | [address] | | | | | | [phone] | | | +--------+ + + + [...]
[2020-02-18] MEDS ORDERED: KETOCONAZOLE120 ML TOP (10:02)
--- NOTE | 2020-02-20 08:09 | OR ---
[facility] [address] [place], [place] [address] Signed DATE OF OPERATION: 02/19/2020 SURGEON: Therese Fletcher MD PREOPERATIVE DIAGNOSIS: Femoral neck fracture, left displaced. POSTOPERATIVE DIAGNOSIS: Femoral neck fracture, left displaced. PROCEDURE PERFORMED: Left bipolar hemiarthroplasty. SHIPPER/RECEIVER: Nisha Sparks PA-C. Nisha was present and critical for all portions of procedure. ANESTHESIA: Spinal. BLOOD LOSS: 150 mL. IMPLANTS: Loreta size 10 stem, 52 x -3 bipolar and head. BRIEF HISTORY: Chauncey is a 70-year-old gentleman with severe history of Parkinson disease. He suffered a ground level fall, landing on his hip laterally. He had pain, was unable to bear weight. He ultimately was transported to the emergency department, where radiographs showed a displaced femoral neck fracture. He was admitted to my service and cleared by the Medicine Service to proceed with surgery. Risks, benefits, and alternatives were discussed with him at length and he understood and wished to proceed. DESCRIPTION OF PROCEDURE: Once consent was obtained, he was taken to the operating room. After adequate anesthesia, he was placed in the right lateral decubitus position. All downside pressure points were well padded. The hip was prepped and draped in a standard sterile fashion. The hip was approached from the standard anterolateral modified Hardinge approach, it was carried through skin and subcutaneous tissue. The IT band was divided Electronically Signed By: THERESE FLETCHER MD 02/20/20 0809 PATIENT NAME: CHAUNCEY VICKERS OPERATIVE REPORT DATE OF : 50 REPORT #: [id number] PHYSICIAN: THERESE FLETCHER MD PCP: HEMANTH TAYLOR MD REPORT IS CONFIDENTIAL AND NOT TO BE RELEASED WITHOUT AUTHORIZATION [facility] [address] [place], [place] [address] Signed longitudinally. The vastus lateralis was split from the tip of the trochanter distally and elevated in a subperiosteal manner around the lesser trochanter. The gluteus medius was then split bluntly from the trochanter to the acetabular rim. The gluteus minimus and capsule were split sharply and elevated off the anterior femoral neck. The fracture was medially in view. The fracture was subcapital fractures of the femoral neck was shortened to one fingerbreadth above the lesser trochanter. The femoral neck piece was removed and the femoral head was removed. The periacetabular soft tissue was cleared and the fracture fragments were removed. Attention was then turned to the proximal femur. Proximal femur was opened using cookie cutter followed by the Charnley awl, it was then sequentially broached up to a 10, which was quite well fitting. The 10 stem was then selected initially, placed in the wound, however, we did recut the femur just a little bit to match the angle. The femoral stem was impacted until it was well-seated, again at one fingerbreadth above the lesser trochanter. The trial -3 head and bipolar were placed, we were unable to reduce them adequately, was then taken off and extensive capsular releases were undertaken, and the final -3 head and bipolar were placed and the hip actually reduced fairly easily. It was taken through range of motion and found to be stable. It was approximately the same leg lengths. The wound was copiously irrigated with antibiotic solution throughout the procedure. A total of 3 L of antibiotic irrigation was used. The capsule was then closed using #1 Vicryl. The vastus and IT band layers were closed independently using #2 Stratafix, 0 Stratafix or the subcutaneous tissue and aniya for the skin. Wound was dressed with a IVON wound VAC dressing and he was placed in a hip abduction brace, taken to the recovery room in satisfactory condition. All sponge, needle, and instruments counts were correct. Therese Fletcher MD BA/MODL /[id number] Copies: ~ Electronically Signed By: THERESE FLETCHER MD 02/20/20 0809 PATIENT NAME: CHAUNCEY VICKERS OPERATIVE REPORT DATE OF : 50 REPORT #: [id number] PHYSICIAN: THERESE FLETCHER MD PCP: HEMANTH TAYLOR MD REPORT IS CONFIDENTIAL AND NOT TO BE RELEASED WITHOUT AUTHORIZATION
[2020-02-20] MEDS ORDERED: MIRALAX119 GM PO (10:49)
--- NOTE | 2020-02-20 11:06 | EKG ---
[facility] [address] [place] [address] Signed Sinus bradycardia Otherwise normal ECG No previous ECGs available Confirmed by HARINDER MARTINEZ MD ([id number]) on 02/20/2020 11:05:52 AM Electronically Signed By: HARINDER MARTINEZ MD 02/20/20 1106 PATIENT NAME: CHAUNCEY VICKERS Electrocardiogram DATE OF : 50 PHYSICIAN: HARINDER MARTINEZ MD REPORT #: [id number] REPORT IS CONFIDENTIAL AND NOT TO BE RELEASED WITHOUT AUTHORIZATION
[2020-02-25] MEDS ORDERED: HYDROCODON-ACE1 EA11 PO (08:25)
--- NOTE | 2020-02-26 10:05 | DS ---
[facility] [address] [place], [place] [address] Signed ADMISSION DATE: 02/18/2020 DISCHARGE DATE: 02/25/2020 ADMISSION DIAGNOSIS: Left hip fracture. DISCHARGE DIAGNOSIS: Left hip fracture. PROCEDURE PERFORMED: During this hospitalization, left bipolar hemiarthroplasty. BRIEF HISTORY: Chauncey is a 70-year-old gentleman with a past history of significant Parkinson disease. He was working out at a [employer] when he sustained a fall landing on his left side. He had inability to bear weight, was transported by EMS to the emergency department, where radiographs showed a displaced femoral neck fracture. Risks and benefits of operative treatment were discussed with him. He was admitted to the hospital and cleared by the Medicine Service, and taken to the operating room the next day. He underwent the procedure with no significant trouble. He has been a little bit slow to mobilize secondary to severe neuromuscular disease. He has mobilized with significant standby assist. He is able to walk only short distances. He does live by himself with minimal family support. We felt that he would be a good candidate for continued inpatient rehab. He will be discharged to the longterm facility with continued rehab for gait strengthening, range of motion. He will be weightbearing as tolerated. Follow up with me in 7-10 days. He was kept on DVT prophylaxis during this hospitalization of SCDs, TEDs, and aspirin 325 p.o. b.i.d. He will be continued on this as well in addition to his pain medication. He did have significant problems with urinary retention prior to the surgery. Postoperatively, his Kaur was in for a couple of days and then removed. He did well initially with his voiding, but he eventually cut where he could not void again. The Kaur was replaced with some difficulty. It was left in place and follow up with his urologist in [place], Dr. Lai. If he has any problems during his senior living stay, he will contact me. Therese Fletcher MD BA/MODL Electronically Signed By: THERESE FLETCHER MD 02/26/20 1005 PATIENT NAME: CHAUNCEY VICKERS DISCHARGE SUMMARY DATE OF : 50 REPORT #: [id number] PHYSICIAN: THERESE FLETCHER MD PCP: HEMANTH TAYLOR MD REPORT IS CONFIDENTIAL AND NOT TO BE RELEASED WITHOUT AUTHORIZATION [facility] [address] [place], [place] [address] Signed /[id number] Copies: ~ Electronically Signed By: THERESE FLETCHER MD 02/26/20 1005 PATIENT NAME: CHAUNCEY VICKERS DISCHARGE SUMMARY DATE OF : 50 REPORT #: [id number] PHYSICIAN: THERESE FLETCHER MD PCP: HEMANTH TAYLOR MD REPORT IS CONFIDENTIAL AND NOT TO BE RELEASED WITHOUT AUTHORIZATION
== END 2020-02-25 09:10 | DRG 470 ==
LOC: ED 09:53 → MS 11:26
PROVIDERS: ADMIT Specialist
PROC: 3E0T3BZ Introduction of Anesthetic Agent into Peripheral Nerves and Plexi, Percutaneous Approach (ICD-10-PCS; 2020-02-19)
PROC: 3E0T33Z Introduction of Anti-inflammatory into Peripheral Nerves and Plexi, Percutaneous Approach (ICD-10-PCS; 2020-02-19)
PROC: 0SRS0JZ Replacement of Left Hip Joint, Femoral Surface with Synthetic Substitute, Open Approach (ICD-10-PCS; principal; 2020-02-19 09:15)
DX: S72.002A Fracture of unspecified part of neck of left femur, initial encounter for closed fracture (principal); G89.18 Other acute postprocedural pain; I25.10 Atherosclerotic heart disease of native coronary artery without angina pectoris; I10 Essential (primary) hypertension; G20 Parkinson's disease; I95.9 Hypotension, unspecified; E80.6 Other disorders of bilirubin metabolism; N40.1 Benign prostatic hyperplasia with lower urinary tract symptoms; R33.8 Other retention of urine; R39.14 Feeling of incomplete bladder emptying; R35.1 Nocturia; Z20.828 Contact with and (suspected) exposure to other viral communicable diseases; W18.30XA Fall on same level, unspecified, initial encounter; Y92.39 Other specified sports and athletic area as the place of occurrence of the external cause; Z79.899 Other long term (current) drug therapy; Z85.46 Personal history of malignant neoplasm of prostate
CPT/HCPCS: 01210; 36415; 51702; 51798; 64450; 71045; 72170; 73502; 76942; 80048; 80053; 82248; 85025; 93005; 93010; 96374; 97110; 97116; 97162; 97166; 97530; 97535; 99285-25; A9270; C1776; C9803; J0690; J1100; J1170; J1885; J2001; J2060; J2250; J2704; J2795; J3480; J7042; J7121; U0002

== ENCOUNTER 2022-02-18 11:50 | Emergency (ER) | payer MEDICARE, BC ==
[~2022-02-18] VITALS: Ht 190.5 cm; Wt 81.7 kg
[~2022-02-18 11:50] MED LIST changes: +HYDROCODON-ACE1 EA11 PO; +KETOCONAZOLE120 ML TOP; +MIRALAX119 GM PO
== END 2022-02-18 14:29 | disposition home or self-care (01) ==
LOC: ED 11:50
DX: U07.1 COVID-19 (principal); G20 Parkinson's disease; I10 Essential (primary) hypertension; Z87.891 Personal history of nicotine dependence; Z79.899 Other long term (current) drug therapy
CPT/HCPCS: 96374; 99283-25

== ENCOUNTER 2023-06-22 09:47 | Emergency (ER) | payer MEDICARE, BC ==
[~2023-06-22] VITALS: Ht 188 cm; Wt 79.4 kg
[2023-06-22 11:43] VITALS: BP 138/91
== END 2023-06-22 11:43 | disposition home or self-care (01) ==
LOC: ED 09:47
DX: S70.02XA Contusion of left hip, initial encounter (principal); S50.312A Abrasion of left elbow, initial encounter; W19.XXXA Unspecified fall, initial encounter; Y93.01 Activity, walking, marching and hiking; Y92.003 Bedroom of unspecified non-institutional (private) residence as the place of occurrence of the external cause; I10 Essential (primary) hypertension; Z87.891 Personal history of nicotine dependence; G20.A1 Parkinson's disease without dyskinesia, without mention of fluctuations
CPT/HCPCS: 73502; 99283-25; A9270